=== PATIENT | female | born 1970 | race Caucasian/White ===

== ENCOUNTER 2019-10-25 15:49 | Emergency (ER) | payer OTHER, SELFPAY ==
[2019-10-25 16:08] VITALS: BP 106/65; PULSE 89; RESP 16; TEMP 37.2; O2SAT 98
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
== END 2019-10-25 16:49 | disposition home or self-care (01) ==
PROVIDERS: Emergency Provider Nurse Practitioner
DX: T24.232A Burn of second degree of left lower leg, initial encounter (principal); T31.0 Burns involving less than 10% of body surface; K58.9 Irritable bowel syndrome, unspecified; G62.9 Polyneuropathy, unspecified; F41.9 Anxiety disorder, unspecified; F17.210 Nicotine dependence, cigarettes, uncomplicated; J45.909 Unspecified asthma, uncomplicated; Z85.41 Personal history of malignant neoplasm of cervix uteri; Z85.42 Personal history of malignant neoplasm of other parts of uterus; Z85.44 Personal history of malignant neoplasm of other female genital organs; Z85.01 Personal history of malignant neoplasm of esophagus; X03.0XXA Exposure to flames in controlled fire, not in building or structure, initial encounter
CPT/HCPCS: 99213; G0463

== ENCOUNTER 2019-11-10 17:16 | Emergency (ER) | payer OTHER, SELFPAY ==
[2019-11-10 17:18] VITALS: BP 117/89; PULSE 72; RESP 18; TEMP 36.6; O2SAT 97
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
== END 2019-11-10 17:24 | disposition left against medical advice (07) ==
PROVIDERS: PCP Family Medicine
DX: M79.662 Pain in left lower leg (principal)
CPT/HCPCS: 99199

== ENCOUNTER 2019-12-27 17:24 | Emergency (ER) | payer OTHER, SELFPAY ==
--- NOTE | ~2019-12-27 | XR_ITS ---
XR chest 2V 12/27/2019 18:41 Indication: Shortness of breath. Cough. COPD. Procedure: 2 view chest Comparison: 09/19/2010 Findings: Heart size normal. No focal air space disease, pulmonary edema, pleural effusion or suspect ed pneumothorax. The lungs are hyperinflated which is consistent with, but not diagnostic of chronic obstructive pulmonary disease. Impression: 1: No acute cardiopulmonary disease. Reviewed, dictated and finalized at location A. Impression: 1: No acute cardiopulmonary disease.
[2019-12-27 17:45] VITALS: BP 112/71; PULSE 78; RESP 20; TEMP 36.6; O2SAT 96
--- NOTE | 2019-12-27 18:08 | ECG_ITS ---
Measurements Intervals [place] Rate: 68 P: 62 [place]: 186 QRS: 83 QRSD: 84 T: 61 QT: 389 QTc: 414 Interpretive Statements SINUS RHYTHM NORMAL ECG Electronically Signed On 12-28-2019 7:17:14 CDT by Eb Thomas D.O.
--- NOTE | 2019-12-27 18:31 | ED.CHESTPAIN ---
HPI - Chest Pain General Chief Complaint: Chest Pain Stated Complaint: Shortness of breath Time Seen by Provider: 12/27/19 18:17 Source: patient and RN notes reviewed Mode of arrival: ambulatory Limitations: no limitations History of Present Illness HPI narrative: Patient presents today complaining of 2-day history of productive cough and shortness of breath. States she has a cough and shortness of breath at baseline due to her COPD, but states her shortness of breath is worse than normal. States her cough is not worse than normal. States that yesterday she had some sternal chest pain without radiation. She is currently pain-free. She has been using her albuterol inhaler more frequently than normal. Denies use of any additional medications for current symptoms. Denies fever, nausea or vomiting, upper respiratory symptoms. States she possibly has been exposed to COVID-19 last week. MD complaint: other (Cough, shortness of breath) Related Data Home Medications Medication Instructions Recorded Confirmed acyclovir 400 mg PO DAILY 10/25/19 12/27/19 albuterol sulfate [ProAir HFA] 2 inh INHALATION Q4-6H 10/25/19 12/27/19 buspirone 10 mg DAILY 10/25/19 12/27/19 clonazepam 1 mg TID 10/25/19 12/27/19 dicyclomine 1 mg DAILY 10/25/19 12/27/19 ergocalciferol (vitamin D2) 1 mcg DAILY 10/25/19 12/27/19 fluticasone propionate [24 Hour See Rx Instructions .ROUTE .COMPLEX 10/25/19 12/27/19 Allergy Relief] montelukast 1 mg DAILY 10/25/19 12/27/19 pregabalin [Lyrica] 100 mg DAILY 10/25/19 12/27/19 umeclidinium [Incruse Ellipta] INHALATION 10/25/19 omeprazole 20 mg DAILY 12/27/19 12/27/19 pregabalin [Lyrica] 150 mg PO HS 12/27/19 12/27/19 Allergies Allergy/AdvReac Type Severity Reaction Status Date / Time ketorolac [From Toradol] Allergy Unknown Verified 12/27/19 18:08 levetiracetam [From Keppra] Allergy Unknown Verified 12/27/19 18:08 Penicillins Allergy Unknown Verified 12/27/19 18:08 tramadol Allergy Unknown Verified 12/27/19 18:08 cephalexin [From Keflex] AdvReac Unknown Verified 12/27/19 18:08 CEPHALEXIN MONOHYDRATE Allergy Mild Unknown Uncoded 12/27/19 18:08 Review of Systems Review of Systems: Narrative: CONSTITUTIONAL: Denies body aches, fever, chills, or sweats. EYES: Denies visual changes, redness, or discharge. ENT: Denies rhinorrhea, congestion, sore throat, or otalgia. CARDIOVASCULAR: Denies chest pain, palpitations, or edema. RESPIRATORY:+ Cough, shortness of breath GASTROINTESTINAL: Denies abdominal pain, nausea, vomiting, or diarrhea. GENITOURINARY: Denies dysuria or hematuria. SKIN: Denies rash, itching, or wounds. MUSCULOSKELETAL: Denies back pain, joint pain, or myalgia. NEUROLOGIC: Denies headache, numbness, tingling, or weakness. PSYCH: Denies depression or anxiety. [facility] Past Medical History Medical History (Updated 12/27/19 @ 18:53 by Vijaya Dudley, [facility], ) COPD (chronic obstructive pulmonary disease) Family History Family History (Updated 10/25/19 @ 16:33 by Codi House CNP) Other Depression Diabetes mellitus Heart disease Hypertension Personality disorder Social History Social History (Updated 10/25/19 @ 16:34 by Codi House CNP) Smoking packs per day: 0.5 Smoking cigarettes per day: 10.0 Smoking status: Current every day smoker Alcohol intake: current Gender identity (if verbalized by the patient): Female Comments At time of signature, I have reviewed and agree with nursing past medical, surgical, social and family history unless otherwise noted. Please see nursing chart for further information. There is no relevant family history pertinent to the presenting complaint Exam Narrative: Exam Narrative: GENERAL: Chronically ill-appearing, well-nourished, and in no acute distress. Strong odor of smoke. HEAD: Normocephalic, atraumatic. EYES: EOMI. No redness or drainage. Conjunctivae normal. ENT: Mucous membranes pink and moist. Nares clear. No rhin
== END 2019-12-27 19:13 | disposition home or self-care (01) ==
PROVIDERS: Emergency Provider Nurse Practitioner; PCP Family Medicine
DX: J44.1 Chronic obstructive pulmonary disease with (acute) exacerbation (principal); Z20.828 Contact with and (suspected) exposure to other viral communicable diseases; F17.210 Nicotine dependence, cigarettes, uncomplicated; F41.9 Anxiety disorder, unspecified; F32.9 Major depressive disorder, single episode, unspecified; G62.9 Polyneuropathy, unspecified; Z85.01 Personal history of malignant neoplasm of esophagus; Z85.43 Personal history of malignant neoplasm of ovary; Z85.41 Personal history of malignant neoplasm of cervix uteri; Z85.44 Personal history of malignant neoplasm of other female genital organs
CPT/HCPCS: 71046; 93005; 99213; G0463

== ENCOUNTER 2020-10-19 21:06 | Emergency (ER) | payer MEDICARE, MEDICAID, SELFPAY ==
--- NOTE | ~2020-10-19 | XR_ITS ---
XR chest 2V DATE: 10/19/2020 21:36 INDICATION: Shortness of breath. History of COPD, bronchitis. Smoker. TECHNIQUE: AP and lateral views COMPARISON: 12/27/2019 PA and lateral chest FINDINGS: Normal heart size. No hilar or mediastinal enlargement. Mild bilateral hyperinflation. No pulmonary infiltrate or consolidation, pleural effusion or pulmonar y vascular congestion or pneumothorax. Included skeletal structures are unremarkable. IMPRESSION: Mild bilateral hyperinflation; no active cardiac pulmonary disease Reviewed, dictated and finalized at location A.
[2020-10-19 21:15] VITALS: BP 125/79; PULSE 113; RESP 24; TEMP 36.7; O2SAT 86
--- NOTE | 2020-10-19 21:15 | ECG_ITS ---
Measurements Intervals [place] Rate: 101 P: 74 MN: 166 QRS: 91 QRSD: 86 T: 66 QT: 345 QTc: 448 Interpretive Statements SINUS TACHYCARDIA POSSIBLE LEFT ATRIAL ENLARGEMENT RIGHT AXIS DEVIATION BASELINE ARTIFACT- I, II, III, AVR, AVL, AVF, V1-V6 BORDERLINE ECG Electronically Signed On 10-20-2020 6:55:37 CDT by Eb Thomas D.O.
[2020-10-19 21:34] LABS: Basophils Absolute Auto 0.1 K/mm3 (0.0-0.1); Basophils Percent Auto 0.7 % (0.2-1.2); Eosinophils Absolute Auto 0.4 K/mm3 (0-0.3); Eosinophils Percent Auto 3.2 % (0-4.4); Hematocrit 43.7 % (37.0-47.0); Hemoglobin 14.1 g/dL (12.0-15.0); Immature Granulocyte Absolute 0.07 K/mm3 (0.00-0.031); Immature Granulocyte Percent A 0.6 % (0-0.5); Lymphocytes Absolute Auto 4.44 K/mm3 (0.9-3.2); Mean Corpuscular HGB Conc 32.3 g/dl (32-36); Mean Corpuscular Hemoglobin 29.5 pg (26-34); Mean Corpuscular Volume 91.4 fl (80-100); Mean Platelet Volume 9.7 fl (7.4-10.4); Monocytes Absolute Auto 1.2 K/mm3 (0.1-0.6); Monocytes Percent Auto 9.9 % (2.6-8.5); Neutrophils Absolute Auto 6.1 K/mm3 (1.3-6.7); Neutrophils Percent Auto 49.6 % (45.5-73.1); Platelet Count Result 308 k/mm3 (150-375); Red Blood Count 4.78 M/mm3 (4.2-5.4); Red Cell Distribution Width 15.4 % (11.5-14.5); White Blood Count 12.4 K/mm3 (4.5-10.0)
[2020-10-19 21:41] LABS: Anion Gap 7 mmol/L (8-16); Blood Urea Nitrogen 12 mg/dL (7-17); Calcium 8.7 mg/dL (8.4-10.2); Carbon Dioxide 29 mmol/L (22-30); Chloride 105 mmol/L (98-107); Estimated CRCL calculation 59 ml/min; Estimated Glomerular Filt Rate > 60; Glucose 113 mg/dL (65-105); Potassium 4.1 mmol/L (3.4-5.0); Sodium 141 mmol/L (137-145)
[2020-10-19] MEDS: IPRATROPIUM BR 0.02% INH SOLN 0.5 MG/2.5 ML VIAL INHALATION (21:55)
[2020-10-19] MEDS: ALBUTEROL SULFATE NEB 2.5 MG/0.5 ML INH 5 MG INHALATION (21:56)
[2020-10-19 22:02] VITALS: PULSE 91; RESP 23
[2020-10-19 22:07] LABS: Alveolar/Arterial O2 Gradient 63.3 mmHg; Base Excess ABG 1.4 mEq/l (+/-2.0); Device NASAL CANNULA; Fractional Inspired Oxygen 28 %; HCO3 ABG 27.9 mEq/l (22.0-26.0); Modified Allen's Test Pass; Oxygen Content ABG 18.2 %vol (16.0-22.0); Oxygen Saturation ABG 94.6 % (95.0-100.0); Oxyhemoglobin 87.2 % THb (90.0-100.0); PCO2 ABG 50.9 mmHg (35.0-45.0); PO2 ABG 76.3 mmHg (80.0-100.0); PO2 FiO2 Ratio Arterial Blood 2.73 %; Site Drawn LEFT RADIAL; Total Hemoglobin 14.8 g/dL (12.0-18.0); pH ABG 7.356 (7.350-7.450)
[2020-10-19 22:11] VITALS: PULSE 82; RESP 18
--- NOTE | 2020-10-19 23:00 | PC.NURSE ---
Pt ambulates without oxygen. Pulse ox lowest was 89%.Pt reports feeling fine . No CP or increased SOB. Pt talkative.
[2020-10-19] MEDS: methylPREDNISolone SOD SUCC 125 MG VIAL IV PUSH (23:02)
--- NOTE | 2020-10-19 23:15 | ED.GENADULT ---
HPI - General Adult General Chief complaint: Shortness of Breath/Dyspnea Stated complaint: copd,asthma,emph-cant breathe Time Seen by Provider: 10/19/20 21:31 History of Present Illness HPI narrative: Patient 50-year-old female presents the emergency department with chief complaint of shortness of breath. The patient has history of COPD reports that she has really bad pulmonary function test and is followed by pulmonology at [facility]. Patient states she does not like the same he is hospital so she came over here and states that today she has been more short of breath and has had a little bit of a cough. Related Data Home Medications Medication Instructions Recorded Confirmed acyclovir 400 mg PO DAILY 10/25/19 12/27/19 albuterol sulfate [ProAir HFA] 2 inh INHALATION Q4-6H 10/25/19 12/27/19 buspirone 10 mg DAILY 10/25/19 12/27/19 clonazepam 1 mg TID 10/25/19 12/27/19 dicyclomine 1 mg DAILY 10/25/19 12/27/19 ergocalciferol (vitamin D2) 1 mcg WEEKLY 10/25/19 12/27/19 fluticasone propionate [24 Hour See Rx Instructions .ROUTE .COMPLEX 10/25/19 12/27/19 Allergy Relief] montelukast 1 mg DAILY 10/25/19 12/27/19 pregabalin [Lyrica] 150 mg BID 10/25/19 12/27/19 umeclidinium [Incruse Ellipta] 2 inh INHALATION Q12-24H 10/25/19 12/27/19 omeprazole 20 mg DAILY 12/27/19 12/27/19 Aspir-81 81 mg PO DAILY 10/19/20 bupivacaine (PF) mg 3XW 10/19/20 cyclobenzaprine mg 10/19/20 heparin (porcine) SUBCUT 3XW 10/19/20 Allergies Allergy/AdvReac Type Severity Reaction Status Date / Time ketorolac [From Toradol] Allergy Unknown Verified 12/27/19 18:08 levetiracetam [From Keppra] Allergy Unknown Verified 12/27/19 18:08 Penicillins Allergy Unknown Verified 12/27/19 18:08 tramadol Allergy Unknown Verified 12/27/19 18:08 cephalexin [From Keflex] AdvReac Unknown Verified 12/27/19 18:08 CEPHALEXIN MONOHYDRATE Allergy Mild Unknown Uncoded 12/27/19 18:08 Review of Systems Review of Systems: Narrative: A 10 system review of systems was completed on the patient and is negative except for what is stated in the HPI. Nursing and ancillary documentation was reviewed. [facility] Past Medical History Medical History COPD (chronic obstructive pulmonary disease) Family History Family History Other Depression Diabetes mellitus Heart disease Hypertension Personality disorder Social History Social History Smoking packs per day: 0.5 Smoking cigarettes per day: 10.0 Smoking status: Current every day smoker Alcohol intake: current Gender identity (if verbalized by the patient): Female Sexual Orientation (if Verbalized by the Patient): Straight or Heterosexual Exam Narrative: Exam Narrative: GENERAL: Well-appearing, well-nourished, and in no acute distress. HEAD: Normocephalic, atraumatic. EYES: PERRLA and EOMI. ENT: Nares clear, no rhinorrhea or epistaxis. Mucous membranes moist. NECK: Supple. CHEST: Clear to auscultation. No respiratory distress. HEART: Regular rate and rhythm. No murmur heard. Normal peripheral pulses. ABDOMEN: Soft, nontender, nondistended, normal active bowel sounds. EXTREMITIES: Normal range of motion. No edema. SKIN: Warm, dry, no rash. NEURO: No focal deficits. Alert and oriented x3. PSYCH: Normal mood and affect. Course Course Emergency Course: Patient is feeling much better after receiving IV steroids chest x-ray shows no evidence of pneumonia. Given these findings the patient was ambulated and is feeling much better with ambulation had no significant shortness of breath her saturation would fluctuate between 91 and 89%. Vital Signs Vital signs: Vital Signs Temperature 36.7 C 10/19/20 21:15 Pulse Rate 113 H 10/19/20 21:15 Respiratory Rate 24 H 10/19/20 21:15 Blood Pressure 125/79 10/19/20 21:15
[2020-10-19 23:30] VITALS: BP 131/72; PULSE 81; RESP 20; O2SAT 94
== END 2020-10-19 23:30 | disposition home or self-care (01) ==
PROVIDERS: Emergency Medicine; Emergency Provider Emergency Medicine; PCP Family Medicine
DX: J44.1 Chronic obstructive pulmonary disease with (acute) exacerbation (principal); F17.210 Nicotine dependence, cigarettes, uncomplicated
CPT/HCPCS: 36415; 36600; 71046; 80048; 82805; 85025; 93005; 94640; 96374; 99284; J2930

== ENCOUNTER 2021-05-08 11:27 | Outpatient (CLI) | payer OTHER, SELFPAY ==
--- NOTE | ~2021-05-08 | MMUS_ITS ---
EXAMINATION: MM diagnostic otis BI w da, US breast RT limited HISTORY: Subareolar right breast pain and lump, nipple discharge TECHNIQUE: Additional 3-D tomosynthesis images of the breasts were performed and synthetic 2-D images were generated. CAD analysis was submitted and interpreted. High resolution limited right breast ult rasound was performed. COMPARISON: 02/13/2016 BREAST PARENCHYMAL COMPOSITION: There are scattered areas of fibroglandular density. FINDINGS: MAMMOGRAPHIC FINDINGS: There is no evidence of suspicious mass, calcification, or architectural distortion in either breast to suggest malignancy. There has been no suspicious interval change. There is subtle focal asymmetry in the subareolar aspect of the right breast compared to the left. ULTRASOUND: There appears to be a small subareolar fluid collection measuring up to 2.1 x 0.5 cm accounting for t he mammographic finding in question. IMPRESSION: 1. Small subareolar fluid collection, possible small abscess, likely accounting for the patient's cli nical symptoms. 2. Follow-up targeted ultrasound in four weeks after appropriate therapy is recommended. If persisten t, drainage/biopsy should be considered. BI-RADS category 4, suspicious findings. Reviewed, dictated and finalized at location A. EL ASSEMBLER IMPRESSION: 1. Small subareolar fluid collection, possible small abscess, likely accounting for the patient's clinical symptoms. 2. Follow-up targeted ultrasound in four weeks after appropriate therapy is rec ommended. If persistent, drainage/biopsy should be considered. BI-RADS category 4, suspicious findings.
== END 2021-05-08 11:28 | disposition home or self-care (01) ==
PROVIDERS: PCP Family Medicine; Visit Provider Physician Assistant
DX: N64.4 Mastodynia (principal); R92.8 Other abnormal and inconclusive findings on diagnostic imaging of breast
CPT/HCPCS: 76642; 77062; 77066; G0279

== ENCOUNTER 2021-05-18 19:46 | Emergency (ER) | payer OTHER, SELFPAY ==
--- NOTE | ~2021-05-18 | CT_ITS ---
EXAMINATION: CTA chest PE protocol DATE: 05/18/2021 23:18 INDICATION: Hemoptysis TECHNIQUE: Computed tomography angiography (CTA) of the chest was performed with 100 mL Omnipaque-350 intravenous contrast timed to evaluate the pulmonary arteries. Coronal maximum intensity projection 3D-reconstructions were created by the technologist. The dose-length product (DLP) was 268.79 mGy-cm. Automated exposure control and iterative reconstruction technique were employed. COMPARISON: None. FINDINGS: The pulmonary arteries are well-opacified. No pulmonary embolism is identified. There is mo derate emphysema. There is mild central bronchial wall thickening of the lower lobes as well as mild bilateral hilar lymphadenopathy. The heart size is normal. There is no pleural effusion or pneumothor ax. There is mild thoracic spondylosis. IMPRESSION: 1. No pulmonary embolus identified. 2. Mild central bronchial wall thickening of the lower lobes, likely infectious/inflammatory and mild bilateral hilar lymphadenopathy, likely reactive. 3. Moderate emphysema. Reviewed, dictated and finalized at location F. E PROCESSING ENGINEER IMPRESSION: 1. No pulmonary embolus identified. 2. Mild central bronchial wall thickening of the lower lobes, likely infectious /inflammatory and mild bilateral hilar lymphadenopathy, likely reactive. 3. Moderate emphysema.
[2021-05-18 19:53] VITALS: BP 124/78; PULSE 88; RESP 18; TEMP 36.2; O2SAT 95
--- NOTE | 2021-05-18 21:43 | ED.GENADULT ---
HPI - General Adult General Chief complaint: Unspecified Stated complaint: spitting up blood Time Seen by Provider: 05/18/21 21:19 Source: patient and RN notes reviewed Limitations: no limitations History of Present Illness HPI narrative: 50-year-old female presents to the emergency department for evaluation of hemoptysis. Patient states that she has been spitting up clots over the last 2 days. Patient states she has had bronchitis for approximately the last month. Patient was treated for the bronchitis a few weeks ago but states that her symptoms have persisted. Patient does have a history of COPD and emphysema. Patient also has history of frequent bronchitis. Patient is a smoker. Related Data Home Medications Medication Instructions Recorded Confirmed acyclovir 400 mg PO DAILY 10/25/19 12/27/19 albuterol sulfate [ProAir HFA] 2 inh INHALATION Q4-6H 10/25/19 12/27/19 buspirone 10 mg DAILY 10/25/19 12/27/19 clonazepam 1 mg TID 10/25/19 12/27/19 dicyclomine 1 mg DAILY 10/25/19 12/27/19 ergocalciferol (vitamin D2) 1 mcg WEEKLY 10/25/19 12/27/19 fluticasone propionate [24 Hour See Rx Instructions .ROUTE .COMPLEX 10/25/19 12/27/19 Allergy Relief] montelukast 1 mg DAILY 10/25/19 12/27/19 pregabalin [Lyrica] 150 mg BID 10/25/19 12/27/19 umeclidinium [Incruse Ellipta] 2 inh INHALATION Q12-24H 10/25/19 12/27/19 omeprazole 20 mg DAILY 12/27/19 12/27/19 Aspir-81 81 mg PO DAILY 10/19/20 bupivacaine (PF) mg 3XW 10/19/20 cyclobenzaprine mg 10/19/20 heparin (porcine) SUBCUT 3XW 10/19/20 Allergies Allergy/AdvReac Type Severity Reaction Status Date / Time ketorolac [From Toradol] Allergy Unknown Verified 05/18/21 20:02 levetiracetam [From Keppra] Allergy Unknown Verified 05/18/21 20:02 Penicillins Allergy Unknown Verified 05/18/21 20:02 tramadol Allergy Unknown Verified 05/18/21 20:02 cephalexin [From Keflex] AdvReac Unknown Verified 05/18/21 20:02 CEPHALEXIN MONOHYDRATE Allergy Mild Unknown Uncoded 12/27/19 18:08 Review of Systems Review of Systems: CONSTITUTIONAL: Denies fever, chills, or sweats. EYES: Denies visual changes, redness, or discharge. ENT: Denies rhinorrhea, congestion, sore throat, or otalgia. CARDIOVASCULAR: Denies chest pain, palpitations, or edema. RESPIRATORY: Does report cough and intermittent hemoptysis GASTROINTESTINAL: Denies abdominal pain, nausea, vomiting, or diarrhea. GENITOURINARY: Denies dysuria or hematuria. SKIN: Denies rash or itching. MUSCULOSKELETAL: Denies back pain, joint pain, or myalgia. NEUROLOGIC: Denies headache, numbness, or weakness. [facility] Past Medical History Medical History COPD (chronic obstructive pulmonary disease) Family History Family History Other Depression Diabetes mellitus Heart disease Hypertension Personality disorder Social History Social History Smoking packs per day: 0.5 Smoking cigarettes per day: 10.0 Smoking status: Current every day smoker Alcohol intake: current Gender identity (if verbalized by the patient): Female Sexual Orientation (if Verbalized by the Patient): Straight or Heterosexual Exam Narrative: APPEARANCE: Well appearing, no pain, no distress, well-nourished. HEAD: normocephalic, atraumatic. EYES: PERRLA/EOMI, conjunctivae clear. NOSE: Normal no drainage THROAT: Pharynx clear, no exudate. NECK: Supple. No adenopathy, no masses. RESPIRATORY: Airway patent, respirations nonlabored. Clear to auscultation bilaterally, no rales, rhonchi, wheezing. CARDIOVASCULAR: Regular rate and rhythm without murmurs rubs or gallops. ABDOMINAL: Soft, nontender, nondistended, normal bowel sounds MUSCULOSKELETAL: Moves all extremities. Strength/ROM intact, No edema, No calf tenderness. NEURO: Alert. Cranial nerves II through XII intact. SKIN: Warm, dry. Nor
[2021-05-18 22:45] LABS: Basophils Absolute Auto 0.1 K/mm3 (0.0-0.1); Basophils Percent Auto 0.6 % (0.2-1.2); Eosinophils Absolute Auto 0.1 K/mm3 (0-0.3); Eosinophils Percent Auto 1.3 % (0-4.4); Hematocrit 51.9 % (37.0-47.0); Hemoglobin 16.7 g/dL (12.0-15.0); Immature Granulocyte Absolute 0.02 K/mm3 (0.00-0.031); Immature Granulocyte Percent A 0.2 % (0-0.5); Lymphocytes Absolute Auto 3.78 K/mm3 (0.9-3.2); Lymphocytes Percent Auto 36.8 % (18.3-44.2); Mean Corpuscular HGB Conc 32.2 g/dl (32-36); Mean Corpuscular Hemoglobin 29.5 pg (26-34); Mean Corpuscular Volume 91.7 fl (80-100); Monocytes Absolute Auto 1.2 K/mm3 (0.1-0.6); Monocytes Percent Auto 11.9 % (2.6-8.5); Neutrophils Absolute Auto 5.1 K/mm3 (1.3-6.7); Neutrophils Percent Auto 49.2 % (45.5-73.1); Platelet Count Result 277 k/mm3 (150-375); Red Blood Count 5.66 M/mm3 (4.2-5.4); Red Cell Distribution Width 15.7 % (11.5-14.5); White Blood Count 10.3 K/mm3 (4.5-10.0)
[2021-05-18 22:50] LABS: Add Urine Microscopic? NO; Appearance Urine Clear (Clear); Bilirubin Urine Negative (Negative); Blood Urine Negative (Negative); Color Urine Yellow (Yellow); Glucose Urine UA Negative (Negative); Ketones Urine Negative (Negative); Leukocyte Esterase Ur Negative LEU/UL (Negative); Nitrate Urine Negative (Negative); Protein Urine Negative (Negative); Specific Grav Ur 1.027 (1.001-1.035); Urobilinogen Urine Negative mg/dL (<2.0)
[2021-05-18 22:57] LABS: Alanine Aminotransferase 20 U/L (4-35); Albumin Level 4.5 g/dL (3.5-5.1); Alkaline Phosphatase 97 U/L (38-126); Anion Gap 5 mmol/L (8-16); Aspartate Amino Transferase 28 U/L (14-36); Bilirubin,Total 0.2 mg/dL (0.2-1.3); Blood Urea Nitrogen 14 mg/dL (7-17); Calcium 8.8 mg/dL (8.4-10.2); Carbon Dioxide 34 mmol/L (22-30); Chloride 97 mmol/L (98-107); Estimated CRCL calculation 65 ml/min; Estimated Glomerular Filt Rate > 60; Glucose 98 mg/dL (65-110); Potassium 3.6 mmol/L (3.4-5.0); Sodium 136 mmol/L (137-145)
[2021-05-19] MEDS: predniSONE 20 MG TABLET 40 MG PO (00:57)
[2021-05-19] MEDS: AZITHROMYCIN 250 MG TABLET 500 MG PO (00:57)
[2021-05-19 18:18] LABS: SARS-CoV-2 RNA PCR Negative
== END 2021-05-19 01:10 | disposition home or self-care (01) ==
PROVIDERS: Emergency Provider Emergency Medicine; PCP Family Medicine
DX: R04.2 Hemoptysis (principal); Z20.822 Contact with and (suspected) exposure to COVID-19; J43.9 Emphysema, unspecified; F17.210 Nicotine dependence, cigarettes, uncomplicated
CPT/HCPCS: 36415; 71275; 80053; 81003; 81025; 85025; 99284; A9270; C9803; J7512; Q9967; U0003; U0005

== ENCOUNTER 2021-06-04 15:40 | Emergency (ER) | payer OTHER, SELFPAY ==
--- NOTE | ~2021-06-04 | XR_ITS ---
EXAMINATION: XR ribs LT 2V w CXR 2V INDICATION: Left lower rib pain after fall TECHNIQUE: PA and lateral views of the chest and 3 views of the left ribs were obtained. COMPARISON: 10/19/2020 FINDINGS: The lungs are free acute opacities. There is no pleural effusion or pneumothorax. The cardi omediastinal silhouette is normal. There is mild irregularity at the anterolateral aspects of the lef t seventh and eighth ribs. IMPRESSION: 1. Possible nondisplaced fractures of the anterolateral left seventh and eighth ribs. 2. No acute cardiopulmonary abnormality. Reviewed, dictated and finalized at location B. 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
[2021-06-04 15:52] VITALS: BP 104/73; PULSE 85; RESP 18; TEMP 36.6; O2SAT 93
[2021-06-04 15:53] VITALS: BP 104/73; PULSE 85; RESP 18; TEMP 36.6; O2SAT 93
--- NOTE | 2021-06-04 16:01 | ED.GENADULT ---
HPI - General Adult General Chief complaint: Unspecified Stated complaint: Rib Pain Time Seen by Provider: 06/04/21 16:07 Source: patient and RN notes reviewed Mode of arrival: ambulatory Limitations: no limitations History of Present Illness HPI narrative: 30-year-old female presents to the [facility] with complaints of left rib pain after tried picking her up with seizure. Pain with deep breathing. Has a history of dislocated ribs. Denies chest pain, abdominal pain. Has a history of seizures Related Data Home Medications Medication Instructions Recorded Confirmed acyclovir 400 mg PO DAILY 10/25/19 06/04/21 buspirone 10 mg DAILY 10/25/19 06/04/21 clonazepam 1 mg TID 10/25/19 06/04/21 dicyclomine 1 mg DAILY 10/25/19 06/04/21 ergocalciferol (vitamin D2) 1 mcg WEEKLY 10/25/19 06/04/21 fluticasone propionate [24 Hour See Rx Instructions .ROUTE .COMPLEX 10/25/19 06/04/21 Allergy Relief] montelukast 1 mg DAILY 10/25/19 06/04/21 pregabalin [Lyrica] 150 mg BID 10/25/19 06/04/21 umeclidinium [Incruse Ellipta] 2 inh INHALATION Q12-24H 10/25/19 06/04/21 omeprazole 20 mg DAILY 12/27/19 06/04/21 Aspir-81 81 mg PO DAILY 10/19/20 06/04/21 Allergies Allergy/AdvReac Type Severity Reaction Status Date / Time ketorolac [From Toradol] Allergy Unknown Verified 06/04/21 15:49 levetiracetam [From Keppra] Allergy Unknown Verified 06/04/21 15:49 Penicillins Allergy Unknown Verified 06/04/21 15:49 tramadol Allergy Unknown Verified 06/04/21 15:49 cephalexin [From Keflex] AdvReac Unknown Verified 06/04/21 15:49 CEPHALEXIN MONOHYDRATE Allergy Mild Unknown Uncoded 06/04/21 15:49 Review of Systems Review of Systems: All systems reviewed & are unremarkable except as noted in HPI and below Constitutional: Constitutional: Reports no additional constitutional complaints, Denies chills and Denies fever(s) Eyes: Eyes: Reports no additional eye complaints ENT: Reports system reviewed and no additional complaints, except as documented Cardiovascular: Cardiovascular: Reports no additional cardiovascular complaints and Denies chest pain Respiratory: Respiratory: Reports no additional respiratory complaints, Denies chest congestion, Denies cough, Denies dyspnea and Denies wheezing Gastrointestinal: Gastrointestinal: Reports no additional gastrointestinal complaints, Denies abdominal pain, Denies nausea and Denies vomiting Musculoskeletal: Musculoskeletal: Reports as per HPI Comments: Left lateral rib pain Integumentary/Breasts: Skin/Breast: Reports system reviewed and no additional complaints, except as docu Neurologic: Reports system reviewed and no additional complaints, except as documented Psychiatric: Psychiatric: Reports no additional psychiatric complaints Allergic/Immunologic: Allergic/Immunologic: Reports no additional allergic/immunologic complaints PMFSH Past Medical History Medical History (Updated 06/05/21 @ 18:49 by Gini Ding) COPD (chronic obstructive pulmonary disease) Depression Neuropathy PTSD (post-traumatic stress disorder) Seizures Family History Family History Other Depression Diabetes mellitus Heart disease Hypertension Personality disorder Social History Social History Smoking packs per day: 0.5 Smoking cigarettes per day: 10.0 Smoking status: Current every day smoker Alcohol intake: current Gender identity (if verbalized by the patient): Female Sexual Orientation (if Verbalized by the Patient): Straight or Heterosexual Comments At the time of my signature, I reviewed and agree with the nursing past medical, surgical, social, and family history. There is no relevant family history pertinent to the patient complaint. Exam Const: General: healthy appearing, no acute distress and alert Nutritional Appearance: well nourished Orientation/consciousness: patient oriented x3 Limitatio
== END 2021-06-04 17:20 | disposition home or self-care (01) ==
PROVIDERS: Emergency Provider Nurse Practitioner; PCP Family Medicine
DX: S22.32XA Fracture of one rib, left side, initial encounter for closed fracture (principal); X58.XXXA Exposure to other specified factors, initial encounter; J44.9 Chronic obstructive pulmonary disease, unspecified; G40.909 Epilepsy, unspecified, not intractable, without status epilepticus; F32.9 Major depressive disorder, single episode, unspecified; G62.9 Polyneuropathy, unspecified; F17.210 Nicotine dependence, cigarettes, uncomplicated
CPT/HCPCS: 71046; 71100; 99213; G0463

== ENCOUNTER 2021-07-04 16:17 | Emergency (ER) | payer OTHER, SELFPAY ==
[2021-07-04 16:28] VITALS: BP 109/73; PULSE 71; RESP 16; TEMP 36.2; O2SAT 100
--- NOTE | 2021-07-04 16:33 | ED.GIBLEED ---
HPI - GI Bleed General Chief complaint: GI Bleed Stated complaint: blood in stool Time Seen by Provider: 07/04/21 16:34 Source: patient Mode of arrival: ambulatory Limitations: no limitations History of Present Illness HPI Narrative: Naa Mims is a 50-year-old female with a PMH of HSV, anxiety, GERD, chronic pain, COPD, Covid pneumonia, who was just released 3 days ago from [facility] facility and is on heparin for anticoagulation. She comes to [facility] with pictures of large blood clot that she passed rectally twice today. Plan will be referred to acute care facility Related Data Home Medications Medication Instructions Recorded Confirmed acyclovir 400 mg PO DAILY 10/25/19 07/04/21 buspirone 10 mg DAILY 10/25/19 07/04/21 clonazepam 1 mg TID 10/25/19 07/04/21 dicyclomine 1 mg DAILY 10/25/19 07/04/21 ergocalciferol (vitamin D2) 1 mcg WEEKLY 10/25/19 07/04/21 fluticasone propionate [24 Hour See Rx Instructions .ROUTE .COMPLEX 10/25/19 07/04/21 Allergy Relief] montelukast 1 mg DAILY 10/25/19 07/04/21 pregabalin [Lyrica] 150 mg BID 10/25/19 07/04/21 umeclidinium [Incruse Ellipta] 2 inh INHALATION Q12-24H 10/25/19 07/04/21 omeprazole 20 mg DAILY 12/27/19 07/04/21 Aspir-81 81 mg PO DAILY 10/19/20 07/04/21 Allergies Allergy/AdvReac Type Severity Reaction Status Date / Time ketorolac [From Toradol] Allergy Unknown Verified 07/04/21 16:21 levetiracetam [From Keppra] Allergy Unknown Verified 07/04/21 16:21 Penicillins Allergy Unknown Verified 07/04/21 16:21 tramadol Allergy Unknown Verified 07/04/21 16:21 cephalexin [From Keflex] AdvReac Unknown Verified 07/04/21 16:21 CEPHALEXIN MONOHYDRATE Allergy Mild Unknown Uncoded 07/04/21 16:21 Review of Systems Review of Systems: CONSTITUTIONAL: Denies fever, chills, sweats. EYES: Denies visual changes, redness, discharge. ENT: Denies rhinorrhea, congestion, sore throat, otalgia. CARDIOVASCULAR: Denies chest pain, palpitations, edema. RESPIRATORY: Denies dyspnea, wheezing, cough GASTROINTESTINAL: Denies abdominal pain, nausea, vomiting, diarrhea. Possible GI bleed GENITOURINARY: Denies dysuria, hematuria, abnormal discharge SKIN: Denies rash or itching. NEUROLOGIC: Denies numbness, or focal weakness. PSYCHIATRIC: Denies anxiety or depression. [facility] Past Medical History Medical History COPD (chronic obstructive pulmonary disease) Depression Neuropathy Pneumonia due to COVID-19 virus PTSD (post-traumatic stress disorder) Seizures Family History Family History Other Depression Diabetes mellitus Heart disease Hypertension Personality disorder Social History Social History Smoking packs per day: 0.5 Smoking cigarettes per day: 10.0 Smoking status: Current every day smoker Alcohol intake: current Gender identity (if verbalized by the patient): Female Sexual Orientation (if Verbalized by the Patient): Straight or Heterosexual Comments At time of signature, I agree with nursing past medical, surgical, social and family history. There is no relevant family history pertinent to the presenting complaint. Exam Narrative: GENERAL: This is a well-nourished, well-developed patient, in mild distress. HEAD: normocephalic, atraumatic. EYES: Sclera clear/white. Vision is grossly intact. EARS: External ears normal, on. Hearing grossly intact. NOSE: External nose normal without nasal discharge, nares without redness, no rhinorrhea. Nasal cannula in place, 3 L O2 THROAT: Mucous membranes moist, NECK: Neck supple, non-tender CARDIOVASCULAR: Regular rate and rhythm without murmurs, gallops, or rubs. RESPIRATORY: Clear to auscultation. Breath sounds equal bilaterally. No wheezes, rales, or rhonchi. GASTROINTESTINAL: Abdomen soft, abdominal pain on left side SKIN: warm, intact with no suspicious
== END 2021-07-04 16:50 | disposition short-term general hospital (02) ==
PROVIDERS: Emergency Provider Nurse Practitioner
DX: K62.5 Hemorrhage of anus and rectum (principal); F17.210 Nicotine dependence, cigarettes, uncomplicated; J44.9 Chronic obstructive pulmonary disease, unspecified; F32.A Depression, unspecified; G62.9 Polyneuropathy, unspecified; F41.9 Anxiety disorder, unspecified; Z86.16 Personal history of COVID-19; Z79.01 Long term (current) use of anticoagulants
CPT/HCPCS: 99211; 99212; G0463

== ENCOUNTER 2021-07-04 17:18 | Emergency (ER) | payer OTHER, SELFPAY ==
--- NOTE | ~2021-07-04 | CT_ITS ---
EXAMINATION: CT abdomen pelvis w con DATE: 07/04/2021 18:27 INDICATION: Heterogeneously TECHNIQUE: Computed tomography (CT) of the abdomen and pelvis was performed with 100 cc Omnipaque 350 intravenous contrast. The dose-length product was 416.94 mGy-cm. Automated exposure control and iter ative reconstruction technique were employed. COMPARISON: None. FINDINGS: Lung bases are unremarkable. Heart size normal. No significant pleural or pericardial effus ion. No significant vascular abnormality. No lymphadenopathy. The liver, spleen, pancreas, adrenal glands and kidneys are unremarkable. No free air or free fluid. Bladder is unremarkable. No abnormal pelvic masses or fluid collections. IMPRESSION: 1. No acute abdominal abnormality. Reviewed, dictated and finalized at location A. 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
[2021-07-04 17:22] VITALS: BP 114/82; PULSE 78; RESP 18; TEMP 37.2; O2SAT 99
--- NOTE | 2021-07-04 17:36 | ED.GIBLEED ---
HPI - GI Bleed General Chief complaint: GI Bleed Stated complaint: RECTAL BLEEDING Time Seen by Provider: 07/04/21 17:28 History of Present Illness HPI Narrative: 50-year-old female presents to the emergency room with acute onset of left lower quadrant pain accompanied with a rectal bleed. Patient states that she was recently hospitalized for Covid pneumonia, was given daily heparin shots. Also reports no bowel movement in the 5 days of her hospitalization. Patient states that she has been straining since hospital discharge. Reports having 2 small, strained, hard bowel movements since hospitalization. Notes one of the bowel movements had bright red blood on the stool, in the toilet water, and on the toilet paper. Related Data Home Medications Medication Instructions Recorded Confirmed acyclovir 400 mg PO DAILY 10/25/19 07/04/21 buspirone 10 mg DAILY 10/25/19 07/04/21 clonazepam 1 mg TID 10/25/19 07/04/21 dicyclomine 1 mg DAILY 10/25/19 07/04/21 ergocalciferol (vitamin D2) 1 mcg WEEKLY 10/25/19 07/04/21 fluticasone propionate [24 Hour See Rx Instructions .ROUTE .COMPLEX 10/25/19 07/04/21 Allergy Relief] montelukast 1 mg DAILY 10/25/19 07/04/21 pregabalin [Lyrica] 150 mg BID 10/25/19 07/04/21 umeclidinium [Incruse Ellipta] 2 inh INHALATION Q12-24H 10/25/19 07/04/21 omeprazole 20 mg DAILY 12/27/19 07/04/21 Aspir-81 81 mg PO DAILY 10/19/20 07/04/21 Allergies Allergy/AdvReac Type Severity Reaction Status Date / Time cephalexin [From Keflex] Allergy Unknown Verified 07/04/21 17:38 ketorolac [From Toradol] Allergy Unknown Verified 07/04/21 16:21 levetiracetam [From Keppra] Allergy Unknown Verified 07/04/21 16:21 Penicillins Allergy Unknown Verified 07/04/21 16:21 tramadol Allergy Unknown Verified 07/04/21 16:21 Review of Systems Review of Systems: CONSTITUTIONAL: Denies fever, chills, or sweats. EYES: Denies visual changes, redness, or discharge. ENT: Denies rhinorrhea, congestion, sore throat, or otalgia. CARDIOVASCULAR: Denies chest pain, palpitations, or edema. RESPIRATORY: Reports dyspnea. GASTROINTESTINAL: Reports abdominal pain, and constipation. Denies nausea, vomiting, or diarrhea. GENITOURINARY: Denies dysuria or hematuria. SKIN: Denies rash or itching. MUSCULOSKELETAL: Denies back pain, joint pain, or myalgia. NEUROLOGIC: Denies headache, numbness, dizziness, or weakness. PSYCHIATRIC: Denies anxiety or depression. [facility] Past Medical History Medical History COPD (chronic obstructive pulmonary disease) Depression Neuropathy Pneumonia due to COVID-19 virus PTSD (post-traumatic stress disorder) Seizures Family History Family History Other Depression Diabetes mellitus Heart disease Hypertension Personality disorder Social History Social History Smoking packs per day: 0.5 Smoking cigarettes per day: 10.0 Smoking status: Current every day smoker Alcohol intake: current Gender identity (if verbalized by the patient): Female Sexual Orientation (if Verbalized by the Patient): Straight or Heterosexual Exam Narrative: GENERAL: Well-appearing, well-nourished, and in no acute distress. HEAD: Normocephalic, atraumatic. EYES: PERRLA and EOMI. ENT: Nares clear, no rhinorrhea or epistaxis. Mucous membranes moist. NECK: Supple. No adenopathy or masses. No carotid bruits or JVD CHEST: Clear to auscultation. No respiratory distress. No wheezes rales or rhonchi. Nasal cannula 2 L HEART: Regular rate and rhythm. No murmur heard. Normal peripheral pulses. ABDOMEN: Soft, left lower quadrant tenderness, nondistended, hypoactive active bowel sounds. External hemorrhoids EXTREMITIES: Normal range of motion. No edema. SKIN: Warm, dry, no rash. NEURO: No focal deficits. Alert and oriented x3. PSYCH: Normal mood and affect. [place]ours
[2021-07-04 17:49] VITALS: BP 106/83; PULSE 67; RESP 18; O2SAT 100
[2021-07-04 17:57] LABS: Basophils Percent Auto 0.3 % (0.2-1.2); Eosinophils Percent Auto 0.1 % (0-4.4); Hematocrit 38.2 % (37.0-47.0); Hemoglobin 12.6 g/dL (12.0-15.0); Immature Granulocyte Absolute 0.29 K/mm3 (0.00-0.031); Immature Granulocyte Percent A 2.3 % (0-0.5); Lymphocytes Absolute Auto 2.27 K/mm3 (0.9-3.2); Mean Corpuscular Hemoglobin 29.9 pg (26-34); Mean Corpuscular Volume 90.5 fl (80-100); Monocytes Absolute Auto 0.4 K/mm3 (0.1-0.6); Monocytes Percent Auto 3.5 % (2.6-8.5); Neutrophils Absolute Auto 9.6 K/mm3 (1.3-6.7); Neutrophils Percent Auto 75.8 % (45.5-73.1); Platelet Count Result 335 k/mm3 (150-375); Red Blood Count 4.22 M/mm3 (4.2-5.4); Red Cell Distribution Width 17.2 % (11.5-14.5); White Blood Count 12.6 K/mm3 (4.5-10.0)
[2021-07-04] MEDS: SODIUM CHLORIDE 0.9% IV 500 ML IV CONT (17:58)
[2021-07-04 18:08] LABS: Partial Thromboplastin Time 24.5 SECONDS (22.3-36.8); Prothrombin Time 12.4 Seconds (11.1-14.7)
[2021-07-04 18:10] LABS: Alanine Aminotransferase 43 U/L (4-35); Albumin Level 3.7 g/dL (3.5-5.1); Alkaline Phosphatase 53 U/L (38-126); Anion Gap 4 mmol/L (8-16); Aspartate Amino Transferase 40 U/L (14-36); Bilirubin,Total 0.4 mg/dL (0.2-1.3); Blood Urea Nitrogen 14 mg/dL (7-17); Calcium 8.1 mg/dL (8.4-10.2); Carbon Dioxide 27 mmol/L (22-30); Chloride 103 mmol/L (98-107); Estimated CRCL calculation 83 ml/min; Estimated Glomerular Filt Rate > 60; Glucose 139 mg/dL (65-110); Potassium 4.6 mmol/L (3.4-5.0); Sodium 134 mmol/L (137-145)
[2021-07-04 18:43] VITALS: BP 112/74; PULSE 68; RESP 18; O2SAT 100
--- NOTE | 2021-07-04 18:43 | PC.NURSE ---
assisted provider with rectal exam.
[2021-07-04 18:47] VITALS: BP 102/78; PULSE 78; RESP 18; O2SAT 98
== END 2021-07-04 18:59 | disposition home or self-care (01) ==
PROVIDERS: Emergency Provider Nurse Practitioner Family; PCP Family Medicine
DX: K64.9 Unspecified hemorrhoids (principal); K59.00 Constipation, unspecified; J44.9 Chronic obstructive pulmonary disease, unspecified; G62.9 Polyneuropathy, unspecified; F32.A Depression, unspecified; F43.10 Post-traumatic stress disorder, unspecified; Z86.16 Personal history of COVID-19; Z87.01 Personal history of pneumonia (recurrent); F17.210 Nicotine dependence, cigarettes, uncomplicated
CPT/HCPCS: 36415; 74177; 80053; 85025; 85610; 85730; 96360; 99284; J7030; J7040; Q9967

== ENCOUNTER 2021-08-08 21:50 | Emergency (ER) | payer OTHER, SELFPAY ==
--- NOTE | ~2021-08-08 | XR_ITS ---
EXAMINATION: XR hip RT 2V w AP pelvis DATE: 08/09/2021 01:34 INDICATION: Fall. TECHNIQUE: An anteroposterior view of the pelvis and 2 views of right hip were obtained. COMPARISON: None. FINDINGS: Bone alignment is normal. No fracture. The hip joint spaces are normal. There is contrast i n the bladder. IMPRESSION: 1. No fracture. Reviewed, dictated and finalized at location A. IMPRESSION: 1. No fracture.
--- NOTE | ~2021-08-08 | CT_ITS ---
EXAMINATION: CTA chest PE abdomen pel, CT lumbar spine wo con DATE: 08/09/2021 01:16 INDICATION: Chest pain. Low back pain post fall. TECHNIQUE: 1. Computed tomography (CT) lumbar spine was performed without intravenous contrast. Sagittal and cor onal reconstructions were performed. Automated exposure control and iterative reconstruction techniqu e were employed. The dose-length product was 894.81 mGy-cm. 2. Computed tomography (CT) pulmonary angiogram of the chest was performed with 100 mL Omnipaque-350 intravenous contrast. Additional 3D reconstructions utilizing coronal maximum intensity projection (M IP) were performed. CT of the abdomen and pelvis was performed with intravenous contrast utilizing th e same contrast bolus following a short delay. The dose-length product was 978.72 mGy-cm. COMPARISON: CT abdomen and pelvis dated 07/04/[address] chest dated 05/18/2021 FINDINGS: Chest: Excellent contrast opacification of the pulmonary arteries. There is mild streak artifact from dense contrast in the superior vena cava and right atrium. No significant motion artifact yielding diagnost ic quality study which demonstrates no pulmonary embolism. Mild emphysema. No pneumonia, pulmonary ed porsche, pleural effusion or pneumothorax. Heart size is normal. No pericardial effusion. Thoracic aorta is normal in caliber with no dissection. No pathologically enlarged thoracic lymphadenopathy. Chronic appearing T9 superior endplate compression fracture with 20% central vertebral body height loss. Abdomen/pelvis: Liver, gallbladder, spleen, pancreas, bilateral adrenal glands and kidneys are normal. Bowels are nor mal with no obstruction. Bladder is normal. The uterus is not identified and has likely been surgical ly resected. No free intraperitoneal gas or fluid. No pathologically enlarged abdominal or pelvic lym phadenopathy. A few small dense sclerotic bone islands in the pelvis. Lumbar spine: 2 mm retrolisthesis L5 on S1. Chronic appearing mild superior endplate compression fracture at L5 wit h left central vertebral body height loss to 20%. Minimal likely physiologic anterior wedging at T11 and T12. Remaining lumbar vertebral body heights are normal. No acute fracture. Mild disc height loss a small amount of vacuum phenomena at L5-S1. There are disc bulges at L1-L2 through L3-L4 as well as at L5-S1 resulting in mild central canal stenosis at each of these levels. Disc bulge and likely sup erimposed disc extrusion at L4-L5 with disc material extending a few millimeter caudal to the level o f the superior endplate of L4 which results in mild to moderate central canal stenosis at this level. Multilevel mild bilateral lumbar facet osteoarthritis. There is mild neural foraminal stenosis bilat erally at L2-L3 and L3-L4, mild to moderate neural foraminal stenosis bilaterally at L4-L5 and modera te bilateral neural foraminal stenosis at L5-S1. IMPRESSION: 1. No pulmonary embolism or other acute cardiopulmonary disease. 2. No acute intra-abdominal/pelvic process. 3. Chronic appearing mild compression fractures at T9 and and L5 and mild lumbar spondylosis. No acut e osseous abnormality. 4. Mild emphysema. Reviewed, dictated and finalized at location B. IMPRESSION: 1. No pulmonary embolism or other acute cardiopulmonary disease. 2. No acute intra-abdominal/pelvic process. 3. Chronic appearing mild compression fractures at T9 and and L5 and mild lumba r spondylosis. No acute osseous abnormality. 4. Mild emphysema.
--- NOTE | ~2021-08-08 | CT_ITS ---
EXAMINATION: CT brain wo con DATE: 08/09/2021 01:15 INDICATION: Seizure. Fall. TECHNIQUE: Computed tomography (CT) of the head was performed without intravenous contrast. The mA wa s adjusted according to patient size. Iterative reconstruction technique was employed. The dose-lengt h product was 605.33 mGy-cm. COMPARISON: Head CT 01/18/2011 FINDINGS: There is no intracranial hemorrhage, acute infarction, or abnormal intracranial mass lesion . The ventricles are normal in size. There are bilateral optic nerve drusen. There is mild mucosal th ickening in the paranasal sinuses. There is a small right mastoid effusion. IMPRESSION: 1. Normal brain. Reviewed, dictated and finalized at location A. IMPRESSION: 1. Normal brain.
--- NOTE | ~2021-08-08 | XR_ITS ---
EXAMINATION: XR chest 2V Exam Date/Time: 08/08/2021 22:37 CDT CLINICAL HISTORY: chest pain Comparison: 06/04/2021 RESULT: Lines, tubes, and devices: None. Lungs and pleura: Clear. Cardiomediastinal silhouette: Stable cardiomediastinal silhouette. Other: No acute osseous or upper abdominal finding. IMPRESSION: No acute cardiopulmonary process. Reviewed, dictated and finalized at location K.
[2021-08-08 21:52] VITALS: PULSE 99; RESP 20; TEMP 36.2; O2SAT 100
--- NOTE | 2021-08-08 22:06 | ECG_ITS ---
Measurements Intervals [place] Rate: 83 P: 60 HI: 158 QRS: 75 QRSD: 79 T: 0 QT: 370 QTc: 436 Interpretive Statements SINUS RHYTHM NONSPECIFIC T-WAVE ABNORMALITY COMPARED TO ECG 10/19/2020 21:21:59 THE PATIENT IS NO LONGER TACHYCARDIC Electronically Signed On 08-09-2021 18:49:47 CDT by Nubia Dobbs M.D.
--- NOTE | 2021-08-08 22:14 | PC.NURSE ---
Upon assessment pt. reports she is having chest pain as well. pt. reports cp new onset. cp has been going on for approx. 4 hours. pt. pain able to be reproduced. pt. reports also having a sz 08/07/21 states she believes she hit her head. pt. reports hx. of sz.
[2021-08-08 22:16] VITALS: BP 114/91; PULSE 97; RESP 14; O2SAT 99
--- NOTE | 2021-08-08 22:31 | ED.GENADULT ---
HPI - General Adult General Chief complaint: Back Pain/Injury Stated complaint: lower back pain radiating down legs Time Seen by Provider: 08/08/21 22:06 Source: patient, RN notes reviewed and old records reviewed Mode of arrival: ambulatory Limitations: no limitations History of Present Illness HPI narrative: This is a 51 year old female smoker with history of COPD, chronic oxygen dependence s/p COVID pneumonia who presents for evaluation of chest pain and lower back pain. Patient states she has been lifting a 40 pound dog, and she has been having bilateral back pain for 3 days. Her pain is worse bending, movement and breathing. She also states her pain radiates to her buttock. She took ibuprofen for her pain without relief. She denies nausea, vomiting or fever. She also complains of left sternal chest pain. This pain has been present for 4 hours. This pain is worse with breathing. She has a dry cough. She was diagnosed with COVID pneumonia 2 months ago, and she has been on 4 L NC since her hospitalization. Related Data Home Medications Medication Instructions Recorded Confirmed acyclovir 400 mg PO DAILY 10/25/19 07/04/21 buspirone 10 mg DAILY 10/25/19 07/04/21 clonazepam 1 mg TID 10/25/19 07/04/21 dicyclomine 1 mg DAILY 10/25/19 07/04/21 ergocalciferol (vitamin D2) 1 mcg WEEKLY 10/25/19 07/04/21 fluticasone propionate [24 Hour See Rx Instructions .ROUTE .COMPLEX 10/25/19 07/04/21 Allergy Relief] montelukast 1 mg DAILY 10/25/19 07/04/21 pregabalin [Lyrica] 150 mg BID 10/25/19 07/04/21 umeclidinium [Incruse Ellipta] 2 inh INHALATION Q12-24H 10/25/19 07/04/21 omeprazole 20 mg DAILY 12/27/19 07/04/21 Aspir-81 81 mg PO DAILY 10/19/20 07/04/21 Allergies Allergy/AdvReac Type Severity Reaction Status Date / Time cephalexin [From Keflex] Allergy Unknown Verified 08/08/21 22:04 ketorolac [From Toradol] Allergy Unknown Verified 08/08/21 22:04 levetiracetam [From Keppra] Allergy Unknown Verified 08/08/21 22:04 Penicillins Allergy Unknown Verified 08/08/21 22:04 tramadol Allergy Unknown Verified 08/08/21 22:04 Review of Systems Review of Systems: All systems reviewed & are unremarkable except as noted in HPI and below Constitutional: Constitutional: Denies chills and Denies fever(s) Cardiovascular: Cardiovascular: Reports chest pain and Denies radiating jaw, neck or arm pain Respiratory: Respiratory: Reports cough, Reports dyspnea and Reports wheezing Gastrointestinal: Gastrointestinal: Denies abdominal pain, Denies diarrhea, Denies nausea and Denies vomiting Musculoskeletal: Musculoskeletal: Reports back pain Neurologic: Reports numbness (peripheral neuropathy) Psychiatric: Psychiatric: Reports anxiety [facility] Past Medical History Medical History (Updated 08/09/21 @ 02:35 by Ashwini Stewart MD) COPD (chronic obstructive pulmonary disease) Depression Neuropathy Pneumonia due to COVID-19 virus PTSD (post-traumatic stress disorder) Seizures Surgical History Surgical History (Updated 08/09/21 @ 02:18 by Ashwini Stewart MD) History of hysterectomy Family History Family History Other Depression Diabetes mellitus Heart disease Hypertension Personality disorder Social History Social History Smoking packs per day: 0.5 Smoking cigarettes per day: 10.0 Smoking status: Current every day smoker Alcohol intake: current Gender identity (if verbalized by the patient): Female Sexual Orientation (if Verbalized by the Patient): Straight or Heterosexual Exam Const: General: no acute distress and alert Nutritional Appearance: obese Orientation/consciousness: patient oriented x3 Eyes: EOM: EOMs intact bilaterally Chest: Chest palpation & inspection: normal inspection of the chest Resp: Effort & Inspection: normal respiratory effort Auscultation: wheezes expirato
[2021-08-08 22:41] LABS: Basophils Absolute Auto 0.1 K/mm3 (0.0-0.1); Basophils Percent Auto 0.7 % (0.2-1.2); Eosinophils Absolute Auto 0.1 K/mm3 (0-0.3); Hematocrit 45.6 % (37.0-47.0); Hemoglobin 14.5 g/dL (12.0-15.0); Immature Granulocyte Absolute 0.05 K/mm3 (0.00-0.031); Immature Granulocyte Percent A 0.4 % (0-0.5); Lymphocytes Absolute Auto 4.79 K/mm3 (0.9-3.2); Mean Corpuscular HGB Conc 31.8 g/dl (32-36); Mean Corpuscular Hemoglobin 30.2 pg (26-34); Mean Platelet Volume 9.7 fl (7.4-10.4); Monocytes Absolute Auto 1.3 K/mm3 (0.1-0.6); Neutrophils Absolute Auto 6.3 K/mm3 (1.3-6.7); Neutrophils Percent Auto 49.9 % (45.5-73.1); Platelet Count Result 308 k/mm3 (150-375); Red Cell Distribution Width 17.4 % (11.5-14.5); White Blood Count 12.6 K/mm3 (4.5-10.0)
[2021-08-08 22:50] LABS: Prothrombin Time 12.5 Seconds (11.1-14.7)
[2021-08-08 22:51] LABS: Partial Thromboplastin Time 34.6 SECONDS (22.3-36.8)
[2021-08-08 22:58] LABS: Alanine Aminotransferase 16 U/L (4-35); Albumin Level 4.2 g/dL (3.5-5.1); Alkaline Phosphatase 80 U/L (38-126); Anion Gap 3 mmol/L (8-16); Aspartate Amino Transferase 34 U/L (14-36); Bilirubin,Total 0.4 mg/dL (0.2-1.3); Blood Urea Nitrogen 11 mg/dL (7-17); Calcium 8.4 mg/dL (8.4-10.2); Carbon Dioxide 33 mmol/L (22-30); Chloride 102 mmol/L (98-107); Estimated Glomerular Filt Rate > 60; Glucose 96 mg/dL (65-110); Lipase 68 U/L (23-300); Potassium 4.1 mmol/L (3.4-5.0); Sodium 138 mmol/L (137-145)
[2021-08-08 23:06] LABS: Troponin I < 0.012 ng/mL (0.000-0.034)
[2021-08-08] MEDS: ALBUTEROL SULFATE NEB 2.5 MG/0.5 ML INH 5 MG INHALATION (23:08)
[2021-08-08] MEDS: IPRATROPIUM BR 0.02% INH SOLN 0.5 MG/2.5 ML VIAL INHALATION (23:08)
[2021-08-08 23:09] VITALS: PULSE 79; RESP 18
[2021-08-08 23:16] LABS: Alveolar/Arterial O2 Gradient 68.6 mmHg; Base Excess ABG 3.4 mEq/l (+/-2.0); Carboxyhemoglobin 7.7 % THb (0-2.0); Fractional Inspired Oxygen 36 %; HCO3 ABG 30.3 mEq/l (22.0-26.0); Oxygen Content ABG 18.8 %vol (16.0-22.0); Oxygen Saturation ABG 98.3 % (95.0-100.0); Oxyhemoglobin 90.2 % THb (90.0-100.0); PCO2 ABG 55.4 mmHg (35.0-45.0); PO2 ABG 123.8 mmHg (80.0-100.0); PO2 FiO2 Ratio Arterial Blood 3.44 %; Reduced Hemoglobin 2.1 %THb (0-5.0); Total Hemoglobin 14.7 g/dL (12.0-18.0); pH ABG 7.356 (7.350-7.450)
[2021-08-08] MEDS: HYDROmorphone HCL INJ (*CRX) 1 MG/ML SYR 0.5 MG IV PUSH (23:17)
[2021-08-08] MEDS: ONDANSETRON INJ 4 MG/2 ML VIAL IV PUSH (23:17)
[2021-08-08 23:18] LABS: Device NASAL CANNULA; Modified Allen's Test Pass; Site Drawn RIGHT BRACHIAL
[2021-08-08 23:20] VITALS: BP 113/80; PULSE 83; RESP 16; O2SAT 100
[2021-08-08] MEDS: LORazepam INJ (*CRX) 2 MG/ML VIAL (23:34)
--- NOTE | 2021-08-08 23:42 | PC.NURSE ---
2310 pt. taken to bathroom to provide UA. manufacturing quality technician next to door waiting for pt. 2314 manufacturing quality technician called out for RN. 2316 pt found on floor having a tonic clonic sz. ERP in attendance 2329 VORB 2mg Ativan given IVP. 2331 pt. sz. subsided pt, able to communicate name. 2334. pt. alert and orientedx4 at this time.
[2021-08-09] VITALS: BP 120/74; PULSE 90; RESP 14; O2SAT 97
[2021-08-09 00:19] LABS: Add Urine Microscopic? NO; Appearance Urine Clear (Clear); Bilirubin Urine Negative (Negative); Blood Urine Negative (Negative); Color Urine Yellow (Yellow); Glucose Urine UA Negative (Negative); Ketones Urine Negative (Negative); Leukocyte Esterase Ur Negative LEU/UL (Negative); Nitrate Urine Negative (Negative); Protein Urine Negative (Negative); Specific Grav Ur 1.016 (1.001-1.035); Urobilinogen Urine Negative mg/dL (<2.0)
[2021-08-09] MEDS: predniSONE 20 MG TABLET 60 MG PO (00:29)
[2021-08-09 01:10] VITALS: BP 119/84; PULSE 74; RESP 19; O2SAT 96
[2021-08-09 01:51] LABS: Troponin I < 0.012 ng/mL (0.000-0.034)
[2021-08-09 02:00] VITALS: BP 111/63; PULSE 74; RESP 17; O2SAT 99
== END 2021-08-09 02:05 | disposition home or self-care (01) ==
PROVIDERS: Emergency Provider General Practice; PCP Family Medicine
DX: M48.54XA Collapsed vertebra, not elsewhere classified, thoracic region, initial encounter for fracture (principal); J44.1 Chronic obstructive pulmonary disease with (acute) exacerbation; G40.909 Epilepsy, unspecified, not intractable, without status epilepticus; Z86.16 Personal history of COVID-19
CPT/HCPCS: 36415; 36600; 70450; 71046; 71275; 72131; 73502; 74177; 80053; 81003; 82375; 82805; 83050; 83690; 84484; 85025; 85610; 85730; 93005; 94640; 96374; 96375; 99284; J1170; J2060; J2405; J7512; Q9967

== ENCOUNTER 2021-09-25 13:29 | Outpatient (CLI) | payer OTHER, SELFPAY ==
--- NOTE | ~2021-09-25 | US_ITS ---
US breast RT limited DATE: 09/25/2021 14:29 INDICATION: Follow-up of small subareolar fluid collection of 05/08/2021 TECHNIQUE: Real-time imaging targeted to subareolar area right breast COMPARISON: 05/08/2021 Limited right breast ultrasound FINDINGS: There is no residual subareolar fluid collection or mass or other significant abnormality. IMPRESSION: BI-RADS Category 1: Negative; Limited ultrasound examination of subareolar area revealing resolution of prior subareolar fluid collection Reviewed, dictated and finalized at Location A. Reviewed, dictated and finalized at location A. IMPRESSION: BI-RADS Category 1: Negative; Limited ultrasound examination of sub areolar area revealing resolution of prior subareolar fluid collection
== END 2021-09-25 13:30 | disposition home or self-care (01) ==
PROVIDERS: PCP Family Medicine; Visit Provider Physician Assistant
DX: N64.4 Mastodynia (principal)
CPT/HCPCS: 76642

== ENCOUNTER 2021-11-07 20:41 | Emergency (ER) | payer OTHER, SELFPAY ==
[2021-11-07] VITALS (13 sets, daily range): BP systolic 97–117; BP diastolic 66–84; PULSE 67–120; RESP 13–21; TEMP 36.3; O2SAT 92–100
--- NOTE | ~2021-11-07 | CT_ITS ---
EXAMINATION: CT chest abdomen pelvis w con DATE: 11/07/2021 21:52 INDICATION: Left rib upper back and abdominal pain. TECHNIQUE: Computed tomography (CT) of the chest, abdomen, and pelvis was performed with 100 mL Omnip aque-300 intravenous contrast. Automated exposure control and iterative reconstruction technique were employed. The dose-length product was 668.27 mGy-cm. COMPARISON: 08/09/2021. FINDINGS: CHEST: No thoracic aortic injury. No mediastinal hematoma. No pericardial effusion. No acute lung injury. No pleural effusion or pneumothorax. ABDOMEN/PELVIS: No solid organ injury. No evidence of bowel or mesenteric injury. No free fluid or free air. No retroperitoneal hematoma. Pelvic contents are atraumatic. MUSCULOSKELETAL (excluding spine): No acute fracture. THORACIC SPINE: Superior endplate deformity with moderate height loss, increased since the prior at T9. Mild superior endplate deformity new since the prior at T7. No severe central canal or neural foraminal narrowing. LUMBAR SPINE: No fracture or traumatic malalignment of the lumbar spine. No severe central canal or neural foramina l narrowing. IMPRESSION: Presumed acute mild and moderate vertebral body compression fractures at T7 and T9 respectively, both new or worsened since the prior study. No other acute traumatic finding in the chest, abdomen, or pe lvis. Reviewed, dictated and finalized at location K. IMPRESSION: Presumed acute mild and moderate vertebral body compression fractures at T7 and T9 respectively, both new or worsened since the prior study. No other acute tr aumatic finding in the chest, abdomen, or pelvis.
--- NOTE | 2021-11-07 21:00 | ED.GENADULT ---
HPI - General Adult General Chief complaint: Seizure Stated complaint: Rib and back pain Time Seen by Provider: 11/07/21 20:53 Source: RN notes reviewed History of Present Illness HPI narrative: Patient presents to emergency department from home for back and rib pain. Patient states that just prior to arrival she was bending over to crop picker a trash can when she felt a sudden pop in her back and had upper back as well as left-sided rib pain. Patient states she has a history of having a fracture in her upper back as well as in her left ribs previously and this fell like it worsened the pain. She denies falling to the ground she denies any direct trauma or injury. Patient presented to the emergency department and while in the waiting room had a possible seizure. The patient states she has a history of having 2-3 seizures a week to be on how bad her pain is and she is on Lyrica and Klonopin for her seizures she states she sees several neurologist in [place] for her seizure disorder. Per staff in the waiting room the patient had been kinking her head to the right shaking her arms and grinding her teeth. Patient is able to speak to me at this time no postictal status no loss of bowel or bladder. Patient is stating that she is having some left lower quadrant abdominal pain at this time as well Related Data Home Medications Medication Instructions Recorded Confirmed acyclovir 400 mg tablet 400 mg PO DAILY 10/25/19 07/04/21 buspirone 10 mg tablet 10 mg DAILY 10/25/19 07/04/21 clonazepam 1 mg tablet 1 mg TID 10/25/19 07/04/21 dicyclomine 20 mg tablet 1 mg DAILY 10/25/19 07/04/21 ergocalciferol (vitamin D2) 1,250 1 mcg WEEKLY 10/25/19 07/04/21 mcg (50,000 unit) capsule fluticasone propionate 50 See Rx Instructions .Route .COMPLEX 10/25/19 07/04/21 mcg/actuation nasal spray,suspension (24 Hour Allergy Relief) montelukast 10 mg tablet 1 mg DAILY 10/25/19 07/04/21 pregabalin 50 mg capsule (Lyrica) 150 mg BID 10/25/19 07/04/21 umeclidinium 62.5 mcg/actuation 2 inh inhalation Q12-24H 10/25/19 07/04/21 blister powder for inhalation (Incruse Ellipta) omeprazole 20 mg capsule,delayed 20 mg DAILY 12/27/19 07/04/21 release Aspir-81 81 mg PO DAILY 10/19/20 07/04/21 Allergies Allergy/AdvReac Type Severity Reaction Status Date / Time cephalexin [From Keflex] Allergy Unknown Verified 08/08/21 22:04 ketorolac [From Toradol] Allergy Unknown Verified 08/08/21 22:04 levetiracetam [From Keppra] Allergy Unknown Verified 08/08/21 22:04 Penicillins Allergy Unknown Verified 08/08/21 22:04 tramadol Allergy Unknown Verified 08/08/21 22:04 Review of Systems Review of Systems: Gen.: Denies fevers or chills Eyes: Denies eye pain or visual change ENT: Denies congestion Respiratory: Denies shortness of breath or cough CV: Denies chest pain or palpitations GI: Reports lower abdominal pain denies nausea vomiting or diarrhea denies bladder incontinence Musculoskeletal: See HPI Neuro: Denies numbness, tingling, weakness or focal weakness Skin: Denies rash Except as documented, all other systems reviewed and negative PMFSH Past Medical History Medical History COPD (chronic obstructive pulmonary disease) Depression Neuropathy Pneumonia due to COVID-19 virus PTSD (post-traumatic stress disorder) Seizures Surgical History Surgical History (Updated 08/09/21 @ 02:18 by Ashwini Stewart MD) History of hysterectomy Family History Family History Other Depression Diabetes mellitus Heart disease Hypertension Personality disorder Social History Social History Smoking packs per day: 0.5 Smoking cigarettes per day: 10.0 Smoking status: Current every day smoker Alcohol intake: current Gender identity (if verbalized by the patient): Female Sexual Or
[2021-11-07] MEDS: MORPHINE SULFATE (*CRX) 4 MG/ML INJ IV PUSH (21:08)
--- NOTE | 2021-11-07 21:10 | ECG_ITS ---
Measurements Intervals [place] Rate: 92 P: 68 MO: 168 QRS: 83 QRSD: 78 T: 64 QT: 354 QTc: 440 Interpretive Statements SINUS RHYTHM NORMAL ECG Electronically Signed On 11-08-2021 6:59:38 CDT by Eb Thomas D.O.
[2021-11-07 21:26] LABS: Basophils Absolute Auto 0.1 K/mm3 (0.0-0.1); Basophils Percent Auto 0.8 % (0.2-1.2); Eosinophils Absolute Auto 0.3 K/mm3 (0-0.3); Eosinophils Percent Auto 2.4 % (0-4.4); Hematocrit 44.7 % (37.0-47.0); Immature Granulocyte Absolute 0.03 K/mm3 (0.00-0.031); Immature Granulocyte Percent A 0.3 % (0-0.5); Lymphocytes Absolute Auto 4.83 K/mm3 (0.9-3.2); Lymphocytes Percent Auto 46.9 % (18.3-44.2); Mean Corpuscular HGB Conc 31.3 g/dl (32-36); Mean Corpuscular Volume 92.5 fl (80-100); Mean Platelet Volume 9.9 fl (7.4-10.4); Monocytes Percent Auto 9.3 % (2.6-8.5); Neutrophils Absolute Auto 4.1 K/mm3 (1.3-6.7); Neutrophils Percent Auto 40.3 % (45.5-73.1); Platelet Count Result 313 k/mm3 (150-375); Red Blood Count 4.83 M/mm3 (4.2-5.4); Red Cell Distribution Width 15.6 % (11.5-14.5); White Blood Count 10.3 K/mm3 (4.5-10.0)
[2021-11-07 21:35] LABS: Alanine Aminotransferase 17 U/L (6-35); Alkaline Phosphatase 87 U/L (38-126); Anion Gap 5 mmol/L (8-16); Aspartate Amino Transferase 22 U/L (14-36); Bilirubin,Total < 0.1 mg/dL (0.2-1.3); Blood Urea Nitrogen 10 mg/dL (7-17); Calcium 8.5 mg/dL (8.4-10.2); Carbon Dioxide 27 mmol/L (22-30); Chloride 108 mmol/L (98-107); Estimated CRCL calculation 63 ml/min; Estimated Glomerular Filt Rate > 60; Glucose 116 mg/dL (65-110); Potassium 4.1 mmol/L (3.4-5.0); Sodium 140 mmol/L (137-145)
[2021-11-07 23:15] LABS: Appearance Urine Clear (Clear); Bilirubin Urine Negative (Negative); Blood Urine Negative (Negative); Color Urine Yellow (Yellow); Glucose Urine UA Negative (Negative); Ketones Urine Negative (Negative); Leukocyte Esterase Ur Negative LEU/UL (Negative); Nitrate Urine Negative (Negative); Protein Urine Negative (Negative); Specific Grav Ur <= 1.005 (1.001-1.035); Urobilinogen Urine 0.2 mg/dL (<2.0)
[2021-11-07 23:19] LABS: Bacteria Urine Trace /hpf; Mucus Urine Rare /lpf; RBC Urine 0-2 /hpf (0-2); Squamous Epithelial Cell Urine Rare /hpf (Few); WBC Urine 0-3 /hpf
[2021-11-07 23:21] LABS: Add Urine Microscopic? NO
[2021-11-07] MEDS: HYDROcodone/acetaminophen (*CRX) 5-325 MG TABLET 1 TAB PO (23:54)
[2021-11-08 00:14] VITALS: BP 110/79; PULSE 80; RESP 18; O2SAT 97
== END 2021-11-08 00:25 | disposition home or self-care (01) ==
PROVIDERS: Emergency Provider Emergency Medicine; PCP Family Medicine
DX: S22.069A Unspecified fracture of T7-T8 vertebra, initial encounter for closed fracture (principal); S22.079A Unspecified fracture of T9-T10 vertebra, initial encounter for closed fracture; J44.9 Chronic obstructive pulmonary disease, unspecified; F32.9 Major depressive disorder, single episode, unspecified; G40.909 Epilepsy, unspecified, not intractable, without status epilepticus; Z86.16 Personal history of COVID-19; X50.0XXA Overexertion from strenuous movement or load, initial encounter
CPT/HCPCS: 36415; 71260; 74177; 80053; 81003; 85025; 93005; 96374; 99284; A9270; J2270; Q9967

== ENCOUNTER 2022-01-03 17:26 | Emergency (ER) | payer MEDICARE, MEDICAID, SELFPAY ==
[2022-01-03] VITALS (9 sets, daily range): BP systolic 103–121; BP diastolic 70–72; PULSE 85–98; RESP 13–20; TEMP 36.6; O2SAT 88–94
--- NOTE | ~2022-01-03 | CT_ITS ---
EXAMINATION: CTA chest PE protocol DATE: 01/03/2022 19:26 INDICATION: Shortness of breath. Hemoptysis. TECHNIQUE: Computed tomography (CT) pulmonary angiogram of the chest was performed with 100 mL Omnipa que-350 intravenous contrast. Additional 3D reconstructions utilizing coronal maximum intensity proje ction (MIP) were performed. Automated exposure control and iterative reconstruction technique were em ployed. The dose-length product was 230.52 mGy-cm. COMPARISON: None/10/24 FINDINGS: Excellent contrast opacification of the pulmonary arteries. There is mild streak artifact from dense contrast in the superior vena cava and right atrium. Mild scattered respiratory motion artifact which mildly decreases sensitivity in some of the smaller subsegmental pulmonary arteries. No pulmonary em bolism. Mild to moderate emphysema. 6 x 3 mm nodule in the anterior segment of the left upper lobe po tentially mucus within a bronchus. Mild peripheral linear opacities in the dependent aspect of the bi lateral lower lobes which could represent mild pulmonary edema and/or atelectasis. No pleural effusio n or pneumothorax. Heart size is normal. No pericardial effusion. Thoracic aorta is normal in caliber with no dissection. Unchanged mild bilateral hilar lymphadenopathy which is likely reactive. No path ologically enlarged mediastinal lymphadenopathy. 1.1 cm enhancing lesion in the right hepatic lobe. V isualized upper abdomen is otherwise unremarkable. Chronic T7 and T9 compression fractures with sligh t progression of vertebral body height loss and new linear sclerosis extending across the T7 vertebra l body. IMPRESSION: 1. No pulmonary embolism. 2. Mild to moderate emphysema with mild pulmonary edema and/or atelectasis in the dependent bilateral lower lobes. 3. Likely reactive mild bilateral hilar lymphadenopathy. 4. Chronic T7 and T9 compression fractures with mild progression of T7 compression fracture since jennifer dy dated 11/07/2021 5. Indeterminate 1.1 cm enhancing lesion in the right hepatic lobe. Consider follow-up pre and multip hase postcontrast MRI for further evaluation. 6. 6 x 3 mm left upper lobe nodule. Consider optional 12 month follow-up low-dose noncontrast chest C T. Reviewed, dictated and finalized at location A. IMPRESSION: 1. No pulmonary embolism. 2. Mild to moderate emphysema with mild pulmonary edema and/or atelectasis in t he dependent bilateral lower lobes. 3. Likely reactive mild bilateral hilar lymphadenopathy. 4. Chronic T7 and T9 compression fractures with mild progression of T7 compress ion fracture since study dated 11/07/2021 5. Indeterminate 1.1 cm enhancing lesion in the right hepatic lobe. Consider fo llow-up pre and multiphase postcontrast MRI for further evaluation. 6. 6 x 3 mm left upper lobe nodule. Consider optional 12 month follow-up low-do se noncontrast chest CT.
--- NOTE | ~2022-01-03 | XR_ITS ---
XR chest 2V DATE: 01/03/2022 18:24 INDICATION: Shortness of breath. History of COPD. TECHNIQUE: AP and lateral views COMPARISON: 11/07/2021 CT chest examination 08/08/2021 2 view chest FINDINGS: Normal heart size. No pulmonary infiltrate or consolidation, pleural effusion or pulmonary vascular congestion or pneumothorax is evident. There is mild to moderate loss of height and anterior wedging of T7 and T9 vertebral bodies, also pre sent on 11/07/2021 CT examination. IMPRESSION: No active cardiopulmonary disease T7 and T9 compression fractures again noted Reviewed, dictated and finalized at location B.
--- NOTE | 2022-01-03 17:41 | ECG_ITS ---
Measurements Intervals [place] Rate: 92 P: 52 TN: 156 QRS: 81 QRSD: 76 T: 40 QT: 356 QTc: 442 Interpretive Statements SINUS RHYTHM DELAYED PRECORDIAL R/S TRANSITION BASELINE WANDER- V3 BORDERLINE ECG COMPARED TO ECG 11/07/2021 21:01:09 NO SIGNIFICANT CHANGES Electronically Signed On 01-04-2022 10:07:33 CDT by Eb Thomas D.O.
[2022-01-03 18:00] LABS: Basophils Absolute Auto 0.1 K/mm3 (0.0-0.1); Basophils Percent Auto 0.7 % (0.2-1.2); Eosinophils Absolute Auto 0.2 K/mm3 (0-0.3); Eosinophils Percent Auto 1.7 % (0-4.4); Hematocrit 45.5 % (37.0-47.0); Hemoglobin 14.5 g/dL (12.0-15.0); Immature Granulocyte Absolute 0.03 K/mm3 (0.00-0.031); Immature Granulocyte Percent A 0.3 % (0-0.5); Lymphocytes Absolute Auto 3.26 K/mm3 (0.9-3.2); Lymphocytes Percent Auto 35.5 % (18.3-44.2); Mean Corpuscular HGB Conc 31.9 g/dl (32-36); Mean Corpuscular Hemoglobin 28.8 pg (26-34); Mean Corpuscular Volume 90.5 fl (80-100); Mean Platelet Volume 9.6 fl (7.4-10.4); Monocytes Absolute Auto 1.3 K/mm3 (0.1-0.6); Monocytes Percent Auto 14.6 % (2.6-8.5); Neutrophils Absolute Auto 4.3 K/mm3 (1.3-6.7); Neutrophils Percent Auto 47.2 % (45.5-73.1); Platelet Count Result 252 k/mm3 (150-375); Red Blood Count 5.03 M/mm3 (4.2-5.4); Red Cell Distribution Width 17.2 % (11.5-14.5); White Blood Count 9.2 K/mm3 (4.5-10.0)
--- NOTE | 2022-01-03 18:04 | ED.SOB ---
HPI - SOB/Dyspnea General Chief Complaint: Shortness of Breath/Dyspnea <Ana Rosa Lee PA-C - Last Filed: 01/03/22 21:01> Stated Complaint: SOB <JUSTO Joshi Last Filed: 01/03/22 21:01> Time Seen by Provider: 01/03/22 17:48 <JUSTO Joshi Last Filed: 01/03/22 21:01> Source: patient <JUSTO Joshi Last Filed: 01/03/22 21:01> Mode of arrival: ambulatory <JUSTO Joshi Last Filed: 01/03/22 21:01> Limitations: no limitations <JUSTO Joshi Last Filed: 01/03/22 21:01> History of Present Illness HPI Narrative: This is a 51 year old female that presents to the ER for worsening shortness of breath over the last couple of days. Associated with hemoptysis and fever. Reports her father recently tested positive for COVID. Does report she took a home COVID test which was negative. Reports lower extremity edema. Patient is chronically on 2 to 4 L via nasal cannula since she had COVID-pneumonia in June of this year. Denies chest pain. <JUSTO Joshi Last Filed: 01/03/22 21:01> Related Data Home Medications: Home Medications Medication Instructions Recorded Confirmed acyclovir 400 mg tablet 400 mg PO DAILY 10/25/19 07/04/21 buspirone 10 mg tablet 10 mg DAILY 10/25/19 07/04/21 clonazepam 1 mg tablet 1 mg TID 10/25/19 07/04/21 dicyclomine 20 mg tablet 1 mg DAILY 10/25/19 07/04/21 ergocalciferol (vitamin D2) 1,250 1 mcg WEEKLY 10/25/19 07/04/21 mcg (50,000 unit) capsule fluticasone propionate 50 See Rx Instructions .Route .COMPLEX 10/25/19 07/04/21 mcg/actuation nasal spray,suspension (24 Hour Allergy Relief) montelukast 10 mg tablet 1 mg DAILY 10/25/19 07/04/21 pregabalin 50 mg capsule (Lyrica) 150 mg BID 10/25/19 07/04/21 umeclidinium 62.5 mcg/actuation 2 inh inhalation Q12-24H 10/25/19 07/04/21 blister powder for inhalation (Incruse Ellipta) omeprazole 20 mg capsule,delayed 20 mg DAILY 12/27/19 07/04/21 release Aspir-81 81 mg PO DAILY 10/19/20 07/04/21 <Ana Rosa Lee PA-C - Last Filed: 01/03/22 21:01> Allergies/Adverse Reactions: Allergies Allergy/AdvReac Type Severity Reaction Status Date / Time cephalexin [From Keflex] Allergy Unknown Verified 01/03/22 17:45 ketorolac [From Toradol] Allergy Unknown Verified 01/03/22 17:45 levetiracetam [From Keppra] Allergy Unknown Verified 01/03/22 17:45 Penicillins Allergy Unknown Verified 01/03/22 17:45 tramadol Allergy Unknown Verified 01/03/22 17:45 <Ana Rosa Lee PA-C - Last Filed: 01/03/22 21:01> Review of Systems Review of Systems: CONSTITUTIONAL: Reports fever CARDIOVASCULAR: Reports edema. Denies chest pain RESPIRATORY: Reports cough and dyspnea. <Ana Rosa Lee PA-C - Last Filed: 01/03/22 21:01> All systems reviewed & are unremarkable except as noted in HPI and below <Ana Rosa Lee PA-C - Last Filed: 01/03/22 21:01> [facility] Past Medical History Medical History: Medical History COPD (chronic obstructive pulmonary disease) Depression Neuropathy Pneumonia due to COVID-19 virus PTSD (post-traumatic stress disorder) Seizures <JUSTO Joshi Last Filed: 01/03/22 21:01> Surgical History Surgical History: Surgical History (Updated 08/09/21 @ 02:18 by Ashwini Stewart MD) History of hysterectomy <JUSTO Joshi Last Filed: 01/03/22 21:01> Family History Family History: Family History Other Depression Diabetes mellitus Heart disease Hypertension Personality disorder <Ana Rosa Lee PA-C - Last Filed: 01/03/22 21:01> Social History Social History: Social History (Updated 01/03/22 @ 18:06 by Ana Rosa Lee PA-C) Smoking packs per day: 0.5 Smoking cigarettes per day: 10.0 Smoking status: Current every day smoker Alcohol intake: current Substance us
[2022-01-03 18:18] LABS: Alanine Aminotransferase 17 U/L (6-35); Albumin Level 3.8 g/dL (3.5-5.1); Alkaline Phosphatase 80 U/L (38-126); Anion Gap 8 mmol/L (8-16); Aspartate Amino Transferase 26 U/L (14-36); Bilirubin,Total 0.3 mg/dL (0.2-1.3); Blood Urea Nitrogen 8 mg/dL (7-17); Calcium 8.5 mg/dL (8.4-10.2); Carbon Dioxide 31 mmol/L (22-30); Chloride 99 mmol/L (98-107); Estimated CRCL calculation 84 ml/min; Estimated Glomerular Filt Rate > 60; Glucose 127 mg/dL (65-110); Sodium 138 mmol/L (137-145)
[2022-01-03] MEDS: methylPREDNISolone SOD SUCC 125 MG VIAL IV PUSH (18:36)
[2022-01-03 18:50] LABS: Alveolar/Arterial O2 Gradient 68.6 mmHg; Base Excess ABG 4.1 mEq/l (+/-2.0); Carboxyhemoglobin 8.1 % THb (0-2.0); Fractional Inspired Oxygen 28 %; HCO3 ABG 30.5 mEq/l (22.0-26.0); Methemoglobin ABG 0.1 %THb (0-1.5); Oxygen Content ABG 18.3 %vol (16.0-22.0); Oxygen Saturation ABG 93.2 % (95.0-100.0); PCO2 ABG 52.8 mmHg (35.0-45.0); PO2 ABG 68.7 mmHg (80.0-100.0); PO2 FiO2 Ratio Arterial Blood 2.45 %; Reduced Hemoglobin 5.7 %THb (0-5.0); Total Hemoglobin 15.1 g/dL (12.0-18.0)
[2022-01-03 18:52] LABS: Influenza A QL RT-PCR Negative (Negative); Influenza B QL RT-PCR Negative (Negative); SARS-CoV-2 RNA PCR Negative
[2022-01-03 18:52] LABS: Device NASAL CANNULA; Modified Allen's Test Pass; Oxyhemoglobin 86.1 % THb (90.0-100.0); Site Drawn LEFT RADIAL
[2022-01-03] MEDS: ALBUTEROL SULFATE NEB 2.5 MG/3 ML INH 5 MG INHALATION ×2 (18:56→20:41)
[2022-01-03] MEDS: IPRATROPIUM BR 0.02% INH SOLN 0.5 MG/2.5 ML VIAL INHALATION ×2 (18:56→20:41)
[2022-01-03 20:38] LABS: INR 1.1; Prothrombin Time 13.4 Seconds (11.1-14.7)
[2022-01-03 20:39] LABS: Partial Thromboplastin Time 34.5 SECONDS (22.3-36.8)
[2022-01-03 20:45] LABS: NT Pro B Type Natriuretic Pept 352 pg/mL (5-100)
== END 2022-01-03 21:18 | disposition home or self-care (01) ==
PROVIDERS: Emergency Medicine; Physician Assistant; Emergency Provider Emergency Medicine; PCP Physician Assistant
DX: J20.9 Acute bronchitis, unspecified (principal); J44.0 Chronic obstructive pulmonary disease with (acute) lower respiratory infection; R91.1 Solitary pulmonary nodule; K76.9 Liver disease, unspecified; Z20.822 Contact with and (suspected) exposure to COVID-19; J44.9 Chronic obstructive pulmonary disease, unspecified; G62.9 Polyneuropathy, unspecified; F32.A Depression, unspecified; F43.10 Post-traumatic stress disorder, unspecified; Z86.16 Personal history of COVID-19; Z87.01 Personal history of pneumonia (recurrent); Z99.81 Dependence on supplemental oxygen; Z90.710 Acquired absence of both cervix and uterus; Z79.82 Long term (current) use of aspirin; F17.210 Nicotine dependence, cigarettes, uncomplicated; R94.31 Abnormal electrocardiogram [ECG] [EKG]
CPT/HCPCS: 36415; 36600; 71046; 71275; 80053; 82375; 82805; 83050; 83880; 85025; 85610; 85730; 87502; 93005; 94640; 96374; 99285; C9803; J2930; Q9967; U0003; U0005

== ENCOUNTER 2022-01-11 13:56 | Emergency (ER) | payer MEDICARE, MEDICAID, SELFPAY ==
[2022-01-11] VITALS (9 sets, daily range): BP systolic 104–107; BP diastolic 77–79; PULSE 100–114; RESP 13–28; TEMP 36.9; O2SAT 91–98
--- NOTE | ~2022-01-11 | XR_ITS ---
EXAMINATION: XR chest 1V portable INDICATION: COPD and shortness of breath TECHNIQUE: Portable AP chest at 1539 hours COMPARISON: 01/03/2022 FINDINGS: The lungs are free of acute opacities. No pleural effusion or pneumothorax. The cardiomedia stinal silhouette is normal. Lucencies in the upper lung zones are consistent with emphysema. IMPRESSION: 1. No acute cardiopulmonary abnormality. Reviewed, dictated and finalized at location B.
--- NOTE | 2022-01-11 14:09 | ECG_ITS ---
Measurements Intervals [place] Rate: 103 P: 66 MO: 149 QRS: 91 QRSD: 77 T: 49 QT: 331 QTc: 433 Interpretive Statements SINUS TACHYCARDIA POSSIBLE LEFT ATRIAL ENLARGEMENT RIGHT AXIS DEVIATION MINIMAL Q WAVES- INFERIOR LEADS BORDERLINE ECG COMPARED TO ECG 01/03/2022 17:53:36 SINUS TACHYCARDIA NOW PRESENT Electronically Signed On 01-11-2022 15:07:57 CDT by Eb Thomas D.O.
[2022-01-11 14:51] LABS: Basophils Absolute Auto 0.1 K/mm3 (0.0-0.1); Basophils Percent Auto 0.8 % (0.2-1.2); Eosinophils Absolute Auto 0.1 K/mm3 (0-0.3); Eosinophils Percent Auto 1.2 % (0-4.4); Hematocrit 52.3 % (37.0-47.0); Hemoglobin 16.5 g/dL (12.0-15.0); Immature Granulocyte Absolute 0.04 K/mm3 (0.00-0.031); Immature Granulocyte Percent A 0.4 % (0-0.5); Lymphocytes Absolute Auto 4.55 K/mm3 (0.9-3.2); Lymphocytes Percent Auto 46.1 % (18.3-44.2); Mean Corpuscular HGB Conc 31.5 g/dl (32-36); Mean Corpuscular Hemoglobin 28.4 pg (26-34); Mean Platelet Volume 9.9 fl (7.4-10.4); Monocytes Absolute Auto 1.2 K/mm3 (0.1-0.6); Monocytes Percent Auto 11.9 % (2.6-8.5); Neutrophils Absolute Auto 3.9 K/mm3 (1.3-6.7); Neutrophils Percent Auto 39.6 % (45.5-73.1); Platelet Count Result 265 k/mm3 (150-375); Red Blood Count 5.81 M/mm3 (4.2-5.4); Red Cell Distribution Width 17.6 % (11.5-14.5); White Blood Count 9.9 K/mm3 (4.5-10.0)
[2022-01-11 15:01] LABS: Alanine Aminotransferase 18 U/L (6-35); Albumin Level 4.3 g/dL (3.5-5.1); Alkaline Phosphatase 86 U/L (38-126); Anion Gap 12 mmol/L (8-16); Aspartate Amino Transferase 22 U/L (14-36); Bilirubin,Total 0.5 mg/dL (0.2-1.3); Blood Urea Nitrogen 10 mg/dL (7-17); Calcium 8.5 mg/dL (8.4-10.2); Carbon Dioxide 29 mmol/L (22-30); Chloride 96 mmol/L (98-107); Estimated CRCL calculation 74 ml/min; Estimated Glomerular Filt Rate > 60; Glucose 162 mg/dL (65-110); Potassium 4.1 mmol/L (3.4-5.0); Sodium 137 mmol/L (137-145)
[2022-01-11] MEDS: IPRATROPIUM BR 0.02% INH SOLN 0.5 MG/2.5 ML VIAL INHALATION (15:21)
[2022-01-11] MEDS: ALBUTEROL SULFATE NEB 2.5 MG/3 ML INH 5 MG INHALATION ×3 (15:21→15:22)
--- NOTE | 2022-01-11 15:26 | ED.SOB ---
HPI - SOB/Dyspnea General Chief Complaint: Shortness of Breath/Dyspnea Stated Complaint: SOB Time Seen by Provider: 01/11/22 14:53 History of Present Illness HPI Narrative: 51-year-old female history of COPD and oxygen dependent presents emergency room with increased shortness of breath and wheezing. Patient states that she was evaluated last week for similar symptoms and was diagnosed with bronchitis. Patient notes that her O2 level dropped when she removed her oxygen. Patient has not been using her rescue inhaler and does not have access to a nebulizer machine. Denies fevers Related Data Home Medications Medication Instructions Recorded Confirmed acyclovir 400 mg tablet 400 mg PO DAILY 10/25/19 07/04/21 buspirone 10 mg tablet 10 mg DAILY 10/25/19 07/04/21 clonazepam 1 mg tablet 1 mg TID 10/25/19 07/04/21 dicyclomine 20 mg tablet 1 mg DAILY 10/25/19 07/04/21 ergocalciferol (vitamin D2) 1,250 1 mcg WEEKLY 10/25/19 07/04/21 mcg (50,000 unit) capsule fluticasone propionate 50 See Rx Instructions .Route .COMPLEX 10/25/19 07/04/21 mcg/actuation nasal spray,suspension (24 Hour Allergy Relief) montelukast 10 mg tablet 1 mg DAILY 10/25/19 07/04/21 pregabalin 50 mg capsule (Lyrica) 150 mg BID 10/25/19 07/04/21 umeclidinium 62.5 mcg/actuation 2 inh inhalation Q12-24H 10/25/19 07/04/21 blister powder for inhalation (Incruse Ellipta) omeprazole 20 mg capsule,delayed 20 mg DAILY 12/27/19 07/04/21 release Aspir-81 81 mg PO DAILY 10/19/20 07/04/21 Allergies Allergy/AdvReac Type Severity Reaction Status Date / Time cephalexin [From Keflex] Allergy Unknown Verified 01/03/22 17:45 ketorolac [From Toradol] Allergy Unknown Verified 01/03/22 17:45 levetiracetam [From Keppra] Allergy Unknown Verified 01/03/22 17:45 Penicillins Allergy Unknown Verified 01/03/22 17:45 tramadol Allergy Unknown Verified 01/03/22 17:45 Review of Systems Review of Systems: CONSTITUTIONAL: Denies fever, chills, or sweats. EYES: Denies visual changes, redness, or discharge. ENT: Denies rhinorrhea, congestion, sore throat, or otalgia. CARDIOVASCULAR: Denies chest pain, palpitations, or edema. RESPIRATORY: Reports cough or dyspnea. GASTROINTESTINAL: Denies abdominal pain, nausea, vomiting, or diarrhea. GENITOURINARY: Denies dysuria or hematuria. SKIN: Denies rash or itching. MUSCULOSKELETAL: Denies back pain, joint pain, or myalgia. NEUROLOGIC: Denies headache, numbness, dizziness, or weakness. PSYCHIATRIC: Denies anxiety or depression. [facility] Past Medical History Medical History COPD (chronic obstructive pulmonary disease) Depression Neuropathy Pneumonia due to COVID-19 virus PTSD (post-traumatic stress disorder) Seizures Surgical History Surgical History History of hysterectomy Family History Family History Other Depression Diabetes mellitus Heart disease Hypertension Personality disorder Social History Social History Smoking packs per day: 0.5 Smoking cigarettes per day: 10.0 Smoking status: Current every day smoker Alcohol intake: current Substance use: current Substance use type: marijuana Gender identity (if verbalized by the patient): Female Sexual Orientation (if Verbalized by the Patient): Straight or Heterosexual Exam Narrative: GENERAL: Well-appearing, well-nourished, no physical limitations, and in no acute distress. HEAD: Normocephalic, atraumatic. EYES: Conjunctivae normal, PERRLA and EOMI. NECK: Supple. No meningeal signs. No adenopathy or masses. No carotid bruits or JVD CHEST: Expiratory wheezing and rhonchi bilaterally HEART: Regular rate and rhythm. No murmur heard. Normal peripheral pulses. EXTREMITIES: Normal range of motion. No edema. No clubbing or cyanos
[2022-01-11 15:27] LABS: SARS-CoV-2 RNA PCR Negative
[2022-01-11] MEDS: methylPREDNISolone SOD SUCC 125 MG VIAL IV PUSH (15:29)
[2022-01-11 16:09] LABS: NT Pro B Type Natriuretic Pept 51 pg/mL (5-100)
== END 2022-01-11 17:06 | disposition home or self-care (01) ==
PROVIDERS: Emergency Medicine; Emergency Provider Nurse Practitioner Family; PCP Physician Assistant
DX: J44.1 Chronic obstructive pulmonary disease with (acute) exacerbation (principal); Z20.822 Contact with and (suspected) exposure to COVID-19; G62.9 Polyneuropathy, unspecified; F32.A Depression, unspecified; F43.10 Post-traumatic stress disorder, unspecified; Z87.01 Personal history of pneumonia (recurrent); Z90.710 Acquired absence of both cervix and uterus; F17.210 Nicotine dependence, cigarettes, uncomplicated; Z99.81 Dependence on supplemental oxygen
CPT/HCPCS: 36415; 71045; 80053; 83880; 85025; 93005; 94640; 96374; 99284; C9803; J2930; U0003; U0005

== ENCOUNTER 2022-02-13 09:07 | Emergency (ER) | payer MEDICARE, MEDICAID, SELFPAY ==
--- NOTE | ~2022-02-13 | XR_ITS ---
EXAMINATION: XR chest 2V DATE: 02/13/2022 10:19 INDICATION: Chest pain with deep inspiration. TECHNIQUE: Frontal and lateral views of the chest were obtained. COMPARISON: Chest single view 01/11/2022, chest CT 01/03/2022 FINDINGS: There are lucencies in the lungs, consistent with emphysema. No pneumonia, pleural effusion , or pneumothorax. The heart size is normal. Again seen are 2 chronic compression fractures in thorac ic spine. IMPRESSION: 1. Emphysema. Reviewed, dictated and finalized at location A. IMPRESSION: 1. Emphysema.
--- NOTE | ~2022-02-13 | XR_ITS ---
EXAMINATION: XR thoracic spine 3V DATE: 02/13/2022 10:27 INDICATION: Mid back pain TECHNIQUE: AP, lateral and lateral swimmer's views of the thoracic spine were obtained. COMPARISON: CT, 01/03/2022 FINDINGS: There are stable, chronic compression fractures of T7 and T9. No new fracture is identified . Vertebral body alignment is maintained. There is mild loss of intervertebral disc space height at a few levels in the thoracic spine. IMPRESSION: 1. Mild thoracic spondylosis. 2. Chronic compression fractures of T7 and T9 without significant change. Reviewed, dictated and finalized at location A.
[2022-02-13 09:09] VITALS: BP 106/73; PULSE 106; RESP 24; TEMP 36.5; O2SAT 87
--- NOTE | 2022-02-13 09:22 | ECG_ITS ---
Measurements Intervals [place] Rate: 98 P: 69 [place]: 164 QRS: 88 QRSD: 82 T: 42 QT: 364 QTc: 465 Interpretive Statements SINUS RHYTHM NONSPECIFIC T-WAVE ABNORMALITY COMPARED TO ECG 01/11/2022 14:18:18 SINUS RHYTHM NOW PRESENT Electronically Signed On 02-13-2022 15:22:03 CDT by Ashley Hodgson M.D.
[2022-02-13 09:30] VITALS: BP 107/69; PULSE 101; RESP 24; O2SAT 100; O2SAT 97
--- NOTE | 2022-02-13 09:36 | ED.BACK ---
HPI - Back Pain/Injury General Chief Complaint: Back Pain/Injury Stated Complaint: back injury - I think i broke my back again Time Seen by Provider: 02/13/22 09:13 Source: patient Mode of arrival: ambulatory Limitations: no limitations History of Present Illness HPI Narrative: Patient presents complains of chronic back pain with acute exacerbation after sneezing and coughing. States has had previous thoracic compression fractures from sneezing episode in the past. Also reports pain with deep inspiration to mid back. Denies shortness of breath or difficulty breathing at this time. Patient states that she routinely takes hydrocodone but took the last pill yesterday. Related Data Home Medications Medication Instructions Recorded Confirmed acyclovir 400 mg tablet 400 mg PO DAILY 10/25/19 01/18/22 buspirone 10 mg tablet 10 mg DAILY 10/25/19 01/18/22 clonazepam 1 mg tablet 1 mg TID 10/25/19 01/18/22 dicyclomine 20 mg tablet 1 mg DAILY 10/25/19 01/18/22 ergocalciferol (vitamin D2) 1,250 1 mcg WEEKLY 10/25/19 01/18/22 mcg (50,000 unit) capsule fluticasone propionate 50 See Rx Instructions .Route .COMPLEX 10/25/19 01/18/22 mcg/actuation nasal spray,suspension (24 Hour Allergy Relief) montelukast 10 mg tablet 1 mg DAILY 10/25/19 01/18/22 pregabalin 50 mg capsule (Lyrica) 150 mg BID 10/25/19 01/18/22 umeclidinium 62.5 mcg/actuation 2 inh inhalation Q12-24H 10/25/19 01/18/22 blister powder for inhalation (Incruse Ellipta) omeprazole 20 mg capsule,delayed 20 mg DAILY 12/27/19 01/18/22 release Aspir-81 81 mg PO DAILY 10/19/20 01/18/22 Allergies Allergy/AdvReac Type Severity Reaction Status Date / Time cephalexin [From Keflex] Allergy Unknown Verified 02/13/22 09:17 ketorolac [From Toradol] Allergy Unknown Verified 02/13/22 09:17 levetiracetam [From Keppra] Allergy Unknown Verified 02/13/22 09:17 Penicillins Allergy Unknown Verified 02/13/22 09:17 tramadol Allergy Unknown Verified 02/13/22 09:17 Review of Systems Review of Systems: Mid back pain Pain with deep inspiration to mid back All systems reviewed & are unremarkable except as noted in HPI and below PMFSH Past Medical History Medical History COPD (chronic obstructive pulmonary disease) Depression Neuropathy Pneumonia due to COVID-19 virus PTSD (post-traumatic stress disorder) Seizures Surgical History Surgical History History of hysterectomy Family History Family History Other Depression Diabetes mellitus Heart disease Hypertension Personality disorder Social History Social History Smoking packs per day: 0.5 Smoking cigarettes per day: 10.0 Smoking status: Current every day smoker Alcohol intake: current Substance use: current Substance use type: marijuana Gender identity (if verbalized by the patient): Female Sexual Orientation (if Verbalized by the Patient): Straight or Heterosexual Exam Const: General: alert and awake Eyes: General: appearance normal, both eyes and all related structures Neck: Neck: normal visual inspection and full ROM Resp: Effort & Inspection: normal respiratory effort and able to speak in complete sentences Auscultation: rhonchi, wheezes (States chronic for her) and diminished lung sounds Cardio: Rate: regular rate Rhythm: regular rhythm Heart sounds: S1 normal heart sound present and S2 normal heart sound present GI: Inspection: normal to inspection Back/Spine/Pelvis: Thoracic/Lumbar Spine: thoracic spinal tenderness (Mid T-SP) Skin: General skin exam: normal color Neuro: General: patient oriented x3 Cranial nerves: Yes CN's II-XII intact bilaterally and Yes Equal, round and reactive pupils present Extrem: General: normal to inspection and full ROM
[2022-02-13] MEDS: HYDROcodone/acetaminophen (*CRX) 10-325 MG TABLET 1 TAB PO (09:45)
--- NOTE | 2022-02-13 10:33 | PC.NURSE ---
Returned from xray. States I had a seizure in xray the pain was so bad . Pt A&O x4. Follows commands.
[2022-02-13 10:35] VITALS: BP 99/76; PULSE 83; RESP 24; O2SAT 99
[2022-02-13 11:17] VITALS: BP 107/63; PULSE 92; RESP 20; O2SAT 99
== END 2022-02-13 11:18 | disposition home or self-care (01) ==
PROVIDERS: Emergency Provider Nurse Practitioner; PCP Physician Assistant
DX: M54.6 Pain in thoracic spine (principal); G89.29 Other chronic pain; J43.9 Emphysema, unspecified; G62.9 Polyneuropathy, unspecified; F32.A Depression, unspecified; F43.10 Post-traumatic stress disorder, unspecified; Z86.16 Personal history of COVID-19; Z87.01 Personal history of pneumonia (recurrent); Z90.710 Acquired absence of both cervix and uterus; F17.210 Nicotine dependence, cigarettes, uncomplicated; Z79.82 Long term (current) use of aspirin; M47.814 Spondylosis without myelopathy or radiculopathy, thoracic region; R94.31 Abnormal electrocardiogram [ECG] [EKG]; M48.54XA Collapsed vertebra, not elsewhere classified, thoracic region, initial encounter for fracture
CPT/HCPCS: 71046; 72072; 93005; 99284; A9270

== ENCOUNTER 2022-02-21 17:19 | Emergency (ER) | payer MEDICARE, MEDICAID, SELFPAY ==
[2022-02-21] VITALS (14 sets, daily range): BP systolic 103–119; BP diastolic 72–91; PULSE 78–103; RESP 14–24; TEMP 36.6–37; O2SAT 87–100
--- NOTE | ~2022-02-21 | XR_ITS ---
EXAMINATION: XR chest 1V portable DATE: 02/21/2022 18:10 INDICATION: Shortness of breath. TECHNIQUE: A single frontal view of the chest was obtained. COMPARISON: Chest 2 views 02/13/2022, chest CT 01/03/2022 FINDINGS: There are lucencies and chronic interstitial opacities in the lungs, consistent with emphys porsche. No pleural effusion or pneumothorax. The heart size is normal. IMPRESSION: 1. Emphysema. Reviewed, dictated and finalized at location A. IMPRESSION: 1. Emphysema.
--- NOTE | 2022-02-21 17:22 | ECG_ITS ---
Measurements Intervals [place] Rate: 94 P: 68 [place]: 169 QRS: 85 QRSD: 81 T: 50 QT: 367 QTc: 460 Interpretive Statements SINUS RHYTHM WITH OCCASIONAL ECTOPIC PREMATURE COMPLEXES POSSIBLE LEFT ATRIAL ENLARGEMENT [-0.1mV P WAVE IN V1/V2] COMPARED TO ECG 02/13/2022 09:20:25 NO SIGNIFICANT CHANGES Electronically Signed On 02-22-2022 13:54:04 CDT by Marvin Recinos M.D.
--- NOTE | 2022-02-21 17:31 | ED.SOB ---
HPI - SOB/Dyspnea General Chief Complaint: Shortness of Breath/Dyspnea Stated Complaint: low o2 sob Time Seen by Provider: 02/21/22 17:29 History of Present Illness HPI Narrative: Patient is a 51-year-old female with history of COPD that presents ER with shortness of breath. She had reported to her family member that her oxygen saturations have been in the 80s throughout the evening. Patient wears oxygen intermittently is currently wearing 2 L. After being triaged patient had a pseudoseizure and was taken back to her room. No recent reports of fevers or chills or new cough. Patient does have wheezing on exam. Related Data Home Medications Medication Instructions Recorded Confirmed acyclovir 400 mg tablet 400 mg PO DAILY 10/25/19 01/18/22 buspirone 10 mg tablet 10 mg DAILY 10/25/19 01/18/22 clonazepam 1 mg tablet 1 mg TID 10/25/19 01/18/22 dicyclomine 20 mg tablet 1 mg DAILY 10/25/19 01/18/22 ergocalciferol (vitamin D2) 1,250 1 mcg WEEKLY 10/25/19 01/18/22 mcg (50,000 unit) capsule fluticasone propionate 50 See Rx Instructions .Route .COMPLEX 10/25/19 01/18/22 mcg/actuation nasal spray,suspension (24 Hour Allergy Relief) montelukast 10 mg tablet 1 mg DAILY 10/25/19 01/18/22 pregabalin 50 mg capsule (Lyrica) 150 mg BID 10/25/19 01/18/22 umeclidinium 62.5 mcg/actuation 2 inh inhalation Q12-24H 10/25/19 01/18/22 blister powder for inhalation (Incruse Ellipta) omeprazole 20 mg capsule,delayed 20 mg DAILY 12/27/19 01/18/22 release Aspir-81 81 mg PO DAILY 10/19/20 01/18/22 Allergies Allergy/AdvReac Type Severity Reaction Status Date / Time cephalexin [From Keflex] Allergy Unknown Verified 02/13/22 09:17 ketorolac [From Toradol] Allergy Unknown Verified 02/13/22 09:17 levetiracetam [From Keppra] Allergy Unknown Verified 02/13/22 09:17 Penicillins Allergy Unknown Verified 02/13/22 09:17 tramadol Allergy Unknown Verified 02/13/22 09:17 Review of Systems Review of Systems: All systems reviewed & are unremarkable except as noted in HPI and below Constitutional: Constitutional: Denies chills, Reports fatigue and Denies fever(s) ENT: Denies nasal congestion and Denies sore throat Cardiovascular: Cardiovascular: Denies chest pain, Denies rapid heart rate and Denies radiating jaw, neck or arm pain Respiratory: Respiratory: Denies chest congestion, Denies cough, Reports dyspnea and Reports wheezing Genitourinary: Genitourinary: Denies nocturia and Denies dysuria PMFSH Past Medical History Medical History COPD (chronic obstructive pulmonary disease) Depression Neuropathy Pneumonia due to COVID-19 virus PTSD (post-traumatic stress disorder) Seizures Surgical History Surgical History History of hysterectomy Family History Family History Other Depression Diabetes mellitus Heart disease Hypertension Personality disorder Social History Social History Smoking packs per day: 0.5 Smoking cigarettes per day: 10.0 Smoking status: Current every day smoker Alcohol intake: current Substance use: current Substance use type: marijuana Gender identity (if verbalized by the patient): Female Sexual Orientation (if Verbalized by the Patient): Straight or Heterosexual Exam Narrative: GENERAL: Unwell-appearing, well-nourished, and in mild distress. HEAD: Normocephalic, atraumatic. EYES: PERRLA and EOMI. ENT: Mucous membranes moist. CHEST: Diffuse instrument expiratory wheezing. Mild respiratory distress. HEART: Regular rate and rhythm. Normal peripheral pulses. ABDOMEN: Soft, nontender, nondistended. EXTREMITIES: Normal range of motion. No edema. SKIN: Warm, dry, no rash. NEURO: Alert and oriented x3. PSYCH: Normal mood and affect. Course Course Emergency C
[2022-02-21 17:44] LABS: Basophils Absolute Auto 0.1 K/mm3 (0.0-0.1); Basophils Percent Auto 0.9 % (0.2-1.2); Eosinophils Absolute Auto 0.4 K/mm3 (0-0.3); Eosinophils Percent Auto 3.5 % (0-4.4); Hemoglobin 15.3 g/dL (12.0-15.0); Immature Granulocyte Absolute 0.03 K/mm3 (0.00-0.031); Immature Granulocyte Percent A 0.3 % (0-0.5); Lymphocytes Absolute Auto 5.38 K/mm3 (0.9-3.2); Lymphocytes Percent Auto 46.6 % (18.3-44.2); Mean Corpuscular HGB Conc 31.2 g/dl (32-36); Mean Corpuscular Hemoglobin 28.5 pg (26-34); Mean Corpuscular Volume 91.2 fl (80-100); Mean Platelet Volume 9.9 fl (7.4-10.4); Monocytes Absolute Auto 0.9 K/mm3 (0.1-0.6); Monocytes Percent Auto 7.5 % (2.6-8.5); Neutrophils Absolute Auto 4.8 K/mm3 (1.3-6.7); Neutrophils Percent Auto 41.2 % (45.5-73.1); Platelet Count Result 261 k/mm3 (150-375); Red Blood Count 5.37 M/mm3 (4.2-5.4); Red Cell Distribution Width 16.5 % (11.5-14.5); White Blood Count 11.6 K/mm3 (4.5-10.0)
[2022-02-21 17:52] LABS: Alanine Aminotransferase 18 U/L (6-35); Albumin Level 4.1 g/dL (3.5-5.1); Alkaline Phosphatase 86 U/L (38-126); Anion Gap 8 mmol/L (8-16); Aspartate Amino Transferase 22 U/L (14-36); Bilirubin,Total 0.3 mg/dL (0.2-1.3); Blood Urea Nitrogen 8 mg/dL (7-17); Calcium 8.5 mg/dL (8.4-10.2); Carbon Dioxide 34 mmol/L (22-30); Chloride 97 mmol/L (98-107); Estimated Glomerular Filt Rate > 60; Glucose 127 mg/dL (65-110); Potassium 4.1 mmol/L (3.4-5.0); Sodium 139 mmol/L (137-145)
[2022-02-21 17:55] LABS: Alveolar/Arterial O2 Gradient 53.2 mmHg; Base Excess ABG 5.2 mEq/l (+/-2.0); Carboxyhemoglobin 6.1 % THb (0-2.0); Fractional Inspired Oxygen 28 %; HCO3 ABG 33.2 mEq/l (22.0-26.0); Methemoglobin ABG 0.1 %THb (0-1.5); Oxygen Content ABG 19.6 %vol (16.0-22.0); Oxygen Saturation ABG 93.3 % (95.0-100.0); Oxyhemoglobin 88.6 % THb (90.0-100.0); PO2 ABG 72.5 mmHg (80.0-100.0); PO2 FiO2 Ratio Arterial Blood 2.59 %; Reduced Hemoglobin 5.2 %THb (0-5.0); Total Hemoglobin 15.7 g/dL (12.0-18.0); pH ABG 7.342 (7.350-7.450)
[2022-02-21 17:58] LABS: PCO2 ABG 62.7 mmHg (35.0-45.0)
[2022-02-21 17:59] LABS: Device NASAL CANNULA; Modified Allen's Test Pass; Site Drawn LEFT RADIAL
[2022-02-21 18:06] LABS: Atypical Lymphocytes Present; Platelet Estimate Adequate (Adequate); Schistocytes None Seen (NORMAL); Stomatocytes 1+ (NORMAL)
[2022-02-21 19:08] LABS: Influenza A QL RT-PCR Negative (Negative); Influenza B QL RT-PCR Negative (Negative); SARS-CoV-2 RNA PCR Negative
[2022-02-21] MEDS: ALBUTEROL SULFATE NEB 2.5 MG/3 ML INH 15 MG INHALATION (20:00)
[2022-02-21] MEDS: IPRATROPIUM BR 0.02% INH SOLN 0.5 MG/2.5 ML VIAL 1.5 MG INHALATION (20:01)
[2022-02-21] MEDS: methylPREDNISolone SOD SUCC 125 MG VIAL IV PUSH (20:10)
--- NOTE | 2022-02-21 20:13 | PM.IMHP ---
H&P: HPI History of Present Illness Date/Time: 02/21/22 20:13 [facility] Past Medical History Medical History COPD (chronic obstructive pulmonary disease) Depression Neuropathy Pneumonia due to COVID-19 virus PTSD (post-traumatic stress disorder) Seizures Surgical History Surgical History History of hysterectomy Family History Family History Other Depression Diabetes mellitus Heart disease Hypertension Personality disorder Social History Social History Smoking packs per day: 0.5 Smoking cigarettes per day: 10.0 Smoking status: Current every day smoker Alcohol intake: current Substance use: current Substance use type: marijuana Gender identity (if verbalized by the patient): Female Sexual Orientation (if Verbalized by the Patient): Straight or Heterosexual Meds Home Medications and Allergies Home Medications Medication Instructions Recorded Confirmed Type acyclovir 400 mg tablet 400 mg PO DAILY 10/25/19 01/18/22 History buspirone 10 mg tablet 10 mg DAILY 10/25/19 01/18/22 History clonazepam 1 mg tablet 1 mg TID 10/25/19 01/18/22 History dicyclomine 20 mg tablet 1 mg DAILY 10/25/19 01/18/22 History ergocalciferol (vitamin D2) 1,250 1 mcg WEEKLY 10/25/19 01/18/22 History mcg (50,000 unit) capsule fluticasone propionate 50 See Rx Instructions .Route .COMPLEX 10/25/19 01/18/22 History mcg/actuation nasal spray,suspension (24 Hour Allergy Relief) montelukast 10 mg tablet 1 mg DAILY 10/25/19 01/18/22 History pregabalin 50 mg capsule (Lyrica) 150 mg BID 10/25/19 01/18/22 History umeclidinium 62.5 mcg/actuation 2 inh inhalation Q12-24H 10/25/19 01/18/22 History blister powder for inhalation (Incruse Ellipta) albuterol sulfate 90 mcg/actuation 2 puff inhalation Q4-6H PRN 12/27/19 01/18/22 Rx aerosol inhaler (ProAir HFA) shortness of breath or wheezing #18 grams omeprazole 20 mg capsule,delayed 20 mg DAILY 12/27/19 01/18/22 History release Aspir-81 81 mg PO DAILY 10/19/20 01/18/22 History hydrocodone 5 mg-acetaminophen 325 1 tablet PO Q6H PRN pain #12 tabs 06/04/21 01/18/22 Rx mg tablet witch whitney 50 % topical pads 1 pad topical BID #40 ea 07/04/21 01/18/22 Rx (Tucks (witch whitney)) albuterol sulfate 90 mcg/actuation 2 puff inhalation QID PRN 08/09/21 01/18/22 Rx aerosol inhaler shortness of breath or wheezing #6.7 grams doxycycline monohydrate 100 mg 100 mg PO BID #14 caps 08/09/21 01/18/22 Rx capsule hydrocodone 5 mg-acetaminophen 325 1 tablet PO Q6H PRN pain #14 tabs 08/09/21 01/18/22 Rx mg tablet prednisone 50 mg tablet 50 mg PO DAILY #6 tabs 08/09/21 01/18/22 Rx hydrocodone 5 mg-acetaminophen 325 1 tablet PO Q4H PRN pain #10 tabs 11/08/21 01/18/22 Rx mg tablet azithromycin 250 mg tablet See Rx Instructions PO .COMPLEX #6 01/03/22 01/18/22 Rx tabs prednisone 20 mg tablet 40 mg PO DAILY 4 days #8 tabs 01/03/22 01/18/22 Rx prednisone 20 mg tablet 60 mg PO DAILY 5 days #15 tabs 01/11/22 01/18/22 Rx Allergies Allergy/AdvReac Type Severity Reaction Status Date / Time cephalexin [From Keflex] Allergy Unknown Verified 02/13/22 09:17 ketorolac [From Toradol] Allergy Unknown Verified 02/13/22 09:17 levetiracetam [From Keppra] Allergy Unknown Verified 02/13/22 09:17 Penicillins Allergy Unknown Verified 02/13/22 09:17 tramadol Allergy Unknown Verified 02/13/22 09:17 Vital Signs Vital Signs - 24 hr 02/21/22 17:22 02/21/22 18:10 02/21/22 17:30 Temperature 98 F Pulse Rate 103 H 89 Respiratory Rate 14 24 H Blood Pressure 114/72 Pulse Oximetry 90 96 Oxygen Delivery Nasal Cannula BiPAP Room Air Oxygen Flow Rate 4.0 02/21/22 17:30 02/21/22 18:35 02/21/22 19:16 Temperature 98.3 F 98.3 F 98.3 F Pulse R
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
--- NOTE | 2022-02-22 00:14 | PC.NURSE ---
Pt left AMA. Pt reports since her daughter can't stay with her then that will cause her to have pseudoseizures during her hospitalization. Pt advised of all the risks of not being monitored and pt reports she can can go home and do her own nebs and steroids. Pt is A/O x 4, signed AMA paperwork and transported out of the ED in a wc with daughter
== END 2022-02-22 00:43 | disposition left against medical advice (07) ==
PROVIDERS: Emergency Medicine; Emergency Provider Emergency Medicine; PCP Physician Assistant
DX: J96.92 Respiratory failure, unspecified with hypercapnia (principal); J44.9 Chronic obstructive pulmonary disease, unspecified; R56.9 Unspecified convulsions; Z20.822 Contact with and (suspected) exposure to COVID-19; Z87.01 Personal history of pneumonia (recurrent); Z86.16 Personal history of COVID-19; G62.9 Polyneuropathy, unspecified; Z90.710 Acquired absence of both cervix and uterus; F17.210 Nicotine dependence, cigarettes, uncomplicated; Z79.82 Long term (current) use of aspirin
CPT/HCPCS: 36415; 36600; 51701; 71045; 80053; 82375; 82805; 83050; 85025; 87502; 93005; 94002; 94640; 96374; 99284; C9803; J2930; U0003; U0005

== ENCOUNTER 2022-03-13 16:07 | Outpatient (CLI) | payer MEDICARE, MEDICAID, SELFPAY ==
--- NOTE | ~2022-03-13 | MR_ITS ---
EXAMINATION: MR thoracic spine wo con DATE: 03/13/2022 17:01 INDICATION: Back pain. TECHNIQUE: Magnetic resonance imaging (MRI) of the thoracic spine was performed without intravenous c ontrast. COMPARISON: Thoracic spine radiographs 03/13/2022, chest CT 01/03/22 FINDINGS: There is 3 degrees dextrocurvature of mid thoracic spine. There is a compression fracture o f T7 with 2/5 loss of height and edema-like signal intensity. There is a compression fracture of T9 w ith 1/5 loss of height and edema-like marrow signal intensity. There is mildly decreased disc height at T11-T12. There are central protrusions from T6-T7 through T8-T9 with mild central canal stenosis. At T10-T11, disc is bulging with mild central canal stenosis and mild right and mild right neural for aminal stenosis. At T11-T12, the disc is bulging with mild central canal stenosis and mild bilateral neural foraminal stenosis. There is multilevel mild facet joint osteoarthritis. The spinal cord signa l intensity is normal. IMPRESSION: 1. Subacute compression fractures of T7 and T9, stable from 01/03/2022. 2. Mild thoracic spondylosis. Reviewed, dictated and finalized at location A. DESIGNER
--- NOTE | ~2022-03-13 | XR_ITS ---
EXAMINATION: XR thoracic spine 2V DATE: 03/13/2022 16:47 INDICATION: Back pain TECHNIQUE: AP, lateral and lateral swimmer's views of the thoracic spine were obtained. COMPARISON: 02/13/2022 FINDINGS: Bone alignment is normal. Again noted are stable, chronic compression fractures of T7 and T 9. No new fracture is identified. There is mild loss of intervertebral disc space height throughout t he thoracic spine. Small degenerative osteophytes project from the anterior endplates of multiple turner tebral bodies. IMPRESSION: 1. Chronic compression fractures of T7 and T9 without significant change. 2. Mild thoracic spondylosis. Reviewed, dictated and finalized at location B. MANAGEMENT SUPERVISOR
== END 2022-03-13 16:08 | disposition home or self-care (01) ==
PROVIDERS: PCP Physician Assistant; Visit Provider Neurological Surgery
DX: M47.894 Other spondylosis, thoracic region (principal); S22.060A Wedge compression fracture of T7-T8 vertebra, initial encounter for closed fracture; S22.070A Wedge compression fracture of T9-T10 vertebra, initial encounter for closed fracture; X58.XXXA Exposure to other specified factors, initial encounter
CPT/HCPCS: 72070; 72146

== ENCOUNTER 2022-03-27 12:13 | Outpatient (CLI) | payer MEDICARE, MEDICAID, SELFPAY ==
--- NOTE | ~2022-03-27 | DEXA_ITS ---
Bone Density Report Name: WILMAR MINOR Age: 51 Sex: Female Ethnicity: White Date of : 1970 Indication: postmenopausal; screening for osteoporosis; prior fracture; seizure disorder; asthma or emphysema; hysterectomy; Referring Provider: BONNIE OTERO Study: Bone densitometry was performed. Exam Date: March 27, 2022 Accession number: [id number] Bone Density: Region BMD T-score Z-score Classification AP Spine(L1-L4) 0.743 -2.8 -2.0 Osteoporosis Femoral Neck (Left) 0.645 -1.8 -1.1 Osteopenia Total Hip (Left) 0.823 -1.0 -0.5 Normal Femoral Neck (Right) 0.657 -1.7 -1.0 Osteopenia Total Hip (Right) 0.818 -1.0 -0.5 Normal Total Hip Mean 0.820 -1.0 -0.5 Normal World Health Organization criteria for BMD impression classify patients as: Normal (T-score at or above -1.0), Osteopenia (T-score between -1.0 and -2.5), or Osteoporosis (T-score at or below -2.5). 10-year Fracture Risk: FRAX not reported because: Some T-score for Spine Total or Hip Total or Femoral Neck at or below -2.5 Prior hip or vertebral fracture Clinical Information Provided by Patient: Have had a previous hip or vertebral fracture Has had a low trauma fracture Smokes Has used the following medications: Vitamin D, Calcium Has the following medical conditions: Any Seizure Disorders, Asthma or Emphysema, Hysterectomy Patient maximum height was 60 Menopause Age: 35 Onset of menses at age 10 Number of children 4 Impression: The patient has established osteoporosis, based on the Total Spine T-score and the existence of a prior fracture. The patient has risk factors, including: smoking, previous fracture. Discussion: HIGH RISK OF FRACTURE. BONE DENSITY IS UNDESIRABLY LOW AT ONE OR MORE SKELETAL SITES, CONSISTENT WITH POSTMENOPAUSAL OSTEOPOROSIS. This patient's lowest T-score, in a patient who has previously fractured, meets the World Health Organization's (WHO) criteria for severe osteoporosis. In untreated patients, the risk of osteoporotic fracture increases approximately two-fold for each 1.0 SD decrease in T-score. Low bone density is not the only risk factor for fracture; also consider factors such as patient's age, frailty or poor health, risk of falling, risk of injury, previous osteoporotic fracture, family history of osteoporosis, cigarette smoking, low body weight, etc. Not everyone with low bone mineral density has osteoporosis; osteomalacia and other metabolic bone disorders should also be considered. Patients who have osteoporosis should be evaluated for specific diseases and conditions (secondary causes) that may cause or contribute to bone loss. The [place] [employer]ocrinologists (AACE) and National Osteoporosis Foundation (NOF) recommend pharmacologic intervention for all postmenopausal women with
== END 2022-03-27 12:14 | disposition home or self-care (01) ==
PROVIDERS: PCP Physician Assistant; Visit Provider Neurological Surgery
DX: Z78.0 Asymptomatic menopausal state (principal); M81.0 Age-related osteoporosis without current pathological fracture; M85.852 Other specified disorders of bone density and structure, left thigh; M85.851 Other specified disorders of bone density and structure, right thigh
CPT/HCPCS: 77080

== ENCOUNTER 2022-04-05 04:33 | Inpatient (IN) | payer MEDICARE, MEDICAID, SELFPAY ==
[2022-04-05] VITALS (29 sets, daily range): BP systolic 106–144; BP diastolic 67–91; PULSE 89–131; RESP 16–30; TEMP 35.6–37.2; O2SAT 90–98; BMI 29.4
--- NOTE | ~2022-04-05 | XR_ITS ---
EXAMINATION: XR chest 1V portable DATE: 04/05/2022 05:02 INDICATION: Dyspnea. TECHNIQUE: A single frontal view of the chest was obtained. COMPARISON: Chest single view 02/21/2022 FINDINGS: There are lucencies and a chronic interstitial pattern in the lungs, consistent with emphys porsche. No pleural effusion or pneumothorax. The heart size is normal. IMPRESSION: 1. Emphysema. Reviewed, dictated and finalized at location A. 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 Emphysema.
--- NOTE | ~2022-04-05 | CT_ITS ---
EXAMINATION: CTA chest PE protocol DATE: 04/05/2022 06:51 INDICATION: Shortness of breath. TECHNIQUE: Computed tomography angiography (CTA) of the chest was performed with 100 mL Omnipaque-350 intravenous contrast timed to evaluate the pulmonary arteries. Coronal maximum intensity projection 3D-reconstructions were created by the technologist. Automated exposure control and iterative reconst ruction technique were employed. The dose-length product was 259.13 mGy-cm. COMPARISON: Chest CT 01/03/2022, 05/18/21, CT abdomen and pelvis 07/04/21 FINDINGS: There is moderate emphysema. There is mucous plugging in right lower lobe. There are mild p eripheral airspace opacities in right lower lobe. There are patchy airspace opacities in left upper l obe. There are tree-in-bud opacities in left lower lobe. No pleural effusion. The heart size is jovany l. No pericardial effusion. There is mild mediastinal and bilateral hilar lymphadenopathy. There is n o pulmonary embolus. Again seen is an 11 mm hyperenhancing mass in the liver, likely a benign mass mcgovern ch as hemangioma or focal nodular hyperplasia. There are chronic burst fractures of T7 and T9. IMPRESSION: 1. No pulmonary embolus. Sensitivity is mildly decreased by motion artifact. 2. Mild multifocal pneumonia. 3. Moderate emphysema. 4. Mild mediastinal and bilateral hilar lymphadenopathy, likely reactive. Reviewed, dictated and finalized at location A. USAGE METER CLERK
--- NOTE | 2022-04-05 04:38 | ECG_ITS ---
Measurements Intervals [place] Rate: 124 P: 65 MS: 163 QRS: 92 QRSD: 80 T: 59 QT: 399 QTc: 574 Interpretive Statements SINUS TACHYCARDIA BORDERLINE RIGHT AXIS DEVIATION [QRS AXIS > 90] ABNORMAL RHYTHM ECG COMPARED TO ECG 02/21/2022 17:37:04 SINUS TACHYCARDIA NOW PRESENT Electronically Signed On 04-05-2022 10:23:03 MASTER YACHT by Ashley Hodgson M.D.
--- NOTE | 2022-04-05 04:42 | ED.SOB ---
HPI - SOB/Dyspnea General Chief Complaint: Shortness of Breath/Dyspnea Stated Complaint: CP, SOB Time Seen by Provider: 04/05/22 04:35 History of Present Illness HPI Narrative: This is a 51-year-old female with past medical history of COPD, who presents to the emergency department complaining of shortness of breath and diffuse myalgias. The patient states this has been going on for several days, but she woke up this morning and noted shortness of breath and found herself to be hypoxic to the mid 60s on room air. She states she uses up to 3 L of oxygen as needed. She placed her self on oxygen this morning with improvement. She complains of some chest pain related to cough but denies nausea, vomiting or diarrhea. She states her son has had similar symptoms. Related Data Home Medications Medication Instructions Recorded Confirmed acyclovir 400 mg tablet 400 mg PO DAILY 10/25/19 01/18/22 buspirone 10 mg tablet 10 mg DAILY 10/25/19 01/18/22 clonazepam 1 mg tablet 1 mg TID 10/25/19 01/18/22 dicyclomine 20 mg tablet 1 mg DAILY 10/25/19 01/18/22 ergocalciferol (vitamin D2) 1,250 1 mcg WEEKLY 10/25/19 01/18/22 mcg (50,000 unit) capsule fluticasone propionate 50 See Rx Instructions .Route .COMPLEX 10/25/19 01/18/22 mcg/actuation nasal spray,suspension (24 Hour Allergy Relief) montelukast 10 mg tablet 1 mg DAILY 10/25/19 01/18/22 pregabalin 50 mg capsule (Lyrica) 150 mg BID 10/25/19 01/18/22 umeclidinium 62.5 mcg/actuation 2 inh inhalation Q12-24H 10/25/19 01/18/22 blister powder for inhalation (Incruse Ellipta) omeprazole 20 mg capsule,delayed 20 mg DAILY 12/27/19 01/18/22 release Aspir-81 81 mg PO DAILY 10/19/20 01/18/22 Allergies Allergy/AdvReac Type Severity Reaction Status Date / Time cephalexin [From Keflex] Allergy Unknown Verified 02/13/22 09:17 ketorolac [From Toradol] Allergy Unknown Verified 02/13/22 09:17 levetiracetam [From Keppra] Allergy Unknown Verified 02/13/22 09:17 Penicillins Allergy Unknown Verified 02/13/22 09:17 tramadol Allergy Unknown Verified 02/13/22 09:17 Review of Systems Review of Systems: CONSTITUTIONAL: Fevers, chills denies or sweats. EYES: Denies visual changes, redness, or discharge. ENT: Rhinorrhea, congestion denies sore throat, or otalgia. CARDIOVASCULAR: Denies chest pain, palpitations, or edema. RESPIRATORY: Cough, dyspnea GASTROINTESTINAL: Denies abdominal pain, nausea, vomiting, or diarrhea. GENITOURINARY: Denies dysuria or hematuria. SKIN: Denies rash or itching. MUSCULOSKELETAL: Myalgias denies back pain, joint pain NEUROLOGIC: Generalized weakness denies headache, numbness, dizziness PSYCHIATRIC: Denies anxiety or depression. PMFSH Past Medical History Medical History COPD (chronic obstructive pulmonary disease) Depression Neuropathy Pneumonia due to COVID-19 virus PTSD (post-traumatic stress disorder) Seizures Surgical History Surgical History History of hysterectomy Family History Family History Other Depression Diabetes mellitus Heart disease Hypertension Personality disorder Social History Social History Smoking packs per day: 0.5 Smoking cigarettes per day: 10.0 Smoking status: Current every day smoker Alcohol intake: current Substance use: current Substance use type: marijuana Gender identity (if verbalized by the patient): Female Sexual Orientation (if Verbalized by the Patient): Straight or Heterosexual Exam Narrative: GENERAL: Well-developed, well-nourished, in mild distress due to dyspnea HEAD: Normocephalic, atraumatic. EYES: PERRLA and EOMI. ENT: Nares clear, no rhinorrhea or epistaxis. Mucous membranes moist. Oropharynx without tonsillar hypertrophy exudate or other lesions. NECK
[2022-04-05] MEDS: IPRATROPIUM BR 0.02% INH SOLN 0.5 MG/2.5 ML VIAL INHALATION ×2 (05:00→22:35)
[2022-04-05] MEDS: ALBUTEROL SULFATE NEB 2.5 MG/3 ML INH 5 MG INHALATION ×3 (05:00→22:35)
[2022-04-05 05:08] LABS: Hematocrit 43.3 % (37.0-47.0); Hemoglobin 14.6 g/dL (12.0-15.0); Mean Corpuscular HGB Conc 33.7 g/dl (32-36); Mean Corpuscular Hemoglobin 28.7 pg (26-34); Mean Corpuscular Volume 85.2 fl (80-100); Mean Platelet Volume 9.6 fl (7.4-10.4); Platelet Count Result 266 k/mm3 (150-375); Red Blood Count 5.08 M/mm3 (4.2-5.4); Red Cell Distribution Width 17.7 % (11.5-14.5); White Blood Count 21.7 K/mm3 (4.5-10.0)
[2022-04-05 05:17] LABS: Alanine Aminotransferase 16 U/L (6-35); Albumin Level 4.2 g/dL (3.5-5.1); Alkaline Phosphatase 119 U/L (38-126); Anion Gap 8 mmol/L (8-16); Aspartate Amino Transferase 28 U/L (14-36); Bilirubin,Total 0.7 mg/dL (0.2-1.3); Blood Urea Nitrogen 13 mg/dL (7-17); Calcium 8.5 mg/dL (8.4-10.2); Carbon Dioxide 26 mmol/L (22-30); Chloride 97 mmol/L (98-107); Estimated Glomerular Filt Rate > 60; Glucose 193 mg/dL (65-110); Potassium 4.3 mmol/L (3.4-5.0); Sodium 131 mmol/L (137-145)
[2022-04-05 05:25] LABS: Band Neutrophils Percent 1 % (0-6); Lymphocytes Absolute Manual 3.03 K/mm3 (1.1-4.5); Lymphocytes Percent Manual 14 % (18-44); Monocytes Absolute Manual 1.51 K/mm3 (0.1-0.90); Monocytes Percent Manual 7 % (3-9); Neutrophils Absolute Manual 17.14 K/mm3 (1.7-7.2); Neutrophils Percent Manual 78 % (46-73); Total Cells Counted 100
[2022-04-05 05:26] LABS: Atypical Lymphocytes Present; Platelet Estimate Adequate (Adequate); Schistocytes None Seen (NORMAL)
[2022-04-05 05:28] LABS: Stomatocytes 1+ (NORMAL); Troponin I < 0.012 ng/mL (0.000-0.034)
[2022-04-05] MEDS: SODIUM CHLORIDE 0.9% IV 1,000 ML 999 ML IV CONT (05:51)
[2022-04-05] MEDS: MAGNESIUM SULF 2 GM/WATER 50ML 2 GM/50 ML BAG IVPB (05:52)
[2022-04-05] MEDS: methylPREDNISolone SOD SUCC 125 MG VIAL IV PUSH (05:52)
[2022-04-05 06:22] LABS: Influenza A QL RT-PCR Negative (Negative); Influenza B QL RT-PCR Negative (Negative); SARS-CoV-2 RNA PCR Negative
[2022-04-05 06:31] LABS: Appearance Urine Clear (Clear); Bilirubin Urine Negative (Negative); Blood Urine Trace-intact (Negative); Color Urine Yellow (Yellow); Glucose Urine UA Negative (Negative); Ketones Urine Negative (Negative); Leukocyte Esterase Ur Negative LEU/UL (Negative); Nitrate Urine Negative (Negative); Protein Urine 1+ mg/dL (Negative); Urobilinogen Urine 0.2 mg/dL (<2.0); pH Urine 5.5 (5.0-9.0)
[2022-04-05 07:01] LABS: Mucus Urine Rare /lpf; Squamous Epithelial Cell Urine Rare /hpf (Few); WBC Urine 0-3 /hpf
[2022-04-05 07:13] LABS: Add Urine Microscopic? YES
--- NOTE | 2022-04-05 08:11 | PC.NURSE ---
regular standard breakfast tray ordered
--- NOTE | 2022-04-05 08:19 | PC.NURSE ---
Patient on breathing treatment
--- NOTE | 2022-04-05 08:33 | PC.NURSE ---
EDP Gonzalez notified blood cultures have not been ordered prior to starting antibiotics. Cultures ordered at this time.
[2022-04-05 08:57] LABS: Glucose Point of Care 188 mg/dl (65-105)
--- NOTE | 2022-04-05 11:27 | ADMGEN ---
This patient, Naa Mims, was admitted to [facility] Surg Room 317-01. Patient/family oriented to hospital policies and general routines including ID bracelet, bed and alarms, visiting hours, pain management, procedures, bathroom and other care routines, personal items, smoking policy, room service/diet, and visiting hours. Information on how to activate the Rapid Response Team has been discussed. Patient/Family are encouraged to report perceived risks to care and to ask questions if they do not understand what they are told or what they should do. DAUGHTER AT BEDSIDE ANSWERING QUESTIONS, PT IS SLEEPING AT THIS TIME
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
[2022-04-05 18:22] LABS: Glucose Point of Care 204 mg/dl (65-105)
[2022-04-05] MEDS: LORazepam INJ (*CRX) 2 MG/ML VIAL 1 MG IV PUSH (18:25)
--- NOTE | 2022-04-05 18:33 | PC.NURSE ---
Patient called vice president of instruction light and was moaning. Went into patient room and patient was having jerking movements, muscles tense, and teeth clenched. Episode lasting about 1 minute. Chhaya PRESSLEY called orders received for ativan 1mg. After episode patient was alert and oriented and able to answer questions. Patient stated she sometimes has these episodes daily and stated the beeping IV pump triggered it. VS 99% on 3L, 121/82, heart rate 100, respirations 24 and blood sugar 204.
[2022-04-05] MEDS: DOCUSATE SODIUM 100 MG CAPSULE PO (19:01)
[2022-04-05] MEDS: busPIRone HCL 10 MG TABLET BY MOUTH (19:01)
[2022-04-05] MEDS: PREGABALIN (*CRX) 75 MG CAPSULE 150 MG PO (19:02)
[2022-04-05] MEDS: PANTOPRAZOLE 40 MG TABLET BY MOUTH (19:02)
[2022-04-05 20:01] LABS: Glucose Point of Care 181 mg/dl (65-105)
[2022-04-05 20:45] LABS: Hemoglobin A1C 6.6 % (<5.7)
[2022-04-05] MEDS: methylPREDNISolone SOD SUCC 125 MG VIAL 60 MG IV PUSH (21:11)
[2022-04-06] VITALS (12 sets, daily range): BP systolic 98–127; BP diastolic 67–78; PULSE 92–120; RESP 17–20; TEMP 35.9–36.6; O2SAT 92–95
--- NOTE | 2022-04-06 02:24 | PC.NURSE ---
pt inquiring about abg not done, order from 1400 04/05/22, called MD Whatley, stated wait for day shift hospitalist to decide if order still needed. Pt stable on 3l NC 94%.
[2022-04-06] MEDS: IPRATROPIUM BR 0.02% INH SOLN 0.5 MG/2.5 ML VIAL INHALATION ×4 (03:27→19:33)
[2022-04-06] MEDS: ALBUTEROL SULFATE NEB 2.5 MG/3 ML INH 5 MG INHALATION ×4 (03:28→19:34)
--- NOTE | 2022-04-06 04:11 | PC.NURSE ---
sputum sent to lab for analysis.
[2022-04-06] MEDS: methylPREDNISolone SOD SUCC 125 MG VIAL 60 MG IV PUSH ×3 (05:03→20:21)
[2022-04-06 07:36] LABS: Basophils Percent Auto 0.2 % (0.2-1.2); Hematocrit 41.1 % (37.0-47.0); Hemoglobin 13.3 g/dL (12.0-15.0); Immature Granulocyte Absolute 0.11 K/mm3 (0.00-0.031); Immature Granulocyte Percent A 0.6 % (0-0.5); Lymphocytes Absolute Auto 1.55 K/mm3 (0.9-3.2); Lymphocytes Percent Auto 8.9 % (18.3-44.2); Mean Corpuscular HGB Conc 32.4 g/dl (32-36); Mean Corpuscular Hemoglobin 28.4 pg (26-34); Mean Corpuscular Volume 87.6 fl (80-100); Mean Platelet Volume 10.5 fl (7.4-10.4); Monocytes Percent Auto 5.7 % (2.6-8.5); Neutrophils Absolute Auto 14.8 K/mm3 (1.3-6.7); Neutrophils Percent Auto 84.6 % (45.5-73.1); Platelet Count Result 254 k/mm3 (150-375); Red Blood Count 4.69 M/mm3 (4.2-5.4); Red Cell Distribution Width 17.5 % (11.5-14.5); White Blood Count 17.4 K/mm3 (4.5-10.0)
[2022-04-06 07:41] LABS: Anion Gap 3 mmol/L (8-16); Blood Urea Nitrogen 14 mg/dL (7-17); Calcium 8.3 mg/dL (8.4-10.2); Carbon Dioxide 27 mmol/L (22-30); Chloride 99 mmol/L (98-107); Estimated CRCL calculation 82 ml/min; Estimated Glomerular Filt Rate > 60; Glucose 203 mg/dL (65-110); Potassium 4.6 mmol/L (3.4-5.0); Sodium 129 mmol/L (137-145)
[2022-04-06] MEDS: THIAMINE HCL 100 MG TABLET PO (08:27)
[2022-04-06] MEDS: PREGABALIN (*CRX) 75 MG CAPSULE 150 MG PO ×2 (08:28→16:01)
[2022-04-06] MEDS: ASPIRIN 81 MG CHEWABLE TABLET PO (08:28)
[2022-04-06] MEDS: DICYCLOMINE HCL 10 MG CAPSULE 20 MG BY MOUTH (08:28)
[2022-04-06] MEDS: PANTOPRAZOLE 40 MG TABLET BY MOUTH ×2 (08:28→16:02)
[2022-04-06] MEDS: LORATADINE 10 MG TABLET PO (08:28)
[2022-04-06] MEDS: busPIRone HCL 10 MG TABLET BY MOUTH ×3 (08:28→16:02)
[2022-04-06] MEDS: DULoxetine HCL 30 MG CAPSULE.DR PO (08:28)
[2022-04-06] MEDS: MULTIVITAMINS /C LUTEIN (CENTRUM SILVER) TABLET *BKC 1 TAB PO (08:29)
[2022-04-06] MEDS: DOCUSATE SODIUM 100 MG CAPSULE PO ×2 (08:29→16:01)
[2022-04-06] MEDS: TAMSULOSIN HCL 0.4 MG CAPSULE PO (08:29)
[2022-04-06] MEDS: ENOXAPARIN 40 MG/0.4 ML SYRINGE SUB-Q (08:31)
[2022-04-06 08:36] LABS: Glucose Point of Care 181 mg/dl (65-105)
--- NOTE | 2022-04-06 10:55 | PM.IMPN ---
Progress Note: A&P Assessment and Plan (1) Multifocal pneumonia: Code(s): J18.9 - Pneumonia, unspecified organism Status: Acute Assessment and Plan: The patient was placed on vancomycin and Levaquin. -the patient has mild multifocal pneumonia. -patient has a history of hypoxia and wears oxygen p.r.n. at home up to 3 L per nasal cannula. -the patient became hypoxic today -ABGs have been ordered. -tailor antibiotics to blood and sputum cultures -nebulizer treatment (2) Respiratory failure, [id number]: Code(s): J96.20 - Acute and chronic respiratory failure, unspecified whether with hypoxia or hypercapnia Status: Acute Assessment and Plan: -the patient uses oxygen at home p.r.n. and uses up to 3 L per nasal cannula when needed. 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 -continue with oxygen to keep O2 saturations above 92%. -Solu-Medrol -continue with Incruse ellipse Ellipta. She may use her own if it is non formulary otherwise we may substitute with what we have in our formulary. (4) Depression: Code(s): F32.9 - Major depressive disorder, single episode, unspecified Status: Acute Assessment and Plan: -continue with BuSpar -continue with duloxetine (5) Neuropathy: Code(s): G62.9 - Polyneuropathy, unspecified Status: Acute Assessment and Plan: -continue with Lyrica -continue with duloxetine (6) Seizures: Code(s): R56.9 - Unspecified convulsions Status: Acute Assessment and Plan: -continue Lyrica (7) HSV (herpes simplex virus) anogenital infection: Code(s): A60.9 - Anogenital herpesviral infection, unspecified Status: Acute Assessment and Plan: -continue with acyclovir (8) Tobacco dependence: Code(s): F17.200 - Nicotine dependence, unspecified, uncomplicated Status: Acute Assessment and Plan: -the patient declined a nicotine patch at this time. -continue with smoking cessation education Subjective Date/time seen: 04/06/22 10:55 breathing better Exam Const: General: cooperative, healthy appearing, comfortable, no acute distress, well developed, awake (Difficult to arouse), Physically active, ill appearing, lethargic, tired appearing, average body habitus and well nourished Nutritional Appearance: average body habitus and well nourished Orientation/consciousness: oriented to person, oriented to place, oriented to time, patient oriented x3 and lethargic Limitations: no limitations and other limitations (Lethargic) HENMT: Head: normal to inspection, No palpable skull fracture present, normocephalic, atraumatic and abrasion Ears: hearing grossly normal bilaterally, external ears normal and TM's normal bilaterally Face/Nose/Sinus: Normal external nose present, Normal nares present and No nasal polyps present Mouth: Yes Normal oral and palatal mucosa present Throat: posterior oropharynx normal Eyes: General: appearance normal, both eyes and all related structures Alignment and Position: alignment normal Periorbital: periorbital findings normal Eyelids: eyelids normal Conjunctivae: conjunctivae normal Sclera: sclerae normal Cornea: corneas normal Pupils: Equal, round and reactive pupils present and Pupil accommodation reflex normal EOM: EOMs intact bilaterally Neck: Neck: normal visual inspection, full ROM, no lymphadenopathy, trachea midline and supple Thyroid: thyroid normal Carotids: normal carotid upstroke Lymphatic: no lymphadenopathy noted Chest: Chest palpation & inspection: normal inspection of the chest Resp: Effort & Inspection: normal respirato
[2022-04-06 12:04] LABS: Glucose Point of Care 161 mg/dl (65-105)
[2022-04-06] MEDS: LORazepam INJ (*CRX) 2 MG/ML VIAL 1 MG IV PUSH ×2 (12:16→20:35)
[2022-04-06] MEDS: INSULIN ASPART (*BKC) 100 UNITS/ML SUB-Q (16:43)
[2022-04-06 16:59] LABS: Glucose Point of Care 329 mg/dl (65-105)
[2022-04-06 21:16] LABS: Glucose Point of Care 101 mg/dl (65-105)
[2022-04-07] VITALS (10 sets, daily range): BP systolic 104–132; BP diastolic 65–82; PULSE 98–137; RESP 16–20; TEMP 36–36.3; O2SAT 88–98
[2022-04-07 00:53] LABS: Glucose Point of Care 216 mg/dl (65-105)
--- NOTE | 2022-04-07 02:09 | PC.NURSE ---
PT COUGHING AND C/O SHORTNESS OF BREATH, RESP NOTIFIED AND GETTING TX READY
[2022-04-07] MEDS: IPRATROPIUM BR 0.02% INH SOLN 0.5 MG/2.5 ML VIAL INHALATION ×3 (02:12→13:38)
[2022-04-07] MEDS: ALBUTEROL SULFATE NEB 2.5 MG/3 ML INH 5 MG INHALATION ×3 (02:12→13:38)
[2022-04-07] MEDS: ONDANSETRON HCL ODT 4 MG TABLET PO ×2 (02:30→10:07)
[2022-04-07] MEDS: LORazepam INJ (*CRX) 2 MG/ML VIAL 1 MG IV PUSH ×2 (02:35→09:54)
[2022-04-07 03:40] LABS: Estimated CRCL calculation 63 ml/min; Estimated Glomerular Filt Rate > 60
[2022-04-07 04:25] LABS: Vancomycin Trough 8.5 ug/mL (10.0-20.0)
[2022-04-07] MEDS: methylPREDNISolone SOD SUCC 125 MG VIAL 60 MG IV PUSH ×2 (06:00→13:18)
[2022-04-07 08:26] LABS: Glucose Point of Care 193 mg/dl (65-105)
[2022-04-07] MEDS: ASPIRIN 81 MG CHEWABLE TABLET PO (09:35)
[2022-04-07] MEDS: DICYCLOMINE HCL 10 MG CAPSULE 20 MG BY MOUTH (09:36)
[2022-04-07] MEDS: DOCUSATE SODIUM 100 MG CAPSULE PO (09:36)
[2022-04-07] MEDS: busPIRone HCL 10 MG TABLET BY MOUTH ×2 (09:36→13:18)
[2022-04-07] MEDS: LORATADINE 10 MG TABLET PO (09:37)
[2022-04-07] MEDS: ENOXAPARIN 40 MG/0.4 ML SYRINGE SUB-Q (09:37)
[2022-04-07] MEDS: DULoxetine HCL 30 MG CAPSULE.DR PO (09:37)
[2022-04-07] MEDS: ERGOCALCIFEROL 50,000 UNITS CAPSULE 50000 UNITS PO (09:38)
[2022-04-07] MEDS: TAMSULOSIN HCL 0.4 MG CAPSULE PO (09:38)
[2022-04-07] MEDS: polyethylene glycoL 3350 17 GM POWD.PACK PO (09:38)
[2022-04-07] MEDS: PANTOPRAZOLE 40 MG TABLET BY MOUTH (09:38)
[2022-04-07] MEDS: MULTIVITAMINS /C LUTEIN (CENTRUM SILVER) TABLET *BKC 1 TAB PO (09:38)
[2022-04-07] MEDS: THIAMINE HCL 100 MG TABLET PO (09:39)
[2022-04-07] MEDS: PREGABALIN (*CRX) 75 MG CAPSULE 150 MG PO (09:54)
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
[2022-04-07 11:03] LABS: Basophils Absolute Auto 0.1 K/mm3 (0.0-0.1); Basophils Percent Auto 0.3 % (0.2-1.2); Hematocrit 40.9 % (37.0-47.0); Immature Granulocyte Absolute 0.25 K/mm3 (0.00-0.031); Immature Granulocyte Percent A 1.4 % (0-0.5); Lymphocytes Absolute Auto 1.14 K/mm3 (0.9-3.2); Lymphocytes Percent Auto 6.3 % (18.3-44.2); Mean Corpuscular HGB Conc 31.8 g/dl (32-36); Mean Corpuscular Hemoglobin 28.8 pg (26-34); Mean Corpuscular Volume 90.5 fl (80-100); Mean Platelet Volume 9.8 fl (7.4-10.4); Monocytes Absolute Auto 2.1 K/mm3 (0.1-0.6); Monocytes Percent Auto 11.5 % (2.6-8.5); Neutrophils Absolute Auto 14.5 K/mm3 (1.3-6.7); Neutrophils Percent Auto 80.5 % (45.5-73.1); Platelet Count Result 256 k/mm3 (150-375); Red Blood Count 4.52 M/mm3 (4.2-5.4); Red Cell Distribution Width 17.8 % (11.5-14.5); White Blood Count 18.1 K/mm3 (4.5-10.0)
[2022-04-07 11:52] LABS: Glucose Point of Care 205 mg/dl (65-105)
--- NOTE | 2022-04-07 11:57 | PM.DS ---
DS: Admitting Diagnosis Discharge Date April 07, 2022 Admitting Diagnosis pneumonia DS: Discharge Diagnosis Discharge Diagnosis (1) Multifocal pneumonia: Code(s): J18.9 - Pneumonia, unspecified organism Status: Acute Assessment and Plan: The patient was placed on vancomycin and Levaquin. -the patient has mild multifocal pneumonia. -patient has a history of hypoxia and wears oxygen p.r.n. at home up to 3 L per nasal cannula. -the patient became hypoxic today -ABGs have been ordered. -tailor antibiotics to blood and sputum cultures -nebulizer treatment (2) Respiratory failure, [id number]-[id number]: Code(s): J96.20 - Acute and chronic respiratory failure, unspecified whether with hypoxia or hypercapnia Status: Acute Assessment and Plan: -the patient uses oxygen at home p.r.n. and uses up to 3 L per nasal cannula when needed. 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 -continue with oxygen to keep O2 saturations above 92%. -Solu-Medrol -continue with Incruse ellipse Ellipta. She may use her own if it is non formulary otherwise we may substitute with what we have in our formulary. (4) Depression: Code(s): F32.9 - Major depressive disorder, single episode, unspecified Status: Acute Assessment and Plan: -continue with BuSpar -continue with duloxetine (5) Neuropathy: Code(s): G62.9 - Polyneuropathy, unspecified Status: Acute Assessment and Plan: -continue with Lyrica -continue with duloxetine (6) Seizures: Code(s): R56.9 - Unspecified convulsions Status: Acute Assessment and Plan: -continue Lyrica (7) HSV (herpes simplex virus) anogenital infection: Code(s): A60.9 - Anogenital herpesviral infection, unspecified Status: Acute Assessment and Plan: -continue with acyclovir (8) Tobacco dependence: Code(s): F17.200 - Nicotine dependence, unspecified, uncomplicated Status: Acute Assessment and Plan: -the patient declined a nicotine patch at this time. -continue with smoking cessation education DS: Summary Hospital Course Hospital Course: patient was admitted for hypoxic respiratory failure. She has a history of COVID which requires chronic oxygen therapy at home. She wears imaging were between 2-4 L off oxygen at home. She came with pneumonia was treated vanc and Levaquin did exceptionally well. She is feeling normal affect her baseline. She is able to walk around the rooms on 3L of oxygen. She can be discharged home to continue oxygen follow up primary care physician. She will be sent home on Levaquin as some prednisone for some bronchitis as well. Time Spent with Patient Time attestation: Total time spent providing and/or coordinating discharge services: Exam Const: General: cooperative, healthy appearing, comfortable, no acute distress, well developed, awake (Difficult to arouse), Physically active, ill appearing, lethargic, tired appearing, average body habitus and well nourished Nutritional Appearance: average body habitus and well nourished Orientation/consciousness: oriented to person, oriented to place, oriented to time, patient oriented x3 and lethargic Limitations: no limitations and other limitations (Lethargic) HENMT: Head: normal to inspection, No palpable skull fracture present, normocephalic, atraumatic and abrasion Ears: hearing grossly normal bilaterally, external ears normal and TM's normal bilaterally Face/Nose/Sinus: Normal external nose present, Normal nares present and No nasal polyps present Mouth: Yes Normal oral and palatal mucosa present
[2022-04-07] MEDS: INSULIN ASPART (*BKC) 100 UNITS/ML SUB-Q (13:14)
== END 2022-04-07 14:32 | disposition home or self-care (01) | DRG 193 ==
LOC: ANHED 07:37 → ANH3MEDSUR 09:59
PROVIDERS: Nurse Practitioner; Admitting Provider Chiropractor; Emergency Provider Preventive Medicine Aerospace Medicine; PCP Physician Assistant; Visit Provider Chiropractor
DX: J18.9 Pneumonia, unspecified organism (principal); J96.21 Acute and chronic respiratory failure with hypoxia; E87.1 Hypo-osmolality and hyponatremia; Z20.822 Contact with and (suspected) exposure to COVID-19; R73.9 Hyperglycemia, unspecified; G40.909 Epilepsy, unspecified, not intractable, without status epilepticus; J43.9 Emphysema, unspecified; G62.9 Polyneuropathy, unspecified; F32.9 Major depressive disorder, single episode, unspecified; A60.9 Anogenital herpesviral infection, unspecified; F17.210 Nicotine dependence, cigarettes, uncomplicated; F43.10 Post-traumatic stress disorder, unspecified; Z90.710 Acquired absence of both cervix and uterus; Z86.16 Personal history of COVID-19; Z99.81 Dependence on supplemental oxygen; Z90.49 Acquired absence of other specified parts of digestive tract; Z85.89 Personal history of malignant neoplasm of other organs and systems
CPT/HCPCS: 36415; 71045; 71275; 80048; 80053; 80202; 81001; 82565; 82948; 83036; 84484; 85025; 87040; 87070; 87205; 87502; 93005; 94640; 96365; 96366; 96367; 96372; 96375; 99285; A9270; G0378; J0131; J1650; J1815; J1956; J2060; J2930; J3370; J3475; J7030; Q9967; U0003; U0005

== ENCOUNTER 2022-04-16 01:24 | Emergency (ER) | payer MEDICARE, MEDICAID, SELFPAY ==
[2022-04-16] VITALS (14 sets, daily range): BP systolic 151; BP diastolic 91; PULSE 80–105; RESP 12–22; TEMP 36.9; O2SAT 92–100
--- NOTE | ~2022-04-16 | XR_ITS ---
EXAMINATION: XR chest 1V portable DATE: 04/16/2022 02:32 INDICATION: Dyspnea. TECHNIQUE: A single frontal view of the chest was obtained. COMPARISON: Chest single view 04/05/2022, chest CT 04/05/2022 FINDINGS: There are lucencies in the lungs, consistent with emphysema. There are mild airspace opacit ies at the lung bases. No pleural effusion or pneumothorax. The heart size is normal. IMPRESSION: 1. Mild airspace opacities at the lung bases, consistent with atelectasis versus pneumonia. 2. Emphysema. Reviewed, dictated and finalized at location A. H FINISHER IMPRESSION: 1. Mild airspace opacities at the lung bases, consistent with atelectasis versu s pneumonia. 2. Emphysema.
[2022-04-16 01:58] LABS: Alveolar/Arterial O2 Gradient 128.2 mmHg; Base Excess ABG 8.1 mEq/l (+/-2.0); Fractional Inspired Oxygen 40 %; HCO3 ABG 36.9 mEq/l (22.0-26.0); Oxygen Content ABG 19.7 %vol (16.0-22.0); Oxygen Saturation ABG 94.3 % (95.0-100.0); Oxyhemoglobin 88.1 % THb (90.0-100.0); PO2 ABG 77.2 mmHg (80.0-100.0); PO2 FiO2 Ratio Arterial Blood 1.93 %; Total Hemoglobin 15.9 g/dL (12.0-18.0); pH ABG 7.344 (7.350-7.450)
[2022-04-16 02:00] LABS: PCO2 ABG 69.4 mmHg (35.0-45.0)
--- NOTE | 2022-04-16 02:00 | ECG_ITS ---
Measurements Intervals [place] Rate: 76 P: 63 MN: 161 QRS: 82 QRSD: 81 T: 32 QT: 338 QTc: 381 Interpretive Statements SINUS RHYTHM COMPARED TO ECG 04/05/2022 04:53:49 NO SIGNIFICANT CHANGES Electronically Signed On 04-16-2022 16:23:58 RACK WORKER by Ashley Hodgson M.D.
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
[2022-04-16] MEDS: ALBUTEROL SULFATE NEB 2.5 MG/3 ML INH 15 MG INHALATION (02:08)
[2022-04-16] MEDS: IPRATROPIUM BR 0.02% INH SOLN 0.5 MG/2.5 ML VIAL 1.5 MG INHALATION (02:08)
[2022-04-16 02:11] LABS: Basophils Absolute Auto 0.1 K/mm3 (0.0-0.1); Basophils Percent Auto 0.4 % (0.2-1.2); Eosinophils Absolute Auto 0.1 K/mm3 (0-0.3); Eosinophils Percent Auto 0.7 % (0-4.4); Hematocrit 51.3 % (37.0-47.0); Hemoglobin 15.8 g/dL (12.0-15.0); Immature Granulocyte Percent A 2.2 % (0-0.5); Lymphocytes Absolute Auto 7.59 K/mm3 (0.9-3.2); Lymphocytes Percent Auto 41.5 % (18.3-44.2); Mean Corpuscular HGB Conc 30.8 g/dl (32-36); Mean Corpuscular Hemoglobin 28.5 pg (26-34); Mean Corpuscular Volume 92.4 fl (80-100); Mean Platelet Volume 9.4 fl (7.4-10.4); Monocytes Absolute Auto 1.1 K/mm3 (0.1-0.6); Monocytes Percent Auto 5.9 % (2.6-8.5); Neutrophils Percent Auto 49.3 % (45.5-73.1); Platelet Count Result 279 k/mm3 (150-375); Red Blood Count 5.55 M/mm3 (4.2-5.4); Red Cell Distribution Width 18.3 % (11.5-14.5); White Blood Count 18.3 K/mm3 (4.5-10.0)
[2022-04-16 02:32] LABS: Blood Urea Nitrogen 13 mg/dL (7-17); Calcium 8.2 mg/dL (8.4-10.2); Carbon Dioxide > 40 mmol/L (22-30); Chloride 95 mmol/L (98-107); Estimated Glomerular Filt Rate > 60; Glucose 164 mg/dL (65-110); Magnesium 1.9 mg/dL (1.6-2.3); Sodium 139 mmol/L (137-145)
[2022-04-16 02:44] LABS: Troponin I < 0.012 ng/mL (0.000-0.034)
[2022-04-16 02:52] LABS: Influenza A QL RT-PCR Positive (Negative); Influenza B QL RT-PCR Negative (Negative); SARS-CoV-2 RNA PCR Negative
[2022-04-16] MEDS: SODIUM CHLORIDE 0.9% IV 1,000 ML 999 ML IV CONT (03:41)
[2022-04-16] MEDS: methylPREDNISolone SOD SUCC 125 MG VIAL IV PUSH (03:42)
[2022-04-16] MEDS: MAGNESIUM SULF 2 GM/WATER 50ML 2 GM/50 ML BAG IVPB (03:42)
[2022-04-16 05:32] LABS: Troponin I < 0.012 ng/mL (0.000-0.034)
[2022-04-17 08:04] LABS: Device NASAL CANNULA
== END 2022-04-16 05:37 | disposition home or self-care (01) ==
PROVIDERS: Emergency Provider Emergency Medicine; PCP Physician Assistant
DX: J44.9 Chronic obstructive pulmonary disease, unspecified (principal); J10.1 Influenza due to other identified influenza virus with other respiratory manifestations; Z20.822 Contact with and (suspected) exposure to COVID-19; F32.9 Major depressive disorder, single episode, unspecified; G40.909 Epilepsy, unspecified, not intractable, without status epilepticus
CPT/HCPCS: 36415; 36600; 71045; 80048; 82805; 83735; 84484; 85025; 87636; 93005; 94640; 96361; 96365; 96375; 99284; J2930; J3475; J7030

== ENCOUNTER 2022-04-30 12:25 | Inpatient (IN) | payer MEDICARE, MEDICAID, SELFPAY ==
[2022-04-30] VITALS (26 sets, daily range): BP systolic 107–132; BP diastolic 74–94; PULSE 102–123; RESP 14–30; TEMP 36.4–36.8; O2SAT 88–100
--- NOTE | ~2022-04-30 | CT_ITS ---
EXAMINATION: CT cervical spine wo con DATE: 05/01/2022 08:36 INDICATION: Neck pain TECHNIQUE: Computed tomography (CT) of the cervical spine was performed without intravenous contrast. The dose-length product (DLP) was 431.50 mGy-cm. Automated exposure control and iterative reconstruc tion technique were employed. COMPARISON: 01/18/2011 FINDINGS: Alignment is normal. There is no fracture. The vertebral body heights are maintained. There is mild loss of intervertebral disc space height at C6-7. The odontoid is intact. The prevertebral s oft tissues are normal. There is multilevel mild facet and uncovertebral joint osteoarthritis. Modera te emphysema is noted in the visualized lung apices. IMPRESSION: 1. Mild cervical spondylosis without acute findings. Reviewed, dictated and finalized at location B. CE RN
--- NOTE | ~2022-04-30 | CT_ITS ---
EXAMINATION: CT thoracic lumbar wo con DATE: 05/01/2022 08:36 INDICATION: Back pain TECHNIQUE: Computed tomography (CT) of the thoracic and lumbar spine was performed without intravenou s contrast. The dose-length product (DLP) was 1781.97 mGy-cm. Iterative reconstruction was used. COMPARISON: 03/13/2022 FINDINGS: Thoracic spine: There are unchanged chronic compression fractures of T7 and T9. No acute fracture is identified. There is mild loss of intervertebral disc space height at several levels in the thoracic spine. The prevertebral soft tissues are normal. Moderate emphysema is noted. Lumbar spine: There is an unchanged chronic compression fracture at L5. No acute fracture is identifi ed. There are 2 mm of stable retrolisthesis of L5 on S1. There is mild loss of intervertebral disc sp ej height at L5-S1. IMPRESSION: 1. Chronic compression fractures of T7, T9, and L5 without acute findings or significant interval ila nge. Reviewed, dictated and finalized at location B. GER CIVIL IMPRESSION: 1. Chronic compression fractures of T7, T9, and L5 without acute findings or si gnificant interval change.
--- NOTE | ~2022-04-30 | CT_ITS ---
EXAMINATION: CTA chest PE protocol DATE: 04/30/2022 20:12 INDICATION: hypoxia, right pleuritic chest pain TECHNIQUE: Computed tomography angiography (CTA) of the chest was performed with 100 mL Omnipaque-350 intravenous contrast timed to evaluate the pulmonary arteries. Coronal maximum intensity projection 3D-reconstructions were created by the technologist. The dose-length product (DLP) was 296.10 mGy-cm. Automated exposure control and iterative reconstruction technique were employed. COMPARISON: 04/05/2022. FINDINGS: Lung parenchyma and airways: Emphysematous change. Diffuse tree-in-bud opacities in the right lung an d overall increased prior exam. Pleura: Unremarkable. Thoracic inlet, axillae and chest wall: Unremarkable. Thoracic aorta: Bovine arch. Mediastinum: Prominent right hilar nodes. Heart and pericardium: Normal. Coronary artery calcifications: Absent. Upper abdomen: Stable hyperenhancing right liver lobe nodule, likely hemangioma or focal nodular hype rplasia. Bones: No acute osseous finding. Stable thoracic compression fractures. Pulmonary arteries: Study quality: Adequate. No pulmonary emboli detected. IMPRESSION: No CT evidence of acute pulmonary embolus. Tree-in-bud opacities as can be seen with atypical infecti on (MAC, TB, fungal), ABPA, airways disease (CF, bronchiectasis), and aspiration. Reviewed, dictated and finalized at location K. NT CUSTOMER MANAGER IMPRESSION: No CT evidence of acute pulmonary embolus. Tree-in-bud opacities as can be seen with atypical infection (MAC, TB, fungal), ABPA, airways disease (CF, bronchie ctasis), and aspiration.
--- NOTE | ~2022-04-30 | XR_ITS ---
Right Knee Technique: AP, lateral, and oblique views were obtained. Clinical History: Pain Findings: No fracture or dislocation is seen. Osseous alignment is anatomic. Joint spaces are preserv ed without degenerative or erosive change. Soft tissues are unremarkable. No joint effusion is seen. Impression: Unremarkable right knee radiographs. Reviewed, dictated and finalized at [facility]. STRY CONSERVATION WORKER Impression: Unremarkable right knee radiographs.
--- NOTE | ~2022-04-30 | CT_ITS ---
EXAMINATION: CT brain wo con INDICATION: Seizure, confusion COMPARISON: 08/09/2021 TECHNIQUE: Standard unenhanced head CT. The dose-length product (DLP) was 681.00 mGy-cm. The mA was a djusted according to patient size. Iterative reconstruction technique was employed. FINDINGS: There is no intracranial hemorrhage, acute infarction, or abnormal mass lesion. The ventric les are normal. There is no abnormal mass effect or midline shift. The brantley-white matter differentiat ion is normal. The basal cisterns are patent. The orbits are normal. There is a small right mastoid e ffusion. There is mild mucosal thickening of the paranasal sinuses. IMPRESSION: 1. No acute intracranial abnormality. Reviewed, dictated and finalized at location B. CTOR DIGITAL COMMUNICATIONS
--- NOTE | ~2022-04-30 | XR_ITS ---
EXAMINATION: XR chest 2V DATE: 04/30/2022 13:08 INDICATION: Chest pain TECHNIQUE: AP and lateral views of the chest are obtained. COMPARISON: 04/16/2022; CT, 04/05/2022 FINDINGS: The lungs are free of acute opacities. There is moderate emphysema. No pleural effusion or pneumothorax. The cardiomediastinal silhouette is normal. There is mild thoracic spondylosis. Chronic burst fractures of T7 and T9 are again noted. IMPRESSION: 1. No acute cardiopulmonary abnormality. Reviewed, dictated and finalized at location L. CONDUCTOR ASSEMBLER
--- NOTE | ~2022-04-30 | MR_ITS ---
MRI of the brain Clinical History: Weakness, seizure Technique: Axial and sagittal T1-weighted images were acquired. These were followed by axial T2-weigh allan, diffusion weighted, gradient, and FLAIR images. Coronal FLAIR and T1-weighted images were also p erformed. Following intravenous administration of 15 cc MultiHance gadolinium, T1-weighted fat-sat im aging was performed in the axial, coronal, and sagittal planes. Findings: No definite acute infarct. No intracranial hemorrhage or mass lesion seen. There are severa l scattered focal white matter lesions in the periventricular white matter on FLAIR imaging. Ventricles and subarachnoid spaces are unremarkable. Orbits are unremarkable. Paranasal sinuses and l eft mastoid air cells are clear. There is mild fluid in right mastoid air cells. Major intracranial f low voids appear intact. Sagittal midline structures are intact. No abnormal postcontrast enhancement seen. IMPRESSION: Probable mild chronic microvascular ischemic changes in the white matter bilaterally, versus possibil ity of demyelinating disease/MS. Correlate clinically. No other significant findings. Reviewed, dictated and finalized at location . RUBBER MOLDER IMPRESSION: Probable mild chronic microvascular ischemic changes in the white matter bilate rally, versus possibility of demyelinating disease/MS. Correlate clinically. No other significant findings.
--- NOTE | 2022-04-30 12:27 | ECG_ITS ---
Measurements Intervals [place] Rate: 119 P: 74 VA: 152 QRS: 86 QRSD: 77 T: 44 QT: 307 QTc: 432 Interpretive Statements SINUS TACHYCARDIA WITH OCCASIONAL SUPRAVENTRICULAR PREMATURE COMPLEXES BASELINE ARTIFACT POSSIBLE LEFT ATRIAL ENLARGEMENT NONSPECIFIC T-WAVE ABNORMALITY BORDERLINE ECG COMPARED TO ECG 04/16/2022 01:38:42 HEART RATE HAS INCREASED Electronically Signed On 04-30-2022 17:59:47 HEAD OF OPERATION AND LOGISTICS by Sheng Gabriel M.D.
[2022-04-30 12:59] LABS: Basophils Absolute Auto 0.1 K/mm3 (0.0-0.1); Basophils Percent Auto 0.5 % (0.2-1.2); Eosinophils Absolute Auto 0.1 K/mm3 (0-0.3); Eosinophils Percent Auto 0.5 % (0-4.4); Hematocrit 47.9 % (37.0-47.0); Immature Granulocyte Absolute 0.12 K/mm3 (0.00-0.031); Immature Granulocyte Percent A 0.6 % (0-0.5); Lymphocytes Absolute Auto 4.44 K/mm3 (0.9-3.2); Lymphocytes Percent Auto 22.5 % (18.3-44.2); Mean Corpuscular HGB Conc 31.3 g/dl (32-36); Mean Corpuscular Hemoglobin 29.1 pg (26-34); Mean Corpuscular Volume 92.8 fl (80-100); Mean Platelet Volume 9.5 fl (7.4-10.4); Monocytes Absolute Auto 2.6 K/mm3 (0.1-0.6); Monocytes Percent Auto 13.1 % (2.6-8.5); Neutrophils Absolute Auto 12.4 K/mm3 (1.3-6.7); Neutrophils Percent Auto 62.8 % (45.5-73.1); Platelet Count Result 348 k/mm3 (150-375); Red Blood Count 5.16 M/mm3 (4.2-5.4); Red Cell Distribution Width 19.8 % (11.5-14.5); White Blood Count 19.7 K/mm3 (4.5-10.0)
[2022-04-30 13:10] LABS: Prothrombin Time 12.6 Seconds (11.1-14.7)
[2022-04-30 13:11] LABS: Partial Thromboplastin Time 28.7 SECONDS (22.3-36.8)
[2022-04-30 13:12] LABS: Alanine Aminotransferase 20 U/L (6-35); Albumin Level 4.4 g/dL (3.5-5.1); Alkaline Phosphatase 90 U/L (38-126); Aspartate Amino Transferase 28 U/L (14-36); Bilirubin,Total 0.8 mg/dL (0.2-1.3); Blood Urea Nitrogen 15 mg/dL (7-17); Calcium 8.7 mg/dL (8.4-10.2); Carbon Dioxide > 40 mmol/L (22-30); Chloride 94 mmol/L (98-107); Estimated CRCL calculation 83 ml/min; Estimated Glomerular Filt Rate > 60; Glucose 149 mg/dL (65-110); Lipase 39 U/L (23-300); Potassium 3.9 mmol/L (3.4-5.0); Sodium 136 mmol/L (137-145)
[2022-04-30 13:20] LABS: Troponin I < 0.012 ng/mL (0.000-0.034)
[2022-04-30] MEDS: methylPREDNISolone SOD SUCC 125 MG VIAL IV PUSH (13:22)
[2022-04-30 13:42] LABS: Influenza A QL RT-PCR Negative (Negative); Influenza B QL RT-PCR Negative (Negative); SARS-CoV-2 RNA PCR Negative
[2022-04-30] MEDS: MORPHINE SULFATE (*CRX) 4 MG/ML INJ IV PUSH (14:48)
[2022-04-30 14:59] LABS: Add Urine Microscopic? NO; Appearance Urine Clear (Clear); Bilirubin Urine Negative (Negative); Blood Urine Negative (Negative); Color Urine Light Yellow (Yellow); Glucose Urine UA Negative (Negative); Ketones Urine Negative (Negative); Leukocyte Esterase Ur Negative LEU/UL (Negative); Nitrate Urine Negative (Negative); Protein Urine Negative (Negative); Urobilinogen Urine 0.2 mg/dL (<2.0)
[2022-04-30 15:05] LABS: RBC Urine 0-2 /hpf (0-2); Squamous Epithelial Cell Urine Occasional /hpf (Few); WBC Urine 0-3 /hpf
--- NOTE | 2022-04-30 15:09 | ED.SOB ---
HPI - SOB/Dyspnea General Chief Complaint: Shortness of Breath/Dyspnea Stated Complaint: chest pain, short of breath Time Seen by Provider: 04/30/22 12:55 Source: patient Mode of arrival: ambulatory Limitations: no limitations History of Present Illness HPI Narrative: 51-year-old with a history of COPD, respiratory failure, anxiety, depression, neuropathy here with complaints of shortness of breath for last few days. She states she has been using her inhalers with minimal relief has occasional cough which is nonproductive. She denies any fever or chills. No history of nausea, vomiting or abdominal pain. MD elicited complaint: shortness of breath and cough Pertinent past history: COPD Timing: constant Severity: moderate Exacerbating factors: exertion Relieving factors: oxygen and bronchodilators Known history of: COPD Associated symptoms: denies other symptoms Related Data Home Medications Medication Instructions Recorded Confirmed buspirone 10 mg tablet 10 mg TID 10/25/19 04/05/22 clonazepam 1 mg tablet 1 mg TID 10/25/19 04/05/22 dicyclomine 20 mg tablet 20 mg DAILY 10/25/19 04/05/22 ergocalciferol (vitamin D2) 1,250 50,000 mcg PO WEEKLY 10/25/19 04/05/22 mcg (50,000 unit) capsule pregabalin 50 mg capsule (Lyrica) 150 mg PO BID 10/25/19 04/05/22 umeclidinium 62.5 mcg/actuation 2 inh inhalation DAILY 10/25/19 04/05/22 blister powder for inhalation (Incruse Ellipta) omeprazole 20 mg capsule,delayed 40 mg BID 12/27/19 04/05/22 release Aspir-81 81 mg PO DAILY 10/19/20 04/05/22 cetirizine 10 mg tablet (All Day 10 mg PO DAILY 04/05/22 04/05/22 Allergy (cetirizine)) cyclobenzaprine 10 mg tablet 10 mg PO BID PRN Muscle Spasm 04/05/22 04/05/22 docusate sodium 100 mg capsule 100 mg PO BID 04/05/22 04/05/22 (Colace) duloxetine 30 mg capsule,delayed 30 mg PO DAILY 04/05/22 04/05/22 release sprinkle multivit with minerals-iron 18 1 tablet PO DAILY 04/05/22 04/05/22 mg-folic ac 400 mcg-vit K 25 mcg tablet (Adults Multivitamin) nicotine 14 mg/24 hr daily 1 patch transdermal DAILY 04/05/22 04/05/22 transdermal patch ondansetron 4 mg disintegrating 4 mg PO Q8H 04/05/22 04/05/22 tablet polyethylene glycol 3350 17 gram 17 g PO DAILY 04/05/22 04/05/22 oral powder packet tamsulosin 0.4 mg capsule 0.4 mg PO DAILY 04/05/22 04/05/22 thiamine HCl (vitamin B1) 100 mg 100 mg PO DAILY 04/05/22 04/05/22 tablet Allergies Allergy/AdvReac Type Severity Reaction Status Date / Time cephalexin [From Keflex] Allergy Unknown Verified 04/30/22 12:34 ketorolac [From Toradol] Allergy Unknown Verified 04/30/22 12:34 levetiracetam [From Keppra] Allergy Unknown Verified 04/30/22 12:34 Penicillins Allergy Unknown Verified 04/30/22 12:34 tramadol Allergy Unknown Verified 04/30/22 12:34 Review of Systems Review of Systems: All systems reviewed & are unremarkable except as noted in HPI and below Constitutional: Constitutional: Reports no additional constitutional complaints Eyes: Eyes: Reports no additional eye complaints ENT: Reports system reviewed and no additional complaints, except as documented Cardiovascular: Cardiovascular: Reports no additional cardiovascular complaints Respiratory: Respiratory: Reports as per HPI and Reports dyspnea Gastrointestinal: Gastrointestinal: Reports no additional gastrointestinal complaints Musculoskeletal: Musculoskeletal: Reports no additional musculoskeletal complaints Neurologic: Reports system reviewed and no additional complaints, except as documented PMFSH Past Medical History Medical History Amputation of right little finger When she was 3 years old her tip of her right little finger was amputated Grimm's esophagus COPD (chronic obstructive pulmonary disease) Depression Endometriosis History of cancer of vulva History of shingles Neuropathy Pneumonia due to COVID-19 virus PTSD (post-traumatic stress disord
[2022-04-30 16:03] LABS: Glucose Point of Care 205 mg/dl (65-105)
[2022-04-30 16:06] LABS: Troponin I < 0.012 ng/mL (0.000-0.034)
[2022-04-30] MEDS: methylPREDNISolone SOD SUCC 125 MG VIAL 60 MG IV PUSH ×2 (18:03→23:14)
[2022-04-30] MEDS: SODIUM CHLORIDE 0.9% IV 1,000 ML 75 ML IV CONT (18:03)
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
[2022-04-30] MEDS: HYDROcodone/acetaminophen (*CRX) 5-325 MG TABLET 1 TAB PO (21:05)
[2022-04-30] MEDS: ALBUTEROL SULFATE NEB 2.5 MG/3 ML INH INHALATION (21:15)
[2022-04-30] MEDS: IPRATROPIUM BR 0.02% INH SOLN 0.5 MG/2.5 ML VIAL INHALATION (21:15)
[2022-04-30] MEDS: PREGABALIN (*CRX) 75 MG CAPSULE 150 MG PO (23:15)
[2022-05-01] VITALS (18 sets, daily range): BP systolic 114–142; BP diastolic 66–110; PULSE 86–113; RESP 14–30; TEMP 35.9–36.9; O2SAT 85–100
[2022-05-01] MEDS: ALBUTEROL SULFATE NEB 2.5 MG/3 ML INH INHALATION ×5 (03:58→21:40)
[2022-05-01] MEDS: IPRATROPIUM BR 0.02% INH SOLN 0.5 MG/2.5 ML VIAL INHALATION ×5 (03:58→21:40)
[2022-05-01] MEDS: HYDROcodone/acetaminophen (*CRX) 5-325 MG TABLET 1 TAB PO (04:35)
[2022-05-01 06:39] LABS: Basophils Percent Auto 0.2 % (0.2-1.2); Hematocrit 43.6 % (37.0-47.0); Hemoglobin 13.5 g/dL (12.0-15.0); Immature Granulocyte Absolute 0.11 K/mm3 (0.00-0.031); Immature Granulocyte Percent A 0.7 % (0-0.5); Lymphocytes Absolute Auto 1.44 K/mm3 (0.9-3.2); Lymphocytes Percent Auto 9.5 % (18.3-44.2); Mean Corpuscular Hemoglobin 28.4 pg (26-34); Mean Corpuscular Volume 91.8 fl (80-100); Monocytes Absolute Auto 0.4 K/mm3 (0.1-0.6); Monocytes Percent Auto 2.6 % (2.6-8.5); Neutrophils Absolute Auto 13.2 K/mm3 (1.3-6.7); Platelet Count Result 320 k/mm3 (150-375); Red Blood Count 4.75 M/mm3 (4.2-5.4); Red Cell Distribution Width 18.6 % (11.5-14.5); White Blood Count 15.2 K/mm3 (4.5-10.0)
[2022-05-01] MEDS: methylPREDNISolone SOD SUCC 125 MG VIAL 60 MG IV PUSH ×3 (06:49→21:26)
[2022-05-01 07:03] LABS: Anion Gap 8 mmol/L (8-16); Blood Urea Nitrogen 12 mg/dL (7-17); Calcium 8.8 mg/dL (8.4-10.2); Carbon Dioxide 33 mmol/L (22-30); Chloride 95 mmol/L (98-107); Estimated CRCL calculation 86 ml/min; Estimated Glomerular Filt Rate > 60; Glucose 374 mg/dL (65-110); Magnesium 2.2 mg/dL (1.6-2.3); Potassium 4.7 mmol/L (3.4-5.0); Sodium 136 mmol/L (137-145)
[2022-05-01 07:31] LABS: Procalcitonin 0.1 ng/mL
[2022-05-01 07:40] LABS: Glucose Point of Care 390 mg/dl (65-105)
--- NOTE | 2022-05-01 07:59 | PM.CCN ---
Critical Care Event Note Summary Code activated: No Narrative: Rapid response called on patient this morning, to which I responded, patient was noted to be awake, tearful and lying on her right side on the ground. Nursing reports the patient was found on the ground prior to rapid response call. Patient reported having a seizure. She reported trying to get up to the bathroom and falling on the ground. She states that she called the nursing staff to report she felt a seizure coming on. She received her lyrica last night at approximately midnight, however she does not believe she received her clonazepam. During this time, the patient was awake and able to report the events leading up to her fall. She denied LOC. She c/o head hurting all over , generalized back pain and left knee pain. She endorses hitting her head multiple times while on the ground. General: VS 97.6F, HR 112, RR 20, BP 142/110, spO2 99% 5L NC Neuro: AOx2-3. Anxious and tearful. CN 2-12 intact. HEENT: Normocephalic. Atraumatic. PERRL. EOM intact. Hearing grossly intact. Mucous membranes moist. Neck: Nontender to palpation. Lungs: LS coarse throughout. Sputum thick yellow. Heart: HR tachy and regular rhythm. ST on telemetry. Skin: warm, dry and normal for ethnicity. No diaphoresis. Extremities: RUE 3/5, LUE 4/5, right hand grasp weaker, BLE 3/5.?Radial and dorsalis pedis pulses +2 bilaterally. A/P: Possible seizure - check ETOH level, toxicology screen, CT head w/o contrast, resume lyrica and clonazepam. PRN ativan IV. Check prolactin level. Check ABG r/o hypoxia. Consult neurology. Seizure precautions. MRI r/o stroke. Neuro checks Q2 hours. Check TSH with reflex. Check lactic acid r/o sepsis. Fall- check cervical, thoracic, lumbar spine. X-ray left knee. Anxiety - Ativan 1 mg IV x1, resume home medications. This case had a high probability of a clinically significant, sudden, or life threatening deterioration of this patient's condition which required my full and direct attention, intervention and personal management. Critical care time: 30 - 74 mins
[2022-05-01] MEDS: LORazepam INJ (*CRX) 2 MG/ML VIAL 1 MG IV PUSH (08:06)
[2022-05-01] MEDS: MORPHINE SULFATE (*CRX) 2 MG/ML INJ IV PUSH ×4 (08:11→22:41)
[2022-05-01 08:18] LABS: Alveolar/Arterial O2 Gradient 71.1 mmHg; Carboxyhemoglobin 1.5 % THb (0-2.0); Fractional Inspired Oxygen 28 %; HCO3 ABG 33.7 mEq/l (22.0-26.0); Methemoglobin ABG 0.2 %THb (0-1.5); Oxygen Content ABG 18.3 %vol (16.0-22.0); Oxygen Saturation ABG 91.4 % (95.0-100.0); Oxyhemoglobin 91.1 % THb (90.0-100.0); PO2 ABG 62.5 mmHg (80.0-100.0); PO2 FiO2 Ratio Arterial Blood 2.23 %; Reduced Hemoglobin 7.2 %THb (0-5.0); Total Hemoglobin 14.3 g/dL (12.0-18.0); pH ABG 7.397 (7.350-7.450)
[2022-05-01 08:20] LABS: Device NASAL CANNULA; Modified Allen's Test Pass; Site Drawn RIGHT RADIAL
[2022-05-01 08:25] LABS: Lactic Acid Reflex 2.6 mmol/L (0.7-2.0)
[2022-05-01 08:26] LABS: Ethanol < 10 mg/dL (<10)
[2022-05-01 09:38] LABS: Thyroid Stimulating Hormone Reflex 0.208 uIU/mL (0.465-4.68)
[2022-05-01 09:53] LABS: Glucose Point of Care 251 mg/dl (65-105)
[2022-05-01] MEDS: guaiFENesin 12 HR 600 MG TABCR PO ×2 (10:00→21:26)
[2022-05-01] MEDS: PREGABALIN (*CRX) 75 MG CAPSULE 150 MG PO ×2 (10:00→21:26)
[2022-05-01] MEDS: LORATADINE 10 MG TABLET PO (10:00)
[2022-05-01] MEDS: clonazePAM (*CRX) 0.5 MG TABLET 1 MG BY MOUTH ×3 (10:01→17:28)
[2022-05-01] MEDS: DOCUSATE SODIUM 100 MG CAPSULE PO ×2 (10:01→17:24)
[2022-05-01] MEDS: ENOXAPARIN 40 MG/0.4 ML SYRINGE SUB-Q (10:01)
[2022-05-01] MEDS: INSULIN ASPART (*BKC) 100 UNITS/ML SUB-Q ×3 (10:02→22:29)
[2022-05-01] MEDS: ACETAMINOPHEN 325 MG TABLET 650 MG PO (10:23)
--- NOTE | 2022-05-01 10:33 | PM.CNPUL ---
Assessment and Plan Assessment and plan (1) Acute exacerbation of chronic obstructive pulmonary disease: Code(s): J44.1 - Chronic obstructive pulmonary disease with (acute) exacerbation Status: Acute Assessment and Plan: 59-year-old female with a history of chronic hypoxemic hypercapnic respiratory failure related to combined asthma COPD with multiple exacerbations and oral steroid bursts over the years, hospitalized approximately 4 weeks ago with influenza and COPD exacerbation, presented again with hypoxemic hypercapnic respiratory failure related to COPD exacerbation. Chest CTs over the last month have shown clearing of previous small infiltrates probably related to influenza A infection and appearance of new tree-in-bud opacities bilaterally. No evidence of consolidations. The patient has had diffuse wheezing on physical exam and has had sputum of dark yellow color. In view of history of advanced COPD, recent hospitalization for influenza, chronic steroid use the patient is at high risk for complicated lung infections related to Pseudomonas or other bacteria. Plan: continue with IV levofloxacin, add vancomycin pending sputum culture and MRSA screening. Have increased IV steroids and also frequency of nebulized short-acting bronchodilator treatments; continue with DVT prophylaxis. Repeat ABGs. (2) Respiratory failure, [id number]: Code(s): J96.20 - Acute and chronic respiratory failure, unspecified whether with hypoxia or hypercapnia Status: Acute (3) Hypercapnia: Code(s): R06.89 - Other abnormalities of breathing Status: Acute (4) Seizure disorder: Code(s): G40.909 - Epilepsy, unspecified, not intractable, without status epilepticus Status: Acute (5) Tobacco use: Code(s): Z72.0 - Tobacco use Status: Acute (6) Obstructive sleep apnea: Code(s): G47.33 - Obstructive sleep apnea (adult) (pediatric) Status: Acute History of Present Illness History of Present Illness Consult date: 05/01/22 Chief complaint: COPD EXACERBATION Narrative: This 51-year-old female presented with progressively increasing shortness of breath of several days duration. The patient has history of COPD, likely asthma COPD overlap syndrome, chronic hypoxemic respiratory failure on supplemental oxygen, and multiple other comorbidities. Patient was hospitalized approximately 4 weeks ago with shortness of breath. She was diagnosed with COPD exacerbation secondary to influenza A viral infection for which she was treated with nebulized bronchodilators IV steroids and also Tamiflu. The patient was discharged home on a 5 day prednisone regimen of 50 mg daily. Approximately 5 days ago she started to have cough with yellow sputum production and progressively increasing shortness of breath associated with wheezing. She had no fever chills hemoptysis or lower extremity edema. She has undergone workup with a repeat chest CT that showed no pulmonary emboli. In comparison to chest CT done early this month, there thehave been multiple tree-in-bud opacities bilaterally, but no new consolidations or pleural effusions. The small opacities seen during recent influenza A infection have cleared. Currently the patient is on just IV levofloxacin, IV steroids and nebulized short-acting bronchodilators. Currently she is on room air. Continues to have wheezing, cough with dark yellow sputum production. She is also followed by Neurology Services for possible relapse of seizures. Past medical history is significant for asthma since the age of 20. Patient stated that for the last 30 years she has been on bronchodilators, rescue inhalers and oral steroid bursts for recurrent respiratory problems. She has been hospitalized 4 times over the last year and multiple times over the last 2 decades. She is followed by pulmonary services at [facility]. She has been on oral steroids, on and off on m
[2022-05-01 11:14] LABS: Reflex Lactic Acid Yes or No Add Lactic
[2022-05-01 11:30] LABS: Free T4 Free Thyroxine Reflex 0.89 ng/dL (0.78-2.19)
[2022-05-01] MEDS: DICYCLOMINE HCL 10 MG CAPSULE 20 MG BY MOUTH (11:44)
[2022-05-01] MEDS: MULTIVITAMINS /C LUTEIN (CENTRUM SILVER) TABLET *BKC 1 TAB PO (11:44)
[2022-05-01] MEDS: busPIRone HCL 10 MG TABLET BY MOUTH ×2 (11:44→17:24)
[2022-05-01] MEDS: PANTOPRAZOLE 40 MG TABLET PO ×2 (11:44→17:24)
[2022-05-01] MEDS: THIAMINE HCL 100 MG TABLET PO (11:44)
[2022-05-01] MEDS: ASPIRIN 81 MG CHEWABLE TABLET PO (11:44)
[2022-05-01] MEDS: polyethylene glycoL 3350 17 GM POWD.PACK PO (11:45)
[2022-05-01 11:50] LABS: Lactic Acid 3.5 mmol/L (0.7-2.0)
[2022-05-01 12:14] LABS: Total Triiodothyronine (T3) 0.76 NG/ML (0.97-1.69)
--- NOTE | 2022-05-01 12:29 | PM.IMPN ---
Progress Note: A&P Assessment and Plan (1) COPD exacerbation: Code(s): J44.1 - Chronic obstructive pulmonary disease with (acute) exacerbation Status: Acute Assessment and Plan: Acute on chronic exacerbation. Continue systemic steroids and scheduled duonebs. Pulmonology consulted and appreciated recommendations. Continue empiric levaquin IV due to elevated WBC, lactic acid, tachycardia, hypoxia and changes in sputum color/consistency (2) Sepsis: Code(s): A41.9 - Sepsis, unspecified organism Status: Acute Assessment and Plan: HR >90, RR>20, lactic acid 2.6, WBC 15, sputum color changes with respiratory symptoms concerning for pneumonia Gentle IV hydration Trend lactic acid Monitor hemodynamics. Continue antibiotics. (3) Pleuritic chest pain: Code(s): R07.81 - Pleurodynia Status: Acute Assessment and Plan: Likely secondary to to COPD exacerbation and pneumonia Treatment as above. (4) Seizures: Code(s): R56.9 - Unspecified convulsions Status: Acute Assessment and Plan: Patient reports previous seizures with last seizure within 30 days. She states that they are grand mal seizures. Patient awake and able to report events before and after reported seizure She takes lyrica and clonazepam for seizures. Resume medications. CT head negative. MRI brain without acute stroke prolactin pending neuro consulted and appreciate recommendations. PRN ativan IV seizure activity Seizure precautions. (5) Tobacco use: Code(s): Z72.0 - Tobacco use Status: Chronic Assessment and Plan: Nicotine patch while inpatient skilled nursing facility counselor to quit (6) Type 2 diabetes mellitus: Code(s): E11.9 - Type 2 diabetes mellitus without complications Status: Acute Assessment and Plan: Glucose 182 to 309 mg/dL. A1c 7%, was 6.6% earlier this month. Likely steroid induced hyperglycemia. Accu-checks AC/HS with sliding scale insulin with hypoglycemia protocol (7) Fall: Code(s): W19.XXXA - Unspecified fall, initial encounter Status: Acute Assessment and Plan: Patient found on the ground. No LOC. CT head negative. CT cervical, thoracic, lumbar spine negative for fracture or dislocation Fall precautions. Time Spent With Patient Time with patient: 25 - 35 minutes Subjective Date/time seen: 05/01/22 12:29 Patient tearful. She is concerned about having a seizure this morning and falling on the ground. She c/o cough with sputum and shortness of breath. No MEAD, slurred speech or word finding. Left extremity weakness resolving. Review of Systems Review of Systems: All systems reviewed & are unremarkable except as noted in HPI and below Exam Narrative: General: Moderately ill-appearing female. Tearful. HEENT: Normocephalic. PERRL, EOMI. Sclera anicteric. mucous membranes moist. Neck: Supple. No JVD. Respiratory: RR labored. Coarse lung sounds noted at the bases with and expiratory wheezing. Cardiovascular: Tachycardic with normal S1-S2. No murmurs, gallops or rubs. Sinus tachycardia 112 on telemetry. Gastrointestinal: Abdomen is soft, nontender, and nondistended with positive bowel sounds. Skin: Warm and dry. No rash or lesions. Normal color for ethnicity. Extremities: No cyanosis, clubbing, or edema. Radial and pedal pulses intact. Moves all 4 extremities equally. Neurological: Alert and oriented x3. Cranial nerves 2-12 intact. No gross focal deficits Psychiatric: Pleasant and cooperative with normal mood and affect. Objective Data Vital Signs Vital Signs: Vital Signs - 24 hr 04/30/22 12:42 04/30/22 12:41 04/30/22 12:45 Temperature Pulse Rate 121 H 121 H 117 H Respiratory Rate 23 H 19 Blood Pressure 107/75 Pulse Oximetry Oxygen Delivery Oxygen Flow Rate 04/30/22 12:46 04/30/22 13:08 04/30/22 13:10 Temperature Pulse Rate 118 H 118 H 118 H Respiratory Rate
[2022-05-01 12:33] LABS: Glucose Point of Care 272 mg/dl (65-105)
[2022-05-01] MEDS: CYCLOBENZAPRINE HCL 10 MG TABLET PO (15:14)
[2022-05-01] MEDS: SODIUM CHLORIDE 0.9% IV 1,000 ML 100 ML IV CONT ×2 (15:15→22:45)
[2022-05-01 16:36] LABS: Glucose Point of Care 182 mg/dl (65-105)
[2022-05-01 19:57] LABS: Lactic Acid Reflex 2.3 mmol/L (0.7-2.0)
[2022-05-01 22:15] LABS: Glucose Point of Care 299 mg/dl (65-105)
[2022-05-02] VITALS (22 sets, daily range): BP systolic 113–142; BP diastolic 67–95; PULSE 68–131; RESP 14–22; TEMP 36.2–36.5; O2SAT 90–96
[2022-05-02] MEDS: ALBUTEROL SULFATE NEB 2.5 MG/3 ML INH INHALATION ×6 (01:14→21:27)
[2022-05-02] MEDS: IPRATROPIUM BR 0.02% INH SOLN 0.5 MG/2.5 ML VIAL INHALATION ×6 (01:15→21:28)
[2022-05-02] MEDS: methylPREDNISolone SOD SUCC 125 MG VIAL 60 MG IV PUSH ×3 (06:11→21:23)
[2022-05-02 07:00] LABS: Basophils Absolute Auto 0.1 K/mm3 (0.0-0.1); Basophils Percent Auto 0.3 % (0.2-1.2); Hemoglobin 12.4 g/dL (12.0-15.0); Immature Granulocyte Absolute 0.24 K/mm3 (0.00-0.031); Immature Granulocyte Percent A 1.5 % (0-0.5); Lymphocytes Absolute Auto 2.45 K/mm3 (0.9-3.2); Lymphocytes Percent Auto 15.2 % (18.3-44.2); Mean Corpuscular Hemoglobin 29.5 pg (26-34); Mean Platelet Volume 9.8 fl (7.4-10.4); Monocytes Absolute Auto 0.8 K/mm3 (0.1-0.6); Monocytes Percent Auto 5.2 % (2.6-8.5); Neutrophils Absolute Auto 12.6 K/mm3 (1.3-6.7); Neutrophils Percent Auto 77.8 % (45.5-73.1); Nucleated Red Blood Cells Absolute Auto 0.1 K/mm3 (0.0-0.012); Nucleated Red Blood Cells Perc 0.4 % (0.0-0.2); Platelet Count Result 309 k/mm3 (150-375); Red Blood Count 4.21 M/mm3 (4.2-5.4); Red Cell Distribution Width 18.5 % (11.5-14.5); White Blood Count 16.2 K/mm3 (4.5-10.0)
[2022-05-02 07:04] LABS: Alanine Aminotransferase 17 U/L (6-35); Albumin Level 3.4 g/dL (3.5-5.1); Alkaline Phosphatase 74 U/L (38-126); Anion Gap 4 mmol/L (8-16); Aspartate Amino Transferase 15 U/L (14-36); Bilirubin,Total 0.2 mg/dL (0.2-1.3); Blood Urea Nitrogen 16 mg/dL (7-17); Calcium 8.1 mg/dL (8.4-10.2); Carbon Dioxide 33 mmol/L (22-30); Chloride 96 mmol/L (98-107); Estimated CRCL calculation 86 ml/min; Estimated Glomerular Filt Rate > 60; Glucose 228 mg/dL (65-110); Potassium 4.3 mmol/L (3.4-5.0); Sodium 133 mmol/L (137-145)
[2022-05-02] MEDS: MORPHINE SULFATE (*CRX) 2 MG/ML INJ IV PUSH ×2 (07:19→14:09)
[2022-05-02 08:12] LABS: Glucose Point of Care 297 mg/dl (65-105)
[2022-05-02] MEDS: busPIRone HCL 10 MG TABLET BY MOUTH ×3 (09:17→17:35)
[2022-05-02] MEDS: clonazePAM (*CRX) 0.5 MG TABLET 1 MG BY MOUTH ×3 (09:17→17:35)
[2022-05-02] MEDS: MULTIVITAMINS /C LUTEIN (CENTRUM SILVER) TABLET *BKC 1 TAB PO (09:17)
[2022-05-02] MEDS: PREGABALIN (*CRX) 75 MG CAPSULE 150 MG PO ×2 (09:17→20:22)
[2022-05-02] MEDS: THIAMINE HCL 100 MG TABLET PO (09:17)
[2022-05-02] MEDS: guaiFENesin 12 HR 600 MG TABCR PO ×2 (09:18→20:23)
[2022-05-02] MEDS: INSULIN ASPART (*BKC) 100 UNITS/ML SUB-Q ×2 (09:18→17:29)
[2022-05-02] MEDS: ASPIRIN 81 MG CHEWABLE TABLET PO (09:18)
[2022-05-02] MEDS: PANTOPRAZOLE 40 MG TABLET PO ×2 (09:19→17:35)
[2022-05-02] MEDS: DICYCLOMINE HCL 10 MG CAPSULE 20 MG BY MOUTH (09:19)
[2022-05-02] MEDS: DOCUSATE SODIUM 100 MG CAPSULE PO ×2 (09:19→17:35)
[2022-05-02] MEDS: ENOXAPARIN 40 MG/0.4 ML SYRINGE SUB-Q (09:19)
[2022-05-02] MEDS: LORATADINE 10 MG TABLET PO (09:19)
--- NOTE | 2022-05-02 09:26 | PM.IMPN ---
Progress Note: A&P Assessment and Plan (1) COPD exacerbation: Code(s): J44.1 - Chronic obstructive pulmonary disease with (acute) exacerbation Status: Acute Assessment and Plan: Acute on chronic exacerbation. Continue systemic steroids and scheduled duonebs. Pulmonology consulted and appreciated recommendations. Continue empiric levaquin IV and Vancomycin IV due to elevated WBC, lactic acid, tachycardia, hypoxia and changes in sputum color/consistency Improving (2) Sepsis: Qualifiers: Sepsis type: sepsis due to unspecified organism Sepsis acute organ dysfunction status: without acute organ dysfunction Qualified Code(s): A41.9 - Sepsis, unspecified organism Code(s): A41.9 - Sepsis, unspecified organism Status: Acute Assessment and Plan: HR >90, RR>20, lactic acid 2.6, WBC 15, sputum color changes with respiratory symptoms concerning for pneumonia Gentle IV hydration Trend lactic acid - trending down with fluids and antibiotics Monitor hemodynamics. Continue antibiotics. (3) Pleuritic chest pain: Code(s): R07.81 - Pleurodynia Status: Acute Assessment and Plan: Likely secondary to to COPD exacerbation and pneumonia Treatment as above. Improved (4) Seizures: Code(s): R56.9 - Unspecified convulsions Status: Acute Assessment and Plan: Patient reports previous seizures with last seizure within 30 days. She states that they are grand mal seizures. Patient awake and able to report events before and after reported seizure She takes lyrica and clonazepam for seizures. Resume medications. CT head negative. MRI brain without acute stroke prolactin pending neuro consulted and appreciate recommendations. PRN ativan IV seizure activity Seizure precautions. 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 A1c 7%, was 6.6% earlier this month. Likely steroid induced hyperglycemia. Accu-checks AC/HS with sliding scale insulin with hypoglycemia protocol Glucose >200. Add Lantus 0.15 units/kg New diagnosis. (7) Fall: Qualifiers: Encounter type: initial encounter Qualified Code(s): W19.XXXA - Unspecified fall, initial encounter Code(s): W19.XXXA - Unspecified fall, initial encounter Status: Acute Assessment and Plan: Patient found on the ground. No LOC. CT head negative. CT cervical, thoracic, lumbar spine negative for fracture or dislocation right knee imaging negative for fracture or dislocation. C/o left ankle pain, but able to bear weight. No trauma or point tenderness on exam. Fall precautions. Time Spent With Patient Time with patient: 15 - 25 minutes Subjective Date/time seen: 05/02/22 09:26 She thinks her breathing is improving. She is wanting to go home soon. Her right ankle hurts, but she is able to bear weight on it without difficulty. Nursing staff states the patient reports her pain can only be treated with morphine. She was weaned to room air. No chest pain, SOB at rest, palpitations, abd pain, N/V/D or constipation. Review of Systems Review of Systems: All systems reviewed & are unremarkable except as noted in HPI and below Exam Narrative: General: No acute distress. Sitting up in bed. HEENT: Normocephalic. Pupils equal and round. Sclera anicteric. mucous membranes moist. Neck: No JVD. Respiratory: RR unlabored. Lung sounds with end-expiratory wheezing in all sil[place]
[2022-05-02] MEDS: CYCLOBENZAPRINE HCL 10 MG TABLET PO (09:37)
[2022-05-02 10:25] LABS: Glucose Point of Care 346 mg/dl (65-105)
--- NOTE | 2022-05-02 10:59 | PM.PNPUL ---
Progress Note: A&P Assessment and Plan (1) Acute exacerbation of chronic obstructive pulmonary disease: Code(s): J44.1 - Chronic obstructive pulmonary disease with (acute) exacerbation Status: Acute Assessment and Plan: 51-year-old female with a history of asthma COPD overlap syndrome with frequent exacerbations treated with oral steroid burst over the last few years was hospitalized with shortness of breath cough and wheezing. Patient has been treated with nebulized short-acting bronchodilators IV steroids and antibiotics for COPD exacerbations. She seems to be responding to current regimen. She has less shortness of breath and on exam the expiratory wheezing is less than yesterday. Plan: continue with current regimen for now out of bed to chair. Await sputum culture, MRSA screening. (2) Respiratory failure, [id number]: Code(s): J96.20 - Acute and chronic respiratory failure, unspecified whether with hypoxia or hypercapnia Status: Acute (3) Hypercapnia: Code(s): R06.89 - Other abnormalities of breathing Status: Acute (4) Obstructive sleep apnea: Code(s): G47.33 - Obstructive sleep apnea (adult) (pediatric) Status: Acute Subjective Date/time seen: 05/02/22 10:59 patient feeling better. Less coughing less shortness of breath. Has been afebrile. Review of Systems Review of Systems: All systems reviewed & are unremarkable except as noted in HPI and below Exam Narrative: GENERAL APPEARANCE: Well developed, well nourished, alert and cooperative, and appears to be in Moderate respiratory distress while sitting up in bed breathing room air SKIN: Inspection of the skin reveals no rashes, ulcerations or petechiae. HEENT: Sclerae anicteric and conjunctivae pink and moist. Extraocular movements were intact and pupils were equal, round, and reactive to light. The oral mucosa, hard and soft palate, tongue and posterior pharynx were normal. dry mucosa NECK: Supple. There was no thyroid enlargement, and no tenderness, or masses were felt. LUNGS: Auscultation of the lungs showed Less wheezing than yesterday CARDIAC: There was a regular rate and rhythm without any murmurs. ABDOMEN: Soft and nontender with normal bowel sounds. There was no organomegaly. LYMPH NODES: No lymphadenopathy was appreciated in the neck. EXTREMITIES: No cyanosis, clubbing or edema. NEUROLOGIC: Alert and oriented x 3. Normal affect. Objective Data Vital Signs Vital Signs: Vital Signs - 24 hr 05/01/22 12:37 05/01/22 13:00 05/01/22 14:00 Temperature 35.9 C L Pulse Rate 106 H 100 86 Respiratory Rate 20 18 20 Blood Pressure 114/80 Pulse Oximetry 85 L Oxygen Delivery Oxygen Flow Rate 05/01/22 16:00 05/01/22 16:17 05/01/22 12:00 Temperature Pulse Rate 96 101 H 113 H Respiratory Rate 18 18 Blood Pressure Pulse Oximetry Oxygen Delivery Oxygen Flow Rate 05/01/22 16:00 05/01/22 21:35 05/01/22 21:35 Temperature Pulse Rate 113 H 92 92 Respiratory Rate 18 Blood Pressure Pulse Oximetry 95 Oxygen Delivery Nasal Cannula Oxygen Flow Rate 2 05/01/22 21:45 05/01/22 21:42 05/01/22 20:00 Temperature 36.9 C Pulse Rate 89 107 H Respiratory Rate 18 18 Blood Pressure 116/80 Pulse Oximetry 93 93 Oxygen Delivery Nasal Cannula Oxygen Flow Rate 2 05/02/22 01:05 05/02/22 01:15 05/02/22 00:00 Temperature Pulse Rate 91 96 88 Respiratory Rate 18 18 Blood Pressure Pulse Oximetry Oxygen Delivery Oxygen Flow Rate 05/02/22 04:00 05/02/22 05:10 05/02/22 06:00 Temperature Pulse Rate 80 68 Respiratory Rate 18 14 Blood Pressure 113/67 Pulse Oximetry 90 Oxygen Delivery Oxygen Flow Rate 05/02/22 07:55 05/02/22 07:55 05/02/22 08:07 Temperature Pulse Rate 97 103 H Respiratory Rate 18 18 Blood Pressure Pulse Oximetry 92 Oxygen Delivery Nasal Cannula Oxygen Flow Rate 2 Intake/
[2022-05-02 12:02] LABS: Glucose Point of Care 427 mg/dl (65-105)
[2022-05-02] MEDS: INSULIN ASPART (*BKC) 100 UNITS/ML 20 UNITS SUB-Q (12:34)
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
--- NOTE | 2022-05-02 15:19 | PCPTNOTE ---
Attempted PT evaluation, pt refused due to having a 2 hour asthma attack. RN aware. Will Follow.
[2022-05-02 16:45] LABS: Glucose Point of Care 222 mg/dl (65-105)
[2022-05-02] MEDS: INSULIN GLARGINE (*BKC) 100 UNITS/ML 11 UNITS SUB-Q (20:21)
[2022-05-02 21:55] LABS: Glucose Point of Care 341 mg/dl (65-105)
[2022-05-02 23:51] LABS: Vancomycin Trough 9.2 ug/mL (10.0-20.0)
[2022-05-03] VITALS (11 sets, daily range): BP systolic 112; BP diastolic 83; PULSE 80–115; RESP 16–22; TEMP 36.2; O2SAT 91–92
[2022-05-03] MEDS: ALBUTEROL SULFATE NEB 2.5 MG/3 ML INH INHALATION ×3 (01:08→08:39)
[2022-05-03] MEDS: IPRATROPIUM BR 0.02% INH SOLN 0.5 MG/2.5 ML VIAL INHALATION ×3 (01:09→08:39)
[2022-05-03] MEDS: MORPHINE SULFATE (*CRX) 2 MG/ML INJ IV PUSH ×3 (01:17→08:48)
[2022-05-03] MEDS: CYCLOBENZAPRINE HCL 10 MG TABLET PO (02:39)
[2022-05-03] MEDS: methylPREDNISolone SOD SUCC 125 MG VIAL 60 MG IV PUSH (05:10)
[2022-05-03 06:52] LABS: Basophils Absolute Auto 0.1 K/mm3 (0.0-0.1); Basophils Percent Auto 0.5 % (0.2-1.2); Hematocrit 42.3 % (37.0-47.0); Immature Granulocyte Absolute 0.81 K/mm3 (0.00-0.031); Immature Granulocyte Percent A 4.7 % (0-0.5); Lymphocytes Absolute Auto 1.83 K/mm3 (0.9-3.2); Lymphocytes Percent Auto 10.6 % (18.3-44.2); Mean Corpuscular HGB Conc 30.7 g/dl (32-36); Mean Corpuscular Hemoglobin 28.7 pg (26-34); Mean Corpuscular Volume 93.4 fl (80-100); Mean Platelet Volume 9.3 fl (7.4-10.4); Monocytes Absolute Auto 1.3 K/mm3 (0.1-0.6); Monocytes Percent Auto 7.6 % (2.6-8.5); Neutrophils Absolute Auto 13.3 K/mm3 (1.3-6.7); Neutrophils Percent Auto 76.6 % (45.5-73.1); Nucleated Red Blood Cells Perc 0.2 % (0.0-0.2); Platelet Count Result 301 k/mm3 (150-375); Red Blood Count 4.53 M/mm3 (4.2-5.4); Red Cell Distribution Width 18.6 % (11.5-14.5); White Blood Count 17.3 K/mm3 (4.5-10.0)
[2022-05-03 07:02] LABS: Alanine Aminotransferase 20 U/L (6-35); Albumin Level 3.7 g/dL (3.5-5.1); Alkaline Phosphatase 86 U/L (38-126); Anion Gap 4 mmol/L (8-16); Aspartate Amino Transferase 18 U/L (14-36); Bilirubin,Total 0.1 mg/dL (0.2-1.3); Blood Urea Nitrogen 24 mg/dL (7-17); Calcium 8.7 mg/dL (8.4-10.2); Carbon Dioxide 38 mmol/L (22-30); Chloride 96 mmol/L (98-107); Estimated CRCL calculation 82 ml/min; Estimated Glomerular Filt Rate > 60; Glucose 282 mg/dL (65-110); Sodium 138 mmol/L (137-145)
[2022-05-03] MEDS: INSULIN ASPART (*BKC) 100 UNITS/ML SUB-Q (08:38)
[2022-05-03] MEDS: DICYCLOMINE HCL 10 MG CAPSULE 20 MG BY MOUTH (08:39)
[2022-05-03] MEDS: guaiFENesin 12 HR 600 MG TABCR PO (08:40)
[2022-05-03] MEDS: ASPIRIN 81 MG CHEWABLE TABLET PO (08:40)
[2022-05-03] MEDS: busPIRone HCL 10 MG TABLET BY MOUTH (08:40)
[2022-05-03] MEDS: PANTOPRAZOLE 40 MG TABLET PO (08:40)
[2022-05-03] MEDS: DOCUSATE SODIUM 100 MG CAPSULE PO (08:40)
[2022-05-03] MEDS: LORATADINE 10 MG TABLET PO (08:40)
[2022-05-03] MEDS: MULTIVITAMINS /C LUTEIN (CENTRUM SILVER) TABLET *BKC 1 TAB PO (08:40)
[2022-05-03] MEDS: clonazePAM (*CRX) 0.5 MG TABLET 1 MG BY MOUTH (08:41)
[2022-05-03] MEDS: ENOXAPARIN 40 MG/0.4 ML SYRINGE SUB-Q (08:41)
[2022-05-03] MEDS: THIAMINE HCL 100 MG TABLET PO (08:41)
[2022-05-03] MEDS: PREGABALIN (*CRX) 75 MG CAPSULE 150 MG PO (08:41)
[2022-05-03] MEDS: polyethylene glycoL 3350 17 GM POWD.PACK PO (08:42)
[2022-05-03 08:46] LABS: Glucose Point of Care 328 mg/dl (65-105)
--- NOTE | 2022-05-03 10:11 | PCPTNOTE ---
Attempted PT evaluation, pt refused stating I'm going home today. Appliquer Zigzag present, asked pt if she was sure she didn't want to participate in therapy and pt stated she was sure. RN aware.
--- NOTE | 2022-05-03 10:19 | PM.PNPUL ---
Progress Note: A&P Assessment and Plan (1) Acute exacerbation of chronic obstructive pulmonary disease: Code(s): J44.1 - Chronic obstructive pulmonary disease with (acute) exacerbation Status: Acute Assessment and Plan: 51-year-old female with a history of asthma COPD overlap syndrome with frequent exacerbations treated with oral steroid burst over the last few years was hospitalized with shortness of breath cough and wheezing. Patient has been treated with nebulized short-acting bronchodilators IV steroids and antibiotics for COPD exacerbations. She seems to be responding to current regimen. Overall respiratory status has improved. Patient willing to go home. MRSA screen negative. Plan: Have discontinued vancomycin and switched patient to oral steroids. okay to DC home today. The patient will continue with supplemental oxygen at her usual 2 liters/minute, continue with maintenance bronchodilators and also short-acting bronchodilators p.r.n.. The patient will continue with prednisone taper regimen as follows. Prednisone 40 mg for 3 days, then prednisone 30 mg for 3 days, then 25 for 3 days, then 20 for 3 days then 15 mg for 3 days, then 10 mg daily for 5 day, then 5 mg for 5 days then stop. patient told me that she is going to see her senior billing consultant at [facility] within the next couple of weeks. Will sign off please call with any questions. (2) Respiratory failure, [id number]: Code(s): J96.20 - Acute and chronic respiratory failure, unspecified whether with hypoxia or hypercapnia Status: Acute (3) Hypercapnia: Code(s): R06.89 - Other abnormalities of breathing Status: Acute (4) Obstructive sleep apnea: Code(s): G47.33 - Obstructive sleep apnea (adult) (pediatric) Status: Acute Subjective Date/time seen: 05/03/22 10:19 Patient doing better. Less shortness of breath coughing, less wheezing. willing to go home. MRSA screen negative. Review of Systems Review of Systems: All systems reviewed & are unremarkable except as noted in HPI and below Exam Narrative: GENERAL APPEARANCE: Well developed, well nourished, alert and cooperative, and appears to be in Moderate respiratory distress while sitting up in bed breathing room air SKIN: Inspection of the skin reveals no rashes, ulcerations or petechiae. HEENT: Sclerae anicteric and conjunctivae pink and moist. Extraocular movements were intact and pupils were equal, round, and reactive to light. The oral mucosa, hard and soft palate, tongue and posterior pharynx were normal. dry mucosa NECK: Supple. There was no thyroid enlargement, and no tenderness, or masses were felt. LUNGS: Auscultation of the lungs showed Less wheezing than yesterday CARDIAC: There was a regular rate and rhythm without any murmurs. ABDOMEN: Soft and nontender with normal bowel sounds. There was no organomegaly. LYMPH NODES: No lymphadenopathy was appreciated in the neck. EXTREMITIES: No cyanosis, clubbing or edema. NEUROLOGIC: Alert and oriented x 3. Normal affect. Objective Data Vital Signs Vital Signs: Vital Signs - 24 hr 05/02/22 11:14 05/02/22 11:27 05/02/22 15:54 Temperature Pulse Rate 112 H 114 H 113 H Respiratory Rate 18 18 18 Blood Pressure Pulse Oximetry Oxygen Delivery Oxygen Flow Rate 05/02/22 16:12 05/02/22 12:32 05/02/22 16:00 Temperature Pulse Rate 114 H 120 H 112 H Respiratory Rate 18 Blood Pressure Pulse Oximetry Oxygen Delivery Oxygen Flow Rate 05/02/22 14:00 05/02/22 21:30 05/02/22 21:31 Temperature 36.2 C L Pulse Rate 131 H 101 H Respiratory Rate 20 18 Blood Pressure 142/95 H Pulse Oximetry 93 96 Oxygen Delivery Nasal Cannula Oxygen Flow Rate 2 05/02/22 22:00 05/02/22 20:00 05/03/22 01:13 Temperature 36.5 C Pulse Rate 111 H 83 Respiratory Rate 22 H 18 Blood Pressure 116/74 Pulse Oximetry 93 93 Oxygen Delivery Nasal Cannula Oxygen Antonio
--- NOTE | 2022-05-03 11:11 | PM.DS ---
DS: Admitting Diagnosis Discharge Date 05/03/2022 1111 Admitting Diagnosis COPD exacerbation Pleuritic chest pain Leukocytosis Tachycardia Hyperglycemia Seizures Tobacco use DS: Discharge Diagnosis Discharge Diagnosis (1) COPD exacerbation: Code(s): J44.1 - Chronic obstructive pulmonary disease with (acute) exacerbation Status: Acute Assessment and Plan: Acute on chronic exacerbation. Treated with IV systemic steroids and scheduled duonebs Q4 hours. Pulmonology consulted and appreciated recommendations. Treated with empiric levaquin IV and Vancomycin IV due to elevated WBC, lactic acid, tachycardia, hypoxia and changes in sputum color/consistency Improved- weaned to home O2 dose 2L NC. MRSA nasal swab negative and vancomycin was stopped. Discharged on prednisone taper and continued PO Levaquin 750 mg to complete 7 day course. (2) Sepsis: Qualifiers: Sepsis acute organ dysfunction status: without acute organ dysfunction Sepsis type: sepsis due to unspecified organism Qualified Code(s): A41.9 - Sepsis, unspecified organism Code(s): A41.9 - Sepsis, unspecified organism Status: Acute Assessment and Plan: HR >90, RR>20, lactic acid 2.6, WBC 15, sputum color changes with respiratory symptoms concerning for pneumonia Gentle IV hydration given lactic acid elevated. trending down after starting IV fluids and antibiotics Antibiotics as above. (3) Pleuritic chest pain: Code(s): R07.81 - Pleurodynia Status: Resolved Assessment and Plan: Likely secondary to to COPD exacerbation Treatment as above. Resolved. (4) Seizures: Code(s): R56.9 - Unspecified convulsions Status: Chronic Assessment and Plan: Patient reports previous seizures with last seizure within 30 days. She states that they are grand mal seizures, but also she has episodes of staring off and once the seizure last 3 hours. She states she does not have seizures at home due to family and friends being available and keeping [her] mind busy. Patient had rapid response called on 05/01 where she was found on the ground and reported a seizure for 30 minutes. She was awake and able to report events before and after reported seizure She reported taking lyrica and clonazepam for seizures. Resumed medications. CT head negative. MRI brain without acute stroke prolactin drawn and was pending neuro consulted and appreciate recommendations. PRN ativan IV seizure activity Seizure precautions. Follow up with outpatient Neurologist. EEG not completed as the patient reported she had had one recently. 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 A1c 7%, was 6.6% earlier this month. Likely steroid induced hyperglycemia. Accu-checks AC/HS with sliding scale insulin with hypoglycemia protocol Glucose >200. Treated with Lantus 0.15 units/kg inpatient. New diagnosis. discharged on Metformin ER 500 mg daily Repeat A1c in 3 months (7) Fall: Qualifiers: Encounter type: initial encounter Qualified Code(s): W19.XXXA - Unspecified fall, initial encounter Code(s): W19.XXXA - Unspecified fall, initial encounter Status: Acute Assessment and Plan: Patient found on the ground. No LOC. CT head negative. CT cervical, thoracic, lumbar spine negative for fracture or dislocation right knee imaging negative for fracture or dislocation. C/o left ankle pain
[2022-05-03 11:58] LABS: Glucose Point of Care 240 mg/dl (65-105)
[2022-05-04 04:07] LABS: Prolactin 4.4 ng/mL (***)
== END 2022-05-03 12:05 | disposition home or self-care (01) | DRG 871 ==
LOC: ANHED 15:18 → ANH3MEDSUR 16:29
PROVIDERS: Internal Medicine Pulmonary Disease; Physician Assistant; Admitting Provider Chiropractor; Emergency Provider Family Medicine; PCP Physician Assistant; Visit Provider Nurse Practitioner Family
DX: A41.9 Sepsis, unspecified organism (principal); J96.22 Acute and chronic respiratory failure with hypercapnia; J96.21 Acute and chronic respiratory failure with hypoxia; G40.909 Epilepsy, unspecified, not intractable, without status epilepticus; J44.1 Chronic obstructive pulmonary disease with (acute) exacerbation; F17.210 Nicotine dependence, cigarettes, uncomplicated; E11.65 Type 2 diabetes mellitus with hyperglycemia; G47.33 Obstructive sleep apnea (adult) (pediatric); Z20.822 Contact with and (suspected) exposure to COVID-19; Z79.899 Other long term (current) drug therapy; Z88.0 Allergy status to penicillin; Z99.81 Dependence on supplemental oxygen; Z86.16 Personal history of COVID-19; Z86.718 Personal history of other venous thrombosis and embolism; Z83.3 Family history of diabetes mellitus; Z82.49 Family history of ischemic heart disease and other diseases of the circulatory system; Z81.8 Family history of other mental and behavioral disorders; W19.XXXA Unspecified fall, initial encounter
CPT/HCPCS: 36415; 36600; 70450; 70553; 71046; 71275; 72125; 72128; 72131; 73562; 80048; 80053; 80202; 80307; 81003; 82375; 82805; 82948; 83036; 83050; 83605; 83690; 83735; 84145; 84146; 84439; 84443; 84480; 84484; 85025; 85610; 85730; 86140; 87070; 87081; 87205; 87636; 93005; 94640; 94667; 94668; 96365; 96372; 96374; 96375; 96376; 99285; A9270; A9577; G0378; J1650; J1815; J1956; J2060; J2270; J2930; J3370; J7030; Q9967

== ENCOUNTER 2022-12-10 12:48 | Outpatient (CLI) | payer MEDICARE, MEDICAID, SELFPAY ==
--- NOTE | ~2022-12-10 | MR_ITS ---
EXAMINATION: MR lumbar spine wo con DATE: 12/10/2022 14:30 INDICATION: Bilateral lumbar radiculopathy. TECHNIQUE: Magnetic resonance imaging (MRI) of the lumbar spine was performed without intravenous con trast. Sequences included sagittal T2-weighted FSE, sagittal T2-weighted FS FSE, sagittal T1-weighted FSE, and axial T2-weighted FSE. COMPARISON: None FINDINGS: Bone alignment is normal. There is a chronic compression fracture of L5 with 1/5 loss of he ight centrally. There is mildly decreased disc height at L4-L5 and moderately decreased disc at L5-S1 . The distal spinal cord signal intensity is normal. The conus medullaris is at L1. The following dis c levels are specifically discussed: L1-L2: The disc does not extend beyond the endplate margin. There is mild bilateral facet joint osteo arthritis. There is no neural foraminal stenosis. There is no central canal stenosis. L2-L3: The disc is bulging. There is moderate bilateral facet joint osteoarthritis. There is mild roma ateral neural foraminal stenosis. There is mild central canal stenosis. L3-L4: The disc is bulging. There is mild bilateral facet joint osteoarthritis. There is mild bilater al neural foraminal stenosis. There is mild central canal stenosis. L4-L5: The disc is bulging and has an annular fissure. There is mild bilateral facet joint osteoarthr itis. There is mild bilateral neural foraminal stenosis. There is mild central canal stenosis. L5-S1: The disc is bulging and has an annular fissure. There is mild bilateral facet joint osteoarthr itis. There is mild bilateral neural foraminal stenosis. There is mild central canal stenosis. IMPRESSION: 1. Moderate lower lumbar spondylosis. Reviewed, dictated and finalized at location A.
--- NOTE | ~2022-12-10 | MR_ITS ---
MRI of the thoracic spine Clinical History: Radiculopathy Technique: Axial T2-weighted and gradient images, and sagittal T1-weighted, T2-weighted, and STIR ewa ges were acquired. COMPARISON: 03/13/2022 Findings: There is stable, chronic compression fractures of T7 and T9, without marrow edema. No new f racture or subluxation seen. No suspicious bone marrow signal abnormality seen. There are minimal disc bulges at T7-T8 and T8-T9.. No spinal canal stenosis, cord compression, or def inite neural foraminal compromise evident. No abnormal signal seen in the spinal cord itself. Paravertebral soft tissues are unremarkable. Impression: Chronic compression fractures of T7 and T9, unchanged from prior exam. Minimal disc bulges at T7-T8 and T8-T9. Reviewed, dictated and finalized at [facility]. Impression: Chronic compression fractures of T7 and T9, unchanged from prior exam. Minimal disc bulges at T7-T8 and T8-T9.
== END 2022-12-10 12:49 | disposition home or self-care (01) ==
PROVIDERS: PCP Physician Assistant; Visit Provider Pain Medicine Pain Medicine
DX: M80.08XA Age-related osteoporosis with current pathological fracture, vertebra(e), initial encounter for fracture (principal); M47.26 Other spondylosis with radiculopathy, lumbar region
CPT/HCPCS: 72146; 72148

== ENCOUNTER 2023-02-25 14:56 | Outpatient (CLI) | payer MEDICARE, MEDICAID, SELFPAY ==
--- NOTE | ~2023-02-25 | XR_ITS ---
EXAMINATION: XR thoracic spine 2V DATE: 02/25/2023 15:31 INDICATION: Wedge compression fracture. TECHNIQUE: 3 views of thoracic spine were obtained. COMPARISON: Thoracic spine radiographs 03/13/2022, MRI 12/10/2022 FINDINGS: There is 8 degrees dextrocurvature of thoracic spine. There are chronic compression fractur es of T7 and T9. There is mildly decreased disc height at multiple levels in mid and lower thoracic s pine. There are endplate osteophytes at multiple levels. IMPRESSION: 1. Chronic compression fractures of T7 and T9. 2. Mild thoracic spondylosis. Reviewed, dictated and finalized at location E.
== END 2023-02-25 14:57 | disposition home or self-care (01) ==
PROVIDERS: PCP Physician Assistant; Visit Provider Neurological Surgery
DX: M43.04 Spondylolysis, thoracic region (principal); S22.000A Wedge compression fracture of unspecified thoracic vertebra, initial encounter for closed fracture
CPT/HCPCS: 72070

== ENCOUNTER 2023-02-27 13:13 | Outpatient (CLI) | payer MEDICARE, MEDICAID, SELFPAY ==
--- NOTE | ~2023-02-27 | XR_ITS ---
EXAMINATION: [id number] INDICATION: Generalized chest pain, possible right rib fracture TECHNIQUE: A frontal view of the chest and multiple views of the bilateral ribs were obtained on eigh t radiographs. COMPARISON: 04/30/2022 FINDINGS: There are minimal airspace opacities of the left lung base. No pleural effusion or pneumoth orax. The cardiomediastinal silhouette is normal. No displaced rib fracture is identified. IMPRESSION: 1. Minimal left basilar airspace opacity, consistent with atelectasis versus pneumonia. 2. No displaced rib fracture identified. Reviewed, dictated and finalized at location F. IMPRESSION: 1. Minimal left basilar airspace opacity, consistent with atelectasis versus pn eumonia. 2. No displaced rib fracture identified.
== END 2023-02-27 13:14 | disposition home or self-care (01) ==
PROVIDERS: PCP Physician Assistant; Visit Provider Nurse Practitioner Family
DX: R07.89 Other chest pain (principal); R91.8 Other nonspecific abnormal finding of lung field
CPT/HCPCS: 71111

== ENCOUNTER 2023-04-01 13:00 | Outpatient (CLI) | payer MEDICARE, MEDICAID, SELFPAY ==
--- NOTE | ~2023-04-01 | XR_ITS ---
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 RESULT: Lines, tubes, and devices: None. Lungs and pleura: Mild diffuse reticulonodular opacities. Cardiomediastinal silhouette: Stable. Other: No acute osseous or upper abdominal finding. IMPRESSION: Pulmonary opacities may represent mild respiratory bronchiolitis. No acute osseous finding in the rib s. Reviewed, dictated and finalized at location K. ION MECHANIC IMPRESSION: Pulmonary opacities may represent mild respiratory bronchiolitis. No acute osse ous finding in the ribs.
== END 2023-04-01 13:01 | disposition home or self-care (01) ==
PROVIDERS: PCP Physician Assistant; Visit Provider Physician Assistant
DX: S22.31XA Fracture of one rib, right side, initial encounter for closed fracture (principal); X58.XXXA Exposure to other specified factors, initial encounter; R91.8 Other nonspecific abnormal finding of lung field
CPT/HCPCS: 71111

== ENCOUNTER 2023-06-16 16:19 | Outpatient (CLI) | payer MEDICARE, MEDICAID, SELFPAY ==
--- NOTE | ~2023-06-16 | XR_ITS ---
EXAMINATION: XR chest 2V DATE: 06/16/2023 16:40 INDICATION: Chronic cough TECHNIQUE: PA and lateral views of the chest were obtained. COMPARISON: Chest radiograph and CT dated 04/30/2022 and chest and rib radiographs dated 04/01/2023 FINDINGS: Minimal streaky bibasilar atelectasis. No other airspace opacities, pulmonary edema, pleural effusion or pneumothorax. Heart size is normal. The mild thoracic spondylosis with chronic mild anterior wedg ing of a couple lower thoracic vertebral bodies. IMPRESSION: 1. Minimal streaky bibasilar atelectasis. Reviewed, dictated and finalized at location A. PRESIDENT OF PROCUREMENT
== END 2023-06-16 16:20 | disposition home or self-care (01) ==
LOC: ANHIMG 16:21
PROVIDERS: PCP Physician Assistant; Visit Provider Family Medicine
DX: R50.9 Fever, unspecified (principal)
CPT/HCPCS: 71046

== ENCOUNTER 2023-11-05 16:08 | Outpatient (CLI) | payer MEDICARE, MEDICAID, SELFPAY ==
--- NOTE | ~2023-11-05 | XR_ITS ---
3 VIEWS THORACIC SPINE Ordering provider: Elina Pleitez, PA History: . AGE-RELATED OSTEOPOROSIS . Comparison: February 25, 2023 FINDINGS: VERTEBRAL BODIES: compression fractures are seen in the 3 midthoracic vertebrae which is most likely T7, T8 and T9 and which are chronic as they are seen in the previous study. Degenerative changes of t he spine. DISK SPACES: Narrowing of the disc space at multiple levels. SOFT TISSUES: Normal. IMPRESSION: No acute osseous abnormality of the thoracic spine. Multiple chronic compression fractures. Reviewed, dictated and finalized at location A.
== END 2023-11-05 16:09 | disposition home or self-care (01) ==
PROVIDERS: PCP Physician Assistant; Visit Provider Physician Assistant
DX: M48.54XA Collapsed vertebra, not elsewhere classified, thoracic region, initial encounter for fracture (principal)
CPT/HCPCS: 72072

== ENCOUNTER 2023-11-15 09:08 | Outpatient (CLI) | payer MEDICARE, MEDICAID, SELFPAY ==
--- NOTE | ~2023-11-15 | MR_ITS ---
EXAMINATION: MR thoracic spine wo con DATE: 11/15/2023 10:35 INDICATION: Suspicion for thoracic fracture TECHNIQUE: Magnetic resonance imaging (MRI) of the thoracic spine was performed without intravenous c ontrast. Sagittal localizer T1-weighted FSE of the cervicothoracic spine was obtained. Thoracic spine sequences included sagittal T2-weighted FSE, sagittal T1-weighted SE, Sagittal T2-weighted FS FSE, a nd axial T2-weighted FSE. COMPARISON: 12/10/2022 FINDINGS: Alignment is normal.Chronic with compression fractures at T7 with unchanged 30% anterior vertebral shannon dy height loss and at T9 with 20% anterior vertebral body height loss. There is mild increased T2 sig nal underlying a likely acute or subacute compression fracture at T8 also with 30% anterior vertebral body height loss which is new since the prior study. Remaining vertebral body heights are normal wit h otherwise normal marrow signal. There is widening of the T6-T7 through T8-T9 disc spaces resulting from the depression of the adjacent superior endplates. There is mild disc height loss at T11-T12. Th ere are small disc bulges resulting in minimal central canal stenosis at each of these levels. There is normal spinal cord signal. The conus terminates at L1-L2. Multilevel mild to moderate thoracic fac et osteoarthritis. There is mild neural foraminal stenosis on the bilaterally from T8-T9 through T11- T12. Paravertebral soft tissues are unremarkable. IMPRESSION: 1. Mild thoracic spondylosis with unchanged chronic T7 and T9 compression fractures and with acute to subacute T8 compression fracture with one third anterior vertebral body height loss. Reviewed, dictated and finalized at location A. IMPRESSION: 1. Mild thoracic spondylosis with unchanged chronic T7 and T9 compression fract ures and with acute to subacute T8 compression fracture with one third anterior vertebral body height loss.
== END 2023-11-15 09:09 | disposition home or self-care (01) ==
LOC: ANHIMG 09:17
PROVIDERS: Visit Provider Physician Assistant
DX: M80.08XA Age-related osteoporosis with current pathological fracture, vertebra(e), initial encounter for fracture (principal); M47.894 Other spondylosis, thoracic region
CPT/HCPCS: 72146

== ENCOUNTER 2023-11-25 10:42 | Outpatient (CLI) | payer MEDICARE, MEDICAID, SELFPAY ==
--- NOTE | ~2023-11-25 | XR_ITS ---
XR chest 2V 11/25/2023 11:14 Indication: Cough Procedure: 2 view chest Comparison: Comparison to multiple prior studies sequentially, with oldest reviewed study dated 06/2021. Findings: Patchy predominantly bibasilar airspace disease which may reflect edema or pneumonia. No pl eural effusion. The lungs are hyperinflated which is consistent with, but not diagnostic of chronic o bstructive pulmonary disease. There are vertebroplasty changes in the midthoracic spine. Impression: 1: Patchy predominantly bibasilar airspace disease which may reflect edema or pneumonia. Reviewed, dictated and finalized at location B. Impression: 1: Patchy predominantly bibasilar airspace disease which may reflect edema or p neumonia.
--- NOTE | ~2023-11-25 | XR_ITS ---
EXAM: XR thoracic spine 3V DATE: 11/25/2023 11:14 HISTORY: COUGH, UPPER BACK PAIN, NO INJURY . COMPARISON: 11/05/2023; MR T-spine 11/15/2023. FINDINGS: Decreased mineralization. Vertebral body alignment intact. Mild anterior wedge deformity at T7-T9. Vertebroplasty cement at T8. Mild multilevel disc space narrowing and marginal osteophytosis. No traumatic malalignment or fracture. Visualized lung parenchyma is clear. IMPRESSION: Interval vertebroplasty at T8. Stable mild anterior wedge compression fractures at T7-T9. Reviewed, dictated and finalized at location K. IMPRESSION: Interval vertebroplasty at T8. Stable mild anterior wedge compressi on fractures at T7-T9.
[2023-11-25 11:49] LABS: Basophils Absolute Auto 0.1 K/mm3 (0.0-0.1); Basophils Percent Auto 0.3 % (0.2-1.2); Eosinophils Percent Auto 0.1 % (0-4.4); Hematocrit 36.2 % (37.0-47.0); Hemoglobin 11.2 g/dL (12.0-15.0); Immature Granulocyte Percent A 0.6 % (0-0.5); Lymphocytes Absolute Auto 2.06 K/mm3 (0.9-3.2); Mean Corpuscular HGB Conc 30.9 g/dl (32-36); Mean Corpuscular Hemoglobin 30.9 pg (26-34); Mean Corpuscular Volume 99.7 fl (80-100); Mean Platelet Volume 9.8 fl (7.4-10.4); Monocytes Absolute Auto 1.3 K/mm3 (0.1-0.6); Monocytes Percent Auto 8.1 % (2.6-8.5); Neutrophils Absolute Auto 12.3 K/mm3 (1.3-6.7); Neutrophils Percent Auto 77.9 % (45.5-73.1); Platelet Count Result 320 k/mm3 (150-375); Red Blood Count 3.63 M/mm3 (4.2-5.4); Red Cell Distribution Width 14.6 % (11.5-14.5); White Blood Count 15.8 K/mm3 (4.5-10.0)
[2023-11-25 11:59] LABS: Alanine Aminotransferase 12 U/L (6-35); Albumin Level 3.9 g/dL (3.5-5.1); Alkaline Phosphatase 91 U/L (38-126); Anion Gap 7 mmol/L (4-12); Aspartate Amino Transferase 18 U/L (14-36); Bilirubin,Total 0.2 mg/dL (0.2-1.3); Blood Urea Nitrogen 13 mg/dL (7-17); Calcium 8.4 mg/dL (8.4-10.2); Carbon Dioxide 35 mmol/L (22-30); Chloride 92 mmol/L (98-107); Estimated Glomerular Filt Rate > 60; Glucose 164 mg/dL (65-110); Potassium 4.5 mmol/L (3.4-5.0); Sodium 134 mmol/L (137-145)
== END 2023-11-25 10:43 | disposition home or self-care (01) ==
PROVIDERS: Visit Provider Pain Medicine Pain Medicine
DX: R91.8 Other nonspecific abnormal finding of lung field (principal); S22.060A Wedge compression fracture of T7-T8 vertebra, initial encounter for closed fracture; X58.XXXA Exposure to other specified factors, initial encounter
CPT/HCPCS: 36415; 71046; 72072; 80053; 85025

== ENCOUNTER 2023-11-25 18:30 | Emergency (ER) | payer MEDICARE, MEDICAID, SELFPAY ==
[2023-11-25] VITALS (7 sets, daily range): BP systolic 103–115; BP diastolic 68–92; PULSE 96–106; RESP 15–20; TEMP 36.9; O2SAT 84–100
--- NOTE | 2023-11-25 18:45 | ECG_ITS ---
Test Date: 2023-11-25 19:13:59 Measurements Intervals [place] Rate: 100 P: 38 SD: 154 QRS: 74 QRSD: 85 T: 61 QT: 357 QTc: 461 Interpretive Statements SINUS TACHYCARDIA BASELINE ARTIFACT- I, III, AVR, AVL, V1, V4-V5 BORDERLINE ECG No previous ECG available for comparison Electronically Signed On 11-25-2023 19:27:53 CDT by Eb Thomas D.O.
[2023-11-25 18:58] LABS: Basophils Absolute Auto 0.1 K/mm3 (0.0-0.1); Basophils Percent Auto 0.3 % (0.2-1.2); Hematocrit 37.5 % (37.0-47.0); Hemoglobin 12.1 g/dL (12.0-15.0); Immature Granulocyte Absolute 0.15 K/mm3 (0.00-0.031); Immature Granulocyte Percent A 0.9 % (0-0.5); Lymphocytes Absolute Auto 2.66 K/mm3 (0.9-3.2); Lymphocytes Percent Auto 15.5 % (18.3-44.2); Mean Corpuscular HGB Conc 32.3 g/dl (32-36); Mean Corpuscular Hemoglobin 31.6 pg (26-34); Mean Corpuscular Volume 97.9 fl (80-100); Mean Platelet Volume 9.8 fl (7.4-10.4); Monocytes Absolute Auto 1.1 K/mm3 (0.1-0.6); Monocytes Percent Auto 6.6 % (2.6-8.5); Neutrophils Absolute Auto 13.2 K/mm3 (1.3-6.7); Neutrophils Percent Auto 76.7 % (45.5-73.1); Platelet Count Result 376 k/mm3 (150-375); Red Blood Count 3.83 M/mm3 (4.2-5.4); Red Cell Distribution Width 14.6 % (11.5-14.5); White Blood Count 17.2 K/mm3 (4.5-10.0)
[2023-11-25 19:11] LABS: Alanine Aminotransferase 13 U/L (6-35); Albumin Level 4.3 g/dL (3.5-5.1); Alkaline Phosphatase 114 U/L (38-126); Aspartate Amino Transferase 19 U/L (14-36); Bilirubin,Total 0.3 mg/dL (0.2-1.3); Blood Urea Nitrogen 14 mg/dL (7-17); Carbon Dioxide 38 mmol/L (22-30); Estimated CRCL calculation 76 ml/min; Estimated Glomerular Filt Rate > 60; Glucose 135 mg/dL (65-110); Potassium 4.6 mmol/L (3.4-5.0); Sodium 136 mmol/L (137-145)
[2023-11-25 19:15] LABS: Anion Gap 4 mmol/L (4-12); Chloride 94 mmol/L (98-107)
[2023-11-25] MEDS: SODIUM CHLORIDE 0.9% IV 1,000 ML 999 ML IV CONT (19:34)
[2023-11-25] MEDS: dexAMETHasone SOD PHOS INJ 10 MG/ML 1 ML VIAL IV PUSH (19:34)
[2023-11-25] MEDS: IPRATROPIUM 0.5 MG/ALBUTEROL SULFATE 2.5 MG AMPUL.NEB 3 ML 12 ML INHALATION (19:39)
[2023-11-25 20:04] LABS: Influenza A QL RT-PCR Negative (Negative); Influenza B QL RT-PCR Negative (Negative); RSV RNA, RT-PCR Negative (Negative); SARS-CoV-2 RNA PCR Negative (Negative)
[2023-11-25] MEDS: levoFLOXacin 750 MG/D5W 150 ML 750 MG/150 ML BAG 100 MG IVPB (20:15)
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
[2023-11-25 21:34] LABS: Fractional Inspired Oxygen 36 %; HCO3 VBG 32.3 mEq/l (24.0-30.0); PCO2 VBG 56.9 mmHg (42.0-48.0); PO2 VBG 30.9 mmHg (35.0-45.0); pH VBG 7.372 (7.300-7.400)
[2023-11-25 21:35] LABS: Device NASAL CANNULA
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
== END 2023-11-25 23:31 | disposition left against medical advice (07) ==
PROVIDERS: Emergency Medicine; Emergency Provider Emergency Medicine; PCP Nurse Practitioner Family
DX: J18.9 Pneumonia, unspecified organism (principal); J96.20 Acute and chronic respiratory failure, unspecified whether with hypoxia or hypercapnia; G89.29 Other chronic pain; J44.9 Chronic obstructive pulmonary disease, unspecified; F17.210 Nicotine dependence, cigarettes, uncomplicated; Z99.81 Dependence on supplemental oxygen; Z20.822 Contact with and (suspected) exposure to COVID-19
CPT/HCPCS: 36415; 71046; 72072; 80053; 82803; 85025; 87040; 87637; 93005; 94640; 96361; 96365; 96366; 96375; 99284; J1100; J1956; J7030

== ENCOUNTER 2023-12-29 15:52 | Outpatient (CLI) | payer MEDICARE, MEDICAID, SELFPAY ==
--- NOTE | ~2023-12-29 | XR_ITS ---
EXAMINATION: XR thoracic spine 3V DATE: 12/29/2023 16:15 INDICATION: Age-related osteoporosis. TECHNIQUE: 3 views of thoracic spine were obtained. COMPARISON: Thoracic spine radiographs 11/25/23, MRI 11/15/2023 FINDINGS: There are chronic fractures of T7, T8, and T9 vertebral bodies with changes of vertebroplas ty at T8. Thoracic kyphosis is noted. There is 4 degrees dextrocurvature of thoracic spine. There is mildly decreased disc height at multiple levels in mid thoracic spine. IMPRESSION: 1. Chronic fractures of T7, T8, and T9 vertebral bodies with changes of vertebroplasty at T8. 2. Mild thoracic spondylosis. Reviewed, dictated and finalized at location A. IMPRESSION: 1. Chronic fractures of T7, T8, and T9 vertebral bodies with changes of vertebr oplasty at T8. 2. Mild thoracic spondylosis.
== END 2023-12-29 15:53 | disposition home or self-care (01) ==
LOC: ANHIMG 15:59
PROVIDERS: PCP Nurse Practitioner Family; Visit Provider Physician Assistant
DX: M80.08XA Age-related osteoporosis with current pathological fracture, vertebra(e), initial encounter for fracture (principal); M47.894 Other spondylosis, thoracic region; S22.069D Unspecified fracture of T7-T8 vertebra, subsequent encounter for fracture with routine healing; S22.079D Unspecified fracture of T9-T10 vertebra, subsequent encounter for fracture with routine healing; X58.XXXD Exposure to other specified factors, subsequent encounter
CPT/HCPCS: 72072

== ENCOUNTER 2024-01-28 14:34 | Outpatient (CLI) | payer MEDICARE, MEDICAID, SELFPAY ==
--- NOTE | ~2024-01-28 | XR_ITS ---
3 VIEWS THORACIC SPINE Ordering provider: Elina Pleitez, KENYA History: . Thoracic spine pain . Comparison: December 29, 2023 FINDINGS: VERTEBRAL BODIES: Compression fractures seen in the midthoracic area unchanged. Otherwise, Normal hei ght and alignment. No visible fracture or subluxation. Vertebroplasty seen in the midthoracic area. DISK SPACES: Normal. SOFT TISSUES: Normal. IMPRESSION: No acute osseous abnormality of the thoracic spine. Multiple compression fractures in the midthoracic area unchanged from previous examination. Reviewed, dictated and finalized at location A.
== END 2024-01-28 14:35 | disposition home or self-care (01) ==
LOC: MICIMG 14:41
PROVIDERS: PCP Physician Assistant; Visit Provider Physician Assistant
DX: M48.54XA Collapsed vertebra, not elsewhere classified, thoracic region, initial encounter for fracture (principal)
CPT/HCPCS: 72072

== ENCOUNTER 2024-04-09 16:59 | Outpatient (CLI) | payer MEDICARE, MEDICAID, SELFPAY ==
--- NOTE | ~2024-04-09 | XR_ITS ---
XR chest 2V DATE: 04/09/2024 17:20 INDICATION: Cough TECHNIQUE: PA and lateral views COMPARISON: 11/25/2023 PA and lateral chest FINDINGS: Normal heart size. Prominent bilateral hyperinflation with increased retrosternal airspace and flattening of the diaphragm consistent with COPD. Prominent central pulmonary arteries suggesting pulmonary hypertension. No pulmonary infiltrate or consolidation, pleural effusion or pulmonary vascular congestion or pneumo thorax is detected. Stable compression fracture deformities of several lower thoracic vertebral bodies and vertebroplasty of one of these, unchanged since 11/25/2023. Osteopenia. IMPRESSION: COPD and probable pulmonary hypertension No active cardiopulmonary disease Reviewed, dictated and finalized at location A. CAL PLANNER
--- NOTE | ~2024-04-09 | XR_ITS ---
XR hand LT min 3V DATE: 04/09/2024 17:21 INDICATION: Injury, especially of first interphalangeal joint TECHNIQUE: 3 views COMPARISON: None FINDINGS: No fracture, dislocation, periosteal reaction or bone destruction, erosive change or chondr ocalcinosis. IMPRESSION: Negative Reviewed, dictated and finalized at location A. K CONTROL CLERK IMPRESSION: Negative
== END 2024-04-09 17:00 | disposition home or self-care (01) ==
PROVIDERS: PCP Physician Assistant; Visit Provider Nurse Practitioner Family
DX: R05.9 Cough, unspecified (principal); S69.92XA Unspecified injury of left wrist, hand and finger(s), initial encounter; X58.XXXA Exposure to other specified factors, initial encounter; J44.9 Chronic obstructive pulmonary disease, unspecified
CPT/HCPCS: 71046; 73130

== ENCOUNTER 2024-07-01 16:54 | Outpatient (CLI) | payer MEDICARE, MEDICAID, SELFPAY | END 2024-07-01 16:55 | disposition home or self-care (01) | DX: R05.9 Cough, unspecified (principal) | CPT/HCPCS: 71046 ==

== ENCOUNTER 2024-09-02 17:55 | Outpatient (CLI) | payer MEDICARE, MEDICAID, SELFPAY ==
--- NOTE | ~2024-09-02 | XR_ITS ---
Left elbow Technique: AP, oblique, and lateral views were obtained. Clinical History: Pain Findings: No acute fracture or dislocation is seen. Osseous alignment is anatomic. Joint spaces are p reserved. There is no displacement of the fat pads, and soft tissues are unremarkable. Impression: Unremarkable radiographs. Reviewed, dictated and finalized at location . Impression: Unremarkable radiographs.
--- OUTSIDE RECORDS SUMMARY | 2024-09-02 17:58 | XMS_ITS | Encounter Summary ---
Author Organization [facility] Address [address] [place] [address] Care Team Providers Care Field Marketing Coordinator Name Role Phone Zoey Membreno MD Primary Care Provider [phone] Liana Bonilla Primary Care Provider [phone] Encounter Details Date Type Department Care Team (Late st Contact Info) Description 01/17/2023 Telephone [facility] - Centralized Scheduling [address] [place] [address] Nikki Peace MD [address] [place] [address] Social History Tobacco Use Types Packs/Day Years Used Date Smoking Tobacco: Every Day Cigarettes 0.5 41.7 Started: 12/28/1982 Smokeless Tobacco: Never Comments:07/23/22 Lung Cancer Screening Counseling Shared Decision Making Visit Documentation Alcohol Use Standard Drinks/Week Comments No 0 (1 standard drink = 0.6 oz pur e alcohol) AUDIT-C Answer Date Recorded Q1: How often do you have a drink containing alc ohol? Never 06/25/2021 Average Number of Drinks Not on file 022 Q3: How often do you have si x or more drinks on one occasion? Never 06/25/2021 PHQ-2 Answer Date Recorded PHQ2 TOTAL SCORE 3 07/23/2021 Hunger Vital Sign Answer Date Recorded Within the past 12 months, y ou worried that your food would run out before you got the money to buy more. Never true 06/27/19 22 Within the past 12 months, t he food you bought just didn't last and you didn't have money to get more. Never true 06/27/2021 Comments No Sex and Gender Information Value Date Recorded Sex Assigned at Female 08/28/2021 5:51 PM CDT Legal Sex Female 5:33 AM COMPUTERIZED TABLE CUTTER Gender Identity Female 08/28/2021 5:51 PM CDT Sexual Orientation Straight 08/28/2021 5: 51 PM CDT documented as of this encounter Functional Status * Is person deaf or have serious hearing difficulty? Answer Date of Assessment Author No 06/30/2021 1:04 PM Ella Rivera RN * Is person blind or have serious difficulty seeing? Answer Date of Assessment Author No 06/30/2021 1:04 PM Ella Rivera RN * Does person have serious difficulty walking/climbing stairs? Answer Date of Assessment Author Yes 06/30/2021 1:04 PM Ella Rivera RN * Does person have difficulty dressing/bathing? Answer Date of Assessment Author No 06/30/2021 1:04 PM Ella Rivera RN * Does person have difficulty doing errands alone? Answer Date of Assessment Author No 06/30/2021 1:04 PM Ella Rivera RN documented as of this encounter Mental Status * Does person have difficulty concentrating/remembering/making decisions? Answer Entry Date Author No 06/30/2021 1:04 PM Ella Rivera RN documented in this encounter Plan of Treatment Upcoming Encounters Date Type Department Care Team (Late st Contact Info) Description 09/06/2024 9:15 AM CDT Office Visit [facility] - Orthopedics [address] [place] [address], [place] [address] Will Aragon, PIPE CHIPPER-SUPERVISOR HOT DIP TINNING [address] [facility] [address] [place] [address] 09/13/2024 3:15 PM CDT Office Visit [facility] - ENT [address] [place] [address], [place] [phone] Flex Turcios MD [address] [place] [address] [address] [place] [address] 09/28/2024 3:30 PM CDT Office Visit [facility] - Pulmonology [address] [place] [address], [place] [phone] Andrea Maciel MD [address] [place] [address] 09/29/2024 4:00 PM CDT Office Visit [facility] - Neurology [address] [place] [phone] Marylu Forbes PA-C [address] [place] [address] documented as of this encounter Goals Goal Patient Goal Type Associated Problems Recent Progress Patient-Stated? Author Medication Management General On track( 024 10:04 AM CDT) Dottie Molina, BOO Note: Expected end date: ongoing Interventions: Take all medications as prescribed Let your doctor know right away about any changes in your medications Make sure to request a refill of your medication at least one week prior to your last dose documented as of this encounter Visit Diagnoses Not on filedocumented in this encounter Additional Health Concerns Infection Onset Date Last Indicated Resolved Time CDIFF Under Investigation 09/30/2023 09/30/2023 4:33 AM CDT documented as of this encounter Care Teams Field Marketing Coordinator Relationship Specialty Start Date End Date Zoey Membreno MD [address] [facility] [place] [phone] PCP - General 08/20/17 08/19/24 Liana Bonilla APNP-[facility] [address] [place] [address] PCP - General Family Medicine 08/20/24 documented as of this encounter
--- OUTSIDE RECORDS SUMMARY | 2024-09-02 17:58 | XMS_ITS | Encounter Summary ---
Author Organization [facility] Address [address] [facility] [place] [address] Care Team Providers Care Post Doctoral Researcher Name Role Phone Zoey Membreno MD Primary Care Provider [phone] Liana Bonilla Primary Care Provider [phone] Reason for Visit * Reason Onset Date Comments Bladder Problem 02/08/2020 Encounter Details Date Type Department Care Team (Late st Contact Info) Description 02/08/2020 Telephone [facility] [address] [facility] [address] [place] [address] Clara Zambrano MD [address] [facility] [address] [place] [address] Bladder Problem Social History Tobacco Use Types Packs/Day Years Used Date Smoking Tobacco: Every Day Cigarettes 0.5 41.7 Started: 12/28/1982 Smokeless Tobacco: Never Alcohol Use Standard Drinks/Week Comments No 0 (1 standard drink = 0.6 oz pur e alcohol) Comments No Sex and Gender Information Value Date Recorded Sex Assigned at Female 08/28/2021 5:51 PM CDT Legal Sex Female 5:33 AM CONSULTING TECHNICAL DIRECTOR Gender Identity Female 08/28/2021 5:51 PM CDT Sexual Orientation Straight 08/28/2021 5: 51 PM CDT documented as of this encounter Functional Status * Is person deaf or have serious hearing difficulty? Answer Date of Assessment Author Yes 10/14/2018 12:15 PM CDT Ni Arnold ot, RN * Is person blind or have serious difficulty seeing? Answer Date of Assessment Author No 10/14/2018 12:15 PM CDT Ni Arnold ot, RN * Does person have serious difficulty walking/climbing stairs? Answer Date of Assessment Author Yes 10/14/2018 12:15 PM CDT Ni Arnold ot, RN * Does person have difficulty dressing/bathing? Answer Date of Assessment Author No 10/14/2018 12:15 PM CARMENT Ni Arnold ot, RN * Does person have difficulty doing errands alone? Answer Date of Assessment Author No 10/14/2018 12:15 PM CDT Ni Arnold ot, RN documented as of this encounter Mental Status * Does person have difficulty concentrating/remembering/making decisions? Answer Entry Date Author Yes 10/14/2018 12:15 PM CARMENT Ni Arnold ot, RN documented in this encounter Miscellaneous Notes * Telephone Encounter - Kali Perez RN - 02/09/2020 11:39 AM CDT C/o intermittent RLQ pain x 1 month - can feel it gets worse w/ urination. Dtr can see something hanging down in the vagina when assists w/ bladder instillations. Thinks it'smesh. Described pain to her PCP who advised her to call Dr Zambrano. Also, breast mass and blood draining from her nipple. Causing fever and chills. PCP treating w/ Levofloxcin. Denies Frequency ( urinates about 4x/day). Odor, cloudy Some urgency, but this isn't new - much better since surg in May to fix it . Saw Blood in urine last week, but none for about 5-7 days now. NOTE : scheduled for throat surgery tomorrow so can't go to [facility] clinic PLAN - Gave appt on Friday, 02/13, w/ Dr Zambrano. * Telephone Encounter - Logan Miller - 02/08/2020 1:52 PM CDT Pt is having a lot pressure/pain in the vaginal & anal area. Also she feels the mesh. Also her bladder is not emptying properly. documented in this encounter Plan of Treatment Upcoming Encounters Date Type Department Care Team (Late st Contact Info) Description 09/06/2024 9:15 AM CDT [facility] [address] [place] [phone] Will Aragon, TAPE CUTTING MACHINE OPERATOR-CATH LAB MANAGER [address] [address] 09/13/2024 3:15 PM CDT [facility] ENT [address] [place] [phone] Flex Turcios MD [address] [place] [address] 09/28/2024 3:30 PM CDT [facility] - Pulmonology [address] [place] [phone] Andrea Maciel MD [address] [place] [address] 09/29/2024 4:00 PM CDT [facility] - Neurology [address] [place] [phone] Maryul Forbes PA-C [address] [place] [address] documented as of this encounter Goals Goal Patient Goal Type Associated Problems Recent Progress Patient-Stated? Author Medication Management General On track( 024 10:04 AM CDT) Dottie Molina, RN Note: Expected end date: ongoing Interventions: Take [...] documented as of this encounter Care Teams Post Doctoral Researcher Relationship Specialty Start Date End Date Zoey Membreno MD [address] [facility] [phone] PCP - General 08/20/17 08/19/24 Liana Bonilla APNP-CATH LAB MANAGER [address] [place] [address] PCP - General Family Medicine 08/20/24 documented as of this encounter
--- OUTSIDE RECORDS SUMMARY | 2024-09-02 17:58 | XMS_ITS | Clinical Summary ---
Author Organization [facility] Address [address] [facility] [address] [place] [address] Phone Care Team Providers Care Industrial Waste Inspector Name Role Phone Zoey Membreno MD Primary Care Provider + Tex Barboza APRN, OPERATIONS PROGRAM MANAGER Unavailable Allergies Active Allergy Reactions Criticality Noted Date Comments Ciprofloxacin Anaphylaxis 07/02/2016 Cephalexin Unknown 08/10/2018 Levetiracetam Other (see Comments) High 06/19/2018 seizures Penicillins Hives 07/02/2016 Tramadol Vomiting 07/09/2018 Bupropion Hcl Hallucinations High 06/19/2018 seizures Sertraline Hcl Hallucinations High 06/19/2018 Seizures Medications clonazePAM (KLONOPIN) 1 MG Tablet takes 1 mg TID 2 7 Active buPROPion SR (WELLBUTRIN SR) 150 MG TABLET SR 12 HR TK 1 T PO BID 2 7 Active topiramate (TOPAMAX) 100 MG Tablet TK 1 T PO BID 6 7 Active dicyclomine (BENTYL) 20 MG Tablet TK 1 T PO Q 6 H PRF ABDOMINAL PAIN 5 6 Active Mirabegron ER (MYRBETRIQ) 50 MG TABLET SR 24 HR Take by mouth. Activ e Cyanocobalamin (VITAMIN B-12) 2000 MCG Tablet Controlled Release Take by mouth. Activ e HYDROcodone-acet aminophen (NORCO) 5-325 MG Tablet Take 1 Tab by mouth every 4 hours as needed for Pain. Active valACYclovir (VALTREX) 1 GM Tablet Take 1,000 mg by mouth 2 times daily. Active albuterol (PROAIR HFA) 108 (90 Base) MCG/ACT Aerosol Solution take 2-4 Puffs by inhalation every 4 hours as needed for Wheezing. Active budesonide-formo terol fumarate (SYMBICORT) 160-4.5 MCG/ACT Aerosol take 2 Puffs by inhalation 2 times daily. Active FLUTICASONE-SALM ETEROL IN take 2 Puffs by inhalation daily. Active acyclovir (ZOVIRAX) 400 MG Tablet Take 400 mg by mouth every 4 hours (while awake). Active Ascorbic Acid (VITAMIN C PO) Take 1 Tab by mouth daily. Active Cholecalciferol (VITAMIN D PO) Take 50,000 Units by mouth once a week. Active montelukast (SINGULAIR) 10 MG Tablet Take 10 mg by mouth every evening. Active pregabalin (LYRICA) 50 MG Capsule Take 50 mg by mouth 2 times daily. Active Umeclidinium [place] (INCRUSE ELLIPTA IN) take 1 Puff by inhalation daily. Active Vitamin B-1 (THIAMINE) 100 MG Tablet Take 1 Tab by mouth daily. Active aspirin EC 81 MG Tablet Delayed Response Take 81 mg by mouth daily. Active busPIRone (BUSPAR) 10 MG Tablet Take 10 mg by mouth 3 times daily. Active prazosin (MINIPRESS) 2 MG Capsule Take 2 mg by mouth nightly. Active Probiotic Product (PROBIOTIC & ACIDOPHILUS EX ST) CapsuleIndicatio ns:Lymphadenopat hy, cervical 1tab PO midday while on antibiotics and for at least 5 days after completing antibiotic course. 30 Cap 1 9 Active omeprazole (PRILOSEC) 20 MG CAPSULE DELAYED RELEASE Take 1 Cap by mouth every morning (before breakfast). 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 08/20/2018 Laryngopharyngeal reflux 08/20/2018 PNAR (perennial non-allergic rhinitis) 9 Chronic adenoiditis 08/20/2018 Grimm's esophagus 08/10/2018 Lymphadenopathy, cervical 08/10/2018 Family History Medical History Relation Name Comments Diabetes Maternal Aunt Stroke Maternal Grandfather Diabetes Maternal Grandmother Ovarian Cancer Maternal Grandmother cervi umberto cancer Cancer Maternal Uncle lung and neck Bipolar Disorder Mother Congestive Heart Failure Mother Diabetes Mother Heart Surgery Mother High Cholesterol Mother Hypertension Mother Renal Failure Mother Thyroid Disease Mother Relation Name Status Comments Father unknown hx Maternal Aunt Maternal Grandfather Maternal Grandmother Maternal Uncle Mother Alive Social History Tobacco Use Types Packs/Day Years Used Date Smoking Tobacco: Every Day Cigarettes 0.5 30 Smokeless Tobacco: Never Tobacco Cessation:Ready to Q uit: No; Counseling Given: No Alcohol Use Standard Drinks/Week Comments No 0 (1 standard drink = 0.6 oz pur e alcohol) Comments No Sex and Gender Information Value Date Recorded Sex Assigned at Not on file Legal Sex Female 9:11 AM MEMORANDUM STATEMENT CLERK Gender Identity Not on file Sexual Orientation Not on file Occupation Industry Job Start Date Job End Date unemployed Not on file Not on file Not on file Last Filed Vital Signs Vital Sign Reading Time Taken Comments Blood Pressure 99/75 03/04/2019 3:27 PM CDT Pulse 81 03/04/2019 3:27 PM CDT Temperature 36.4 C (97.6 F) 03/04/2019 3:27 PM CDT Respiratory Rate 20 03/04/2019 3:27 PM CDT Oxygen Saturation 96% 03/04/2019 3:27 PM CDT Inhaled Oxygen Concentration - - Weight 54.8 kg (120 lb 12.8 oz) 03/04/2019 3:27 PM CDT Height 152.4 cm (5') 03/04/2019 3:27 PM CDT Body Mass Index 23.59 03/04/2019 3:27 PM CDT Plan of Treatment Health Maintenance Due Date Last Done Comments Hepatitis C Virus (HCV) Screening 1970 TdaP Immunization 1970 Hepatitis B Immunization (1 of 3 - 19+ 3-dose series) 07/24/1990 Colonoscopy 07/24/2016 Colorectal Cancer Screening 07/24/2016 Cologuard 07/24/2021 Immunochemical Fecal Occult Blood 07/24/2021 Pneumococcal Immunization (5 0+ years) (2 of 2 - PCV) 07/24/2021 07/14/2013 Zoster Immunization (1 of 2) 07/24/2021 SARS-COV-2 Immunization (3 - 2023- season) 2024 02/13/2021, 01/23/2021 Influenza Immunization (Seas on Ended) 2025 Respiratory Syncytial Virus (RSV) Immunization (Adult) (1 - 1-dose 75+ series) 07/24/2046 Pneumococcal Immunization Combined Discontinued 07/14/2013 Meningococcal Immunization (ACWY) Aged Out No longer eligible based on patient's age to complete this topic Rotavirus Immunization Aged Out No lo nger eligible based on patient's age to complete this topic Insurance MEDICAID [facility] Care Teams Industrial Waste Inspector Relationship Specialty Start Date End Date Zoey Membreno MD [address] [place] [address] PCP - General Family Medicine 04/22/16 Tex Barboza, CREATIVE LEAD, OPERATIONS PROGRAM MANAGER [address] [place] [address] Certified Nurse Practitioner 07/07/17
--- OUTSIDE RECORDS SUMMARY | 2024-09-02 17:59 | XMS_ITS | Encounter Summary ---
Author Organization [facility] Address [address] [facility] [place] [address] Care Team Providers Care Equity Director Name Role Phone Zoey Membreno MD Primary Care Provider [phone] Liana Bonilla-INSTRUCTOR DRAMATIC ARTS Primary Care Provider [phone] Encounter Details Date Type Department Care Team (Late Contact Info) Description 03/24/2023 Telephone [facility] - [facility] Scheduling [address] [place] [phone] Andrea Maciel MD [address] [place] [address] Social History Tobacco Use Types Packs/Day Years [...] PM CDT Legal Sex Female 5:33 AM INNERSOLE MAKER Gender Identity Female 08/28/2021 5:51 PM CDT [...] Ella Rivera RN documented in this encounter Miscellaneous Notes * Telephone Encounter - Eliazar Galarzaen - 03/24/2023 3:15 PM CST Current Provider name:ULICES Reason for call: Pt was recently d/c from the hospital for reocurring pneumonia. She states that she is in a lot of pain and believes she has a lump on the side of her chest. She would like to speak with someone as soon as possible. Patient Call Back number: [phone] RSOLE MAKER documented in this encounter Plan of Treatment Upcoming Encounters Date Type Department Care Team (Late st Contact Info) Description 09/06/2024 9:15 AM CDT Office Visit [facility] - Orthopedics [address] [place] [phone] Will Aragon, [place] ADMINISTRATIVE LAW JUDGE-INSTRUCTOR DRAMATIC ARTS [address] [address] 09/13/2024 3:15 PM CDT Office Visit [facility] - ENT [address] [place] [phone] Flex Turcios MD [address] [place] [address] [address] [place] [address] 09/28/2024 3:30 PM CDT Office Visit [facility] - Pulmonology [address] [place] [phone] Andrea Maciel MD [address] [place] [address] 09/29/2024 4:00 PM CDT Office Visit [facility] - Neurology [address] [place] [phone] Marylu Forbes PA-C [address] [place] [address] documented as of this encounter Goals Goal [...] documented as of this encounter Care Teams Equity Director Relationship Specialty Start Date End Date Zoey Membreno MD [address] [place] [phone] PCP - General 08/20/17 08/19/24 Liana Bonilla APNP-[facility] [address] [place] [address] PCP - General Family Medicine 08/20/24 documented as of this encounter
--- OUTSIDE RECORDS SUMMARY | 2024-09-02 17:59 | XMS_ITS | Encounter Summary ---
Author Organization [facility] Address [facility] [place] [address] Care Team Providers Care Environmental Health Safety Engineer Name Role Phone Zoey Membreno MD Primary Care Provider [phone] Encounter Details Date Type Department Care Team (Late st Contact Info) Description 01/28/2018 Hosp Visit [facility] Outpatient Therapy [place], [place] [phone] Shannan Betts, PT [place] [phone] Social History Tobacco Use Types Packs/Day Years Used Date Smoking Tobacco: Every Day Cigarettes 0.5 30 Smokeless Tobacco: Never Alcohol Use Standard Drinks/Week Comments No 0 (1 standard drink = 0.6 oz pur e alcohol) Comments No Sex and Gender Information Value Date Recorded Sex Assigned at Not on file Legal Sex Female 6:54 PM CDT Gender Identity Not on file Sexual Orientation Not on file documented as of this encounter Progress Notes * Shannan Betts, PT - 01/28/2018 12:26 PM CDT [place] [place] Pras[facility] [address](R) 1. Gait abnormality ABNORMAL GAIT 2. TIA (transient ischemic attack) TRANSIENT CEREBRAL ISCHEMIA 3. Acute right hemiparesis (HCC) RIGHT HEMIPARESIS 4. Abnormality of gait ABNORMAL GAIT 01/28/18 Patient called and cancelled appointment today due to schedule conflict with her daughter's appointment. SHANNAN BETTS PT documented in this encounter Plan of Treatment Not on file documented as of this encounter Visit Diagnoses Diagnosis Gait abnormality- Primary Abnormality of gait TIA (transient ischemic attack) Unspecified transient cerebral ischemia Acute right hemiparesis (CMS/HCC HHS/HCC) Hemiplegia, unspecified, affecting unspecified side Abnormality of gait documented in this encounter Additional Health Concerns Infection Onset Date Last Indicated Resolved Time COVID-19 Rule Out 03/21/2020 03/21/2020 03/23/2020 10:06 AM ACID PUMP OPERATOR COVID-19 Rule Out 08/08/2020 08/08/2020 08/09/2020 8:41 AM CDT documented as of this encounter Care Teams Environmental Health Safety Engineer Relationship Specialty Start Date End Date Zoey Membreno MD [address] [place] [address] [place] [address] PCP - General 09/16/16 documented as of this encounter
--- OUTSIDE RECORDS SUMMARY | 2024-09-02 17:59 | XMS_ITS | Encounter Summary ---
Author Organization [facility] Address [facility] [place] [address] Care Team Providers Care Attorney Lawyer Name Role Phone Zoey Membreno MD Primary Care Provider [phone] Encounter Details Date Type Department Care Team (Late st Contact Info) Description 10/10/2018 Abstract [facility] CONVERSION [address] [place] [address] , Generic MD Toni Social History Tobacco Use Types Packs/Day Years Used Date Smoking Tobacco: Former Cigarettes 2 35 1 07/01/1982 - 04/30/2018 Smokeless Tobacco: Never Alcohol Use Standard Drinks/Week Comments No 0 (1 standard drink = 0.6 oz pur e alcohol) Comments No Sex and Gender Information Value Date Recorded Sex Assigned at Not on file Legal Sex Female 6:54 PM CDT Gender Identity Not on file Sexual Orientation Not on file documented as of this encounter Plan of Treatment Not on file documented as of this encounter Visit Diagnoses Not on filedocumented in this encounter Additional Health Concerns Infection Onset Date Last Indicated Resolved Time COVID-19 Rule Out 03/21/2020 03/21/2020 03/23/2020 10:06 AM ARTS THERAPIST COVID-19 Rule Out 08/08/2020 08/08/2020 08/09/2020 8:41 AM CDT documented as of this encounter Care Teams Attorney Lawyer Relationship Specialty Start Date End Date Zoey Membreno MD [address] [place] [address] PCP - General 09/16/16 documented as of this encounter
--- OUTSIDE RECORDS SUMMARY | 2024-09-02 17:59 | XMS_ITS | Encounter Summary ---
Author Organization [facility] Address [address] [facility] [place] [address] Care Team Providers Care Director Of Marketing Operations Name Role Phone Zoey Membreno MD Primary Care Provider [phone] Liana Bonilla Primary Care Provider [phone] Encounter Details Date Type Department Care Team (Late st Contact Info) Description 06/18/2018 Telephone [facility] General Internal Medicine [address] [address] Stewart Coleman MD [facility] [place] [phone] Social History Tobacco Use Types Packs/Day Years Used Date Smoking Tobacco: Every Day Cigarettes Smokeless Tobacco: Never Alcohol Use Standard Drinks/Week Comments No 0 (1 standard drink = 0.6 oz pur e alcohol) Comments No Sex and Gender Information Value Date Recorded Sex Assigned at Female 08/28/2021 5:51 PM CDT Legal Sex Female 5:33 AM CUSTODIAN BLOOD BANK Gender Identity Female 08/28/2021 5:51 PM CDT Sexual Orientation Straight 08/28/2021 5: 51 PM CDT documented as of this encounter Plan of Treatment Upcoming Encounters Date Type Department Care Team (Late st Contact Info) Description 09/06/2024 9:15 AM CDT Office Visit [facility] - Orthopedics [address] [place] [phone] Will Aragon, INTERNATIONAL GUEST COORDINATOR-PRINCIPAL TECHNICAL ARCHITECT [address] [facility] [address] [place] [address] 09/13/2024 3:15 PM CDT Office Visit [facility] - ENT [address] [place] [phone] Flex Turcios MD [address] [place] [address] 09/28/2024 3:30 PM CDT Office Visit [facility] - Pulmonology [address] [place] [phone] Andrea Maciel MD [address] [place] [address] 09/29/2024 4:00 PM CDT Office Visit [facility] - Neurology [address] [place] [phone] Marylu Forbes PA-C [address] [place] [address] documented as of this encounter Visit Diagnoses Not on filedocumented in this encounter Additional Health Concerns Infection Onset Date Last Indicated Resolved Time CDIFF Under Investigation 09/30/2023 09/30/2023 4:33 AM CDT documented as of this encounter Care Teams Director Of Marketing Operations Relationship Specialty Start Date End Date Zoey Membreno MD [address] [place] [address] [place] [address] PCP - General 08/20/17 08/19/24 Liana Bonilla APNP-[address] [address] PCP - General Family Medicine 08/20/24 documented as of this encounter
--- OUTSIDE RECORDS SUMMARY | 2024-09-02 17:59 | XMS_ITS | Encounter Summary ---
Author Organization [facility] Address [facility] [place] [address] Care Team Providers Care Gang Investigator Name Role Phone Zoey Membreno MD Primary Care Provider [phone] Encounter Details Date Type Department Care Team (Late st Contact Info) Description 04/02/2018 Advance Care Planning Encounter [facility] [place] [address] Scanned, Documents Social History Tobacco Use Types Packs/Day Years [...] Rule Out 03/21/2020 03/21/2020 03/23/2020 10:06 AM ORDNANCE ENGINEER COVID-19 Rule Out 08/08/2020 08/08/2020 08/09/2020 8:41 AM CDT documented as of this encounter Care Teams Gang Investigator Relationship Specialty Start Date End Date Zoey Membreno MD [address] [place] [address] [place] [address] PCP - General 09/16/16 documented as of this encounter
--- OUTSIDE RECORDS SUMMARY | 2024-09-02 17:59 | XMS_ITS | Encounter Summary ---
Author Organization [facility] Address [address] [facility] [place] [address] Care Team Providers Care Computer Builder Name Role Phone Zoey Membreno MD Primary Care Provider [phone] Liana Bonilla Primary Care Provider [phone] Reason for Visit * Reason Onset Date Comments Record Request 06/14/2020 Encounter Details Date Type Department Care Team (Late st Contact Info) Description 06/14/2020 Telephone [facility] [address] [place], [place] [phone] Clara Zambrano MD [address] [facility] [address] [place], [place] [phone] Record Request Social History Tobacco Use Types Packs/Day Years Used Date Smoking Tobacco: Every Day Cigarettes 0.5 41.7 Started: 12/28/1982 Smokeless Tobacco: Never Alcohol Use Standard Drinks/Week Comments No 0 (1 standard drink = 0.6 oz pur e alcohol) Comments No Sex and Gender Information Value Date Recorded Sex Assigned at Female 08/28/2021 5:51 PM CDT Legal Sex Female 5:33 AM DYNAMITE SHOOTER Gender Identity Female 08/28/2021 5:51 PM CDT [...] Telephone Encounter - Kali Perez RN - 06/20/2020 5:[address] Zambrano- Dr. Beck is a good Urologist. Please refer for kidney stones. Naa just finished macrobid yesterday morning. Still has issues urinating. She isn't able to void on her own except for the morning void. If she gets her dtr to catheterize her afterward, she gets a fair amount PVR. PLAN: start bladder diary w/ morning void and PVR. Will go to [facility] in 2 days ( 72hrs after last dose of macrobid) for JAMAL culture. Will see her next week and discuss results. MITE SHOOTER * Telephone Encounter - Kali Perez RN - 06/15/2020 4:50 PM CST Naa had an appt with Dr Betancur's DIRECT SERVICE PROVIDER , Yeimi Casas, yesterday. Naa states her appt was cancelled r/t she didn't have any images. No images available. Will discuss with Dr Zambrano and see if we can offer a different provider. MITE SHOOTER * Telephone Encounter - Paige Chappell - 06/14/2020 12:16 PM CST Pt called in stating that her kidney specialist needed her documentation from Dr Zambrano regarding kidney stones to keep her appt. Pt can be reached at . MITE SHOOTER documented in this encounter Plan of Treatment Upcoming Encounters Date Type Department Care Team (Late st Contact Info) Description 09/06/2024 9:15 AM CDT Office Visit [facility] - Orthopedics [address] [place] [address], [place] [address] Will Aragon, TOMB MAKER HELPER-DOZER OPERATOR [address] [address] 09/13/2024 3:15 PM CDT Office Visit [facility] - ENT [address] [place] [address], [place] [phone] Flex Turcios MD [address] [place] [address] 09/28/2024 3:30 PM CDT Office Visit [facility] - Pulmonology [address] [place] [phone] Andrea Maciel MD [facility] [place] [address] 09/29/2024 4:00 PM CDT Office Visit [facility] - Neurology [address] [place] [address] [place] [address] Marylu Forbes PA-C [address] [place] [address] documented as of this encounter Goals Goal Patient Goal Type Associated Problems Recent Progress Patient-Stated? Author Medication Management General On track( 024 10:04 AM CDT) Dottie Molina RN Note: Expected end date: ongoing Interventions: Take all medications as prescribed Let your doctor know right away about any changes in your medications Make sure to request a refill of your medication at least one week prior to your last dose documented as of this encounter Procedures Procedure Name Priority Date/Time Associated Diagnosis Comments CULTURE URINE Routine 06/23/2020 9:54 AM DYNAMITE SHOOTER Recurrent UTI Chronic interstitial cystitis Chronic pelvic pain in female documented in this encounter Results * CULTURE URINE (06/23/2020 9:54 AM DYNAMITE SHOOTER) Culture [facility] Comment: CULTURE, URINE, ROUTINE Micro Number: [id number] Test Status: Final Specimen Source: URINE, CATHETER Specimen Quality: Adequate Result: No Growth Test Performed at: [email or web address] [address] PALMA YATES MD Urine URINE SPECIMEN OBTAINED BY CLEAN CATCH PROCEDURE / Unknown 06/23/2020 9:54 AM DYNAMITE SHOOTER 06/23/2020 9:55 AM DYNAMITE SHOOTER Clara Zambrano MD LAB - MICROBIOLOGY ORDERABLES Final Result [address] [address] documented in this encounter Visit Diagnoses Diagnosis Recurrent UTI- Primary Urinary tract infection, site not specified Chronic interstitial cystitis Chronic pelvic pain in female Unspecified symptom associated with female genital organs documented in this encounter Additional Health Concerns Infection Onset Date Last Indicated Resolved Time CDIFF Under Investigation 09/30/2023 09/30/2023 4:33 AM CDT documented as of this encounter Care Teams Computer Builder Relationship Specialty Start Date End Date Zoey Membreno MD [address] [facility] [place] [address] PCP - General 08/20/17 08/19/24 Liana Bonilla APNP-DOZER OPERATOR [address] [place] [address] PCP - General Family Medicine 08/20/24 documented as of this encounter
--- OUTSIDE RECORDS SUMMARY | 2024-09-02 17:59 | XMS_ITS | CONTINUITY OF CARE DOCUMENT ---
Author Name kat stephens Address Unknown Organization [facility] Address [address] [facility] [address] [place] [address] Phone [phone] Care Team Providers Care Ruling Machine Set Up Operator Name Role Phone Casper Godoy MD Unavailable [phone] Casper Godoy MD Unavailable [phone] INSURANCE PROVIDERS Payer name Policy type / Coverage type Keyshawn red democrat [place] (2) Medicaid [id number] [place] Medicare [id number]
--- OUTSIDE RECORDS SUMMARY | 2024-09-02 17:59 | XMS_ITS | Encounter Summary ---
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 NEXT AVAILABLE APPOINTMENT IS 05/13 Patient Call Back number: [phone] documented in this encounter Plan of Treatment Upcoming Encounters Date Type Department Care Team (Late st Contact Info) Description 09/06/2024 9:15 AM CDT Office Visit [facility] - Orthopedics [address] [place] [phone] Will Aragon, AUTOMOTIVE DRIVABILITY TECHNICIAN-OVERLOCK COLLAR SETTER [address] [address] 09/13/2024 3:15 PM CDT Office Visit [facility] - ENT [address] [place] [phone] Flex Turcios MD [address] [place] [address] [address] [place] [address] 09/28/2024 3:30 PM CDT Office Visit [facility] - Pulmonology [address] [place] [phone] Andrea Maciel MD [address] [place] [address] 09/29/2024 4:00 PM CDT Office Visit [facility] - Neurology [address] [place] [phone] Marylu Forbes PA-C [address] [place] [address] documented as of this encounter Goals Goal [...] documented as of this encounter Care Teams Sheet Heater Helper Relationship Specialty Start Date End Date Zoey Membreno MD 101 [place] [phone] PCP - General 08/20/17 08/19/24 Liana Bonilla APNP-[facility] [address] [place] [address] PCP - General Family Medicine 08/20/24 documented as of this encounter
--- OUTSIDE RECORDS SUMMARY | 2024-09-02 18:00 | XMS_ITS | Encounter Summary ---
Author Organization [facility] Address [address] [facility] [place] [address] Care Team Providers Care Design Engineering Intern Name Role Phone Zoey Membreno MD Primary Care Provider [phone] Liana Bonilla-DRUM SANDER OFFBEARER Primary Care Provider [phone] Reason for Visit * Reason Onset Date Comments Appointment 05/11/2024 Encounter Details Date Type Department Care Team (Late st Contact Info) Description 05/11/2024 Telephone [facility] Pulmonology [address] [place] [phone] Andrea Maciel MD [address] [place] [address] Appointment Social History Tobacco Use Types Packs/Day Years Used Date Smoking Tobacco: Every Day Cigarettes 0.5 42.5 Started: 12/28/1982 Smokeless Tobacco: Never Comments:07/23/22 Lung Cancer Screening Counseling Shared Decision Making Visit Documentation Alcohol Use Standard Drinks/Week Comments No 0 (1 standard drink = 0.6 oz pur e alcohol) AUDIT-C Answer Date Recorded Q1: How often do you have a drink containing alcohol? Never 08/18/2023 Q2: How many drinks containi ng alcohol do you have on a typical day when you are drinking? Patient does not drink Q3: How often do you have si x or more drinks on one occasion? Never 08/18/2023 Overall Financial Resource Strain (CARDIA) Answe r Date Recorded How hard is it for you to pa y for the very basics like food, housing, medical care, and heating? Somewhat hard 08/18/2023 PHQ-2 Answer Date Recorded Patient Health Questionnaire-2 Score 3 05/12/2023 [facility] Occupat ional [facility] - Occupational Stress Questionnaire Answer Date Recorded Do you feel stress - tense, restless, nervous, or anxious, or unable to sleep at night because your mind is troubled all the time - these days? To some extent 08/18/2023 Hunger Vital Sign Answer Date Recorded Within the past 12 months, y ou worried that your food would run out before you got the money to buy more. Never true 08/18/19 24 Within the past 12 months, t he food you bought just didn't last and you didn't have money to get more. Never true 08/18/2023 PRAPARE - Transportation Answer Date Re corded In the past 12 months, has l ack of transportation kept you from medical appointments or from getting medications? No 08/03 In the past 12 months, has l ack of transportation kept you from meetings, work, or from getting things needed for daily living? No 08/18/2023 Housing Stability Vital Sign Answer Dago e Recorded In the last 12 months, was t here a time when you were not able to pay the mortgage or rent on time? No 08/18/2023 In the last 12 months, how many places have you lived? 1 08/18/2023 In the last 12 months, was t here a time when you did not have a steady place to sleep or slept in a fdc (including now)? 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 Answer Date of Assessment Author No 09/11/2023 9:23 AM CDT Chino Jaffe RN * Is person blind or have serious difficulty seeing? Answer Date of Assessment Author No 09/11/2023 9:23 AM CDT Chino Jaffe RN * Does person have serious difficulty walking/climbing stairs? Answer Date of Assessment Author No 09/11/2023 9:23 AM CDT Chino Jaffe RN * Does person have difficulty dressing/bathing? Answer Date of Assessment Author No 09/11/2023 9:23 AM CDT Chino Jaffe RN * Does person have difficulty doing errands alone? Answer Date of Assessment Author No 09/11/2023 9:23 AM CARMENT Chino Jaffe RN documented as of this encounter Mental Status * Does person have difficulty concentrating/remembering/making decisions? Answer Entry Date Author No 09/11/2023 9:23 AM CDT Chino Jaffe RN documented in this encounter Miscellaneous Notes * Telephone Encounter - Boni Askew MA - 05/11/2024 11:01 AM FRONT TENDER Called patient this morning and left vm T TENDER documented in this encounter Plan of Treatment Upcoming Encounters Date Type Department Care Team (Late st Contact Info) Description 09/06/2024 9:15 AM CDT Office Visit [facility] - Orthopedics [address] [place] [phone] Will Aragon, ARCHIVAL RECORDS CLERK-DRUM SANDER OFFBEARER [address] [address] 09/13/2024 3:15 PM CDT Office Visit [facility] - ENT [address] [place] [phone] Flex Turcios MD [address] [place], [place] [address] [place] [address] [place] [address] 09/28/2024 3:30 PM CDT Office Visit [facility] - Pulmonology [address] [place] [address], [place] [phone] Andrea Maciel MD [address] [place] [address] 09/29/2024 4:00 PM CDT Office Visit [facility] - Neurology [address] [place] [address], [place] [phone] Marylu Forbes PA-C [address] [place] [address] documented as of this encounter Goals Goal [...] Diagnoses Not on filedocumented in this encounter Care Teams Design Engineering Intern Relationship Specialty Start Date End Date Zoey Membreno MD [address] [facility] [place] [phone] PCP - General 08/20/17 08/19/24 Liana Bonilla APNP-DRUM SANDER OFFBEARER 101 [place] [address] PCP - General Family Medicine 08/20/24 documented as of this encounter
--- OUTSIDE RECORDS SUMMARY | 2024-09-02 18:00 | XMS_ITS | Encounter Summary ---
Author Organization [facility] Address [address] [facility] [place] [address] Care Team Providers Care Freelance Web Designer Name Role Phone Zoey Membreno MD Primary Care Provider [phone] Liana Bonilla Primary Care Provider [phone] Reason for Visit * Reason Onset Date Comments MEDICATION REFILL 05/12/2024 Encounter Details Date Type Department Care Team (Late st Contact Info) Description 05/12/2024 Refill [facility] [address] [place] [address] Eileen Crook [address] [place] [address] MEDICATION REFILL Social History Tobacco Use Types Packs/Day Years [...] Recorded Patient Health Questionnaire-2 Score 3 05/12/2023 [facility] - Occupational Stress [...] place to sleep or slept in a jail (including now)? 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 Sex Female 5:33 AM SHEET METAL SHOP HELPER Gender Identity Female 08/28/2021 5:51 PM CDT [...] Chino Jaffe RN documented in this encounter Plan of Treatment Upcoming Encounters Date Type Department Care Team (Late st Contact Info) Description 09/06/2024 9:15 AM CDT Office Visit [facility] - Orthopedics [address] [place] [phone] Will Aragon, INSURANCE CLERK-COMMERCIAL PILOT [address] [address] 09/13/2024 3:15 PM CDT Office Visit [facility] - ENT [address] [place] [address], [place] [phone] Flex Turcios MD [address] [place] [address] 09/28/2024 3:30 PM CDT Office Visit [facility] - Pulmonology [address] [place] [phone] Andrea Maciel MD [address] [place] [address] 09/29/2024 4:00 PM CDT Office Visit [facility] - Neurology [address] [facility] [place] [address] Marylu Forbes PA-C [address] [place] [address] documented as of this encounter Goals Goal [...] as of this encounter Visit Diagnoses Diagnosis Seizures (HCC) Other convulsions Anxiety Anxiety state, unspecified documented in this encounter Care Teams Freelance Web Designer Relationship Specialty Start Date End Date Zoey Membreno MD [address] [place] [phone] PCP - General 08/20/17 08/19/24 Liana Bonilla APNP-COMMERCIAL PILOT [address] [place] [address] PCP - General Family Medicine 08/20/24 documented as of this encounter
--- OUTSIDE RECORDS SUMMARY | 2024-09-02 18:00 | XMS_ITS | Referral Summary ---
Author Organization [facility] Address [address] [place] [address] Care Team Providers Care Monogram Technician Name Role Phone Zoey Membreno MD Primary Care Provider + Encounters Date Type Department Care Team Description 08/26/2024 10:23 PM CDT - 08/27/2024 12:43 AM CDT Emergency [facility] Emergency Department [address] [place] [address] [id number] Jairo Rojas DO COPD exacerbation (HCC) (Primary Dx); Leukocytosis, unspecified type Discharge Disposition: Discharge to home or self care from Last 3 Months Allergies Active Allergy Reactions Criticality Noted Date Comments Cephalexin Anaphylaxis High Metronidazole Rash Medium 02/20/2023 Levetiracetam Agitation Low 08/23/2022 Gets violent Ketorolac (Pf) Nausea & Vomiting Low 06/24/2022 Penicillins Anaphylaxis High Tramadol Nausea & Vomiting Low 06/24/2022 Medications acyclovir (ZOVIRAX) 400 mg tablet Take 2 tablets (800 mg total) by mouth nightly Active aspirin 81 mg enteric coated tablet Take 1 tablet (81 mg total) by mouth every other day Active busPIRone (BUSPAR) 10 mg tabletIndication s:Generalized Anxiety Disorder Take 1 tablet (10 mg total) by mouth 3 (three) times a day Active clonazePAM (KlonoPIN) 1 mg tablet Take 1 tablet (1 mg total) by mouth 3 (three) times a day Active albuterol HFA (PROVENTIL HFA,VENTOLIN HFA,PROAIR HFA) 90 mcg/actuation inhaler Inhale 2 puffs every 4 (four) hours as needed for wheezing 1 each 06/24/19 23 Active cyclobenzaprine (FLEXERIL) 10 mg tablet Take 1 tablet (10 mg total) by mouth 2 (two) times a day as needed for muscle spasms 20 tablet 06/24/19 23 Active ascorbic acid (VITAMIN C) 1,000 mg tablet Take 1 tablet (1,000 mg total) by mouth daily Active magnesium oxide (MAG-OX) 250 mg (150.8 mg elemental) tablet Take 2 tablets (500 mg total) by mouth daily Active albuterol 2.5 mg /3 mL (0.083 %) nebulizer solution Take 3 mL by nebulization 3 (three) times a day as needed 08/03/19 23 Active azelastine (ASTELIN) 137 mcg (0.1 %) nasal spray Administer 1 spray into each nostril 2 (two) times a day 08/16/19 23 Active cetirizine (ZyrTEC) 10 mg tablet Take 1 tablet (10 mg total) by mouth daily 07/24/19 23 Active cyanocobalamin 2,000 mcg tablet Take 1 tablet (2,000 mcg total) by mouth daily Active ergocalciferol (VITAMIN D) 50,000 unit capsule Take 1 capsule (50,000 Units total) by mouth once a week Take 1 capsule weekly on Friday08/22/19 18 Active omeprazole (PriLOSEC) 40 mg capsule Take 1 capsule (40 mg total) by mouth 2 (two) times a day with meals 08/14/19 23 Active thiamine (VITAMIN B1) 100 mg tablet Take 1 tablet (100 mg total) by mouth daily 01/21/20 18 Active omega-3 fatty acids-fish oil 300-1,000 mg capsule Take 1 capsule (1 g total) by mouth daily Active multivitamin tabletIndication s:Vitamin Deficiency Prevention Take 1 tablet by mouth daily after breakfast Active fluticasone propionate (FLONASE) 50 mcg/actuation nasal spray Administer 1 spray into affected nostril(s) daily as needed for allergies 11/17/19 19 Active Aimovig Autoinjector 70 mg/mL auto-injector subcutaneous injection ADMINISTER 1 ML UNDER THE SKIN EVERY 30 DAYS 01/11/20 Active Breztri Aerosphere 160-9-4.8 mcg/actuation HFA aerosol inhaler Inhale 2 puffs 2 (two) times a day 01/29/20 Active dicyclomine (BENTYL) 20 mg tablet Take 1 tablet (20 mg total) by mouth every 6 (six) hours as needed 01/31/20 Active linaCLOtide (LINZESS) 145 mcg capsule Take 1 capsule (145 mcg total) by mouth nightly Active acetaminophen (TYLENOL) 325 mg tabletIndication s:Fever,Pain Take 2 tablets (650 mg total) by mouth every 4 (four) hours as needed for pain, headaches or fever 30 tablet 02/23/20 23 Active metFORMIN XR (GLUCOPHAGE XR) 500 mg 24 hr tablet Take 1 tablet (500 mg total) by mouth daily with breakfast 30 tablet 02/23/20 23 Active Briviact 50 mg tablet Take 1 tablet (50 mg total) by mouth 2 (two) times a day 07/29/19 24 Active traZODone (DESYREL) 100 mg tablet Take 1 tablet (100 mg total) by mouth nightly 06/24/19 24 Active venlafaxine (EFFEXOR) 37.5 mg tablet Take 1 tablet (37.5 mg total) by mouth daily 08/26/19 24 Active predniSONE (DELTASONE) 20 mg tablet Take 2 tablets (40 mg) by mouth daily for 4 days 8 tablet 08/28/19 25 025 Active Problems Problem Noted Date Diagnosed Date Moderate malnutrition 02/21/2023 Positive blood culture 02/20/2023 Chronic respiratory failure with hypoxia 023 Chronic obstructive pulmonar y disease with acute exacerbation 02/20/2023 Bacterial vaginosis 02/20/2023 Seizure 02/03/2023 Sepsis 02/03/2023 Pneumonia due to infectious organism 02/03/2023 Hyperkalemia 02/03/2023 Acute on chronic hypoxic respiratory failure 06/2022 Shortness of breath 02/02/2023 Hypoxia 06/24/2021 Dependence on nicotine from cigarettes History of psychogenic nonepileptic seizure 06/06 Obesity, Class I, BMI 30-34.9 06/24/2021 Resolved Problems Problem Noted Date Diagnosed Date Resolved Date Pneumonia due to COVID-19 virus 06/24/2021 02/03/2023 Lethargy 06/24/2021 02/03/2023 Sepsis due to COVID-19 06/24/202102/03 Social History Tobacco Use Types Packs/Day Years Used Date Smoking Tobacco: Every Day Cigarettes 0.5 35 Started: 02/02/1988; Last attempted to quit: 02/01/2023 Smokeless Tobacco: Never Tobacco Cessation:Ready to Q uit: Not Asked; Counseling Given: Not Answered Alcohol Use Standard Drinks/Week Comments Yes 0 (1 standard drink = 0.6 oz pur e alcohol) [facility] Utilities Answer Date Recorded In the past 12 months has e electric, gas, oil, or water company threatened to shut off services in your home? No 02/21/2023 Social Connection and Isolat ion Panel [NHANES] Answer Date Recorded In a typical week, how many times do you talk on the phone with family, friends, or neighbors? More than three times a week 02/21/2023 How often do you get togethe r with friends or relatives? Once a week 02/21/2023 How often do you attend chur ch or jewish services? 1 to 4 times per year 02/21/2023 Do you belong to any clubs o r organizations such as yarsanism groups, unions, fraternal or athletic groups, or school groups? No 02/21/2023 How often do you attend meet ings of the clubs or organizations you belong to? Never 02/21/2023 Are you , , di vorced, , never , or living with a partner? 02/21/2023 AUDIT-C Answer Date Recorded Q1: How often do you have a drink containing alcohol? Never 02/20/2023 Q2: How many drinks containi ng alcohol do you have on a typical day when you are drinking? Patient does not drink Q3: How often do you have si x or more drinks on one occasion? Never 02/20/2023 Overall Financial Resource Strain (CARDIA) Answe r Date Recorded How hard is it for you to pa y for the very basics like food, housing, medical care, and heating? Not hard at all 02/21/2023 Hunger Vital Sign Answer Date Recorded Within the past 12 months, y ou worried that your food would run out before you got the money to buy more. Never true 02/22/20 23 Within the past 12 months, t he food you bought just didn't last and you didn't have money to get more. Never true 02/21/2023 PRAPARE - Transportation Answer Date Re corded In the past 12 months, has l ack of transportation kept you from medical appointments or from getting medications? No 02/03 In the past 12 months, has l ack of transportation kept you from meetings, work, or from getting things needed for daily living? No 02/21/2023 Housing Stability Vital Sign Answer Dago e Recorded In the last 12 months, was t here a time when you were not able to pay the mortgage or rent on time? No 02/21/2023 In the last 12 months, how many places have you lived? 1 02/21/2023 In the last 12 months, was t here a time when you did not have a steady place to sleep or slept in a snf (including now)? No 02/21/2023 Personal Safety Answer Date Recorded Have you ever been in or are you currently in a harmful physical or emotional relationship or is someone making you feel afraid or unsafe? Denies 08/26/2024 Comments No Sex and Gender Information Value Date Recorded Sex Assigned at Not on file Legal Sex Female 2:06 AM SAL[employer] Gender Identity Not on file Sexual Orientation Not on file Last Filed Vital Signs Vital Sign Reading Time Taken Comments Blood Pressure 114/86 08/27/2024 12:30 AM CDT Pulse 77 08/27/2024 12:30 AM CDT Temperature 36.2 C (97.1 F) 08/26/2024 9:42 PM CDT Respiratory Rate 19 08/27/2024 12:30 AM CDT Oxygen Saturation 92% 08/27/2024 12:30 AM CDT Inhaled Oxygen Concentration - - Weight 62.6 kg (138 lb) 08/26/2024 9:42 PM CDT Height 152.4 cm (5') 09/30/2023 4:38 PM CDT Body Mass Index 26.95 09/30/2023 4:38 PM CDT Plan of Treatment Not on file Procedures Procedure Name Priority Date/Time Associated Diagnosis Comments CT CHEST PE W CONTRAST ED 11:53 PM CDT XR CHEST 1 VIEW ED 08/26/2024 10:08 PM CDT PRO B-TYPE NATRIURETIC PEPTIDE STAT 08/26/2024 9:53 PM CDT EGFR STAT 08/26/2024 9:53 PM CDT MANUAL DIFFERENTIAL STAT 08/26/2024 9 :53 PM CDT SEPSIS LACTATE WITH REFLEX STAT 08/26/2024 9:53 PM CDT COMPREHENSIVE METABOLIC PANEL STAT 08/26/2024 9:53 PM CDT CBC WITH AUTO DIFFERENTIAL STAT 08/26/2024 9:53 PM CDT ECG 12-LEAD STAT 08/26/2024 9:50 PM CDT DIAGNOSTIC MAMMOGRAM BILATERAL W DARRION Routine 02/13/2016 2:37 PM CDT from Last 3 Months or Most Recently Relevant to Health Maintenance Results * CT Chest PE (CTA) W Contrast (08/26/2024 11:53 PM CDT) Anatomical Region Laterality Modality Body N/A Computed Tomogra phy 08/27/2024 12:0 1 AM CDT Narrative 08/27/2024 12:04 AM CDT EXAM DESCRIPTION: CT CHEST PE (CTA) W CONTRAST REASON FOR STUDY: Pulmonary embolism (PE) suspected, high prob, SOB, hypoxia, had recenent carpel tunnel surgery, O2 sat in 70s Patient with sudden onset of SOB x3 hours ago. Surgery to left arm last Friday. States she used to be on oxygen at home but it was discontinued 8 months ago. Patient had cancer on her esophagus for seven years TECHNIQUE: CT angiogram of the chest performed with intravenous contrast using helical scanning technique with dynamic intravenous contrast injection. Reconstructed coronal and sagittal MPR images reviewed. All images stored on PACS. 3D MIP images rendered on scanning unit and reviewed at time of interpretation. Automated exposure control was used as a dose optimization technique for this examination. CONTRAST TYPE/DOSE: 80mL of IOVERSOL 350 MG IODINE/ML INTRAVENOUS SYRINGE injected via intravenous COMPARISON: 03/08/2023 FINDINGS: VASCULATURE: Bolus timing is adequate and no filling defect is seen in the pulmonary arterial tree. Systemic arterial structures are partially opacified and reveal no acute abnormality. MEDIASTINUM/MELINA: Heart size normal. No coronary artery calcification. No enlarged lymph node. Thoracic inlet unremarkable. LUNGS: Advanced emphysema. No acute process is seen. Trachea and major airways patent. UPPER ABDOMEN: Unremarkable. MUSCULOSKELETAL: Treated mild midthoracic compression deformities. No acute injury is seen. CHEST WALL: Unremarkable. IMPRESSION: No PE or other acute abnormality identified. THIS IS AN ELECTRONICALLY VERIFIED FINAL REPORT 08/27/2024 12:04 AM - Electronically signed by Rj Mancini M.D. AR: IRENE Report ID: [id number] Reading Location: [id number] Procedure Note Rj Mancini MD - 08/27/2024 EXAM DESCRIPTION: CT CHEST PE (CTA) W CONTRAST REASON FOR STUDY: Pulmonary embolism (PE) suspected, high prob, SOB, hypoxia, had recenent carpel tunnel surgery, O2 sat in 70s Patient with sudden onset of SOB x3 hours ago. Surgery to left arm last Friday. States she used to be on oxygen at home but it was discontinued 8 months ago. Patient had cancer on her esophagus for seven years TECHNIQUE: CT angiogram of the chest performed with intravenous contrastusing helical scanning technique with dynamic intravenous contrast injection. Reconstructed coronal and sagittal MPR images reviewed. All images storedon PACS. 3D MIP images rendered on scanning unit and reviewed at time of interpretation. Automated exposure control was used as a doseoptimization technique for this examination. CONTRAST TYPE/DOSE: 80mL of IOVERSOL 350 MG IODINE/ML INTRAVENOUSSYRINGE injected via intravenous COMPARISON: 03/08/2023 FINDINGS: VASCULATURE: Bolus timing is adequate and no filling defect is seen inthe pulmonary arterial tree. Systemic arterial structures are partially opacified and reveal no acute abnormality. MEDIASTINUM/MELINA: Heart size normal. No coronary artery calcification.No enlarged lymph node. Thoracic inlet unremarkable. LUNGS: Advanced emphysema. No acute process is seen. Trachea and major airways patent. UPPER ABDOMEN: Unremarkable. MUSCULOSKELETAL: Treated mild midthoracic compression deformities. Noacute injury is seen. CHEST WALL: Unremarkable. IMPRESSION: No PE or other acute abnormality identified. THIS IS AN ELECTRONICALLY VERIFIED FINAL REPORT 08/27/2024 12:04 AM - Electronically signed by Rj Mancini M.D. AR: IRENE Report ID: [id number] Reading Location: [id number] Jairo Bob DO IMG CT PROCEDURES Final Result * XR Chest 1 Vw Portable (if patient condition/safety warrant portable) (08/26/2024 10:08 PM CDT) Anatomical Region Laterality Modality Body, Chest N/A Computed Radiogr aphy 08/26/2024 10:1 4 PM CDT Narrative 08/26/2024 10:15 PM CDT EXAM DESCRIPTION: XR CHEST 1 VIEW REASON FOR STUDY: Shortness of Breath Patient with sudden onset of SOB x3 hours ago. Surgery to left arm last Friday. TECHNIQUE: Single radiographic view(s) of the chest. COMPARISON: 09/30/2023 FINDINGS: LUNGS: Minor chronic lung changes are noted. No consolidation, effusion or other acute process is seen. HEART/MEDIASTINUM: Cardiac silhouette normal in size. Mediastinal and hilar contours appear normal. LINES/TUBES: None. BONES: No acute osseous abnormality. IMPRESSION: No acute cardiopulmonary abnormality. THIS IS AN ELECTRONICALLY VERIFIED FINAL REPORT 08/26/2024 10:15 PM - Electronically signed by Will Otto M.D. KH: RAY Report ID: [id number] Reading Location: [id number] Procedure Note Will Otto MD - 08/26/2024 EXAM DESCRIPTION: XR CHEST 1 VIEW REASON FOR STUDY: Shortness of Breath Patient with sudden onset of SOB x3 hours ago. Surgery to left arm last Friday. TECHNIQUE: Single radiographic view(s) of the chest. COMPARISON: 09/30/2023 FINDINGS: LUNGS: Minor chronic lung changes are noted. No consolidation, effusion or other acute process is seen. HEART/MEDIASTINUM: Cardiac silhouette normal in size. Mediastinal andhilar contours appear normal. LINES/TUBES: None. BONES: No acute osseous abnormality. IMPRESSION: No acute cardiopulmonary abnormality. THIS IS AN ELECTRONICALLY VERIFIED FINAL REPORT 08/26/2024 10:15 PM - Electronically signed by Will Otto M.D. KH: RAY Report ID: [id number] Reading Location: [place] [id number] Jairo Rojas DO IMG XR PROCEDURES Final Result * Sepsis Lactate w/ Reflex (08/26/2024 9:53 PM CDT) Pathologist [facility] Sepsis Lactate 1.1 0.7 - 2.0 mmol/L Comment:Testing performed by : [facility], [address] [place] [address]., [id number] Blood 08/26/2024 9:53 PM CDT 08/26/2024 10:54 PM CDT Jairo Rojas DO LAB BLOOD ORDERABLES Final Res ult ALICJA [address] [facility] Department [place] [address] * eGFR (08/26/2024 9:53 PM CDT) Pathologist [facility] eGFR 72 >=60 mL/min/1. 73 m2 Comment: Interpretive Data Reference Interval Normal >/= 90 mL/min/1.73m2 Mildly decreased* 60 - 89 mL/min/1.73m2 Mildly to moderately decreased 45 - 59 mL/min/1.73m2 Moderately to severely decreased 30 - 44 mL/min/1.73m2 Severely decreased 15 - 29 mL/min/1.73m2 Kidney Failure < 15 mL/min/1.73m2 *Relative to young adult level Estimated glomerular filtration rate is determined by the 2020 CKD-EPI equation recommended by the National Kidney Foundation (A Unifying Approach to GFR Estimation: Recommendations of the NKF-ASK Task Force on Reassessing the Inclusion of Race in Diagnosing Kidney Disease, JASN 2020). The CKD-EPI equation should not be used for patients with unstable renal function and has not been validated in children and those over 70. Current interpretive data was last reviewed 2021. Testing performed by: [facility], [address] [place] [address], [place]., [address] Blood 08/26/2024 9:53 PM CDT 08/26/2024 10:06 PM CDT us Jairo Rojas DO LAB BLOOD ORDERABLES Final Res ult ALICJA [address] [facility] Department [place] [address] * Pro B-type natriuretic peptide (08/26/2024 9:53 PM CDT) NT-proBNP 53 <=300 pg/mL Comment: Interpretive Comments: A. Dyspnea in Acute Care Setting All Ages: < 300 pg/ml, acute heart failure unlikely. < 50 yrs: 300 - 450 pg/ml, further investigation warranted. > 450 pg/ml, acute heart failure likely. 50 - 74 yrs: 300 - 900 pg/ml, further investigation warranted. > 900 pg/ml, acute heart failure likely . > or = 75 yrs: 450 - 1800 pg/ml, further investigation warranted. > 1800 pg/ml, acute heart failure likely. B. Non-acute Setting < 75 yrs < 125 pg/ml, rules out heart failure. > or = 125 pg/ml, further investigation warranted. > or = 75 yrs < 450 pg/ml, rules out heart failure. > or = 450 pg/ml, further investigation warranted. - Knowledge of each individual patient's NT-proBNP range may be more useful than using similar cut-points for every patient. Please note that marked elevations in NT-proBNP levels may be observed in state other than Left Ventricular Congestive Failure, including: acute coronary syndromes, right heart strain/failure (including pulmonary embolism and cor pulmonale), critical illness, renal failure, as well as advanced age. - References: 1. Hair GONZALEZ et.al. Eur Heart J. 2006:27:330-337. 2. George RW, Monster AM. J. AM Adrian Cardiol: Cardiovasc Imag. 2009;2: 216- 225. Interpretive Data Last Revised Date: 2017. Testing performed by: [address] [address] Blood 08/26/2024 9:53 PM CDT 08/26/2024 10:06 PM CDT us Jairo Rojas DO LAB BLOOD ORDERABLES Final Res ult ALICJA [address] [facility] Department of Laboratories [place], [place] [id number] * (ABNORMAL) CBC with auto differential (08/26/2024 9:53 PM CDT) WBC 19.69(H) 3.80 - 9.90 K/cumm Comment:Testing performed by : [address] [address] Hgb 14.1 11.9 - 15.5 g/dL ALICJA SCHNEIDER Comment:Testing performed by : [address] [address] Hct 42.8 35.6 - 45.5 % ALICJA SCHNEIDER Comment:Testing performed by : [address] [address] Plt 401(H) 150 - 400 K/cumm ALICJA SCHNEIDER Comment:Testing performed by : [address] [address] MPV 8.9(L) 9.1 - 12.3 fL ALICJA SCHNEIDER Comment:Testing performed by : [address] [address] RBC 4.45 3.90 - 5.20 M/cumm ALICJA SCHNEIDER Comment:Testing performed by : [facility], [address] [place] [address]., [address] MCV 96.2 81.3 - 96.4 fL ALICJA SCHNEIDER Comment:Testing performed by : [address] [address] MCH 31.7 27.1 - 33.3 pg ALICJA SCHNEIDER Comment:Testing performed by : [address] [address] MCHC 32.9 32.3 - 35.7 g/dL ALICJA SCHNEIDER Comment:Testing performed by : [address] [address] RDW CV 14.9 11.1 - 14.9 % ALICJA Comment:Testing performed by : [address] [address] RDW SD 51.9(H) 35.7 - 48.1 fL ALICJA Comment:Testing performed by : [address] [address] NRBC abs 0.00 0.00 - 0.01 K/cumm ALICJA Comment:Testing performed by : [address] [address] Blood 08/26/2024 9:53 PM CDT 08/26/2024 10:06 PM CDT us Jairo Rojas DO LAB BLOOD ORDERABLES Final Res ult ALICJA [address] [facility] Department of Laboratories [place], [place] [id number] * (ABNORMAL) Manual Differential (08/26/2024 9:53 PM CDT) Differential Manual Comment:Testing performed by : [address] [address] Cells Counted 100 ALICJA Comment:Testing performed by : [address] [address] Neutrophil abs 10.44(H) 1.50 - 6.50 K/cumm ALICJA Comment:Testing performed by : [address], [place]., [address] Lymphocyte abs 6.69(H) 0.80 - 3.30 K/cumm ALICJA Comment:Testing performed by : [address], [place]., [address] Monocyte abs 2.17(H) 0.20 - 0.80 K/cumm ALICJA Comment:Testing performed by : [address], [place]., [address] Eosinophil abs 0.20 0.00 - 0.50 K/cumm ALICJA Comment:Testing performed by : [address], [place]., [address] Basophil abs 0.20(H) 0.00 - 0.10 K/cumm ALICJA Comment:Testing performed by : [address] [address] Neutrophil pct 53.0 % ALICJA Comment: Interpretive Data Percent cell count reference ranges are not reported, since discordance with absolute values may lead to misinterpretation of CBC data. Current Interpretive Data was last revised on 2017. Testing performed by: [address] [address] Lymphocyte pct 34.0 % ALICJA Comment: Interpretive Data Percent cell count reference ranges are not reported, since discordance with absolute values may lead to misinterpretation of CBC data. Current Interpretive Data was last revised on 2017. Testing performed by: [address] [address] Monocyte pct 11.0 % ALICJA Comment: Interpretive Data Percent cell count reference ranges are not reported, since discordance with absolute values may lead to misinterpretation of CBC data. Current Interpretive Data was last revised on 2017. Testing performed by: [address] [address] Eosinophil pct 1.0 % ALICJA Comment: Interpretive Data Percent cell count reference ranges are not reported, since discordance with absolute values may lead to misinterpretation of CBC data. Current Interpretive Data was last revised on 2017. Testing performed by: [address] [address] Basophil pct 1.0 % ALICJA Comment: Interpretive Data Percent cell count reference ranges are not reported, since discordance with absolute values may lead to misinterpretation of CBC data. Current Interpretive Data was last revised on 2017. Testing performed by: [address], [place]., [address] RBC morphology Present(A) ALICJA Comment:Testing performed by : [address] [address] Macrocytes 3-7/HPF(A) ALICJA Comment:Testing performed by : [address], [place]., [address] Platelet estimate Increased( A) ALICJA Comment:Testing performed by : [address], [place]., [address] Blood 08/26/2024 9:53 PM CDT 08/26/2024 10:06 PM CDT Jairo Rojas DO LAB BLOOD ORDERABLES Final Res ult ALICJA [facility] [facility] Department of Laboratories [place], [place] [id number] * Comprehensive metabolic panel (08/26/2024 9:53 PM CDT) Sodium 137 135 - 145 mmol/L Comment:Testing performed by : [address] [address] Potassium, pl 4.4 3.3 - 4.9 mmol/L ALICJA Comment: Hemolyzed; Potassium value may be falsely elevated by as much as 1.0 mmol/L. Suggest redraw and reanalysis. Testing performed by: [address] [address] Chloride 97 97 - 110 mmol/L ALICJA Comment:Testing performed by : [address] [address] CO2 30 22 - 32 mmol/L ALICJA Comment:Testing performed by : [address] [address] Anion gap 10 2 - 15 mmol/L ALICJA Comment:Testing performed by : [address] [address] BUN 16 6 - 25 mg/dL ALICJA Comment:Testing performed by : [address] [address] Creatinine 0.95 0.60 - 1.10 mg/dL ALICJA Comment:Testing performed by : [address] [address] Glucose 130 70 - 199 mg/dL [facility] Comment: Interpretive Data Fasting glucose >/= 126 mg/dl is diagnostic for diabetes. Fasting is defined as no caloric intake for at least 8 hours. Fasting glucose between 100 mg/dl to 125 mg/dl is diagnostic of prediabetes. In a patient with classic symptoms of hyperglycemia or hyperglycemic crisis, a random glucose >/= 200 mg/dl is diagnostic for diabetes. In the absence of unequivocal hyperglycemia, results should be confirmed by repeat testing. The classification and Diagnosis of Diabetes Diabetes Care 202; 46: S19-S40. Current interpretive data was last revised 2022. Testing performed by: [address] [address] Calcium 9.1 8.5 - 10.3 mg/dL ALICJA Comment:Testing performed by : [address] [address] Bilirubin, total <0.2 0.1 - 1.2 mg/dL ALICJA Comment:Testing performed by : [address] [address] Protein, pl 7.1 6.5 - 8.5 g/dL ALICJA Comment:Testing performed by : [address] [address] Albumin 4.1 3.5 - 5.0 g/dL ALICJA Comment:Testing performed by : [address] [address] Alk phos 65 40 - 130 Units/L ALICJA Comment:Testing performed by : [address] [address] ALT 15 7 - 45 Units/L ALICJA Comment:Testing performed by : [facility], [address] [place] [address]., [id number] AST 25 10 - 45 Units/L ALICJA Comment: Hemolyzed; result may be falsely elevated Testing performed by: [address] [address] Blood 08/26/2024 9:53 PM CDT 08/26/2024 10:06 PM CDT Jairo Rojas DO LAB BLOOD ORDERABLES Final Res ult ALICJA [address] [facility] Department [place] [address] * ECG 12 lead (08/26/2024 9:50 PM CDT) Ventricular Rate EKG/Min 93 BPM [facility] Atrial Rate 93 BPM [facility] NE-Interval (MSEC) 168 ms [facility] QRS-Interval (MSEC) 76 ms [facility] QT-Interval (MSEC) 364 ms [facility] QTc 452 ms [facility] P Scipio 69 degrees [facility] R Scip[place] 86 degrees [facility] T Scipio 74 degrees [facility] Diagnosis Normal sinus rhythm Normal ECG When compared with ECG of 05-AUG-2023 14:29, No significant change was found Confirmed by THEO WELDON M.D. ([id number]) on 08/27/2024 11:56:25 AM [facility] 08/26/2024 9:50 PM CDT 08/27/2024 11:56 AM CDT [employer] [facility] ECG ORDERABLES Final Result Performing Organization Address City/[facility]/ZIP Co de Phone Number [employer] [facility] * Diagnostic Mammogram Bilateral W D[place]ion (02/13/2016 2:37 PM CDT) Anatomical Region Laterality Modality Breast Bilateral Mammography 02/13/2016 2:37 PM CDT Impressions 02/13/2016 3:28 PM CDT BI-RAD 1 NEGATIVE 1. No mammographic or sonographic abnormality at the palpable sites of concern in the right breast at 11 o'clock or in the left breast at 12:30 o'clock. Any further evaluation of these palpable abnormality should be based on clinical grounds. 2. No mammographic or sonographic evidence of malignancy. A 1 year screening mammogram is recommended. I discussed the above findings and impression with the patient at the time of the examination. Saad Yang M.D. ab/:02/13/2016 15:27:39 Rn Urology: Heather Soares RT(Kofi)(Jaxon), [facility] letter sent: MG & US Done-Normal Reading location: BI-RADS: 1 Negative [EOD] Narrative 02/13/2016 3:28 PM CDT - MG BILATERAL DIGITAL DIAGNOSTIC MAMMOGRAM 3D/2D WITH CAD WITH MEDIOLATERAL OBLIQUE CRANIOCAUDAL: 02/13/2016 The study was acquired using full field digital technology and interpreted from soft copy. Current study was also evaluated with R2 CAD. 2D digital mammographic views, as well as 3D digital tomosynthesis were performed in the CC and MLO projections. CLINICAL: 45 year old female presents for evaluation of a palpable mass in the right breast for 2 years and a palpable mass in the left breast for 1 week. Baseline mammogram. COMPARISONS: No prior exams were available for comparison. BREAST TISSUE: There are scattered areas of fibroglandular density. MAMMOGRAPHIC FINDINGS: Metallic BBs are placed over the palpable sites of concern in the bilateral breasts. There is no mammographic abnormality at the palpable sites of concern. There are no suspicious masses, suspicious calcifications, or other suspicious findings in either breast. Targeted ultrasound will be performed. ULTRASOUND FINDINGS: Targeted ultrasound of the palpable site of concern in the right breast at 11 o'clock, 4 cm from the nipple demonstrates normal breast tissue. Targeted ultrasound of the palpable site of concern in the left breast at 12:30 o'clock, 4 cm from the nipple demonstrates normal breast tissue. There are no suspicious sonographic findings. Procedure Note Provider, MD Aashish - 09/19/2020 - MG BILATERAL DIGITAL DIAGNOSTIC MAMMOGRAM 3D/2D WITH CAD WITH MEDIOLATERALOBLIQUE CRANIOCAUDAL: 02/13/2016 The study was acquired using full field digital technology and interpretedfrom soft copy. Current study was also evaluated with R2 CAD. 2D digital mammographic views, as well as 3D digital tomosynthesis were performed in the CC and MLO projections. CLINICAL: 45 year old female presents for evaluation of a palpable mass inthe right breast for 2 years and a palpable mass in the left breast for 1week. Baseline mammogram. COMPARISONS: No prior exams were available for comparison. BREAST TISSUE: There are scattered areas of fibroglandular density. MAMMOGRAPHIC FINDINGS: Metallic BBs are placed over the palpable sites of concern in the bilateral breasts. There is no mammographic abnormality atthe palpable sites of concern. There are no suspicious masses, suspicious calcifications, or other suspicious findings in either breast. Targeted ultrasound will be performed. ULTRASOUND FINDINGS: Targeted ultrasound of the palpable site of concernin the right breast at 11 o'clock, 4 cm from the nipple demonstrates normalbreast tissue. Targeted ultrasound of the palpable site of concern in the left breast at12:30 o'clock, 4 cm from the nipple demonstrates normal breast tissue. There are no suspicious sonographic findings. IMPRESSION: BI-RAD 1 NEGATIVE 1. No mammographic or sonographic abnormality at the palpable sites ofconcern in the right breast at 11 o'clock or in the left breast at 12:30 o'clock.Any further evaluation of these palpable abnormality should be based onclinical grounds. 2. No mammographic or sonographic evidence of malignancy. A 1 yearscreening mammogram is recommended. I discussed the above findings and impression with the patient at the timeof the examination. Saad Yang M.D. 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 ADVANCE DIRECTIVE 02/05/2023 11:22 AM POLS T - Phys Order for PT Preferences ADVANCE DIRECTIVE 02/05/2023 11:21 AM Salas r of Story Reader-Medical ADVANCE DIRECTIVE 02/05/2023 11:20 AM Taylor ng Will * Full Code (Latest Code Status on File) Date Activated Date Inactivated Comments 02/20/2023 6:40 PM 02/22/2023 7:05 PM * Full Code Date Activated Date Inactivated Comments 02/02/2023 11:58 PM 02/04/2023 5:08 PM * Full Code Date Activated Date Inactivated Comments 06/24/2021 2:43 AM 06/24/2021 5:00 PM Care Teams Monogram Technician Relationship Specialty Start Date End Date Zoey Membreno MD PCP - General 03/20/17
--- OUTSIDE RECORDS SUMMARY | 2024-09-02 18:00 | XMS_ITS | Encounter Summary ---
Author Organization [facility] Address [address] [place] [address] Care Team Providers Care Credit Checker Name Role Phone Zoey Membreno MD Primary Care Provider [phone] Encounter Details Date Type Department Care Team (Late st Contact Info) Description 10/31/2020 SoThree Message [facility] Patient Accounts [address] [place] [address] Charlee, [facility] Provider [facility] Patient Financial Services (Demetrius Mims) Social History Tobacco Use Types Packs/Day Years Used Date Smoking Tobacco: Every Day Cigarettes 0.5 35 Started: 04/30/1983; Last attempted to quit: 04/30/2018 Smokeless Tobacco: Never Alcohol Use Standard Drinks/Week Comments No 0 (1 standard drink = 0.6 oz pur e alcohol) Comments No Sex and Gender Information Value Date Recorded Sex Assigned at Not on file Legal Sex Female 6:54 PM CDT Gender Identity Not on file Sexual Orientation Not on file COVID-19 Exposure Response Date Recorded In the last month, have you been in contact with someone who was confirmed or suspected to have Coronavirus / COVID-19? No / Unsure 10/27/2020 10:21 AM CDT documented as of this encounter Plan of Treatment Not on file documented as of this encounter Visit Diagnoses Not on filedocumented in this encounter Care Teams Credit Checker Relationship Specialty Start Date End Date Zoey Membreno MD [address] [place] [address] [place] [address] PCP - General 09/16/16 documented as of this encounter
--- OUTSIDE RECORDS SUMMARY | 2024-09-02 18:00 | XMS_ITS | Encounter Summary ---
Author Organization [facility] Address [address] [place] [address] Care Team Providers Care Centura Technical Lead Senior Developer Name Role Phone Zoey Membreno MD Primary Care Provider [phone] Liana Bonilla Primary Care Provider [phone] Reason for Visit * Reason Onset Date Comments Appointment 12/20/2020 Encounter Details Date Type Department Care Team (Late st Contact Info) Description 12/20/2020 Telephone [facility] [address] [place], [place] [phone] Clara Zambrano MD [address] [facility] [address] [place], [place] [phone] Appointment Social History Tobacco Use Types Packs/Day Years Used Date Smoking Tobacco: Every Day Cigarettes 0.5 41.7 Started: 12/28/1982 Smokeless Tobacco: Never Alcohol Use Standard Drinks/Week Comments No 0 (1 standard drink = 0.6 oz pur e alcohol) Comments No Sex and Gender Information Value Date Recorded Sex Assigned at Female 08/28/2021 5:51 PM CDT Legal Sex Female 5:33 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 [facility] cb office. * Telephone Encounter - Liana Singh - 12/20/2020 12:30 PM CDT Pt called to see if one of our other providers would be able to see her for her condition when campian leaves or if she needs to go elsewhere Callback:[phone] documented in this encounter Plan of Treatment Upcoming Encounters Date Type Department Care Team (Late st Contact Info) Description 09/06/2024 9:15 AM CDT [facility] [place] [phone] Will Aragon, COMMUNITY ARTS OFFICER-ULTRASOUND SUPERVISOR [address] [facility] [address] [place] [address] 09/13/2024 3:15 PM CDT [facility] E[facility] [address] [place] [phone] [place] [address] [place] [address] 09/28/2024 3:30 PM CDT Office Visit [facility] - Pulmonology [address] [place] [phone] Andrea Maciel MD [address] [place] [address] 09/29/2024 4:00 PM CDT Office Visit [facility] - Neurology [address] [place] [phone] Marylu Forbes PA-C [address] [place] [address] documented as of this encounter Goals Goal [...] documented as of this encounter Care Teams Centura Technical Lead Senior Developer Relationship Specialty Start Date End Date Zoey Membreno MD [address] [place] [phone] PCP - General 08/20/17 08/19/24 Liana Bonilla APNP-ULTRASOUND SUPERVISOR [address] [place], [place] [phone] PCP - General Family Medicine 08/20/24 documented as of this encounter
--- OUTSIDE RECORDS SUMMARY | 2024-09-02 18:00 | XMS_ITS | Encounter Summary ---
Author Organization [facility] Address [address] [facility] [place] [address] Care Team Providers Care Enrichment Teacher Name Role Phone Zoey Membreno MD Primary Care Provider Liana Bonilla Primary Care Provider [phone] Reason for Visit * Reason Onset Date Comments Patient Requested Call 10/30/2020 Encounter Details Date Type Department Care Team (Late Contact Info) Description 10/30/2020 Telephone [facility] [address] [place], [place] [phone] Clara Zambrano MD [address] [facility] [address] [place] [address] Patient Requested Call Social History Tobacco Use Types Packs/Day Years Used Date Smoking Tobacco: Every Day Cigarettes 0.5 41.7 Started: 12/28/1982 Smokeless Tobacco: Never Alcohol Use Standard Drinks/Week Comments No 0 (1 standard drink = 0.6 oz pur e alcohol) Comments No Sex and Gender Information Value Date Recorded Sex Assigned at Female 08/28/2021 5:51 PM CDT Legal Sex Female 5:33 AM DIRECTOR OF SPORTS PERFORMANCE Gender Identity Female 08/28/2021 5:51 PM CDT [...] Telephone Encounter - Kali Perez RN - 10/31/2020 10:07 AM CDT LM on only good phone number in her chart and personal VM re: so sorry I keep missing you. Pls cb office. * Telephone Encounter - Kali Perez RN - 10/30/2020 4:59 PM CDT Kiran on her personal VM re: Kali from Dr Zambrano's office. Please call back office. * Telephone Encounter - Liz Justin - 10/30/2020 2:05 PM CDT Patient called in requested a call back from nurse Kali [phone] documented in this encounter Plan of Treatment Upcoming Encounters Date Type Department Care Team (Late st Contact Info) Description 09/06/2024 9:15 AM CDT Office Visit [facility] - Orthopedics [address] [place] [phone] Will Aragon, REGIONAL COMMERCIAL SALES MANAGER-CREATIVE INTERN [address] [facility] [address] [place] [address] 09/13/2024 3:15 PM CDT Office Visit [facility] - ENT [address] [place] [phone] Flex Turcios MD [address] [place] [address] [address] [place] [address] 09/28/2024 3:30 PM CDT Office Visit [facility] - Pulmonology [address] [place] [phone] Andrea Maciel MD [address] [place] [address] 09/29/2024 4:00 PM CDT Office Visit [facility] - Neurology [address] [place] [phone] Marylu Forbes PA-C [address] [place] [address] documented as of this encounter Goals Goal [...] documented as of this encounter Care Teams Enrichment Teacher Relationship Specialty Start Date End Date Zoey Membreno MD [address] [facility] [place] [phone] PCP - General 08/20/17 08/19/24 Liana Bonilla APNP-CREATIVE INTERN [address] [place], [place] [phone] PCP - General Family Medicine 08/20/24 documented as of this encounter
--- OUTSIDE RECORDS SUMMARY | 2024-09-02 18:00 | XMS_ITS | Encounter Summary ---
Author Organization [facility] Address [address] [facility] [place] [address] Care Team Providers Care Typewriter Assembler Name Role Phone Zoey Membreno MD Primary Care Provider [phone] Liana Bonilla Primary Care Provider [phone] Encounter Details Date Type Department Care Team (Late st Contact Info) Description 10/09/2018 Lab Requisition [facility] Care Pathology Lab [address] [place] [address] Sandrita Syed MD [address] [place] [address] Social History Tobacco Use Types Packs/Day Years Used Date Smoking Tobacco: Every Day Cigarettes Smokeless Tobacco: Never Alcohol Use Standard Drinks/Week Comments No 0 (1 standard drink = 0.6 oz pur e alcohol) Comments No Sex and Gender Information Value Date Recorded Sex Assigned at Female 08/28/2021 5:51 PM CDT Legal Sex Female 5:33 AM 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 OPERATOR Gender Identity Female 08/28/2021 5:51 PM CDT Sexual Orientation Straight 08/28/2021 5: 51 PM CDT documented as of this encounter Plan of Treatment Upcoming Encounters Date Type Department Care Team (Late st Contact Info) Description 09/06/2024 9:15 AM CDT [facility] [address] [place] [phone] Will Aragon, PROJECT CONTROL MANAGER-FINISHED CLOTH EXAMINER [address] [facility] [address] [place] [address] 09/13/2024 3:15 PM CDT Office Visit [facility] - ENT [address] [place] [phone] Flex Turcios MD [address] [place] [address] 09/28/2024 3:30 PM CDT Office Visit [facility] - Pulmonology [address] [place] [phone] Andrea Maciel MD [address] [place] [address] 09/29/2024 4:00 PM CDT Office Visit [facility] - Neurology [address] [place] [phone] Marylu Forbes PA-C [address] [place] [address] documented as of this encounter Procedures Procedure Name Priority Date/Time Associated Diagnosis Comments FLOW CYTOMETRY BODY FLUID Routine 10/09/2018 10:36 AM CDT documented in this encounter Results * FLOW CYTOMETRY BODY FLUID (10/09/2018 10:36 AM CDT) Case Report Flow Cytometry Case: [id number] Authorizing Provider: Sandrita Syed MD Collected: 10/09/2018 10:36 AM Pathologist: Sophy Bolaños MD Received: 10/09/2018 03:13 PM Specimen: Fine Needle Aspirate, Lymph Node 4:56 PM [facility] Final Diagnosis Lymph node, cervical , flow cytometric immunophenotypic analysis ([id number]): - No evidence of non-Hodgkin lymphoma. - See interpretation. 4:56 PM [facility] Flow Cytometry Interpretation The cervical lymph node specimen has a viability of 99%. Most of the cells are within the lymphocyte gate (94%). Within this region, there is no monotypic B-cell population identified (kappa: lambda ratio = 3.2:1). There is no co-expression of CD5 or CD10 on the B-cells. There is no immunophenotypically aberrant or expanded T-cell population seen (CD4:CD8 ratio = 6:1). A cytospin prepared from the flow cytometry specimen is reviewed for chief quality officer purposes. The cervical lymph node shows no evidence of involvement by a non-Hodgkin lymphoma. Correlation with clinical findings and the concurrent cytology specimen is required. KR/NW 9 4:56 PM [facility] Flow Cytometry Results Differential Result Comment Flow Cell Count /uL 47594 Total Viability % 99 Lymphocytes % 94 Dim CD45 Region % 0 Monocytes % 1 Granulocytes % 4 9 4:56 PM [facility] Client Specimen ID # [id number] 4:56 PM [facility] Reason for test Cervical lymphadenopathy 4:56 PM [facility] Number of markers 16 were performed. A Flow CD3 A Flow CD10 A Flow CD20 A Flow CD23 A Flow CD2 A Flow CD4 A Flow CD1a A Flow CD5 A Flow CD19 A Flow CD34 A Flow CD45 A Flow CD7 A Flow CD8 A Flow CD30 A Petal+CD19+ A Lambda+CD19+ 9 4:56 PM [facility] Disclaimer Test performed at [facility], [address] [place] [address], [id number]. *The established laboratory minimum viability is 70%. Values below the minimum may result in the failure to find an abnormal population of cells. This test was developed and its performance characteristics determined by the Flow Cytometry Laboratory. It has not been cleared by the [place] Food and Drug Administration (FDA). The FDA has determined that such clearance or approval is not necessary. This test is used for clinical purposes. It should not be regarded as investigational or for research. This laboratory is regulated under the Clinical Laboratory Improvement Amendments of 1998 (CLIA) as a qualified to perform high complexity clinical testing. 9 4:56 PM CDT [facility] Embedded Images 9 4:56 PM CDT [facility] Fluid (Fine Needle Aspirate) 10/09/2018 10:36 AM CDT 10/09/2018 3:13 PM CDT Sandrita Syed MD LAB - PATHOLOGY/CYTOLOGY ORDERA BLES Final Result Performing Organization Address City/State/[facility] Co de Phone Number [facility] [address] [phone] documented in this encounter Visit Diagnoses Not on filedocumented in this encounter Additional Health Concerns Infection Onset Date Last Indicated Resolved Time CDIFF Under Investigation 09/30/2023 09/30/2023 4:33 AM CDT documented as of this encounter Care Teams Typewriter Assembler Relationship Specialty Start Date End Date Zoey Membreno MD [address] [place] [phone] PCP - General 08/20/17 08/19/24 Liana Bonilla APNP-FINISHED CLOTH EXAMINER [address] [place] [address] PCP - General Family Medicine 08/20/24 documented as of this encounter
--- OUTSIDE RECORDS SUMMARY | 2024-09-02 18:00 | XMS_ITS | Clinical Summary ---
Author Organization [facility] Office Center Address [address] [place] [phone] Care Team Providers Care Australian Rules Footballer Name Role Phone Zoey Membreno MD Primary Care Provider + Allergies Active Allergy Reactions Criticality Noted Date [...] UNDER THE SKIN EVERY 30 DAYS 01/11/20 23 Active Breztri Aerosphere 160-9-4.8 mcg/actuation HFA aerosol inhaler Inhale 2 puffs 2 (two) times a day 01/29/20 23 Active dicyclomine (BENTYL) 20 mg tablet Take [...] pain, headaches or fever 30 tablet 02/23/20 Active metFORMIN XR (GLUCOPHAGE XR) 500 mg [...] Hypoxia 06/24/2021 Dependence on nicotine from cigarettes 2 History of psychogenic nonepileptic seizure 06/06 Obesity, Class I, BMI 30-34.9 06/24/2021 Resolved Problems Problem Noted Date Diagnosed Date Resolved Date Pneumonia due to COVID-19 virus 06/24/2021 02/03/2023 Lethargy 06/24/2021 02/03/2023 Sepsis due to COVID-19 06/24/202102/03 Encounters Date Type Department Care Team Description 08/26/2024 10:23 PM CDT - 08/27/2024 12:43 AM CDT Emergency [facility] Department [address] [place] [id number] Jairo Rojas DO COPD exacerbation (HCC) (Primary Dx); Leukocytosis, unspecified type Discharge Disposition: Discharge to home or self care from Last 3 Months Surgical History Surgery Date Site/Laterality Comments OTHER SURGICAL HISTORY surgery for endometriosis HERNIA REPAIR hernia repair APPENDECTOMY Appendectomy OTHER SURGICAL HISTORY ovary ruptured repair OTHER SURGICAL HISTORY screws in ankle & leg OTHER SURGICAL HISTORY cervical & vulvar dysplasia HYSTERECTOMY URETERAL STENT PLACEMENT since removed SHOULDER SURGERY Left BLADDER SURGERY 2 surgery Medical History Medical History Date Comments Posttraumatic stress disorder Po st-traumatic stress disorder Tension headache Headache, tensi on Seizure disorder (HCC) Chronic obstructive pulmonar y disease (HCC) COPD Personal history of other sp ecified conditions History of urinary incontine nce - (Added by TW Conv) 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) - (Added by TW Conv) Other specified disorders of muscle Pelvic floor dysfunction - (Added by TW Conv) Stroke (HCC) Cancer (HCC) Asthma Arthritis Immune deficiency disorder Depression Migraines Urinary tract infection Obesity ADORE (obstructive sleep apnea) Pneumonia Kidney stone Covid-19 06/25/2021 Grimm esophagus Family History Medical History Relation Name Comments Bipolar disorder Mother Bipolar dis order; Diabetes Mother Diabetes mellit ; Heart attack Mother Hypertension Mother Hypertension; Migraines Mother Migraine; Epilepsy Other Family history of epilepsy - Relation: Grandparent (Added by TW Conv) Relation Name Status Comments Mother Other Social History Tobacco Use Types Packs/Day Years Used Date Smoking Tobacco: Every Day Cigarettes 0.5 35 Started: 02/02/1988; Last attempted to quit: 02/01/2023 Smokeless Tobacco: Never Tobacco Cessation:Ready to Q uit: Not Asked; Counseling Given: Not Answered Alcohol Use Standard Drinks/Week Comments Yes 0 (1 standard drink = 0.6 oz pur e alcohol) [facility] Utilities Answer Date Recorded In the past 12 months has [employer], gas, oil, or water [employer] threatened to shut off services in your [...] often do you attend chur ch or spiritism services? 1 to 4 times per year 02/21/2023 Do you belong to any clubs o r organizations such as islam groups, unions, fraternal or athletic groups, or [...] place to sleep or slept in a assisted (including now)? No 02/21/2023 Personal Safety Answer Date Recorded Have you ever been in or are you currently in a harmful physical or emotional relationship or is someone making you feel afraid or unsafe? Denies 08/26/2024 Comments No Sex and Gender Information Value Date Recorded Sex Assigned at Not on file Legal Sex Female 2:06 AM GREEN WARE CASTER Gender Identity Not on file Sexual Orientation Not on file Obstetrics History Last Filed Vital Signs Vital Sign Reading [...] 09/30/2023 4:38 PM CDT Plan of Treatment Health Maintenance Due Date Last Done Comments Colon Cancer Screening-Colonoscopy 1971 Depression Screening 1971 Hepatitis C Screening 1971 DTaP/Tdap/Td Vaccine (1 - Tdap) 07/24/1982 Hepatitis B Screening 07/24/1989 Regular Well Visit/Exam 18-64 07/24/1989 Zoster Vaccine (1 of 2) 07/24/2021 Covid-19 Vaccine (3 - 2023-2 5 season) 2024 02/13/2021, 01/23/2021 Breast Cancer Screening-Mammogram 05/13/2024 05/13/2023, 05/13/2023, 02/13/2016 Influenza Vaccine (Season Ended) 2025 01/01/2023, 03/19/2022, 03/02/2021, Additional history exists Pneumococcal vaccine <65 Completed 03/19/2022, 07/03 Procedures Procedure Name Priority Date/Time Associated Diagnosis Comments CT CHEST PE W CONTRAST ED 11:53 PM CDT XR CHEST 1 VIEW ED 08/26/2024 10:08 PM CDT PRO B-TYPE NATRIURETIC PEPTIDE STAT 08/26/2024 9:53 PM CDT EGFR STAT 08/26/2024 9:53 PM CDT MANUAL DIFFERENTIAL STAT 08/26/2024 9:53 PM CDT SEPSIS LACTATE WITH REFLEX STAT [...] Rj Mancini M.D. AR: IRENE Report ID: [id number] Reading Location: [id number] Procedure Note Rj Mancini MD - 08/27/2024 [...] Rj Mancini M.D. AR: IRENE Report ID: [id number] Reading Location: [id number] us Jairo Rojas DO IMG CT PROCEDURES Final Result * [...] Will Otto M.D. KH: RAY Report ID: [id number] Reading Location: [id number] Procedure Note Will Otto MD - 08/26/2024 [...] Will Otto M.D. KH: RAY Report ID: [id number] Reading Location: [id number] Thumbs Upearnest Rojas DO IMG XR PROCEDURES Final Result * Sepsis Lactate w/ Reflex (08/26/2024 9:53 PM CDT) Pathologist [facility] Sepsis Lactate 1.1 0.7 - 2.0 mmol/L Comment:Testing performed by : [facility], [address] [place] [address]., [id number] Blood 08/26/2024 9:53 PM CDT 08/26/2024 10:54 PM CDT Thumbs Upearnest Rojas DO LAB BLOOD ORDERABLES Final Res ult [facility] [address] [facility] Department [place] [address] * eGFR (08/26/2024 9:53 PM CDT) eGFR 72 >=60 mL/min/1. 73 m2 Comment: [...] was last reviewed 2021. Testing performed by: [facility], [address] [place] [address]., [address] Blood 08/26/2024 9:53 PM CDT 08/26/2024 10:06 PM CDT us Jairo Rojas DO LAB BLOOD ORDERABLES Final Res ult ALICJA [address] [facility] Department [place] [address] * Pro B-type natriuretic peptide [...] et.al. Eur Heart J. 2006:27:330-337. 2. George RAMÍREZ, Monster CAR. J. AM Adrian Cardiol: Cardiovasc Imag. 2009;2: 216- 225. Interpretive Data Last Revised Date: 2017. Testing performed by: [address] [address] Blood 08/26/2024 9:53 PM CDT 08/26/2024 10:06 PM CDT us Jairo Rojas DO LAB BLOOD ORDERABLES Final Res ult ALICJA SCHNEIDER [facility] Department [place] [address] * (ABNORMAL) CBC with auto differential (08/26/2024 9:53 PM CDT) WBC 19.69(H) 3.80 - 9.90 K/cumm Comment:Testing performed by : [address] [address] Hgb 14.1 11.9 - 15.5 g/dL ALICJA SCHNEIDER Comment:Testing performed by : [address] [address] Hct 42.8 35.6 - 45.5 % ALICJA SCHNEIDER Comment:Testing performed by : [address] [address] Plt 401(H) 150 - 400 K/cumm ALICJA SCHNEIDER Comment:Testing performed by : [address] [address] MPV 8.9(L) 9.1 - 12.3 fL ALICJA SCHNEIDER Comment:Testing performed by : [address] [address] RBC 4.45 3.90 - 5.20 M/cumm ALICJA SCHNEIDER Comment:Testing performed by : [address] [address] MCV 96.2 81.3 - 96.4 fL ALICJA SCHNEIDER Comment:Testing performed by : [address] [address] MCH 31.7 27.1 - 33.3 pg ALICJA SCHNEIDER Comment:Testing performed by : [address] [address] MCHC 32.9 32.3 - 35.7 g/dL ALICJA SCHNEIDER Comment:Testing performed by : [address] [address] RDW CV 14.9 11.1 - 14.9 % ALICJA SCHNEIDER Comment:Testing performed by : [address] [address] RDW SD 51.9(H) 35.7 - 48.1 fL ALICJA SCHNEIDER Comment:Testing performed by : [address] [address] NRBC abs 0.00 0.00 - 0.01 K/cumm ALICJA Comment:Testing performed by : [address] [address] Blood 08/26/2024 9:53 PM CDT 08/26/2024 10:06 PM CDT Jairo Rojas DO LAB BLOOD ORDERABLES Final Res ult [facility] [address] [facility] Department of Laboratories [place], [place] [id number] * (ABNORMAL) Manual Differential (08/26/2024 9:53 PM CDT) Differential Manual Comment:Testing performed by : [address] [address] Cells Counted 100 ALICJA SCHNEIDER Comment:Testing performed by : [address] [address] Neutrophil abs 10.44(H) 1.50 - 6.50 K/cumm ALICJA SCHNEIDER Comment:Testing performed by : [address] [address] Lymphocyte abs 6.69(H) 0.80 - 3.30 K/cumm ALICJA SCHNEIDER Comment:Testing performed by : [address], [place]., [address] Monocyte abs 2.17(H) 0.20 - 0.80 K/cumm ALICJA Comment:Testing performed by : [address], [place]., [address] Eosinophil abs 0.20 0.00 - 0.50 K/cumm ALICJA Comment:Testing performed by : [address], [place]., [address] Basophil abs 0.20(H) 0.00 - 0.10 K/cumm [facility] Comment:Testing performed by : [address] [address] Neutrophil pct 53.0 % CERYAKOV Comment: Interpretive Data Percent cell count reference ranges are not reported, since discordance with absolute values may lead to misinterpretation of CBC data. Current Interpretive Data was last revised on 2017. Testing performed by: [address] [address] Lymphocyte pct 34.0 % [facility] Comment: Interpretive Data Percent cell count reference ranges are not reported, since discordance with absolute values may lead to misinterpretation of CBC data. Current Interpretive Data was last revised on 2017. Testing performed by: [address] [address] Monocyte pct 11.0 % [facility] Comment: Interpretive Data Percent cell count reference ranges are not reported, since discordance with absolute values may lead to misinterpretation of CBC data. Current Interpretive Data was last revised on 2017. Testing performed by: [address] [address] Eosinophil pct 1.0 % [facility] Comment: Interpretive Data Percent cell count reference ranges are not reported, since discordance with absolute values may lead to misinterpretation of CBC data. Current Interpretive Data was last revised on 2017. Testing performed by: [address] [address] Basophil pct 1.0 % [facility] Comment: Interpretive Data Percent cell count reference ranges are not reported, since discordance with absolute values may lead to misinterpretation of CBC data. Current Interpretive Data was last revised on 2017. Testing performed by: [address] [address] RBC morphology Present(A) ALICJA Comment:Testing performed by : [address] [address] Macrocytes 3-7/HPF(A) ALICJA Comment:Testing performed by : [address] [address] Platelet estimate Increased( A) ALICJA Comment:Testing performed by : [address], [place]., [address] Blood 08/26/2024 9:53 PM CDT 08/26/2024 10:06 PM CDT us Jairo Rojas DO LAB BLOOD ORDERABLES Final Res ult ALICJA [facility] Department [place] [address] * Comprehensive metabolic panel (08/26/2024 9:53 PM CDT) Sodium 137 135 - 145 mmol/L Comment:Testing performed by : [address] [address] Potassium, pl 4.4 3.3 - 4.9 mmol/L ALICJA Comment: Hemolyzed; Potassium value may be falsely elevated by as much as 1.0 mmol/L. Suggest redraw and reanalysis. Testing performed by: [address] [address] Chloride 97 97 - 110 mmol/L ALICJA Comment:Testing performed by : [address] [address] CO2 30 22 - 32 mmol/L ALICJA Comment:Testing performed by : [address] [address] Anion gap 10 2 - 15 mmol/L ALICJA Comment:Testing performed by : [address] [address] BUN 16 6 - 25 mg/dL ALICJA Comment:Testing performed by : [address] [address] Creatinine 0.95 0.60 - 1.10 mg/dL ALICJA Comment:Testing performed by : [address] [address] Glucose 130 70 - 199 mg/dL ALICJA Comment: Interpretive Data Fasting glucose >/= 126 [...] was last revised 2022. Testing performed by: [address] [address] Calcium 9.1 8.5 - 10.3 mg/dL ALICJA Comment:Testing performed by : [address] [address] Bilirubin, total <0.2 0.1 - 1.2 mg/dL ALICJA Comment:Testing performed by : [address] [address] Protein, pl 7.1 6.5 - 8.5 g/dL ALICJA Comment:Testing performed by : [address] [address] Albumin 4.1 3.5 - 5.0 g/dL [facility] Comment:Testing performed by : [address] [address] Alk phos 65 40 - 130 Units/L ALICJA Comment:Testing performed by : [address] [address] ALT 15 7 - 45 Units/L ALICJA Comment:Testing performed by : [address] [address] AST 25 10 - 45 Units/L ALICJA Comment: Hemolyzed; result may be falsely elevated Testing performed by: [facility], [address] [place] [address], [place]., [address] Blood 08/26/2024 9:53 PM CDT 08/26/2024 10:06 PM CDT Jairo Rojas DO LAB BLOOD ORDERABLES Final Res ult Performing Organization Address City/[facility]/ZIP Co de Phone Number ALICJA [facility] Department [place] [address] * ECG 12 lead (08/26/2024 9:50 PM CDT) Pathologist [facility] Ventricular Rate EKG/Min 93 BPM [facility] Atrial Rate 93 BPM [facility] [place]-Interval (MSEC) 168 ms [facility] QRS-Interval (MSEC) 76 ms [facility] QT-Interval (MSEC) 364 ms [facility] QTc 452 ms [facility] P [place] 69 degrees [facility] R [place] 86 degrees [facility] T [place] 74 degrees [facility] Diagnosis Normal sinus rhythm Normal ECG When compared with ECG of 05-AUG-2023 14:29, No significant change was found Confirmed by THEO WELDON M.D. ([id number]) on 08/27/2024 11:56:25 AM [facility] 08/26/2024 9:50 PM CDT 08/27/2024 11:56 AM CDT Jairo Rojas DO ECG ORDERABLES Final Result Performing Organization Address [facility] Co de Phone Number [facility] * Diagnostic Mammogram Bilateral W Darrion [...] the examination. Saad Yang M.D. ab/:02/13/2016 15:27:39 Tobacco Stripper: Heather WOOD)(Jaxon), [facility] letter sent: MG & US Done-Normal Reading [...] the examination. Saad Yang M.D. ab/:02/13/2016 15:27:39 Tobacco Stripper: Heather Soares RT(R)(M), [facility] letter sent: MG & US Done-Normal Reading location: BI-RADS: 1 Negative [EOD] us Marvin Elam MD IMG MAMMO PROCEDURES Fin al Result from Last 3 Months or Most Recently Relevant to Health Maintenance Insurance MEDICARE MEDICARE IDPA [facility] IDPA Advance Directives For more information, please contact: [phone] Documents on File Type Date Recorded Patient Plumbers And Top Helpers Expl anation ADVANCE DIRECTIVE 02/05/2023 11:22 AM POLS T - Phys Order for PT Preferences ADVANCE DIRECTIVE 02/05/2023 11:21 AM Salas r of T[facility] Teacher Assistant-Medical ADVANCE DIRECTIVE 02/05/2023 11:20 AM Taylor ng Will * Full Code (Latest Code Status on File) Date Activated Date Inactivated Comments 02/20/2023 6:40 PM 02/22/2023 7:05 PM * Full Code Date Activated Date Inactivated Comments 02/02/2023 11:58 PM 02/04/2023 5:08 PM * Full Code Date Activated Date Inactivated Comments 06/24/2021 2:43 AM 06/24/2021 5:00 PM Care Teams Australian Rules Footballer Relationship Specialty Start Date End Date Zoey Membreno MD PCP - General 03/20/17
--- OUTSIDE RECORDS SUMMARY | 2024-09-02 18:00 | XMS_ITS | Encounter Summary ---
Author Organization [facility] Address [address] [place] [address] Care Team Providers Care Washing Machine Operator Name Role Phone Zoey Membreno MD Primary Care Provider [phone] Liana Bonilla Primary Care Provider [phone] Encounter Details Date Type Department Care Team (Late st Contact Info) Description 08/25/2018 Telephone [facility] [address] [place] [phone] Clara Zambrano MD [address] [address] Social History Tobacco Use Types Packs/Day Years Used Date Smoking Tobacco: Every Day Cigarettes Smokeless Tobacco: Never Alcohol Use Standard Drinks/Week Comments No 0 (1 standard drink = 0.6 oz pur e alcohol) Comments No Sex and Gender Information Value Date Recorded Sex Assigned at Female 08/28/2021 5:51 PM CDT Legal Sex Female 5:33 AM DECKHAND SHRIMP [employer]AT Gender Identity Female 08/28/2021 5:51 PM CDT Sexual Orientation Straight 08/28/2021 5: 51 PM CDT documented as of this encounter Plan of Treatment Upcoming Encounters Date Type Department Care Team (Late st Contact Info) Description 09/06/2024 9:15 AM CDT Office Visit [facility] - Orthopedics [address] [place] [phone] Will Aragon, FUR DYER-PLASTIC FINISHER [address] [facility] [address] [place] [address] 09/13/2024 3:15 PM CDT Office Visit [facility] - ENT [address] [place] [phone] Flex Turcios MD [address] [place] [address] 09/28/2024 3:30 PM CDT Office Visit [facility] - Pulmonology [address] [place] [phone] Andrea Maciel MD [address] [place] [address] 09/29/2024 4:00 PM CDT Office Visit [facility] - Neurology [address] [place] [phone] Marylu Forbes PA-C [address] [place] [address] documented as of this encounter Visit Diagnoses Not on filedocumented in this encounter Additional Health Concerns Infection Onset Date Last Indicated Resolved Time CDIFF Under Investigation 09/30/2023 09/30/2023 4:33 AM CDT documented as of this encounter Care Teams Washing Machine Operator Relationship Specialty Start Date End Date Zoey Membreno MD [address] [place] [address] [place] [phone] PCP - General 08/20/17 08/19/24 Liana Bonilla APNP-[address] [address] PCP - General Family Medicine 08/20/24 documented as of this encounter
--- OUTSIDE RECORDS SUMMARY | 2024-09-02 18:00 | XMS_ITS | Data Portability ---
Author Organization [place] 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 Plan of Treatment Reminders Order Date Submit Date Provider Last Modified By Organization Details Last Modified Time Details Appointments None recorded. Lab rapid strep group A, throat [address], [address], 5 16:35:34 rapid flu (A+B) 2024 025 [facility], [address] [place] [address], [address], 5 16:35:35 rsv (respirato ry syncytial virus), rapid, nasopharyn geal 2024 025 [facility], [address] [place] [address], [address], 5 16:53:34 urinalysis , dipstick 2024 025 [facility], [address] [place] [address], [address], 5 17:19:12 lipid panel, serum 2024 025 [facility], [address] [place], [address], 03:59:28 CBC w/ auto diff 2024 025 [facility], [address] [place], [address], 5 03:59:28 CMP, serum or plasma 2024 025 [facility], [address] [place], [address], 5 03:59:28 TSH, serum, reflex free T4 [email or web address] [facility], [address] [place], [address], 12:23:43 HbA1c (hemoglobi n A1c), blood 2024 025 [facility], [address] [place], [address], 03:59:29 Referral dermatolog ist referral - Please call patient to schedule an appointmen t. Thank you. 2024 025 [facility], [address] [facility], [place], [address], 13:30:29 counseling referral - Please call patient to schedule an appointmen t. Thank you. 2024 025 [facility], [address], [place], [address], 13:35:19 orthopedic surgeon referral - Please call patient to schedule an appointmen t. Thank you. 2024 025 [facility], [address], [place], [address], 5 16:01:04 Procedures None recorded. Surgeries None recorded. Imaging MAMMO, screening, digital, bilateral - Please call pt to schedule 2024 025 [facility] ([facility]), [address] [place], [address], 5 10:57:46 DEXA - Please call pt to schedule 2024 025 [facility] ([facility] Sched[facility]), [address] [place], [address], 5 15:44:21 Medication Orders montelukas t 10 mg tablet 2024 [facility] #37492, [address], [place], [id number], 14:59:54 albuterol sulfate HFA 90 mcg/actuat ion aerosol inhaler 2024 025 [facility] #09822, [address], [place], [id number], 5 09:04:13 Bactrim DS 800 mg-160 mg tablet 2024 025 [facility] #19822, [address], [place], [id number], 5 14:38:05 mupirocin 2 % topical ointment 2024 025 [facility] #62238, [address], [place], [id number], 5 17:48:53 cetirizine 10 mg tablet 2024 025 [facility] #67691, [address] [facility] [place], [id number], 5 17:48:54 prednisone 20 mg tablet [address] [facility]49555, [address] [facility], [place], [place], [id number], 5 13:58:07 ipratropiu m 0.5 mg-albuter ol 3 mg (2.5 mg base)/3 mL nebulizati on soln 2024 [facility] #06369, [address], [place], [id number], 5 16:38:40 trazodone 150 mg tablet 2024 [facility] #59901, [address] [place] [address], [id number], 5 15:18:09 promethazi ne-DM 6.25 mg-15 mg/5 mL oral syrup [address] [facility] #05589, [address] [facility], [place], [place], [id number], 5 13:58:12 acyclovir 400 mg tablet 2024 025 [facility] #94846, [address], [place], [id number], 5 15:18:10 clonazepam 1 mg tablet 2024 [facility] #72259, [address], [place], [id number], 5 15:18:16 Patient TargetsNo targets recorded. Patient InstructionsNo instructions recorded. Reason for Referral Orthopedic Surgeon Referral for Ulnar nerve entrapment at elbow Please call patient to schedule an appointment. Thank you. Referring Physician: Carli Reynoso [facility], Encounter Date: 06/22/2024 Counseling Referral for Depr essive disorder Please call patient to schedule an appointment. Thank you. 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 Thank you. Referring Physician: Carli Reynoso [facility], Encounter Date: 07/30/2024 Results Created Date Observation Date Name Description Value Unit Range Abnormal Flag Note LastModifiedBy Organization Detail LastModifiedTime 06/17/1906/17/2024 urina lysis , dipst ick Leukocytes (reference range: negative alma/ l) Negati ve Not Available [address], [address], 06/16/2024 17:10:49 06/17/19 25 06/17/2024 urina lysis , dipst ick Nitrite (reference rage: negative mg/dl) negati ve Not Available [address], [address], 06/16/2024 17:10:49 06/17/19 25 06/17/2024 urina lysis , dipst ick Urobilinogen (reference range: 0.2-1 mg/dl) 0.2 Not Available [address], [address], 06/16/2024 17:10:49 06/17/19 25 06/17/2024 urina lysis , dipst ick Protein (reference range: negative mg/dl) Negati ve Not Available [address], [address], 06/16/2024 17:10:49 06/17/19 25 06/17/2024 urina lysis , dipst ick pH (reference range: 5-7) 8.5 Not Available [address], [address], 06/16/2024 17:10:49 06/17/19 25 06/17/2024 urina lysis , dipst ick Blood (reference range: negative Sánchez/ l) Negati ve Not Available [address], [address], 06/16/2024 17:10:49 06/17/19 25 06/17/2024 urina lysis , dipst ick Specific [place] (reference range: 1.005-1.030) 1.015 Not Available [address], [address], 06/16/2024 17:10:49 06/17/19 25 06/17/2024 urina lysis , dipst ick Ketone (reference range: negative mg/dl) Negati ve Not Available [address], [address], 06/16/2024 17:10:49 06/17/19 25 06/17/2024 urina lysis , dipst ick Bilirubin (reference range: negative mg/dl) Negati ve Not Available [address], [address], 06/16/2024 17:10:49 06/17/19 25 06/17/2024 urina lysis , dipst ick Glucose (reference range: negative mg/dl) Negati ve Not Available [address], [address], 06/16/2024 17:10:49 06/17/19 25 06/17/2024 urina lysis , dipst ick Appearance Clear Not Available [address], [address], 06/16/2024 17:10:49 06/17/19 25 06/17/2024 urina lysis , dipst ick Color Pale Yellow Not Available [address], [address], 06/16/2024 17:10:49 06/22/19 25 06/22/2024 rsv (resp irato ry syncy tial virus ), rapid , nasop haryn geal RSV negati ve Not Available [address], [address], 06/22/2024 16:18:48 06/22/19 25 06/22/2024 rapid strep group A, throa t STREP A negati ve Not Available [address], [address], 06/22/2024 16:18:59 06/22/19 25 06/22/2024 rapid flu (A+B) Flu A negati ve Not Available [address], [address], 06/22/2024 16:18:34 06/22/19 25 06/22/2024 rapid flu (A+B) Flu B negati ve Not Available [address], [address], 06/22/2024 16:18:34 04/12/20 24 04/09/2024 XR, chest , 2 view No observ ation record ed. [email or web address] [facility] [address], [place], [address], 04/12/2024 12:40:02 04/12/20 24 04/09/2024 XR, hand, 3 or more view No observ ation record ed. [email or web address] [facility] [address], [place], [address], 04/12/2024 12:40:17 04/16/20 24 01/07/2024 US, echoc ardio gram, trans thora cic, compl ete, w/ color flow No observ ation record ed. [facility] ([facility] Call Scheduling) [address] [place], [address], 04/16/2024 13:44:54 04/16/20 24 01/19/2024 CT, chest , w/o contr ast No observ ation record ed. [facility] Not Available 2023 13:44:54 04/16/20 24 05/06/2023 CT, chest , w/o contr ast No observ ation record ed. [facility]CODE Not Available 2023 13:44:54 05/28/19 25 05/28/2024 DEXA No observ ation record ed. [address] [place], [address], 06/01/2024 09:52:40 05/28/19 25 05/28/2024 TSH, serum , refle x free T4 No observ ation record ed. [address] [place], [address], 06/23/2024 12:23:43 05/31/19 25 05/28/2024 MAMMO , scree sara, digit al, bilat eral No observ ation record ed. [address] [place], [address], 06/01/2024 09:52:41 05/31/19 25 05/28/2024 MAMMO , scree sara, digit al, bilat eral No observ ation record ed. [email or web address] [facility] [address] [facility], [place], [address], 06/14/2024 10:51:22 06/22/19 25 05/28/2024 DEXA No observ ation record ed. [email or web address] [facility] [address] [facility], [place], [address], 06/24/2024 11:19:20 07/02/19 25 07/01/2024 XR, chest , 2 view No observ ation record ed. [address], [place], [address], 07/02/2024 11:11:49 Result Notes None recorded. Problems Name Problem SNOMED Code Status Onset Date Resolution Date Notes Provider Name and Address Organization Details Recorded Time Irritable bowel syndrome 24539797 Active Not Available [facility] 3 08:45:31 Seizure disorder 804484645 Active 2017 Not Available [facility] 3 08:45:31 Mixed anxiety and depressiv e disorder 663494615 Active 2017 Not Available [facility] 3 08:45:31 Posttraum atic stress disorder 06415409 Active 2017 Not Available [facility] 3 08:45:31 Smoker 26479048 Active 2017 Not Available [facility] 3 08:45:32 Compressi on fracture of thoracic vertebra 24127803985 04 Active 2022 KENYA Carvalho [address], [address], [place], [address] , [email or web address] [facility] [employer] 3 15:40:18 Type 2 diabetes mellitus 74685528 Completed 202208/11/[address] [facility], [address], [place], [address] , [employer] 5 14:51:39 COVID-19 663927015 Active 2023 SWEETIE Page [address], [address], [place], [address] , [facility] 4 22:25:15 Atelectas is 69778171 Active 2023 Augusto Coffman MD [address], [address], [place], [address] , [facility] 4 16:07:35 Gastroeso phageal reflux disease 821407815 Active 2023 SWEETIE Keller [address], [address], [place], [address] , [facility] 4 16:56:07 Iron deficienc y anemia 81846713 Active 2023 SWEETIE Keller [address], [address], [place], [address] , [facility] 4 11:59:04 Recurrent herpes simplex 24787351 Active [address], [address], [place], [address] , [facility] 5 14:55:50 Insomnia 581931677 Active [address], [address], [place], [address] , [facility] 5 14:56:15 Cough 46999935 Active [address], [address], [place], [address] , [facility] 5 15:11:08 Dysuria 23453906 Active 2024 John Hodgson MD [address], [address], [place], [address] , [facility] 5 17:10:47 Sore throat 651819051 Active [address], [address], [place], [address] , [facility] 5 16:18:55 Depressiv e disorder 97778076 Active [address], [address], [place], [address] , [facility] 5 16:31:25 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 5 13:46:31 Celluliti s of right upper limb 49378044264 147329 Active [address], [address], [place], [address] , [facility] 5 17:46:55 Seasonal allergic rhinitis 477025498 Active [address], [address], [place], [address] , [facility] 5 17:47:16 Asthma 003659355 Active [address], [place], [address] , [facility] 5 17:47:27 Tear of skin 391432528 Active [address], [address], [place], [address] , [employer] 17:51:23 Thin skin 848439804 Active [address], [address], [place], [address] , [employer] [facility] [employer] 5 17:51:30 Heartburn 94579448 Active 2024 ODELL PageC [address], [address], [place], [address] , [employer] 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 12/25/23 low IgG2, high IgE Medical History: Marijuana use Epilepsy Anxiety/Depression/PTSD Bilateral tinnitus COVID infection 06/2021 on O2 c/o [employer] Rhinitis with postnasal drip IgE 2094 IU/mL Eosinophils 20/uL Hypogammaglobulinemia (IgG2) AAT PiMM 190mg% Nicotine use Bibasilar atelectasis RVSP 40 mmHg EF 51% T2DM JEAN with Rapp's esophagus IBS Vit D deficiency Osteopenia T7-T9 compression fractures T7-T9 disc bulging Thoracic DDD Procedure History: Appendectomy 1984 RSO 1990 BALDOMERO-LSO 2007 Right ankle screw replacement 2006 EGD 2021, 2023 Colonoscopy with tubular adenoma excision 2023 T8 kyphoplasty 2023 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 Procedures Surgical History Date Name Laterality Status Provider Name and Address Organization Details Recorded Time 09/11/19 Date of Last Colonoscopy completed Hannah Urbina RN [place] [employer] 05/11/2024 14:27:24 02/28/20 23 Transitional_Ca re_Management completed SWEETIE Keller [address], [address], [place], [address], [facility] [employer] [facility] [address] [employer] 02/27/2023 14:36:12 11/08/19 23 Ortho - Cortisone Injection completed Omer Ivan MD [address], [address], [place], [address], [facility] [employer] [facility] 11/07/2022 14:00:43 08/09/19 23 Ortho - Cortisone Injection completed Omer Ivan MD [address], [address], [place], [address], [facility] [employer] [facility] 08/08/2022 14:20:13 05/19/19 23 Most Recent [facility] [employer] [facility] 01/01/2023 10:43:09 12/02/19 22 Most Recent Mammogram [facility] [employer] [facility] 01/01/2023 10:42:43 EGD completed Not Available [facility] 05/2022 08:42:56 Imaging Results Imaging Date Name Status LastModified by Organiz ation Details LastModified Time 04/09/2024 XR, chest, 2 view completed [address], [place], [address], 04/12/2024 12:40:02 04/09/2024 XR, hand, 3 or more view completed [address] [facility] [address] [place] [address] [address], [place], [address], 04/12/2024 12:40:17 01/07/2024 US, echocardiogram , transthoracic, complete, w/ color flow completed [facility] ([facility]) [address] [place], [address], 04/16/2024 13:44:54 01/19/2024 CT, chest, w/o contrast completed [facility] Information not available 04/16/2024 13:44:54 05/06/2023 CT, chest, w/o contrast completed [facility] Information not available 04/16/2024 13:44:54 05/28/2024 DEXA completed [address] [place], [address], 06/01/2024 09:52:40 05/28/2024 TSH, serum, reflex free T4 completed [address] [place], [address], 06/23/2024 12:23:43 05/28/2024 MAMMO, screening, digital, bilateral completed [address] [place], [address], 06/01/2024 09:52:41 05/28/2024 MAMMO, screening, digital, bilateral completed [email or web address] [facility] [address] [place], [address], 06/14/2024 10:51:22 05/28/2024 DEXA completed [facility] [address] [place], [address], 06/24/2024 11:19:20 07/01/2024 XR, chest, 2 view completed [address], [address], 07/02/2024 11:11:49 Procedure Notes None recorded. Medical Equipment None Reported. Allergies Allergen ID Allergen Name Allergen Category Reaction Reaction Severity Criticality Documentation Date Start Date Code Code System Note Provider Name and Address Organization Details Recorded Time Wellbutri n medicatio n hallucina tions seizure severe severe Not available 07/03/2022 64696 RxNorm Not Available [facility] 3 08:48:18 51602 tramadol medicatio n vomiting severe Not available 07/03/2022 38495 RxNorm Not Available [facility] 3 08:48:18 sertralin e medicatio n Not available Not available Not available 07/03/2022 57837 RxNorm Other react ions and sever ities : 'Adve rse react ion to subst ance - Sever e'. Carli Reynoso, [place] [address] [facility], [address], [place], [address] , [facility] [employer] [facility] 5 15:15:49 03472 Product containin g penicilli n (product) medicatio n rash mild Not available 07/03/2022 08242 8001 SNOMED Not Available [facility] 3 08:48:18 75532 Keppra medicatio n other Not available Not available 07/03/2022 19922 7 RxNorm anger , comba tive Not Available [facility] 3 08:48:18 96791 Keflex medicatio n anaphylax is Not available Not available 07/03/2022 89920 7 RxNorm Not Available [facility] 3 08:48:18 07021 Flagyl medicatio n hives Not available [facility] 02/27/202388479 6 RxNorm blist souleymane, lew Andres MA [facility], [place] [employer] 3 12:25:17 46808 cephalexi n medicatio n Not available Not available Not available 05/11/2024 2231 RxNorm Other react ions and sever ities : 'Anap hylax is due to subst ance - Sever e'. MT [address], [address] [facility], [place], [address], [employer] 5 15:15:49 95144 bupropion Not available Not available Not available Not available 05/11/2024 60790 RxNorm Other react ions and sever ities : 'Adve rse react ion to subst ance - Sever e'. MT [address], [address], [place], [address], [employer] 5 15:15:49 53604 levetirac etam medicatio n Not available Not available Not available 05/11/2024 30916 7 RxNorm Other react ions and sever ities : 'Adve rse react ion to subst ance - Sever e'. [address], [address], [place], [address], [employer] 5 15:15:49 Medications Name Sig Start Date Stop Date Status Note LastModified by Organization Details LastModified Time fluoxetin e 40 mg capsule 07/10 completed Not Available Not Available Not Available cyclobenz aprine 10 mg tablet TAKE 1 TABLET BY MOUTH TWICE DAILY NEEDED active Not Available Not Available No t Available bupropion HCl SR 150 mg tablet,12 hr sustained -release TK 1 T PO BID 06/25 completed suicidal ideation and paranoia Not Available Not Available Not Available promethaz ine-DM 6.25 mg-15 mg/5 mL oral syrup TAKE 5 ML BY MOUTH EVERY 6 TO 8 HOURS NEEDED active Not Available Not Available No t Available nystatin 100,000 unit/mL oral suspensio n SHAKE LIQUID AND TAKE 5 ML BY MOUTH FOUR TIMES DAILY FOR 7 DAYS 10/20 completed Not Available Not Available Not Available prednison e 10 mg tablet TAKE 1 TABLET BY MOUTH DAILY FOR 3 DAYS. 10/20 completed Not Available Not Available Not Available doxycycli ne hyclate 100 mg capsule TAKE 1 CAPSULE BY MOUTH TWICE DAILY FOR 7 DAYS 10/20 completed Not Available Not Available Not Available nicotine 14 mg/24 hr daily transderm al patch APPLY 1 PATCH TO SKIN ONCE DAILY 05/13 completed Not Available Not Available Not Available ipratropi um 0.5 mg-albute rol 3 mg (2.5 mg base)/3 mL nebulizat ion soln Inhale by nebuliza tion route for 15 days. active Not Available Not Available No t Available clindamyc in HCl 300 mg capsule TAKE 1 CAPSULE BY MOUTH EVERY 6 HOURS UNTIL GONE 12/21 completed Not Available Not Available Not Available albuterol sulfate 2.5 mg/3 mL (0.083 %) solution for nebulizat ion INHALE THE CONTENTS OF 1 VIAL VIA NEBULIZE R EVERY 4 HOURS NEEDED FOR SHORTNES S OF BREATH. active Not Available Not Available No t Available trazodone 50 mg tablet TAKE 1 TABLET BY MOUTH EVERY DAY 10/20 completed Not Available Not Available Not Available cetirizin e 10 mg tablet TAKE 1 TABLET BY MOUTH EVERY DAY active Not Available Not Available No t Available azithromy molly 250 mg tablet FOLLOW PACKAGE DIRECTIO NS 08/11 completed Not Available Not Available Not Available ibuprofen 800 mg tablet TAKE 1 TABLET BY MOUTH THREE TIMES DAILY NEEDED 12/21 completed Not Available Not Available Not Available benzonata te 200 mg capsule Take 1 capsule 3 times a day by oral route as needed for 10 days. 04/16 completed Not Available Not Available Not Available hydrocodo ne 5 mg-acetam inophen 325 mg tablet TAKE 1 TABLET BY MOUTH EVERY 6 HOURS NEEDED FOR SEVERE PAIN active Not Available Not Available No t Available prazosin 1 mg capsule TK 1 C PO HS 05/18 completed Not Available Not Available Not Available phenazopy ridine 200 mg tablet TK 1 T PO TID PRN P 05/18 completed Not Available Not Available Not Available famotidin e 40 mg tablet Take 1 tablet every day by oral route as needed for 30 days. 05/11 completed Not Available Not Available Not Available prednison e 20 mg tablet Take 3 tabs once daily on days 1 and 2, 2 tabs per day on days 3 and 4, and 1 tab per days 5 and 6 active Not Available Not Available No t Available alendrona te 70 mg tablet TAKE 1 TABLET BY MOUTH ONCE EVERY WEEK active Not Available Not Available No t Available clonazepa m 0.5 mg tablet TK 1 T PO TID 05/18 completed Not Available Not Available Not Available dexametha sone 6 mg tablet 05/23 completed Not Available Not Available Not Available sertralin e 100 mg tablet TK 1 T PO D 05/18 completed Not Available Not Available Not Available clonazepa m 1 mg tablet TAKE 1 TABLET BY MOUTH THREE TIMES DAILY active Not Available Not Available No t Available clindamyc in HCl 150 mg capsule TAKE 3 CAPSULES BY MOUTH THREE TIMES DAILY UNTIL ALL TAKEN 05/23 completed Not Available Not Available Not Available thiamine HCl (vitamin B1) 100 mg tablet Take by oral route. active Not Available Not Available No t Available metronida zole 500 mg tablet TK 1 T PO BID TAT 10/20 completed Not Available Not Available Not Available acetamino phen 300 mg-codein e 30 mg tablet TAKE 1 TABLET BY MOUTH EVERY 6 HOURS NEEDED FOR PAIN 06/22 completed Not Available Not Available Not Available Aspir-Low 81 mg tablet,de layed release Take 1 tablet every day by oral route. 12/21 completed Not Available Not Available Not Available acyclovir 400 mg tablet TAKE 1 TABLET BY MOUTH TWICE DAILY active Not Available Not Available No t Available estradiol 0.05 mg/24 hr semiweekl y transderm al patch APPLY 1 PATCH TOPICALL Y TO THE SKIN 2 TIMES A WEEK DIRECTED 12/24 completed Not Available Not Available Not Available valacyclo vir 500 mg tablet TAKE 1 TABLET BY MOUTH TWICE DAILY 05/18 completed Not Available Not Available Not Available ciproflox acin 500 mg tablet TK 1 T PO Q 12 H 04/16 completed Not Available Not Available Not Available sulfameth oxazole 800 mg-trimet hoprim 160 mg tablet TAKE 1 TABLET BY MOUTH EVERY 12 HOURS FOR 5 DAYS DIRECTED 08/11 completed Not Available Not Available Not Available omeprazol e 40 mg capsule,d elayed release TAKE 1 CAPSULE BY MOUTH 2 TIMES A DAY (BEFORE BREAKFAS T AND SUPPER) 02/17 completed Not Available Not Available Not Available tramadol 50 mg tablet TK 1 T PO Q 6 H PRN P 09/02 completed Not Available Not Available Not Available amitripty line 50 mg tablet Take 1 tablet every day by oral route. active Not Available Not Available No t Available acetamino phen 500 mg tablet TAKE 2 TABLETS BY MOUTH THREE TIMES DAILY NEEDED FOR PAIN 10/20 completed Not Available Not Available Not Available ketorolac 10 mg tablet 05/18 completed Not Available Not Available Not Available prednison e 10 mg tablets in a dose pack Take 1 tab by mouth, 3 times a day for 3 daysTake 1 tab by mouth 2 times a day for 2 daysTake 1 tab by mouth once a day for 1 day 10/20 completed Not Available Not Available Not Available oxycodone -acetamin ophen 5 mg-325 mg tablet TAKE 1 TABLET BY MOUTH EVERY 6 HOURS NEEDED FOR PAIN active Not Available Not Available No t Available Deep Sea Nasal 0.65 % spray aerosol SPRAY ONCE INTO EACH NOSTRIL NEEDED FOR DRY NOSE 10/20 completed Not Available Not Available Not Available famotidin e 20 mg tablet TAKE 1 TABLET BY MOUTH EVERY DAY NEEDED active Not Available Not Available No t Available amitripty line 25 mg tablet Take 1 tablet every day by oral route at bedtime. active Not Available Not Available No t Available tamsulosi n 0.4 mg capsule 02/08 completed Not Available Not Available Not Available trazodone 100 mg tablet TAKE 1 TABLET BY MOUTH EVERY DAY AT BEDTIME 05/11 completed Not Available Not Available Not Available nicotine (polacril ex) 4 mg gum 10/20 completed Not Available Not Available Not Available dicyclomi ne 20 mg tablet TK 1 T PO Q 6 H PRF ABDOMINA L PAIN active Not Available Not Available No t Available [employer] Ultra Test strips use strip daily and as needed to check blood sugar 12/21 completed Not Available Not Available Not Available Kenalog 10 mg/mL suspensio n for injection Take 40 mg by injectio n route. 10/20 completed [facility]: [phone] 08-22 Not Available Not Available Not Available benzonata te 100 mg capsule 04/09 completed Not Available Not Available Not Available doxycycli ne monohydra te 100 mg capsule TAKE 1 CAPSULE BY MOUTH TWICE DAILY 10/23 completed Not Available Not Available Not Available bisacodyl 10 mg rectal supposito ry Insert 1 supposit ory every day by rectal route as needed. active Not Available Not Available No t Available venlafaxi ne 37.5 mg tablet TAKE 1 TABLET BY MOUTH DAILY 06/22 completed Not Available Not Available Not Available nortripty line 10 mg capsule TAKE 1 CAPSULE BY MOUTH AT BEDTIME active Not Available Not Available No t Available trazodone 150 mg tablet TAKE 1 TABLET BY MOUTH EVERY DAY NEEDED active Not Available Not Available No t Available oseltamiv ir 75 mg capsule TAKE 1 CAPSULE BY MOUTH EVERY 12 HOURS FOR 5 DAYS 10/20 completed Not Available Not Available Not Available ferrous sulfate 325 mg (65 mg iron) tablet Take 1 tablet every day by oral route for 90 days. 05/11 completed Not Available Not Available Not Available metformin 1,000 mg tablet TAKE 1 TABLET BY MOUTH TWICE DAILY 05/11 completed Not Available Not Available Not Available nitrofura ntoin macrocrys brandan 100 mg capsule Take 1 capsule twice a day by oral route for 7 days. active Not Available Not Available No t Available buspirone 10 mg tablet TAKE 1 TABLET BY MOUTH 3 TIMES A DAY NEEDED active Not Available Not Available No t Available prednison e 50 mg tablet TAKE 1 TABLET BY MOUTH DAILY FOR 5 DAYS 05/23 completed Not Available Not Available Not Available lidocaine 5 % topical patch Apply by topical route for 30 days. 12/21 completed Not Available Not Available Not Available promethaz ine 25 mg tablet 04/16 completed Not Available Not Available Not Available indometha molly 50 mg capsule 08/19 completed Not Available Not Available Not Available nicotine 21 mg/24 hr daily transderm al patch APPLY 1 PATCH TOPICALL Y TO THE SKIN EVERY DAY 05/11 completed Not Available Not Available Not Available hydrocodo ne-homatr opine 5 mg-1.5 mg/5 mL oral solution TAKE 5 ML BY MOUTH FOUR TIMES DAILY NEEDED FOR COUGH FOR UP TO MAX OF 3 DAYS IN A ROW. 10/20 completed Not Available Not Available Not Available docusate sodium 100 mg capsule TAKE 1 CAPSULE BY MOUTH ONCE DAILY NEEDED FOR CONSTIPA TION. active Not Available Not Available No t Available omeprazol e 20 mg capsule,d elayed release 1 po qday 01/23 completed Not Available Not Available Not Available diclofena c sodium 75 mg tablet,de layed release Take 1 tablet twice a day by oral route as needed. 10/20 completed Not Available Not Available Not Available monteluka st 10 mg tablet TAKE 1 TABLET BY MOUTH EVERY NIGHT AT BEDTIME active Not Available Not Available No t Available acyclovir 200 mg capsule Take 2 capsules every day by oral route at bedtime. 12/24 completed Not Available Not Available Not Available mupirocin 2 % topical ointment APPLY SMALL AMOUNT TOPICALL Y TO THE AFFECTED AREA THREE TIMES DAILY active Not Available Not Available No t Available ergocalci ferol (vitamin D2) 1,250 mcg (50,000 unit) capsule TAKE 1 CAPSULE BY MOUTH 1 TIME A WEEK active Not Available Not Available No t Available lorazepam 1 mg tablet 1 po x 1 thirty minutes prior to flying active Not Available Not Available No t Available azelastin e 137 mcg (0.1 %) nasal spray active Not Available Not Available Not Available ibuprofen 600 mg tablet TAKE 1 TABLET BY MOUTH EVERY 6 HOURS NEEDED FOR PAIN 04/09 completed Not Available Not Available Not Available polyethyl eli glycol 3350 17 gram/dose oral powder 02/08 completed Not Available Not Available Not Available levofloxa molly 500 mg tablet Take 1 tablet every 24 hours by oral route for 7 days. active Not Available Not Available No t Available levofloxa molly 750 mg tablet TAKE 1 TABLET BY MOUTH DAILY 12/21 completed Not Available Not Available Not Available methylpre dnisolone 4 mg tablets in a dose pack FOLLOW PACKAGE DIRECTIO NS 12/21 completed Not Available Not Available Not Available albuterol sulfate HFA 90 mcg/actua tion aerosol inhaler INHALE 2 PUFFS BY MOUTH EVERY 3-4 HOURS NEEDED FOR WHEEZING . active Not Available Not Available No t Available heparin (porcine) 10,000 unit/mL injection solution INJECT 1 ML VIA CATHETER 2 TIMES A WEEK NEEDED FOR PAIN 02/08 completed Not Available Not Available Not Available hydrocort isone 2.5 % topical ointment 05/18 completed Not Available Not Available Not Available oxybutyni n chloride 5 mg tablet TK 1 T PO TID PRF SPASMING 05/18 completed Not Available Not Available Not Available ondansetr on 4 mg disintegr ating tablet DISSOLVE ONE TABLET ON THE TONGUE EVERY 6 HOURS NEEDED FOR NAUSEA OR VOMITING active Not Available Not Available No t Available topiramat e 100 mg tablet TK 1 T PO BID 05/18 completed Not Available Not Available Not Available fluoxetin e 20 mg capsule TK 1 C PO QD 04/16 completed Not Available Not Available Not Available fluticaso ne propionat e 50 mcg/actua tion nasal spray,salvador penamitaon SHAKE LQ AND U 1 SPR IEN D 02/08 completed Not Available Not Available Not Available metformin ER 500 mg tablet,ex tended release 24 hr TAKE 1 TABLET BY MOUTH DAILY 10/20 completed Not Available Not Available Not Available sertralin e 50 mg tablet TK 1 T PO QAM FOR 30 DAYS 05/18 completed Not Available Not Available Not Available doxycycli ne hyclate 100 mg tablet TAKE 1 TABLET BY MOUTH TWICE DAILY FOR 7 DAYS 05/22 completed Not Available Not Available Not Available metronida zole 375 mg capsule TAKE 1 CAPSULE BY MOUTH THREE TIMES DAILY 05/23 completed Not Available Not Available Not Available prazosin 2 mg capsule TK 1 C PO HS 05/18 completed Not Available Not Available Not Available BD Luer-Jian Syringe 3 mL 21 gauge x 1 USE TWO TIMES A WEEK TO PULL UP HEPARIN 10/20 completed Not Available Not Available Not Available metoclopr amide 10 mg tablet TK 1 T PO AT 6AM AND AT NOON DAY OF EXAM 04/16 completed Not Available Not Available Not Available nicotine 7 mg/24 hr daily transderm al patch Apply 1 patch every day by transder mal route for 30 days. active Not Available Not Available No t Available oxycodone 5 mg tablet TAKE 1 TABLET BY MOUTH EVERY 6 HOURS NEEDED FOR PAIN active Not Available Not Available No t Available bupivacai ne (PF) 0.5 % (5 mg/mL) injection solution 02/08 completed Not Available Not Available Not Available ciproflox acin 0.3 %-dexamet hasone 0.1 % ear drops,salvador pension SHAKE LIQUID AND INSTILL 4 DROPS TO AFFECTED EAR TWICE DAILY FOR 7 DAYS 04/16 completed Not Available Not Available Not Available cholestyr amine (with sugar) 4 gram oral powder 04/16 completed Not Available Not Available Not Available bupropion HCl XL 150 mg 24 hr tablet, extended release Take 1 tablet every day by oral route. 05/07 completed Not Available Not Available Not Available topiramat e 50 mg tablet 07/09 completed Not Available Not Available Not Available metformin ER 1,000 mg tablet,ex tended release 24hr (osmotic) Take 1 tablet every day by oral route for 90 days. 04/10 completed Not Available Not Available Not Available nitrofura ntoin monohydra te/macroc rystals 100 mg capsule TAKE 1 CAPSULE BY MOUTH EVERY 12 HOURS FOR 7 DAYS 10/20 completed Not Available Not Available Not Available duloxetin e 30 mg capsule,d elayed release TAKE 1 CAPSULE BY MOUTH EVERY DAY 05/23 completed Not Available Not Available Not Available Atrovent HFA 17 mcg/actua tion aerosol inhaler 02/08 completed Not Available Not Available Not Available pregabali n 50 mg capsule TAKE 1 CAPSULE BY MOUTH TWICE DAILY 02/08 completed Not Available Not Available Not Available pregabali n 150 mg capsule TAKE 1 CAPSULE BY MOUTH TWICE DAILY 10/20 completed Not Available Not Available Not Available magnesium 250mg daily 12/21 completed Not Available Not Available Not Available Vitamin C 12/21 completed Not Available Not Available Not Available flunisoli de 02/08 completed Not Available Not Available Not Available magnesium oxide 250 mg 04/16 completed Not Available Not Available Not Available lidocaine 5% patch 04/16 completed Not Available Not Available Not Available Vitamin B12 2000 mcg 04/16 completed Not Available Not Available Not Available ibuprofen (bulk) 600mg 04/16 completed Not Available Not Available Not Available Symbicort 160 mcg-4.5 mcg/actua tion HFA aerosol inhaler INHALE 2 PUFFS BY MOUTH TWICE DAILY 10/03 completed Not Available Not Available Not Available omeprazol e 20 mg tablet,de layed release TK 1 T PO BID 05/18 completed Not Available Not Available Not Available metformin ER 1,000 mg 24 hr tablet,ex tended release (gastric reten.) TAKE 1 TABLET BY MOUTH EVERY DAY 10/20 completed Not Available Not Available Not Available Gavilyte- C 240 gram-22.7 2 gram-6.72 gram-5.84 gram oral solution MIX AND DRINK HALF AT 5PM EVENING PRIOR TO PROCEDUR E THEN DRINK OTHER HALF AT 4AM THE MORNING OF PROCEDUR E. 10/20 completed Not Available Not Available Not Available ropivacai ne (PF) 5 mg/mL (0.5 %) injection solution Take 40 mg by injectio n route. 10/20 completed [facility] [id number] 08-03 Not Available Not Available Not Available polyethyl eli glycol (bulk) 04/16 completed Not Available Not Available Not Available Linzess 145 mcg capsule Take 1 capsule every day by oral route. active Not Available Not Available No t Available Multi Vitamin 04/16 completed Not Available Not Available Not Available Aerospan 80 mcg/actua tion HFA aerosol inhaler INL 2 PFS PO BID 05/18 completed Not Available Not Available Not Available Virtussin AC 10 mg-100 mg/5 mL oral liquid TK 10 ML PO Q 4 H PRN 02/08 completed Not Available Not Available Not Available guaifenes in ER 600 mg tablet, extended release 12 hr TAKE 1 TABLET BY MOUTH EVERY 12 HOURS 10/20 completed Not Available Not Available Not Available Spiriva Respimat 2.5 mcg/actua tion solution for inhalatio n 2 puffs daily 05/18 completed Not Available Not Available Not Available Incruse Ellipta 62.5 mcg/actua tion powder for inhalatio n INHALE 1 PUFF INTO THE LUNGS DAILY 10/03 completed Not Available Not Available Not Available Vitamin B12 2000 mcg 12/21 completed Not Available Not Available Not Available Briviact 10 mg tablet Take 1 tablet twice a day by oral route. 04/16 completed Not Available Not Available Not Available Briviact 75 mg tablet TAKE 1 TABLET BY MOUTH TWICE DAILY active Not Available Not Available No t Available Briviact 50 mg tablet TAKE 1 TABLET BY MOUTH TWICE DAILY 06/22 completed Not Available Not Available Not Available Fish Oil 1,000 mg (120 mg-180 mg) capsule Take by oral route. 04/16 completed Not Available Not Available Not Available fluticaso ne 232 mcg-salme terol 14 mcg/actua tion breath activated powdr INHALE 1 PUFF INTO THE LUNGS TWICE DAILY 02/08 completed Not Available Not Available Not Available Trelegy Ellipta 100 mcg-62.5 mcg-25 mcg powder for inhalatio n INHALE 1 PUFF BY MOUTH EVERY DAY 10/20 completed Not Available Not Available Not Available Aimovig Autoinjec tor 70 mg/mL subcutane ous auto-inje ctor ADMINIST ER 1 ML UNDER THE SKIN EVERY 30 DAYS 05/11 completed Not Available Not Available Not Available Breztri Aerospher e 160 mcg-9mcg- 4.8mcg/ac tuation HFA aerosol inhaler INHALE 2 PUFFS BY MOUTH TWICE DAILY active Not Available Not Available No t Available Trelegy Ellipta 200 mcg-62.5 mcg-25 mcg powder for inhalatio n INHALE 1 PUFF BY MOUTH EVERY DAY 10/20 completed Not Available Not Available Not Available BinaxNOW COVID-19 Ag Self Test kit TEST DIRECTED TODAY 06/22 completed Not Available Not Available Not Available Wegovy 0.5 mg/0.5 mL subcutane ous pen injector Inject 0.5 mg every week by subcutan eous route. 10/20 completed Not Available Not Available Not Available Paxlovid 300 mg (150 mg x 2)-100 mg tablets in a dose pack TK 2 NIRMATRE LVIR TS AND 1 RITONAVI R T TOGETHER PO TWICE DAILY FOR 5 DAYS. 12/21 completed Not Available Not Available Not Available Vitals Date Recorded Body height Body mass index (BMI) Body weight Body temperature Heart rate Respiratory rate Oxygen saturation Oxygen saturation in Arterial blood by Pulse oximetry Pain severity - 0-10 verbal numeric rating [Score] - Reported Systolic blood pressure Diastolic blood pressure Provider Name and Address Organization Details Last Updated DateTime 5 152.4 cm 23.9 kg/m2 12565.7 2 g 97.2 [degF] 77 /min 20 /min 94 % 94 % 4 126 mm[Hg] 82 mm[Hg] Hannah Urbina RN [facility] [employer] [facility] 5 14:24:11 Date Recorded Body height Body mass index (BMI) Body weight Body temperature Heart rate Respiratory rate Oxygen saturation Oxygen saturation in Arterial blood by Pulse oximetry Pain severity - 0-10 verbal numeric rating [Score] - Reported Systolic blood pressure Diastolic blood pressure Provider Name and Address Organization Details Last Updated DateTime 5 152.4 cm 24.9 kg/m2 99327.3 3 g 97.3 [degF] 77 /min 20 /min 95 % 95 % 4 140 mm[Hg] 90 mm[Hg] Hannah Urbina RN [facility] [employer] [facility] 5 16:09:58 Date Recorded Body height Body mass index (BMI) Body weight Provider Name and Address Organization Details Last Updated DateTime 07/22/2024 152.4 cm 23.4 kg/m2 53148.08 g Tianna Laura [employer] 07/22/2024 13:57:26 Date Recorded Body height Body mass index (BMI) Body weight Body temperature Heart rate Respiratory rate Oxygen saturation Oxygen saturation in Arterial blood by Pulse oximetry Pain severity - 0-10 verbal numeric rating [Score] - Reported Systolic blood pressure Diastolic blood pressure Provider Name and Address Organization Details Last Updated DateTime 5 152.4 cm 25.8 kg/m2 55265.8 9 g 98 [degF] 98 /min 20 /min 94 % 94 % 6 104 mm[Hg] 60 mm[Hg] Hannah Urbina RN [facility] [employer] [facility] 5 17:20:04 Date Recorded Body height Body mass index (BMI) Body weight Body temperature Heart rate Oxygen saturation Oxygen saturation in Arterial blood by Pulse oximetry Respiratory rate Heart rate Pain severity - 0-10 verbal numeric rating [Score] - Reported Systolic blood pressure Diastolic blood pressure Provider Name and Address Organization Details Last Updated DateTime 5 152.4 cm 27 kg/m2 62641.4 5 g 97.6 [degF] 84 /min 95 % 95 % 24 /min 85 /min 0 128 mm[Hg] 70 mm[Hg] Hannah Urbina RN [facility] [employer] [facility] 5 14:41:35 Social History Question Answer Notes LastModified by Organization Details LastModified Time Tobacco Smoking Status Former Smoker quit smoking beginning of October Hannah Urbina RN [facility], [facility] [address] [employer] 10/21/2023 10:18:30 Do You Have An Advance Directive? No [id number] Information not available 07/03/2022 What Is Your Level Of Alcohol Consumption? None [id number] Information not available 07/03/2022 Is Blood Transfusion Acceptable In An Emergency? Yes Information not available 05/11/2024 What Is Your Level Of Caffeine Consumption? Moderate [id number] Information not available 07/03/2022 What Is Your Code Status? Full Code Information not available 05/11/2024 In The 14 Days Before Symptom Onset, Have You Had Close Contact With A Laboratory-conf irmed COVID-19 While That Case Was Ill? No [id number] Information not available 07/03/2022 In The 14 Days Before Symptom Onset, Have You Had Close Contact With A Person Who Is Under Investigation For COVID-19 While That Person Was Ill? No [id number] Information not available 07/03/2022 Are You Currently Employed? No Disabled Information not available 05/11/2024 What Type Of Diet Are You Following? REGULAR [id number] Information not available 07/03/2022 Do You Have An Electrostatic Air Filter? Yes Information not available 12/25/2023 Have There Been Any Changes To Your Family Or Social Situation? No [id number] Information not available 07/03/2022 Are There Any Guns Present In Your Home? No [id number] Information not available 07/03/2022 Do You Have A Humidifier? Yes Information not available 12/25/2023 Where Do You Live? SingleLevelHouse Information not available 10/21/2023 Do You Have A Medical Power Of Nitrating Acid Mixer? No [id number] Information not available 07/03/2022 Do You Have Moisture Problems In Your Home? No Information not available 12/25/2023 What Was The Date Of Your Most Recent Tobacco Screening? 12/25/2023 Information not available 12/25/2023 How Many Children Do You Have? 4 Information not available 05/11/2024 Do You Have Any Pets? Yes Information not available 12/25/2023 What Is Your Relationship Status? Single [id number] Information not available 07/03/2022 Do You Use Your Seat Belt Or Car Seat Routinely? Yes [id number] Information not available 07/03/2022 Do You Have Smoke And Carbon Monoxide Detectors In Your Home? Yes [id number] [id number] Information not available 07/03/2022 At What Age Did You Start Smoking Tobacco? 11 [email or web address] Information not available 01/01/2023 Are You Passively Exposed To Smoke? Yes [id number] Information not available 07/03/2022 How Much Tobacco Do You Smoke? 0.5 PPD [id number] [id number] Information not available 07/03/2022 Do You Participate In Social Media? Yes Information not available 05/11/2024 Do You Feel Stressed (tense, Restless, Nervous, Or Anxious, Or Unable To Sleep At Night)? [id number] Information not available 07/03/2022 Do You Use Any Illicit Or Recreational Drugs? Yes Marijuana Information not available 05/11/2024 Do You Use Sunscreen Routinely? Yes [id number] Information not available 07/03/2022 How Many Years Have You Smoked Tobacco? 35 [id number] [id number] Information not available 07/03/2022 Have You Recently Traveled Abroad? No MIGRATION.[id number] Information not available 07/03/2022 Have You Used IV Drugs? No MIGRATION.[id number] Information not available 07/03/2022 Do You Have Any Dietary Restrictions? No MIGRATION.[id number] [id number] Information not available 07/03/2022 Do You Or Have You Ever Used Any Other Forms Of Tobacco Or Nicotine? No MIGRATION.[id number] [id number] Information not available 07/03/2022 Sex: Unknown Functional Status Question Answer Note LastModified by Organizat ion Details LastModified Time What is your exercise level? None [id number] Information not available 07/03/2022 Mental Status None recorded. Family History Relationship Description Onset Age of this Age Resolved Age Notes LastModified by Organization Details LastModified Time Mother Diabetes mellitus [id number] Not available 07/03/2022 08:42:57 Maternal Grandmother Malignant tumor of cervix [email or web address] Not available 2023 16:20:46 Maternal Grandfather Epilepsy [email or web address] Not available 12/24 16:20:55 Mother Coronary artery bypass graft [email or web address] Not available 16:21:33 Mother Bipolar disorder [email or web address] Not available 2023 16:21:40 Mother Congestive heart failure [email or web address] Not available 2023 16:21:58 Mother Chronic kidney disease [email or web address] Not available 2023 16:22:09 Mother Dementia [email or web address] Not available 0 12/25/2023 16:22:16 Sister Polycystic ovary syndrome [email or web address] Not available 2023 16:22:49 Daughter Eosinophilic esophagitis [email or web address] Not available 12/04 16:24:08 Medical History Condition Response ARTHRITIS Y ADDICTION CONCERNS Y USE OF BLOOD THINNERS Y SKIN PROBLEMS Y DIABETES, TYPE Y BACK INJECTIONS Y ALLERGIES/HAYFEVER Y GASTROINTESTINAL DISORDER Y LUNG DISEASE/DISORDER Y HEARTBURN / REFLUX Y INSOMNIA Y COPD Y HIGH CHOLESTEROL / HYPERLIPIDEMIA Y ASTHMA Y Abdominal Pain Y DEPRESSION (INCLUDING POST ) Y FEMALE PROBLEMS / INFECTIONS Y HAVE YOU BEEN HOSPITALIZED OR SEEN IN [facility] ER IN THE PAST YEAR ? Y PAIN Y STROKE/TIA Y ULCERS Y SEIZURES/EPILEPSY Y MENTAL DISORDER/ILLNESS Y HYPERTENSION Y CANCER: SPECIFY Y ANXIETY DISORDER Y OSTEOPOROSIS Y URINARY/BLADDER/KIDNEY PROBLEMS Y Gynecological History Statement/Question Response Abnormal Pap N Date of Last Colonoscopy 09/11/2023 Most Recent Bone Density 05/19/2022 Dislike of Light during Menstrual Headac he N Menses Monthly N Date of Last Pap Smear Current Control Method Hysterectom y Most Recent Mammogram 12/01/2021 Breast Problems yes Discharge no Obstetrics History GPAL:G 4 P 4 0 0 0 Type Value Full Term 4 Total 4 Immunizations Vaccine Type Date Status Note Provider Nam e and Address Organization Details Recorded Time Influenza, split virus, quadrivalent, PF 3 completed SWEETIE Keller [address] [facility] [address], [place], [address], [employer] 01/01/2023 12:26:15 COVID-19, mRNA, LNP-S, PF, 30 mcg/0.3 mL dose 1 completed Yessenia [place] [employer], [employer] [address] [employer] 01/01/2023 10:39:43 COVID-19, mRNA, LNP-S, PF, 30 mcg/0.3 mL dose 1 completed Yessenia [place] [employer], [employer] [address] [employer] 01/01/2023 10:39:44 pneumococcal polysaccharide PPV23 4 completed Yessenia [place] [employer] [facility] [employer] [facility] 01/01/2023 10:39:44 Influenza, split virus, quadrivalent, PF 8 completed Yessenia [place] [employer], [employer] [facility] [address] [employer] 01/01/2023 10:39:44 Influenza, split virus, quadrivalent, PF 1 completed Not Available [facility] [facility] 07/03/2022 08:48:07 Past Encounters Encounter ID Performer Location Encounter Start Date Encounter Closed Date Diagnosis/Indication Diagnosis SNOMED-CT Code Diagnosis ICD10 Code Diagnosis Note [id number] KENYA Carvalho [facility] Primary Care [address] [place] [address] 04/30/2021 00:00:00 04/30/2021 11:00:21 [id number] KENYA Carvalho [facility] [place] [address] [facility] [address] [place] [address] 07/03/2021 00:00:00 07/03/2021 15:15:11 [id number] KENYA Carvalho [facility] [place] [address] [facility] [address] [place] [address] 08/22/2021 00:00:00 08/22/2021 08:48:10 [id number] KENYA Carvalho [facility] Primary [facility] [place] [address] [facility] [address] [place] [address] 10/03/2021 00:00:00 10/03/2021 18:33:20 [id number] KENYA Carvalho [facility] Primary Care [place] [address] [place] [address] [address] [place] [address] 11/14/2021 00:00:00 11/14/2021 12:38:25 [id number] _ATHN_MIGR ATION_1 _ATHENA_M IGRATION_ DEFAULT_1 _1 , 01/02/2022 00:00:00 01/02/2022 16:30:07 [id number] KENYA Carvalho [facility] Primary Care [place]acobse [address] [facility] [address] [place] [address] 03/06/2022 00:00:00 03/06/2022 16:46:44 [id number] _ATHN_MIGR ATION_1 _ATHENA_M IGRATION_ DEFAULT_1 _1 , 03/20/2022 00:00:00 03/20/2022 16:45:25 [id number] KENYA Carvalho [facility] Primary Care [place] jacobse [address] [facility] [address] [place] [address] 04/23/2022 00:00:00 04/23/2022 17:55:36 [id number] Omer Ivan MD [facility] [place] [address] [facility] [address] [place] [address] 05/23/2022 00:00:00 05/23/2022 14:28:27 [id number] Omer Ivan MD [facility] [place] [address] [place] [address] 08/08/2022 13:47:26 08/08/2022 14:13:15 Pain of bilateral knee joints 4396338962 16759 M25.561 M25.562 Chondromal acia of left patella 8966137965 03624 M22.42 Chondromal acia of right patella 2095316315 8534460 M22.[id number] [facility] Primary Care [place] [address] [facility] [facility] [address] [place] [address] 09/04/2022 15:05:17 09/04/2022 15:54:19 Seizure disorder 502173829 G40.909 Chronic. Has f/u with neurology 10/22/22 (Dr. Coleman). Constipation 19565307 K5 9.00 Started on linzess at [facility], states it has significan tly improved symptoms. Chronic ob structive pulmonary disease 76736173 J44.9 Stable. Continue to monitor O2.Continu e f/u with pulmonolog y (Dr. Boyce); has PFT/LDCT scheduled on 09/11/22. Compressio n fracture of thoracic vertebra 8009341823 104 M48.54XA Has f/u scheduled with neurosurge on 09/13/22.Fi ndings stable on recent imaging. Tachycardia 5927593 R00. 0 She has noticed increase in tachycardi a. GI has also recommende d she see cardiology .Will put in new referral today. [id number] Omer Ivan MD [facility] [address] [place] [address] 09/05/2022 14:06:08 09/05/2022 14:25:42 Pain of bilateral knee joints 6476061411 10996 M25.561 M25.562 Chondromal acia of left patella 7688823518 08539 M22.42 Chondromal acia of right patella 1559221570 4635256 M22.41 Thoracic back pain 84130 8004 M54.6 Compressio n fracture of thoracic vertebra 7337740534 104 M48.54XS The fractures are 2-year-old . [id number] Zoey Membreno MD [facility] Primary Care [address] [place] [address] 10/23/2022 15:57:54 10/23/2022 17:03:10 Chronic obstructive pulmonary disease 60492665 J44.9 States pulmonolog ist states her LDCT and PFT completed last month were good, no major changes.F/ u scheduled next month.She is still having episodes of dyspnea on and off.Contin ue to monitor O2.Continu e f/u with pulmonolog y. Compressio n fracture of thoracic vertebra 9316978199 104 M48.54XA Has f/u scheduled with neuro next month who has been following it.Will continue temporary pain medication . Seizure disorder 8497200 02 G40.909 Chronic. Continue f/u with neurology. Muscle pain 89090905 M79 .10 Needs refill cyclobenza vianey. 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 She would like to get into counseling . Will put in referral today. [id number] Zoey Membreno MD [facility] Primary Care [address] [place] [address] 11/01/2022 15:33:27 11/01/2022 16:33:04 [id number] Omer Ivan MD [facility] Orth[facility] [place] [address] [place] [address] 11/07/2022 13:40:02 11/07/2022 14:43:37 Chondromalacia of left patella 1747850236 52718 M22.42 Thoracic back pain 67157 8004 M54.6 Pain of bi lateral knee joints 1481856007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
--- OUTSIDE RECORDS SUMMARY | 2024-09-02 18:00 | XMS_ITS | Clinical Summary ---
Author Organization [facility] Address [address] [place] [address] Care Team Providers Care Circular Saw Filer Name Role Phone Liana Bonilla-INSURANCE OPERATIONS REP Primary Care Provider [phone] Source Comments [facility],non-owned Affiliates and Associated Physician Practices is amultiple site organization consisting of ambulatory clinics and hospital sitesin [place], [place], [place] and [place]. This disclosure is being madepursuant to the Care Everywhere program and may not contain all information available regarding this patient. Last updated 18.[facility] Allergies Active Allergy Reactions Criticality Noted Date Comments Bupropion Other High 08/22/2017 Exacerbated seizures, and induced paranoia Cephalexin Anaphylaxis High 05/21/2017 Ciprofloxacin Anaphylaxis High 07/02/2016 Dog Epithelium Unknown 02/11/2023 Metronidazole Urticaria,Rash Medium 05/06/2023 Fd&C Blue #2 Aluminum Kurtz-Levetiracetam Other 04/20/2018 Mood swings, causes anger Lac Bovis Unknown 02/11/2023 Latex 08/20/2024 Added based on information entered during log entry, please review and add reactions, type, and severity as needed Levetiracetam Seizures High 06/19/2018 seizures Molds & Smuts Unknown 02/11/2023 Penicillins Anaphylaxis,Urticari a High 12/02/2011 Ketorolac Nausea and/or Vomiting 12/29/2019 Tramadol Vomiting 11/10/2017 Bupropion Other High 08/22/2017 Exacerbated seizures, and induced paranoia Sertraline Seizures High 01/20/2018 Medications * This document contains information received from the source organization and may not represent a complete record from that organization. * Be aware that medications may not be up to date on this document. Alwaysverify current medications with the patient. Ascorbic Acid (VITAMIN C PO) Take 1 tablet by mouth once daily Active busPIRone (BUSPAR) 10 MG tablet Take 1 (one) tablet by mouth 2 times daily 0 06/25/19 18 Active Cyanocobalamin (VITAMIN B-12) 2000 MCG Take 2,000 mcg by mouth once daily Active vitamin D, ergocalciferol, (DRISDOL) 25102 UNITS capsule Take 1 (one) capsule by mouth every 7 days (once a week) 08/22/19 18 Active Thiamine HCl 100 MG Take 1 tablet by mouth once daily 30 tablet 5 01/21/20 18 Active aspirin (ASPIRIN) 81 MG tablet Take 1 (one) tablet by mouth every 2 days Active Elastic Bandages & Supports (WRIST SPLINT) MISCIndications :Carpal tunnel syndrome of right wrist Use 1 Each once daily Use wrist splint on left wrist for carpal tunnel syndrome 1 Each 11/12/19 20 Active multivitamin daily tablet Take 1 (one) tablet by mouth once daily 07/01/19 22 Active sodium chloride ([place]; Baby [place]) 0.65 % nasal sprayIndication s:Nasal dryness Pocola 1 (one) spray into each nostril as needed for Dry Nose 88 mL 11 06/10/19 23 Active cetirizine (ZyrTEC) 10 MG tabletIndicatio ns:Seasonal allergies Take 1 (one) tablet by mouth once daily 30 tablet 5 07/24/19 23 Active acyclovir (Zovirax) 400 MG tablet Take 1 (one) tablet by mouth at bedtime 06/20/19 23 Active magnesium 250 MG tablet Take 1 (one) tablet by mouth once daily Active azelastine (Astelin) 0.1 % nasal spray Pocola 1 (one) spray into each nostril 2 times daily 90 mL 4 08/16/19 23 Active Magnesium Oxide 250 MG Take 250 mg by mouth once daily Active fish oil/omega-3 fatty acids (Promega;Cardi- [place] 3) 1000 MG capsule Take 1 (one) capsule by mouth once daily Active linaCLOtide (Linzess) 145 MCG capsuleIndicati ons:Constipatio n associated with Irritable Bowel Syndrome Take 1 (one) capsule by mouth at bedtime Take on an empty stomach at least 30 minutes prior to first meal of the day. Reasons: Constipation caused by Irritable Bowel Syndrome Active cyclobenzaprine (Flexeril) 10 MG tablet TAKE 1 TABLET BY MOUTH TWICE DAILY NEEDED 60 tablet 4 05/02/20 23 Active traZODone (Desyrel) 100 MG tablet Take 1 (one) tablet by mouth at bedtime 06/24/19 24 Active omeprazole (PriLOSEC) 40 MG capsuleIndicati ons:Gastroesoph ageal reflux disease without esophagitis Take 1 (one) capsule by mouth 2 times daily, before breakfast and supper 180 capsule 3 07/02/19 24 Active guaiFENesin ER 12hr (Mucinex) 600 MG tablet Take 1 (one) tablet by mouth every 12 hours 30 tablet 08/07/19 24 Active budeson-glycopy rrol-formoterol (Breztri Aerosphere) 160-9-4.8 MCG/ACT inhalerIndicati ons:Chronic obstructive pulmonary disease, unspecified COPD type (HCC) Inhale 2 (two) puffs by mouth 2 times daily 10.7 g 5 08/07/19 24 Active albuterol (Proventil;Vent jennifer) (2.5 MG/3ML) 0.083% nebulizer solution Inhale 2.5 (two and one-half) mg by mouth every 4 hours as needed for Shortness of Breath 75 mL 4 08/07/19 24 Active polyethylene glycol (Gavilyte-C) 240 g solution Drink half the prep at 5 pm the evening prior to the procedure. Finish the remaining prep at 4 am the morning of the procedure. 4000 mL 09/03/19 24 Active Aimovig 70 MG/ML auto injector penIndications: Migraine with aura and without status migrainosus, not intractable,Chr onic daily headache ADMINISTER 1 ML UNDER THE SKIN EVERY 30 DAYS 1 mL 5 09/18/19 24 Active venlafaxine (Effexor) 37.5 MG tablet TAKE 1 TABLET BY MOUTH DAILY 30 tablet 10/06/19 24 Active dicyclomine (Bentyl) 20 MG tablet 09/16/19 24 Active alendronate (Fosamax) 70 MG tablet Take 1 (one) tablet by mouth every 7 days (once a week) before meal 12/11/19 24 Active famotidine (Pepcid) 20 MG tablet Take 1 (one) tablet by mouth once daily as needed 02/03/20 24 Active clonazePAM (KlonoPIN) 1 MG tabletIndicatio ns:Seizures (HCC),Anxiety Take 1 (one) tablet by mouth 3 times daily 90 tablet 5 05/27/19 25 Active brivaracetam (Briviact) 75 MG tablet Take 1 (one) tablet by mouth 2 times daily 60 tablet 05/27/19 25 Active albuterol HFA (Proventil; Ventolin; Proair) 108 (90 Base) MCG/ACT inhalerIndicati ons:Chronic obstructive pulmonary disease, unspecified COPD type ([facility]) Inhale 2 (two) puffs by mouth every 6 hours as needed 8.5 g 5 07/08/19 25 Active nortriptyline (Pamelor) 10 MG capsuleIndicati ons:Small fiber neuropathy TAKE 1 CAPSULE BY MOUTH AT BEDTIME 30 capsule 08/04/19 25 Active acetaminophen (Tylenol) 500 MG tablet Take 1 (one) tablet by mouth 3 times daily Maximum allowable Acetaminophen amount = 4 Grams (4000 mg) / 24 hours. 08/21/19 25 Active HYDROcodone-ej taminophen ([place]) 5-325 MG tabletIndicatio ns:Status post surgery Take 1 (one) tablet by mouth every 6 hours as needed for Pain (Severe pain) 28 tablet 08/21/19 25 Active docusate sodium (Colace) 100 MG capsule Take 1 (one) capsule by mouth once daily as needed for Constipation 21 capsule 08/21/19 25 Active ondansetron, disintegrating, (Zofran ODT) 4 MG tablet Take 1 (one) tablet by mouth every 6 hours as needed for Nausea/Vomiting Allow tablet to dissolve on the tongue 10 tablet 1 08/24/19 25 Active oxyCODONE, immediate release, (Roxicodone) 5 MG tabletIndicatio ns:Follow-up examination after orthopedic surgery Take 1 (one) tablet by mouth every 6 hours as needed for Pain 10 tablet 08/26/19 25 Active ibuprofen (Motrin) 600 MG tablet Take 1 (one) tablet by mouth every 6 hours as needed pain 11/09/19 23 025 Discontin ued(List Clean-Up) metFORMIN (Glucophage) 1000 MG tablet Take 1 (one) tablet by mouth 2 times daily with morning and evening meal 025 Discontin ued(List Clean-Up) estradiol (Vivelle-Dot) 0.05 MG/24HR patch APPLY 1 PATCH TOPICALLY TO THE SKIN 2 TIMES A WEEK DIRECTED 09/09/19 24 025 Discontin ued(List Clean-Up) Active Problems Problem Noted Date Diagnosed Date Chronic GERD 10/20/2023 Moderate malnutrition 02/21/2023 07/29/2023 Bacterial vaginosis 02/20/2023 07/29/2023 Positive blood culture 02/20/2023 Hyperkalemia 02/03/2023 02/11/2023 Pneumonia due to infectious organism 02/03/2023 02/11/2023 Sepsis 02/03/2023 02/11/2023 Sinus tachycardia 12/19/2022 Assessment & Plan (06/03/2023 9:32 PM UNIT AID): I suspect her sinus tachycardia is more likely due to respiratory distress. Of note, she has had multiple objective evidence of normal heart rate during clinic visit and during TTE study. She has no palpitations. With the idea that tachycardia is secondary to respiratory distress, it does not make sense to suppress this. Further, beta-los might worsen her respiratory status. Normal echo without structural abnormality is reassuring. I provided reassurance. Assessment & Plan (12/19/2022 4:33 PM CDT): Principal issue for the discussion today. I suspect her sinus tachycardia is secondary. Primary reasons can be respiratory distress, physical deconditioning, anxiety. I doubt there is a primary cardiac reason for this. I would like to obtain a cardiac echo to make sure there is no structural abnormalities. I would like to get an Holter monitor to assess symptomatic burden. I proposed therapeutic trial of beta-los but given her COPD that may have untoward effects. Especially, she is not particular symptomatic. We will check basic labs just to make sure no metabolic derangements. -Blood work including TSH, BNP, electrolytes -Repeat echo -Holter monitor Palpitations 12/19/2022 Assessment & Plan (12/19/2022 4:34 PM CDT): Occurs in setting of emotional distress. As mentioned, suspect this is secondary to anxiety and may be physical deconditioning. Work-up delineated in the sinus tachycardia problem. Post-acute sequelae of COVID-19 (PASC) Chronic obstructive pulmonary disease 07/22/2021 Moderate persistent asthma without complication 07/22/2021 Class 1 obesity with body ma ss index (BMI) of 30.0 to 30.9 in adult 07/22/2021 Chronic respiratory failure with hypoxia 022 Auditory hallucination 06/26/2021 Electrolyte and fluid disorder 06/26/2021 Leukocytosis 06/26/2021 Acute encephalopathy 06/26/2021 Shortness of breath 06/25/2021 Hypoxia 06/25/2021 COVID-19 06/25/2021 Paranoia 06/25/2021 Dyspnea and respiratory abnormalities 06/25/2021 Dependence on nicotine from cigarettes 2 02/11/2023 History of psychogenic nonepileptic seizure 06/0602/11/2023 Pulmonary nodules/lesions, multiple 12/08/2020 Bilateral leg edema 10/27/2020 Assessment & Plan (12/19/2022 4:34 PM CDT): Exam to me does not appear to be edematous. Check BNP. Dysphonia 05/19/2020 Smoking 05/19/2020 Overview (08/04/2024): IMO 08/04/2024 Stress incontinence 06/03/2018 02/11/2023 Overview (02/11/2023): Stress incontinence (female) (male); Progress: Stable Added By: Tracy Wagoner Add to Current Problems: NO ProblemStatus: Resolve Small fiber neuropathy 05/21/2018 Seizures 10/11/2017 Depression 10/11/2017 Anxiety 10/11/2017 Prolapse of urethra 05/21/2017 02/11/2023 Overview (02/11/2023): Urethrocele; Progress: Stable Added By: Ermias Dash Add to Current Problems: NO ProblemStatus: Resolve Urethrocele; Location: None Progress: Stable Added By: Ermias Dash Add to Current Problems: YES ProblemStatus: Current 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 02/11/2023 Overview (02/11/2023): Other dystrophy of vulva; Progress: Stable Added By: Marvin Elam Add to Current Problems: NO ProblemStatus: Resolve History of malignant neoplasm of cervix 08/31/19 17 02/11/2023 Overview (02/11/2023): History of cervical cancer; Progress: Stable Added By: Mi Bustillos Add to Current Problems: NO ProblemStatus: Resolve Personal history of malignant neoplasm of cervix uteri; Progress: Stable Added By: Mi Bustillos Add to Current Problems: NO ProblemStatus: Resolve History of cervical cancer; Location: None Progress: Stable Added By: Mi Bustillos Add to Current Problems: NO ProblemStatus: Current Atrophic vaginitis 05/23/2016 02/11/2023 Overview (02/11/2023): Atrophic vaginitis, postmenopausal; Location: None Progress: Stable Added By: Ermias Dash Add to Current Problems: YES ProblemStatus: Current Atrophic vaginitis, postmenopausal; Progress: Stable Added By: Ermias Dash Add to Current Problems: NO ProblemStatus: Resolve Dyspareunia 04/04/2016 02/11/2023 Overview (02/11/2023): Dyspareunia; Progress: Stable Added By: Mi Bustillos Add to Current Problems: NO ProblemStatus: Resolve Dyspareunia; Location: None Progress: Stable Added By: Marvin Elam Add to Current Problems: YES ProblemStatus: Resolve Dyspareunia; Location: None Progress: Stable Added By: Mi Bustillos Add to Current Problems: YES ProblemStatus: Current Breast lump 02/06/2016 02/11/2023 Overview (02/11/2023): Breast mass; Progress: Stable Added By: Kallie New Add to Current Problems: NO ProblemStatus: Resolve Unspecified lump in breast; Progress: Stable Added By: Kallie New Add to Current Problems: NO ProblemStatus: Resolve Breast mass; Location: None Progress: Stable Added By: Kallie New Add to Current Problems: YES ProblemStatus: Current Sensory loss Carpal tunnel syndrome of right wrist Resolved Problems Problem Noted Date Diagnosed Date Resolved Date Cough 06/25/2021 07/23/2021 Hemiplegic migraine without status migrainosus, not intractable 10/11/2017 01/10/2023 Encounters Date Type Department Care Team Description 08/25/2024 Orders Only [facility] - Orthopedic Surgery [address] [phone] Mery Musa MD Follow-up examination after orthopedic surgery 08/23/2024 1:15 PM CDT Office Visit [facility] - Orthopedics [address] [facility], [facility] [place] [phone] Will Aragon, OPTICAL ENGINEER-INSURANCE OPERATIONS REP Follow-up examination after orthopedic surgery (Primary Dx); Carpal tunnel syndrome, left; Median nerve compression at elbow, left; Cubital tunnel syndrome, left; Left hand pain 08/23/2024 Travel 08/20/2024 11:45 AM CDT - 08/20/2024 12:35 PM CDT Surgery [facility] [address] [place] [address] Jaime Morel MD ENDOSCOPIC CARPAL TUNNEL RELEASE, CUBITAL TUNNEL RELEASE, LACERTUS RELEASE 08/20/2024 11:25 AM CDT Anesthesia Event [facility] [address] [place] [address] Jeronimo Godinez MD Mohrmann, Mackenzie, APRN-CORA 08/20/2024 10:15 AM CDT - 08/20/2024 2:16 PM CDT Hospital Encounter [facility] [address] [place] [address] Jaime Morel MD Surgery General Discharge Disposition: Home or Self Care 08/20/2024 Travel 08/19/2024 Orders Only [facility] - Orthopedics [address] [place] [phone] Jaime Morel MD Carpal tunnel syndrome, left ; Cubital tunnel syndrome, left 08/19/2024 Travel 08/16/2024 4:00 PM CDT - 08/16/2024 11:59 PM CDT Hospital Encounter [facility] [address] [place] [phone] Jaime Morel MD Discharge Disposition: Home or Self Care 08/16/2024 Travel 08/06/2024 Orders Only [facility] - Pulmonology [address] [place] [phone] Andrea Maciel MD 08/03/2024 3:30 PM CDT - 08/03/2024 11:59 PM CDT Hospital Encounter [facility] [address] [place] [phone] Mu Mendoza MD Herman, Laura, PT Discharge Disposition: Home or Self Care 08/02/2024 Refill [facility] - Neurology [address] [place] [phone] Stewart Coleman MD Refill Request 07/29/2024 2:00 PM CDT Office Visit [facility] - Orthopedics [address] [place] [phone] Jaime Morel MD Carpal tunnel syndrome, left (Primary Dx); Cubital tunnel syndrome, left; Compression of left median nerve at elbow 07/29/2024 Travel 07/08/2024 4:00 PM UNIT AID - 07/08/2024 11:59 PM UNIT AID Hospital Encounter [facility] [address] [place] [phone] Mu Mendoza MD Herman, Laura, PT Discharge Disposition: Home or Self Care 07/08/2024 Travel 07/07/2024 Refill [facility] - Pulmonology [address] [place] [phone] Christie Duran I., DO MEDICATION REFILL 07/04/2024 Refill [facility] - Neurology [address] [place] [phone] Stewart Coleman MD Refill Request 06/18/2024 1:30 PM UNIT AID Office Visit [facility] - Orthopedics [address] [place] [phone] Yasmin Torres MD Carpal tunnel syndrome, left (Primary Dx); Cubital tunnel syndrome, left; Median nerve compression at elbow, left 06/18/2024 Telephone [facility] - Orthopedics [address] [place] [phone] Yasmin Torres MD Surgery Scheduling 06/18/2024 Travel 06/15/2024 2:00 PM UNIT AID - 06/15/2024 11:59 PM UNIT AID Hospital Encounter [facility] [address] [place] [address] Mu Mendoza MD Herman, Laura, PT Discharge Disposition: Home or Self Care from Last 3 Months Immunizations Immunization Administration Dates Next Due Shoutitout primary monoval ent 12+ yr 0.3mL Purple cap 02/13/2021,01/23/2021 INFLUENZA VACCINE, QUADR. (F LUZONE; FLULAVAL; FLUARIX; AFLURIA QUADRIVALENT; 6MO+), 0.5 ML (IIV4) 01/01/2023,03/02/2021 PNEUMOCOCCAL PCV20 CONJ VAC IM 03/19/2022 PNEUMOCOCCAL PPV VACCINE 07/14/2013 iNFLUENZA VACCINE, RECOM-MEAD, QUADR. (FLUBLOCK QUADRIVALENT; 18Y+) (RIV4) 03/19/2022 Family History Medical History Relation Name Comments Cancer - Ovarian Maternal Grandmother Seizures Maternal Grandmother CAD (Coronary Artery Disease) Mother Depression Neg Hx Relation Name Status Comments Maternal Grandmother Mother Social History Tobacco Use Types Packs/Day Years Used Date Smoking Tobacco: Every Day Cigarettes 0.5 42.5 Started: 12/28/1982 Smokeless Tobacco: Never Tobacco Cessation:Ready to Q uit: No; Counseling Given: Yes Comments:07/23/22 Lung Cancer Screening Counseling Shared Decision [...] Recorded Patient Health Questionnaire-2 Score 3 05/12/2023 [facility] of Occupat ional Health - Occupational Stress [...] slept in a assisted (including now)? 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 Sex Female 5:33 AM UNIT AID Gender Identity Female 08/28/2021 5:51 PM CDT Sexual Orientation Straight 08/28/2021 5: 51 PM CDT Last Filed Vital Signs Vital Sign Reading Time Taken Comments Blood Pressure 111/76 08/20/2024 1:30 PM CDT Pulse 62 08/20/2024 1:30 PM CDT Temperature 36.3 C (97.4 F) 08/20/2024 1:02 PM CDT Respiratory Rate 18 08/20/2024 1:30 PM CDT Oxygen Saturation 94% 08/20/2024 1:30 PM CDT Inhaled Oxygen Concentration - - Weight 58.1 kg (128 lb 1.4 oz) 08/03/2024 3:00 P M CDT Height 152.4 cm (5') 08/13/2024 1:03 PM CDT Body Mass Index 25.02 08/03/2024 3:00 PM CDT Plan of Treatment Upcoming Encounters Date Type Department Care Team (Late st Contact Info) Description 09/06/2024 9:15 AM CDT Office Visit [facility] - Orthopedics [address] [place] [address], [place] [phone] Will Aragon, OPTICAL ENGINEER-INSURANCE OPERATIONS REP [address] [address] 09/13/2024 3:15 PM CDT Office Visit [facility] - ENT [address] [facility], [place] [phone] Flex Turcios MD [address] [facility] [address] [place] [address] 09/28/2024 3:30 PM CDT Office Visit [facility] - Pulmonology [address] [place] [address], [place] [phone] Andrea Maciel MD [address] [place] [address] 09/29/2024 4:00 PM CDT Office Visit [facility] - Neurology [address] [place] [address], [place] [phone] Marylu Forbes PA-C [address] [place] [address] Health Maintenance Due Date Last Done Comments COLOGUARD (AGES 45-75) - COLON CA SCREENING 1971 CT COLONOGRAPHY - COLON CA SCREENING 1971 FIT - COLON CA SCREENING 1971 FLEX SIG - COLON CA SCREENING 1971 MEDICARE AWV 12 MONTHS 1971 PAP SMEAR 1971 HIV SCREENING 07/24/1986 HEPATITIS C SCREENING 07/20/1989 DTAP/TDAP/TD VACCINES (1 - Tdap) 07/24/1990 HEPATITIS B VACCINE (1 of 3 - 19+ 3-dose series) 07/24/1990 ZOSTER VACCINE (1 of 2) 07/24/2021 LUNG CANCER SCREENING 09/12/2023 09/11/2022 COVID-19 VACCINE ( season) 2024 02/13/2021, 01/23/2021 DEPRESSION SCREENING 05/05/2024 06/03/2023, 03/19/2022, 10/10/2021, Additional history exists INFLUENZA VACCINE (Season Ended) 2025 01/01/2023, 03/19/2022, 03/02/2021 MAMMOGRAM 05/13/2025 05/13/2023, 01/2024, 02/13/2016, Additional history exists SCREENING FOR DIABETES 08/17/2027 , 01/29/2024, 09/11/2023, Additional history exists LIPID TESTING 02/12/2028 02/11/2023, 06/06, 04/08/2018 COLON MONITORING 09/10/2033 09/11/2023, 09/11/2023 COLONOSCOPY - COLON CA SCREENING 09/10/2033 09/11/2023, 09/11/2023 Colorectal Cancer Screening 09/10/2033 PNEUMOCOCCAL VACCINE 50+ Completed 03/19/2022, 07/03 HIB VACCINE Aged Out No longer eligi ble based on patient's age to complete this topic HPV VACCINE Aged Out No longer eligi ble based on patient's age to complete this topic MENINGOCOCCAL (Group B) VACCINE SHARED DECISION-MAKING Aged Out No longer eligible based on patient's age to complete this topic MENINGOCOCCAL GROUPS A/C/Y/W VACCINE Aged Out No longer eligible based on patient's age to complete this topic Goals Goal Patient Goal Type Associated Problems Recent Progress Patient-Stated? Author Medication Management General On track( 024 10:04 AM CDT) No Dottie Larson, RN Note: Expected end date: ongoing Interventions: Take all medications as prescribed Let your doctor know right away about any changes in your medications Make sure to request a refill of your medication at least one week prior to your last dose Procedures Procedure Name Priority Date/Time Associated Diagnosis Comments CARDIAC RHYTHM STRIP ORDER 08/24/2024 8:34 PM CDT LARYNGEAL MASK AIRWAY Routine 08/20/2024 11:39 AM CDT [place] WRIST ARTHROSCOP,RELEASE XVERS LIG 08/20/2024 10:55 AM CDT Diagnosis unknown Special Needs ## LATEX ALLERGY ## / NEEDS ARTHREX--REP. ([place] Mendoza # [phone]) NOTIFIED PER OFFICE (QUEDITH)--08/03 KW COMPREHENSIVE METABOLIC PANEL Routine 08/16/2024 4:25 PM CDT Carpal tunnel syndrome, left Cubital tunnel syndrome, left Compression of left median nerve at elbow CBC W AUTO DIFFERENTIAL Routine 08/16/2024 4:25 PM CDT Carpal tunnel syndrome, left Cubital tunnel syndrome, left Compression of left median nerve at elbow ENDOSCOPY, COLON, SCREENING Routine 09/11/2023 8:21 AM CDT MAMMO BILAT DIAGNOSTIC W CURTIS Routine 05/13/2023 9:48 AM UNIT AID Breast pain LIPID PROFILE Routine 02/11/2023 4:[address] LUNG SCREEN LOW DOSE Routine 09/11/2022 3:43 PM CDT Tobacco use disorder Nicotine dependence, cigarettes, uncomplicated from Last 3 Months or Most Recently Relevant to Health Maintenance Results * CARDIAC RHYTHM STRIP ORDER (08/24/2024 8:34 PM CDT) Narrative 08/24/2024 8:34 PM CDT Ordered by an unspecified provider. us Scanned Document CARDIAC SERVICES ORDERABLES Fin al Result * LARYNGEAL MASK AIRWAY (08/20/2024 11:39 AM CDT) Narrative Ynes Wild APRN-CRNA - 08/20/2024 11:39 AM CDT Ynes Wild APRN-CRNA 08/20/2024 11:39 AM LMA Placement Procedure/LDA Note: Patient Location: OR. LMA Insertion Date/Time: 08/20/2024 11:32 AM Procedure: LMA Pretreatment: 100% O2 Induction: standard IV Patient position: sniffing. Mask Ventilation: not attempted Type: LMA Size: 4 Number of Attempts: 1. Placement verified by: CO2 monitor, chest auscultation and bilateral breath sounds Dentition unchanged? Yes Procedure Start Time: 08/20/2024 11:32 AM. Staff Section Anesthesia Provider: Ynes Wild APRN-CRNA, Performed the procedure us Jeronimo Godinez MD GENERAL ANESTHESIA ORDERABL ES Final Result * (ABNORMAL) CBC W/ DIFFERENTIAL (08/16/2024 4:25 PM T) [facility] WBC 7.8 4.0 - 10.7 x10E9/L 08/16/2024 4:[address] [facility] RBC Count 4.64 3.90 - 5.20 x10E12/L 08/16/2024 4:[address] [facility] Hemoglobin 14.5 11.9 - 15.8 g/dL 08/16/2024 4:[address] [facility] Hematocrit 43.2 34.8 - 46.1 % 08/16/2024 4:[address] [facility] MCV 93.1 80.0 - 98.0 fL 08/16/2024 4:[address] [facility] MCH 31.3 26.7 - 33.6 pg 08/16/2024 4:[address] [facility] MCHC 33.6 31.7 - 36.3 g/dL 08/16/2024 4:[address] [facility] RDW-CV 14.2 11.3 - 14.8 % 08/16/2024 4:[address] [facility] Platelet Count 280 150 - 420 x10E9/L 08/16/2024 4:[address] [facility] MPV 9.1 7.8 - 11.4 fL 08/16/2024 4:[address] [facility] Neutrophil % 31.6(L) 41.0 - 74.0 % 08/16/2024 4:[address] [facility] Lymphocyte % 51.5(H) 17.0 - 47.0 % 08/16/2024 4:[address] [facility] Monocyte % 15.2(H) 3.0 - 11.0 % 08/16/2024 4:[address] [facility] Eosinophil % 0.8 0.0 - 7.0 % 08/16/2024 4:[address] [facility] Basophil % 0.6 0.0 - 1.6 % 08/16/2024 4:[address] [facility] Immature Granulocytes % 0.3 0.0 - 1.0 % 08/16/2024 4:59 PM T [facility] Neutrophil Absolute 2.46 1.60 - 7.50 x10E9/L 08/16/2024 4:[address] [facility] Lymphocyte Absolute 4.00 1.00 - 4.40 x10E9/L 08/16/2024 4:[address] [facility] Monocyte Absolute 1.18(H) 0.15 - 1.00 x10E9/L 08/16/2024 4:[address] [facility] Eosinophil Absolute 0.06 0.00 - 0.60 x10E9/L 08/16/2024 4:[address] [facility] Basophil Absolute 0.05 0.00 - 0.13 x10E9/L 08/16/2024 4:[address] [facility] Blood BLOOD SPECIMEN / Unknown Lab Venipuncture / Unknown 08/16/2024 4:25 PM CDT 08/16/2024 4:52 PM CDT us Jaime Morel MD LAB - HEMATOLOGY ORDERABLES Aurora l Result [facility] [address] [place] [id number], [facility] [phone] * (ABNORMAL) COMPREHENSIVE METABOLIC PANEL (08/16/2024 4:25 PM CDT) BUN 15 7 - 26 mg/dL 08/16/2024 5:[address] [facility] Creatinine 0.96 0.56 - 0.96 mg/dL 08/16/2024 5:[address] [facility] Sodium 139 136 - 145 mmol/L 08/16/2024 5:[address] [facility] Potassium 4.1 3.5 - 4.5 mmol/L 08/16/2024 5:[address] [facility] Chloride 102 98 - 107 mmol/L 08/16/2024 5:[address] [facility] CO2 27 22 - 29 mmol/L 08/16/2024 5:[address] [facility] Glucose 86 70 - 99 mg/dL 08/16/2024 5:[address] [facility] Calcium 8.9 8.4 - 10.2 mg/dL 08/16/2024 5:[address] [facility] Protein Total 7.1 6.0 - 8.3 g/dL 08/16/2024 5:[address] [facility] Albumin 3.8 3.4 - 5.0 g/dL 08/16/2024 5:[address] [facility] Bilirubin Total 0.2 0.2 - 1.2 mg/dL 08/16/2024 5:[address] [facility] Alkaline Phosphatase 66 40 - 150 U/L 08/16/2024 5:[address] [facility] ALT 19 5 - 55 U/L 08/16/2024 5:[address] [facility] AST 18 5 - 34 U/L 08/16/2024 5:[address] [facility] Anion Gap 10 6 - 16 08/16/2024 5:[address] [facility] BUN/Creatinine Ratio 16 7 - 23 08/16/2024 5:[address] [facility] Osmolality Calculated 288 275 - 295 mOsm/kg 08/16/2024 5:[address] [facility] Albumin/Globulin Ratio 1.2 1.1 - 2.3 08/16/2024 5:[address] [facility] eGFR by CKD-EPI 71(L) >=90 mL/min/1.7 3 m2 08/16/2024 5:[address] [facility] Blood BLOOD SPECIMEN / Unknown Lab Venipuncture / Unknown 08/16/2024 4:25 PM CDT 08/16/2024 4:52 PM CDT us Jaime Morel MD LAB - CHEMISTRY ORDERABLES Final Result [facility] [address] [place] [id number], [facility] [phone] * ENDOSCOPY, COLON, SCREENING (09/11/2023 8:21 AM CDT) Report Endoscopy POC Endoscopy Department Report _ Patient Name: Naa Mims Procedure Date: 09/11/2023 8:21 AM Date of : 1970 Classification: Outpatient Gender: Female Ethnicity: Not or Race: White _ Providers: Annabelle Martinez MD Referring MD: Zoey Membreno MD (Referring MD) Procedure: Colonoscopy Indications: Screening for colorectal malignant neoplasm Medications: Propofol per Anesthesia Description of Procedure: Pre-Anesthesia Assessment: - Prior to the procedure, a History and Physical was performed, and patient medications and allergies were reviewed. The patient's tolerance of previous anesthesia was also reviewed. The risks and benefits of the procedure and the sedation options and risks were discussed with the patient. All questions were answered, and informed consent was obtained. Prior Anticoagulants: The patient has taken no anticoagulant or antiplatelet agents except for aspirin. ASA Grade Assessment: II - A patient with mild systemic disease. After reviewing the risks and benefits, the patient was deemed in satisfactory condition to undergo the procedure. After I obtained informed consent, the scope was passed under direct vision. Throughout the procedure, the patient's blood pressure, pulse, and oxygen saturations were monitored continuously. The Colonoscope was introduced through the anus and advanced to the cecum, identified by appendiceal orifice and ileocecal valve. The colonoscopy was performed with difficulty due to tight turn at sigmoid which required position change and changing to pediatric colonoscope. The patient tolerated the procedure well. The quality of the bowel preparation was fair. The ileocecal valve, appendiceal orifice, and rectum were photographed. Findings: The perianal and digital rectal examinations were normal. Four sessile polyps were found in the sigmoid colon (2-cold snare ), transverse colon (1 cold snare) and ascending colon (biopsied as may be a fold). The polyps were 2 to 6 mm in size. These polyps were removed with a cold snare and cold biopsies. Resection and retrieval were complete. Non-bleeding external and internal hemorrhoids were found during retroflexion. The hemorrhoids were mild. The exam was otherwise without abnormality on direct and retroflexion views. Estimated Blood Loss: Estimated blood loss: none. Complications: No immediate complications. Impression: - Preparation of the colon was fair. - Four 2 to 6 mm polyps in the sigmoid colon, in the transverse colon and in the ascending colon, removed with a cold snare. Resected and retrieved. - Non-bleeding external and internal hemorrhoids. - The examination was otherwise normal on direct and retroflexion views. - Tight sigmoid angulation-> required position change and pediatric colonoscope. Recommendation: - Patient has a contact number available for emergencies. The signs and symptoms of potential delayed complications were discussed with the patient. Return to normal activities tomorrow. Written discharge instructions were provided to the patient. - High fiber diet for the rest of the patient's life. - Continue present medications. - Await pathology results. - Repeat colonoscopy date to be determined after pending pathology results are reviewed for surveillance based on pathology results. - Return to GI clinic as previously scheduled. Attending Participation: I personally performed the entire procedure. Procedure Code(s): --- Professional --- 42202, Colonoscopy, flexible; with removal of tumor(s), polyp(s), or other lesion(s) by snare technique Diagnosis Code(s): --- Professional --- Z12.11, Encounter for screening for malignant neoplasm of colon K64.8, Other hemorrhoids D12.5, Benign neoplasm of sigmoid colon D12.3, Benign neoplasm of transverse colon (hepatic flexure or splenic flexure) D12.2, Benign neoplasm of ascending colon CPT copyright 2021 [employer]. All rights reserved. The codes documented in this report are preliminary and upon brush operator review may be revised to meet current compliance requirements. Annabelle Martinez MD 09/11/2023 9:05:13 AM Note Initiated On: 09/11/2023 8:21 AM Number of Addenda: 0 [facility] [address] [place] [address] [facility] 09/11/2023 8:21 AM CDT Annabelle Martinez MD GI PROCEDURE ORDERABLES Ed ited Result - Final [facility] * MAMMO BILAT DIAGNOSTIC W CURTIS (05/13/2023 9:48 AM [facility]) Anatomical Region Laterality Modality Breast Bilateral Mammography 05/13/2023 9:43 AM [facility] Impressions 05/13/2023 10:39 AM [facility] : 1.No mammographic evidence of malignancy in either breast. 2. 3.Right 11:00, 7 cm from the nipple, and island of normal fibroglandular breast tissue correlates to the patient's palpable abnormality and is benign. RECOMMENDATION: Screening mammography recommended in one year, pending no interval breast concerns. Dr. Edwards discussed the examination findings and recommendations with the patient at the time of the examination. OVERALL ASSESSMENT: BI-RADS CATEGORY 1: NEGATIVE. > Dictated by Faviola Pierre M.D. (vice president of advertising). Dr. Enrike Spangler (vice president of advertising) assisted in the evaluation and interpretation of the study. I, Giovanna Edwards DO have personally reviewed and interpreted this examination/study. > Interpreting Provider: Giovanna Edwards DO on 05/13/2023 10:39 AM Narrative 05/13/2023 10:39 AM [facility] EXAMINATIONS: 1. BILATERAL DIGITAL DIAGNOSTIC MAMMOGRAM AND TOMOSYNTHESIS WITH CAD AND 2. LIMITED RIGHT BREAST ULTRASOUND (COMBINED REPORT) LOCATION: [facility] EXAM DATE: 05/13/2023 HISTORY: 52-year-old female presenting with a right breast lump that has been felt for one year with associated pain. Past medical history includes cervical cancer at the age of 21 and uterine cancer at age 31, status post bilateral oophorectomies. RISK ASSESSMENT CALCULATION: Patient completed a breast cancer risk assessment during her appointment 05/13/2023. Based upon the information she provided and her mammographic breast density, her lifetime risk of developing breast cancer is 11% (Average Risk <15%; Intermediate / Moderate Risk 15-19%; High Risk > 20%). COMPARISON: Prior mammogram dated 05/08/2021. MAMMOGRAM: TECHNIQUE: Diagnostic bilateral mammography was performed.Tomosynthesis (3D) and reconstructed synthetic 2-D images acquired. Bilateral craniocaudal, bilateral mediolateral oblique, right true lateral, right craniocaudal spot compression, and right MLO spot compression projections obtained. A total of 7 images were obtained. Triangular-shaped marker placed on a palpable abnormality in the right breast. Computer-aided detection (CAD) was utilized. BREAST COMPOSITION: Category A: The breasts are almost entirely fatty. FINDINGS: There are no suspicious findings or mammographic evidence of malignancy. There is a radiopaque triangle marker on the skin of the upper outer right breast, indicating the site of patient's palpable abnormality. Subadjacent to the radiopaque marker, there is a dense island of fibroglandular breast tissue. This correlates to the area of palpable concern. There is no significant change from the prior study. LIMITED RIGHT BREAST ULTRASOUND: Scanning performed from the 10 to the 11 o'clock areas. FINDINGS: There is no discrete mass, architectural distortion or suspicious calcifications. No mammographic evidence of malignancy is noted in the right breast. At right 11:00, the nipple, correlating to the patient's palpable area of concern, there is a dense island of normal fibroglandular breast tissue. This correlates to the mammographic area of interest and to the patient's palpable abnormality. us Provider Unknown MAMMO ORDERABLES Final Result * (ABNORMAL) LIPID PROFILE (02/11/2023 4:47 PM CDT) Cholesterol Total 251(H) <200 mg/dL 02/11/2023 5:47 PM [facility] HDL 92 >40 mg/dL 02/11/2023 5:[address] [facility] Comment: ATP III Classification of HDL Cholesterol: <40 mg/dL: Considered a major risk factor. >60 mg/dL: Considered a negative risk factor. LDL Calculated 140(H) <100 mg/dL 02/11/2023 5:47 PM T [facility] Comment: ATP III Classification of LDL Cholesterol: <100 mg/dL: Optimal 100 - 129 mg/dL: Near Optimal/Above Optimal 130 - 159 mg/dL: Borderline High 160 - 189 mg/dL: High >190 mg/dL: Very High Triglycerides 93 <150 mg/dL 02/11/2023 5:47 PM CDT [facility] Comment: ATP III Classification of Triglycerides: <150 mg/dL: Normal 150 - 199 mg/dL: Borderline High 200 - 400 mg/dL: High >500 mg/dL: Very High Blood BLOOD SPECIMEN / Unknown Lab Venipuncture / Unknown 02/11/2023 4:47 PM CDT 02/11/2023 5:15 PM CDT us Nikki Peace MD LAB - CHEMISTRY ORDERABLES Fin al Result [facility] [address] [place] [id number], [facility] [phone] * CT LUNG SCREEN LOW DOSE (09/11/2022 3:43 PM CDT) Anatomical Region Laterality Modality Chest Computed Tomogra phy 09/11/2022 3:50 PM CDT Impressions 09/11/2022 4:05 PM CDT Impression: 1.No suspicious pulmonary nodule identified. Lung RADS 1: Follow-up in 12 months is recommended. 2.New mild compression deformity of T7. ACR Lung-RADS Category/Recommendations: 0: Need prior comparisons or additional images 1: Negative: 12 month follow up LDCT (Low Dose CT) 2: Benign Appearin month follow up LDCT 3: Probably Benign: 6 month follow up LDCT 4A: Suspicious: 3 month follow up LDCT (or immediate PET if >7mm solid component) 4B: Suspicious: Immediate Chest CT or PET if >7mm solid component 4X: Cat 3 or 4A nodules with additional suspicious findings Modifier- S : Significant NON-lung cancer findings For details of the ACR Lung-RADS program, categories and recommendations: 1) https://www.acr.org/Quality-Safety/Resources/LungRADS 2) Internet search: Lung-RADS Lung Cancer Screening 3) Contact [facility] thoracic nurse coordinator ([phone]) > Dictated by Robbi Castro MD, PhD (vice president of advertising). I, Elian Espinoza MD have personally reviewed and interpreted this examination/study. > Interpreting Provider: Elian Espinoza MD on 09/11/2022 4:05 PM Narrative 09/11/2022 4:05 PM CDT PROCEDURE: CT LUNG SCREEN LOW DOSE, DATE/TIME OF EXAM: 09/11/2022 3:43 PM, LOCATION [facility] INDICATION: F17.200: Tobacco use disorder F17.210: Nicotine dependence, cigarettes, uncomplicated COMPARISON: CT chest with contrast from 09/20/2021. TECHNIQUE: CT of the chest was performed without contrast according to a low dose protocol. Findings: Evaluation of visceral and vascular structures is degraded due to lack of intravenous contrast administration. Lower Neck and Axillae: The thyroid gland is normal. There is no lymphadenopathy visualized. Lungs: Redemonstrated mild centrilobular emphysematous changes. No pleural fluid or pneumothorax is present. No suspicious pulmonary nodules are identified. Heart and Pericardium: The cardiac chambers are normal in size. No pericardial fluid or thickening is present. Mediastinum and Ramona: No enlarged lymph nodes are present. Redemonstrated partially calcified left perihilar lymph node. Thoracic Vasculature: No vascular abnormality is present. Bones: No acute fracture or suspicious lesions. Mild anterior compression wedge deformity of new T7 and existing T9 vertebral bodies; both with 50% height loss. Soft Tissues: Normal. Upper Abdomen: The visible portions of the upper abdominal organs are normal. Procedure Note Elian Espinoza MD - 09/11/2022 PROCEDURE: CT LUNG SCREEN LOW DOSE, DATE/TIME OF EXAM: 09/11/2022 3:43PM, LOCATION [facility] INDICATION: F17.200: Tobacco use disorder F17.210: Nicotine dependence, cigarettes, uncomplicated COMPARISON: CT chest with contrast from 09/20/2021. TECHNIQUE: CT of the chest was performed without contrast according to a low dose protocol. Findings: Evaluation of visceral and vascular structures is degraded due to lackof intravenous contrast administration. Lower Neck and Axillae: The thyroid gland is normal. There is no lymphadenopathy visualized. Lungs: Redemonstrated mild centrilobular emphysematous changes. No pleuralfluid or pneumothorax is present. No suspicious pulmonary nodules areidentified. Heart and Pericardium: The cardiac chambers are normal in size. No pericardial fluid orthickening is present. Mediastinum and Ramona: No enlarged lymph nodes are present. Redemonstrated partially calcified left perihilar lymph node. Thoracic Vasculature: No vascular abnormality is present. Bones: No acute fracture or suspicious lesions. Mild anterior compression wedge deformity of new T7 and existing T9 vertebral bodies; both with 50%height loss. Soft Tissues: Normal. Upper Abdomen: The visible portions of the upper abdominal organs are normal. Impression: 1.No suspicious pulmonary nodule identified. Lung RADS 1: Follow-up in12 months is recommended. 2.New mild compression deformity of T7. ACR Lung-RADS Category/Recommendations: 0: Need prior comparisons or additional images 1: Negative: 12 month follow up LDCT (Low Dose CT) 2: Benign Appearin month follow up LDCT 3: Probably Benign: 6 month follow up LDCT 4A: Suspicious: 3 month follow up LDCT (or immediate PET if >7mm solid component) 4B: Suspicious: Immediate Chest CT or PET if >7mm solid component 4X: Cat 3 or 4A nodules with additional suspicious findings Modifier- S : Significant NON-lung cancer findings For details of the ACR Lung-RADS program, categories andrecommendations: 1) https://www.acr.org/Quality-Safety/Resources/LungRADS 2) Internet search: Lung-RADS Lung Cancer Screening 3) Contact [facility] thoracic nurse coordinator ([phone]) > Dictated by Robbi Castro MD, PhD (vice president of advertising). I, Elian Espinoza MD have personally reviewed and interpreted this examination/study. > Interpreting Provider: Elian Espinoza MD on 09/11/2022 4:05 PM Mu Mendoza MD CT ORDERABLES Final Result from Last 3 Months or Most Recently Relevant to Health Maintenance Insurance MEDICARE [facility] MEDICARE Advance Directives * Full Code (Latest Code Status on File) Date Activated Date Inactivated Comments 08/18/2023 12:15 PM 08/22/2023 1:23 PM * Full Code Date Activated Date Inactivated Comments 06/25/2021 4:26 PM 06/30/2021 3:09 PM * Full Code Date Activated Date Inactivated Comments 06/25/2021 4:47 AM 06/25/2021 7:12 AM * Full Code Date Activated Date Inactivated Comments 10/12/2018 10:49 AM 10/14/2018 4:30 PM Care Teams Circular Saw Filer Relationship Specialty Start Date End Date Liana Bonilla APNP-[address] [address] PCP - General Family Medicine 08/20/24
--- OUTSIDE RECORDS SUMMARY | 2024-09-02 18:00 | XMS_ITS | Clinical Summary ---
Author Organization [facility] Address [address] [place] [address] Care Team Providers Care Office Administrative Assistant Name Role Phone Zoey Membreno MD Primary Care Provider [phone] Allergies Active Allergy Reactions Criticality Noted Date Comments Bupropion Shakiness,Other (see comment),Hallucinatio ns High 08/22/2017 Exacerbated seizures, and induced paranoia Exacerbated seizures, and induced paranoia Exacerbated seizures, and induced paranoia seizures Cephalexin Anaphylaxis,Unknown High 05/21/2017 Ciprofloxacin Anaphylaxis High 07/02/2016 Levetiracetam Other (see comment) High 06/19/2018 seizures Penicillins Hives,Anaphylaxis High 12/02/2011 Sertraline Seizure,Hallucinatio n s High 01/20/2018 Seizures Ketorolac Tromethamine Vomiting 01/19/2020 Tramadol Vomiting 11/10/2017 Medications albuterol sulfate HFA (PROAIR HFA) 108 (90 BASE) MCG/ACT inhaler Inhale 2 puffs into the lungs every 6 (six) hours as needed for Wheezing. Active vitamin D2, ergocalciferol, 68749 UNITS capsule Take 50,000 Units by mouth every 7 days. GIVE ON FRIDAY Active dicyclomine 20 MG tablet Take 20 mg by mouth every 6 (six) hours as needed (ABDOMINAL PAIN). Active omeprazole 20 MG capsule Take 20 mg by mouth 2 (two) times a day. Active busPIRone 10 MG tablet Take 10 mg by mouth 3 (three) times daily. Active aspirin 81 MG chewable tablet Chew 81 mg by mouth daily. Active Cyanocobalamin (VITAMIN B-12) 2000 MCG Tab CR Take 1 tablet by mouth daily. Active acyclovir 400 MG tablet Take 400 mg by mouth 2 (two) times daily. 08/19/19 18 Active clonazePAM 1 MG tablet Take 1 mg by mouth every morning. Active cyclobenzaprine 10 MG tablet Take 10 mg by mouth 3 (three) times daily as needed for Muscle Spasms. Active thiamine 100 MG Tab Take 100 mg by mouth daily. Active vitamin C 500 MG tablet Take 500 mg by mouth daily. Active sodium chloride 0.9 % SOLN 100 mL with ascorbic acid 500 MG/ML SOLN 1.5 g Active CHOLECALCIFEROL OR A ctive phenytoin ER 100 MG capsule 3 PO Qday 06/07/19 14 Active prazosin 2 MG capsule TK 1 C PO HS 1 02/11/20 18 Active Umeclidinium [place] (INCRUSE ELLIPTA) 62.5 MCG/INH AEROSOL POWDER, BREATH ACTIVATED Inhale into the lungs daily. 10/14/19 18 Active valACYclovir 1 g tablet Take 1,000 mg by mouth. Active guaifenesin 12 hr (MUCINEX) 600 MG 12 hr tablet Take 2 tablets (1,200 mg total) by mouth 2 (two) times daily. 28 tablet 06/15/19 19 Active cetirizine 10 MG tablet cetirizine 10 mg tablet Active Glutamine 500 MG Cap Take 2,100 mg by mouth. Active ondansetron 4 MG disintegrating tablet ondansetron 4 mg disintegrating tablet Active fluticasone propionate (FLONASE) 50 MCG/ACT nasal sprayIndications:E nvironmental and seasonal allergies 1 spray by Nasal route daily. 16 g 6 11/17/19 19 Active FLUTICASONE-SALMET WOLF 232-14 MCG/ACT AEROSOL POWDER, BREATH ACTIVATEDIndicatio ns:Chronic obstructive pulmonary disease, unspecified COPD type ([facility]) INHALE 1 PUFF INTO THE LUNGS TWICE DAILY 1 each 5 11/15/19 20 Active montelukast 10 MG tabletIndications: Environmental and seasonal allergies Take 1 tablet (10 mg total) by mouth nightly at bedtime. at bedtime 30 tablet 03/27/20 Active Aspirin Buf,CaCarb-MgCarb- MgO, 81 MG Tab Take 81 mg by mouth daily. Active BUpivacaine 0.5 % 0.5 % injection 06/26/19 Active Catheter Syringes (BD CATHETER TIP SYRINGE) 60 ML Misc 1 Units by Intravesical route. 07/15/19 Active Catheters (BARD RUBBER UTILTY CATHETER) Misc 1 Units by Intravesical route. 06/26/19 Active DOK 100 MG capsule Take 100 mg by mouth 2 (two) times daily. 05/01/20 Active Heparin Sodium, Porcine, (HEPARIN, PORCINE,) 82524 UNIT/ML injection 10,000 Units by Intravesical route. 05/29/19 Active SYRINGE-NEEDLE, DISP, 3 ML (B-D 3CC LUER-DAYNE SYR 21GX1 ) 21G X 1 3 ML Misc USE DIRECTED 2 TIMES A WEEK WITH HEPARIN 05/04/20 Active tamsulosin 0.4 MG Cap TAKE 1 CAPSULE BY MOUTH EVERY DAY (AT THE SAME TIME EVERY DAY AFTER A MEAL) 09/01/19 Active pregabalin 150 MG capsule Take 150 mg by mouth 2 (two) times daily. 05/19/19 Active furosemide Tab 10 mg (20 mg split tab)Indications:Bi lateral leg edema Take 2 split tab (20 mg total) by mouth daily. 5 tablet 10/28/19 Active omeprazole 40 MG capsule 12/07/19 Active nicotine 14 MG/24HRIndications :Cigarette nicotine dependence with nicotine-induced disorder Place 1 patch (14 mg total) onto the skin daily. 14 patch 1 12/09/19 Active Active Problems Patient Care Coordination No te Formatting of this note migh t be different from the original. PT precautions: Seizure precautions - sublingual medication for seizures is carried in patient's purse. 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 Hx stroke Fall Risk. Hx of cancer in [id number] with surgical removal no chemo or radiation. Current esophageal cancer currently taking preventive medication, Hardware in R ankle. 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 Present on admission. Right sided 4mm stone stuck at the uterovesicular junction. Also right sided pyelonephritis. -Urology consult -follow up blood cultures and urine cultures -toradol 15 mg q6 hr scheduled for pain control -LR at 150 cc/hr -levaquin 500 mg daily due to allergies to cephalosporins and penicillins -holding home acyclovir as these can precipitate stones COPD (chronic obstructive pu lmonary disease) ([facility]) 10/26/2017 Assessment & Plan (10/26/2017 4:36 AM CDT): Chronic. Controlled. -Continue home inhalers -counseled on smoking cessation Seizure ([facility]) 10/26/2017 Assessment & Plan (03/31/2018 8:08 PM [employer]HROOM [employer]PAWN [employer]): Assessment & Plan (10/26/2017 4:36 AM CDT): Chronic. Controlled -continue home topiramate Depression 10/11/2017 Hemiplegic migraine without status migrainosus, not intractable 10/11/2017 Anxiety 07/14/2017 Chronic obstructive asthma ([facility]) 04/2018 ADORE (obstructive sleep apnea) 07/14/2017 Personal history of solitary pulmonary nodule Resolved Problems Problem Noted Date Diagnosed Date Resolved Date Encounter for preventive health examination 07/03/2017 01/14/2020 Immunizations Immunization Administration Dates Next Due Fluarix (IIV4) 04/01/2018 Family History Medical History Relation Comments Depression Mother Diabetes Mother Heart Disease Mother Hypertension Mother Kidney Disease Mother Mental Health Mother Relation Status Comments Mother Alive Social History Tobacco Use Types Packs/Day Years Used Date Smoking Tobacco: Every Day Cigarettes 0.5 35 Started: 04/30/1983; Last attempted to quit: 04/30/2018 Smokeless Tobacco: Never Tobacco Cessation:Ready to Q uit: Yes; Counseling Given: Yes Alcohol Use Standard Drinks/Week Comments No 0 (1 standard drink = 0.6 oz pur e alcohol) Comments No Sex and Gender Information Value Date Recorded Sex Assigned at Not on file Legal Sex Female 6:54 PM CDT Gender Identity Not on file Sexual Orientation Not on file Last Filed Vital Signs Vital Sign Reading Time Taken Comments Blood Pressure 129/89 12/08/2020 9:47 AM CDT Pulse 88 12/08/2020 9:47 AM CDT Temperature 36.7 C (98.1 F) 12/08/2020 9:47 AM CDT Respiratory Rate 18 12/08/2020 9:47 AM CDT Oxygen Saturation 95% 12/08/2020 9:47 AM CDT ra Inhaled Oxygen Concentration - - Weight 71.2 kg (157 lb) 12/08/2020 9:47 AM CDT Height 152.4 cm (5') 03/20/2020 9:47 PM [employer] Body Mass Index 30.66 03/20/2020 9:47 PM [employer] Plan of Treatment Health Maintenance Due Date Last Done Comments ASCVD Statin 1971 Colorectal Cancer Screening Colonoscopy (10 Years) 1971 EGD-Grimm's Surveillance 1971 Annual Physical 07/24/1974 Hepatitis C 07/24/1989 DTaP, Tdap and Td Vaccines ( 1 - Tdap) 07/24/1990 Hepatitis B Vaccines (1 of 3 - 19+ 3-dose series) 07/24/1990 Pneumococcal Vaccine: 50+ Ye ars (1 of 2 - PCV) 07/24/1990 Mammogram Screening 2011 ASCVD LDL 04/08/2019 04/08/2018 Zoster Vaccines (1 of 2) 07/24/2021 COVID-19 Vaccine (2023-2 5 season) 2024 Meningococcal B Vaccine Aged Out No l onger eligible based on patient's age to complete this topic Meningococcal Vaccine Aged Out No cecil cathleen eligible based on patient's age to complete this topic RSV Immunizations Under 20 Months Aged Out No longer eligible based on patient's age to complete this topic Medical Devices Implanted Type Area Dorr Operator Device Identifier Shelf Expiration Date Model / Serial / Lot Stent Implanted:Qty: 1 on 10/26/2017 by Axel Whitfield MD at [facility] Right: Ureter 03/14/2022 [id number] / / [id number] Explanted Type Area Dorr Operator Device Identifier Shelf Expiration Date Model / Serial / Lot Stent Implanted:Qty: 1 Explanted:Qty: 1 on 10/26/2017 by Axel Whitfield MD at [facility] Right: Ureter 02/21/2022 [id number] / / [id number] Procedures Procedure Name Priority Date/Time Associated Diagnosis Comments LIPID PANEL Routine 04/08/2018 1:30 PM [employer] Encounter for screening for lipoid disorders COLONOSCOPY Routine [employer] from Last 3 Months or Most Recently Relevant to Health Maintenance Results * (ABNORMAL) LIPID PANEL (04/08/2018 1:30 PM [employer]) CHOLESTEROL 170 <200 MG/DL 04/08/2018 7:27 PM [employer] [facility] TRIGLYCERIDES 41 <150 MG/DL 04/08/2018 7:27 PM [employer] [facility] HDL 59 >40.0 MG/DL 04/08/2018 7:27 PM [facility] LDL (CALCULATED) 103(H) <100 MG/DL 04/08/2018 7:27 PM [facility] NON HDL CHOLESTEROL 111 <130 MG/DL 04/08/2018 7:27 PM [facility] CHOL/HDL RATIO 2.9 0.0 - 4.5 04/08/2018 7:27 PM [employer] [facility] VLDL CALCULATION 8 5 - 55 MG/DL 04/08/2018 7:27 PM [facility] LIPID INTERPRETATION 04/08/2018 7:27 PM [facility] Comment: [facility] CONCENSUS REPORT RECOMMENDATIONS: ADULT CHILD LOW RISK: CHOLESTEROL <200 <170 TRIGLYCERIDE <150 --- HDL >=60 --- LDL <100 <110 BORDERLINE: CHOLESTEROL 200-239 170-199 TRIGLYCERIDE 150-199 --- HDL 40-59 --- LDL 100-159 110-129 HIGH RISK: CHOLESTEROL >=240 >=200 TRIGLYCERIDE >=200 --- HDL <40 --- LDL >=160 >=130 04/08/2018 1:30 PM [employer]HR[employer] Tex Barboza [facility] Final Result [facility] [address] [place] [address], * Colonoscopy ( [employer]) Narrative [facility] TO EPIC CONVERSION - [employer] Documented hx of procedure Procedure Note Bladimir Byrne MD - 03/08/2018 Documented hx of procedure us Generic Conversion Md BYRNE GI PROCEDURE ORDERABLES Final Result [facility] TO EPIC CONVERSION from Last 3 Months or Most Recently Relevant to Health Maintenance Insurance MEDICAID Advance Directives * Full Code (Latest Code Status on File) Date Activated Date Inactivated Comments 03/31/2018 7:55 PM 04/01/2018 8:28 PM * Full Code Date Activated Date Inactivated Comments 10/26/2017 5:14 AM 10/26/2017 8:16 PM Care Teams Office Administrative Assistant Relationship Specialty Start Date End Date Zoey Membreno MD [address] [place] [address] PCP - General 09/16/16
--- OUTSIDE RECORDS SUMMARY | 2024-09-02 18:01 | XMS_ITS | Data Portability ---
Author Organization MD [employer] , [facility] Address [address] [place] [address] Care Team Providers Care Services Program Manager Name Role Phone [facility] Customer Success Specialist Assessment No assessment recorded. Plan of Treatment Reminders Order Date Submit Date Provider Last Modified By Organization Details Last Modified Time Details Appointments None recorded. Lab culture, urine 2023 024 [employer] [facility], [address] [place], [address], 4 16:46:36 unlisted lab - basic metabolic panel 2023 024 [facility], [address] [place], [address], 4 10:59:49 estradiol, serum 2023 024 [employer] [facility], [address] [place], [address], 4 16:46:35 testostero ne, free + total, serum 2023 024 [employer] [facility], [address] [place], [address], 4 16:46:36 HPV E6+E7 mRNA, qualitativ e PCR, cervix 2022 023 [facility], [address] [place], [address], 3 16:01:37 pap, LB 2022 023 [facility], [address] [facility], [place], [address], 3 18:37:19 Referral None recorded. Procedures None recorded. Surgeries None recorded. Imaging MAMMO, screening, digital, bilateral 2023 024 [facility], [address] [place] [address], [address], 4 17:55:18 MAMMO, diagnostic , digital, bilateral [email or web address] Central Count Includes [facility], [address] [place] [address], [address], 3 15:43:45 Medication Orders Macrobid 100 mg capsule 2023 024 [id number], [address] [place], [place], [id number], 4 13:23:50 Vivelle-Do t 0.05 mg/24 hr transderma l patch 2023 024 [facility]64490, [address] [facility], [place], [place], [id number], 4 13:28:55 Estrace 0.01% (0.1 mg/gram) vaginal cream 2023 024 [id number], [address], [place], [id number], 4 13:30:57 Patient TargetsNo targets recorded. Patient Instructions Encounter Date Encounter Id Patient Instructions Last Modified By Organization Details Last Modified Time 09/09/2023 [id number] Urinary Tract Infection (UTI) in Women: Care Instructions Not available 09/09/2023 13:23:43 body mass index: care instructions Not available 09/09/2023 13:22:14 mammogram: about this test Not available 09/09/2023 13:22:15 Reason for Referral None Reported. Results Created Date Observation Date Name Description Value Unit Range Abnormal Flag Note LastModifiedBy Organization Detail LastModifiedTime 01/23/2001/22/2023 HPV HIGH RISK HPV high risk Negati ve negati ve normal The HPV High Risk assay is inten ded for use as co-te sting with cytol ogy and not as a subst itute for regul ar cervi umberto cytol ogy scree sara. This assay is not inten ded for use as a scree sara devic e for women under age 30 with jovany l cervi umberto cytol ogy. Not Available [address], [address], 01/22/2023 16:01:37 01/22/20 23 01/24/2023 THINP REP TIS PAP clinical information: normal None given Not Available [facility] [address] [place], [address], 01/24/2023 18:37:19 01/22/20 23 01/24/2023 THINP REP TIS PAP LMP: normal None given Not Available [facility] [employer] [address] [place], [address], 01/24/2023 18:37:19 01/22/20 23 01/24/2023 THINP REP TIS PAP prev. Pap: normal None given Not Available [facility] [address] [address] [place], [address], 01/24/2023 18:37:19 01/22/20 23 01/24/2023 THINP REP TIS PAP prev. BX: normal None given Not Available [facility] [address] [place], [address], 01/24/2023 18:37:19 01/22/20 23 01/24/2023 THINP REP TIS PAP source: normal Vagin a Not Available [address] [address] [place], [address], 01/24/2023 18:37:19 01/22/2001/24/2023 THINP REP TIS PAP statement of adequacy: normal SATIS FACTO RY FOR EVALU ATION Not Available [address] [address] [place], [address], 01/24/2023 18:37:19 01/22/20 23 01/24/2023 THINP REP TIS PAP interpretati on/result: normal Cytol ogy Resul ts: Negat tatiana for intra epith elial lesio n or malig tevin . Not Available [address] [address] [place], [address], 01/24/2023 18:37:19 01/22/20 23 01/24/2023 THINP REP TIS PAP comment: normal This Pap test has been evalu ated with compu ter alicia lemus techn ology . Not Available [address] [address] [place], [address], 01/24/2023 18:37:19 01/22/2001/24/2023 THINP REP TIS PAP cytotechnolo gist: normal TMK, CT( CP) CT scree sara locat ion: [place] [address] [address] [place] [address] Not Available [address] [address] [place], [address], 01/24/2023 18:37:19 01/22/20 23 01/24/2023 THINP REP TIS PAP comment EXPLA NATOR Y NOTE: The Pap is a scree sara test for cervi umberto cance r. It is not a diagn ostic test and is subje ct to false negat tatiana and false posit tatiana resul ts. It is most relia ble when a satis facto ry sampl e, regul tana obtai santo, is submi tted with relev ant clini umberto findi ngs and histo ry, and when the Pap resul t is evalu ated along with histo john and curre nt clini umberto infor matainsley n. Not Available [facility] [address] [address], [place], [address], 01/24/2023 18:37:19 09/09/19 24 09/10/2023 BASIC METAB OLIC PANEL sodium 142 mmol/ L 136 - 145 normal Not Available [address], [address], 09/10/2023 10:59:49 09/09/19 24 09/10/2023 BASIC METAB OLIC PANEL potassium 3.8 mmol/ L 3.5 - 5.1 normal Not Available [address], [address], 09/10/2023 10:59:49 09/09/19 24 09/10/2023 BASIC METAB OLIC PANEL chloride 98 mmol/ L 98 - 107 low Not Available [address], [address], 09/10/2023 10:59:49 09/09/19 24 09/10/2023 BASIC METAB OLIC PANEL glucose 110 mg/dL 74 - 106 high Not Available [address], [address], 09/10/2023 10:59:49 09/09/19 24 09/10/2023 BASIC METAB OLIC PANEL carbon dioxide 35 mmol/ L 20 - 32 high Not Available [address], [address], 09/10/2023 10:59:49 09/09/19 24 09/10/2023 BASIC METAB OLIC PANEL calcium 9.5 mg/dL 8.5 - 10.1 normal Not Available [address], [address], 09/10/2023 10:59:49 09/09/19 24 09/10/2023 BASIC METAB OLIC PANEL creatinine 0.94 mg/dL 0.60 - 1.00 normal Not Available [address] [address] [place], [address], 09/10/2023 10:59:49 09/09/19 24 09/10/2023 BASIC METAB OLIC PANEL eGFR 73 mL/mi n/1.7 3m2 >60 normal The eGFR is based on the CKD-E PI 2020 equat ion. To calcu late the new eGFR from a previ ous Creat inine or Cysta tin C resul t, go to https :[email or web address] [email or web address] rg/pr ofess ional s/kdo qi/gf r_cal culat or Not Available [address], [address], 09/10/2023 10:59:49 09/09/19 24 09/10/2023 BASIC METAB OLIC PANEL urea nitrogen (BUN) 15 mg/dL 6 - 31 normal Not Available [facility] [address] [place] [address], [address], 09/10/2023 10:59:49 09/09/19 24 09/13/2023 ESTRA DIOL estradiol <15 pg/mL normal Refer ence Range Folli cular Phase : 19-14 4 Mid-C ycle: 64-35 7 Lutea l Phase : 56-21 4 Postm enopa usal: < or = 31 Refer ence range estab lishe d on post- puber brandan patie nt popul ation . No pre-p ubert al refer ence range estab lishe d using this assay . For any patie nts for whom low Estra diol level s are antic ipate d (e.g. males , pre-p ubert al child arnoldo and hypog onada l/pos t-men opaus al femal es), the [facility] Estra diol, Ultra sensi tive, LCMSM S assay is recom damien d (orde r code 67933 ). Pleas e note: patie nts being treat ed with the drug fulve stran t (Fasl odex( R)) have demon strat ed signi fican t inter feren ce in immun oassa y metho ds for estra diol measu remen t. The cross react ivity could lead to false ly eleva allan estra diol test resul ts leadi ng to an inapp ropri ate clini umberto asses sment of estro gen statu s. [facility] order code [id number] -Estr adiol , Ultra sensi tive LC/MS /MS demon strat es negli gible cross react ivity with fulve stran t. Not Available [facility] [address] [place], [address], 09/13/2023 16:46:35 09/09/19 24 09/13/2023 TESTO STERO NE, FREE (DIAL YSIS) AND TOTAL ,MS testosterone , total, MS 1 NG/dL 2-45 low For addit ional infor arturo moses refer to https ://ed ati on.qu Infogram. com/f aq/FA Q165 (This link is being provi ded for infor matainsley nal/e ducat ional purpo ses only. ) (Note ) This test was devel oped and its dayana tical perfo rmanc e abiodun cteri stics have been deter mined by [employer]. It has not been clear ed or appro dann by the FDA. This assay has been valid ated pursu ant to the CLIA regul ation s and is used for clini umberto purpo ses. Not Available [facility] [employer] [facility] [address] [address], [place], [address], 09/13/2023 16:46:36 09/09/19 24 09/13/2023 TESTO STERO NE, FREE (DIAL YSIS) AND TOTAL ,MS testosterone , free 0.1 pg/mL 0.1-6. 4 (Note ) This test was devel oped and its dayana tical perfo rmanc e abiodun cteri stics have been deter mined by [employer]. It has not been clear ed or appro dann by the FDA. This assay has been valid ated pursu ant to the CLIA regul ation s and is used for clini umberto purpo ses. [facility] fusainsley mata [address] [facility] [address] [place] [address] [phone] Ithyessenia burns Alex Johnston MD, PhD Not Available [facility] [address] [address], [place], [address], 09/13/2023 16:46:36 09/09/19 24 09/13/2023 CULTU RE, URINE , ROUTI NE culture, urine, routine SEE NOTE abnormal CULTU RE, URINE , ROUTI NE Micro Numbe r: [id number] Test Statu s: Final Speci men Sourc e: Urine Speci men Quali ty: Adequ ate Resul t: 10,00 0-49, 000 CFU/m L of Group B Strep tococ cus isola allan Beta- hemol ytic strep tococ ci are predi ctabl y susce ptibl e to Penic illin and other beta- lacta ms. Susce ptibi lity testi ng not routi dai perfo rmed. Pleas e conta ct the labor atory withi n 3 days if susce ptibi lity testi ng is paulino ed. Comme nt: Eryth romyc in and clind amyci n are not recom damien d for treat ment of urina ry tract infec tions , but clind amyci n may be usefu l for treat ment of recto vagin al colon izati on or infec tion. Any amoun t of group B Strep tococ cus in urine speci mens obtai santo from pregn ant femal es is a marke r of genit al tract colon izati on. If this patie nt is pregn ant, pleas e refer to ACOG guide lines for appro priat e scree sara and manag ement of pregn ant women . Not Available [facility] [address] [place], [address], 09/13/2023 16:46:36 Result Notes None recorded. Problems Name Problem SNOMED Code Status Onset Date Resolution Date Notes Provider Name and Address Organization Details Recorded Time Leukopla marlin of vulva 511492128 Completed 201602/12/2021 Leukopla marlin of vulva; Progress : Stable Added By: Marvin Elam Add to Current Problems : NO ProblemS tatus: Resolve Other dystroph y of vulva; Location : None Progress : Stable Added By: Marvin Elam Add to Current Problems : YES ProblemS tatus: Current Not Available [facility] 2 21:46:54 Prolapse of urethra [id number] Completed 201702/12/2021 Urethroc stef; Progress : Stable Added By: Ermias Dash Add to Current Problems : NO ProblemS tatus: Resolve Urethroc stef; Location : None Progress : Stable Added By: Ermias Dash Add to Current Problems : YES ProblemS tatus: Current Not Available [facility] 2 21:46:54 Genuine stress incontin ence 00393584 Completed 201802/12/2021 Stress incontin ence (female) (male); Progress : Stable Added By: Tracy Wagoner Add to Current Problems : NO ProblemS tatus: Resolve Not Available [facility] 2 21:46:54 Dyspareu massimo 83757885 Completed 201502/12/2021 Dyspareu massimo; Progress : Stable Added By: Mi Bustillos Add to Current Problems : NO ProblemS tatus: Resolve Dyspareu massimo; Location : None Progress : Stable Added By: Marvin Elam Add to Current Problems : YES ProblemS tatus: Resolve Dyspareu massimo; Location : None Progress : Stable Added By: Mi Bustillos Add to Current Problems : YES ProblemS tatus: Current Not Available [facility] 2 21:46:54 Disorder s of urogenit al prosthes es or implants Completed 201702/12/2021 Exposure of implante d vaginal mesh and other prosthet ic material s into vagina; Progress : Stable Added By: Ermias Dash Add to Current Problems : NO ProblemS tatus: Resolve Exposure of implante d vaginal mesh into vagina, initial encounte r; Progress : Stable Added By: Ermias Dash Add to Current Problems : NO ProblemS tatus: Resolve Exposure of implante d vaginal mesh and other prosthet ic material s into vagina; Location : None Progress : Stable Added By: Ermias Dash Add to Current Problems : YES ProblemS tatus: Current Not Available [facility] 2 16:34:51 Breast neoplasm screenin g status [id number] Completed 201703/28/2018 Encounte r for other screenin g for malignan t neoplasm of breast; Progress : Stable Added By: Lu Bravo Add to Current Problems : NO ProblemS tatus: Resolve Not Available [facility] 2 16:34:50 History of malignan t neoplasm of cervix 998494984 Completed 201602/12/2021 History of cervical cancer; Progress : Stable Added By: Mi Bustillos Add to Current Problems : NO ProblemS tatus: Resolve Personal history of malignan t neoplasm of cervix uteri; Progress : Stable Added By: Mi Bustillos Add to Current Problems : NO ProblemS tatus: Resolve History of cervical cancer; Location : None Progress : Stable Added By: Mi Bustillos Add to Current Problems : NO ProblemS tatus: Current Not Available [facility] 2 21:46:54 Atrophic vaginiti s 08633091 Completed 201602/12/2021 Atrophic vaginiti s, postmeno pausal; Location : None Progress : Stable Added By: Ermias Dash Add to Current Problems : YES ProblemS tatus: Current Atrophic vaginiti s, postmeno pausal; Progress : Stable Added By: Ermias Dash Add to Current Problems : NO ProblemS tatus: Resolve Not Available [facility] 2 21:46:53 Breast neoplasm screenin g NOS Completed 201703/28/2018 Screenin g for breast cancer, unspecif ied; Location : None Severity : Moderate Progress : Stable Added By: Lu Bravo Add to Current Problems : YES ProblemS tatus: Resolve Not Available [facility] 1 16:16:21 Breast lump 85868689 Completed 201502/12/2021 Breast mass; Progress : Stable Added By: Kallie New Add to Current Problems : NO ProblemS tatus: Resolve Unspecif ied lump in breast; Progress : Stable Added By: Kallie New Add to Current Problems : NO ProblemS tatus: Resolve Breast mass; Location : None Progress : Stable Added By: Kallie New Add to Current Problems : YES ProblemS tatus: Current Not Available [facility] 21:46:53 Dystroph y of vulva 91130561 Completed 201602/12/2021 Other dystroph y of vulva; Progress : Stable Added By: Marvin Elam Add to Current Problems : NO ProblemS tatus: Resolve Not Available [facility] 21:46:54 Problem Notes None recorded. Procedures Surgical History Date Name Laterality Status Provider Name and Address Organization Details Recorded Time 01/22/20 23 Date of Last Pap Smear completed PONCHO FOSS DO [address] [place] [address], [phone], [facility] [employer] [facility] 02/04/2023 18:16:17 04/18/20 22 Most Recent Bone Density completed [facility] 01/21/2023 16:06:42 04/04/20 22 Most Recent Mammogram completed Cindy [facility] 01/21/2023 16:06:42 11/03/19 18 operation on urinary bladder completed Kari Danielle [facility] IV 10/02/2022 19:38:16 09/05/19 16 laparoscopic-ass isted vaginal hysterectomy completed Marvin Elam MD [address] [place] [address], [phone], [facility] IV 09/09/2023 13:09:53 09/05/19 04 Vulvectomy simple partial completed Marvin Elam MD [address] [place] [address], [phone], [facility] IV 09/09/2023 13:10:48 Appendectomy completed Cindy [facility] 01/21/2023 16:07:00 Endometrial Ablation completed [facility] 01/21/2023 16:07:00 Removal of Ovaries completed Marvin Elam MD [address] [place] [address], [phone], [facility] [email or web address] [facility] IV 09/09/2023 13:09:14 Imaging Results None recorded. Procedure Notes None recorded. Medical Equipment None Reported. Allergies Allergen ID Allergen Name Allergen Category Reaction Reaction Severity Criticality Documentation Date Start Date Code Code System Note Provider Name and Address Organization Details Recorded Time 107801 Product containin g penicilli n (product) medicatio n Not available Not available Not available 02/23/20212015 31047 8001 SNOMED Sever ity: Moder ate; Not Available [facility] 1 01:12:47 083296 Keflex medicatio n Not available Not available Not available 02/23/2021201516 7 RxNorm Sever ity: Moder ate; Not Available [facility] 1 01:12:47 515759 amoxicill in medicatio n Not available Not available Not available 02/23/20212015 723 RxNorm Sever ity: Moder ate; Not Available [facility] 1 01:12:47 266239 tramadol Not available Not available Not available Not available 02/23/20212019 63509 RxNorm Sever ity: Moder ate; Not Available [facility] 1 01:12:47 322684 Toradol medicatio n Not available Not available Not available 02/23/20212019 60792 RxNorm Sever ity: Moder ate; Not Available [facility] 1 01:12:47 909450 house dust allergeni c extract environme nt,medica tion Not available Not available Not available 01/21/2023 32899 9 RxNorm Cindy Atkins null, [facility] IV 3 16:06:27 182740 latex environme nt,medica tion Not available Not available Not available 01/21/2023 59680 91 RxNorm Cindy Atkins null, [place] [facility] 3 16:06:27 383582 cow milk allergeni c extract food,medi cation Not available Not available Not available 01/21/2023 58501 5 RxNorm Cindy Atkins null, [place] [facility] 3 16:06:27 589049 cat dander environme nt Not available Not available Not available 01/21/2023 53724 UNK [facility] 3 16:06:27 956678 Canis lupus familiari s extract environme nt Not available Not available Not available 01/21/2023 75977 4 RxNorm [facility] 3 16:06:27 091674 mold extract environme nt Not available Not available Not available 01/21/2023 89769 8 RxNorm Cindy [facility] 3 16:06:27 Medications Name Sig Start Date Stop Date Status Note LastModified by Organization Details LastModified Time cyclobenz aprine 10 mg tablet TAKE 1 TABLET BY MOUTH TWICE DAILY NEEDED active Not Available Not Available No t Available promethaz ine-DM 6.25 mg-15 mg/5 mL oral syrup TAKE 5 ML BY MOUTH EVERY 6 HOURS NEEDED FOR COUGH active Not Available Not Available No t Available nystatin 100,000 unit/mL oral suspensio n SHAKE LIQUID AND TAKE 4 ML BY MOUTH FOUR TIMES DAILY FOR 10 DAYS active Not Available Not Available No t Available prednison e 10 mg tablet TAKE 1 TABLET BY MOUTH DAILY FOR 3 DAYS. 09/08 completed Not Available Not Available Not Available doxycycli ne hyclate 100 mg capsule TAKE 1 CAPSULE BY MOUTH TWICE DAILY FOR 7 DAYS active Not Available Not Available No t Available nicotine 14 mg/24 hr daily transderm al patch APPLY 1 PATCH TO SKIN ONCE DAILY 09/08 completed Not Available Not Available Not Available heparin (porcine) 1,000 unit/mL injection solution infuse 1,000 unit/zach r by continuo us infusion route 09/19 completed heparin (porcine ) 1,000 unit/mL injectio n Solution RxNorm: [id number] Allow Substitu tion: False Refill Denied: No Refill DateOccu rred: 03/13/20 Edited by: Deon Monet ) on 03/13/20 Stopped by: Deon Monet ) on Not Available Not Available Not Available clindamyc in HCl 300 mg capsule TAKE 1 CAPSULE BY MOUTH EVERY 6 HOURS FOR 5 DAYS 01/21 completed Not Available Not Available Not Available albuterol sulfate 2.5 mg/3 mL (0.083 %) solution for nebulizat ion INHALE THE CONTENTS OF 1 VIAL VIA NEBULIZE R EVERY 4 HOURS NEEDED FOR SHORTNES S OF BREATH. active Not Available Not Available No t Available trazodone 50 mg tablet TAKE 1 TABLET BY MOUTH EVERY DAY 09/08 completed Not Available Not Available Not Available polyethyl eli glycol 3350 17 gram oral powder packet take 1 packet (17 gram) mixed with 8 oz. water, juice, soda, coffee or tea by oral route once daily 02/15 completed polyethy annie glycoL 3350 17 gram oral Powder in Packet RxNorm: [id number] Allow Substitu tion: False Refill Denied: No Refill DateOccu rred: 03/13/20 Edited by: raymond Bui onHasmukhKallie ) on 02/16/20 Stopped by: raymond mata(Riaznt on, Kallie ) on 02/16/20 Not Available Not Available Not Available cetirizin e 10 mg tablet TAKE 1 TABLET BY MOUTH DAILY active Not Available Not Available No t Available azithromy molly 250 mg tablet TAKE 2 TABLETS BY MOUTH FOR 1 DAY THEN TAKE 1 TABLET BY MOUTH DAILY UNTIL ALL TAKEN active Not Available Not Available No t Available ibuprofen 800 mg tablet TAKE 1 TABLET BY MOUTH THREE TIMES DAILY NEEDED active Not Available Not Available No t Available benzonata te 200 mg capsule TAKE 1 CAPSULE BY MOUTH THREE TIMES DAILY FOR 10 DAYS NEEDED 09/08 completed Not Available Not Available Not Available hydrocodo ne 5 mg-acetam inophen 325 mg tablet TAKE 1 TABLET BY MOUTH EVERY 8 HOURS FOR 7 DAYS NEEDED 09/08 completed Not Available Not Available Not Available bupivacai ne HCl 0.5 % (5 mg/mL) injection solution active bupivaca ine 0.5 % (5 mg/mL) injectio n Solution RxNorm: [id number] Allow Substitu tion: False Refill Denied: No Refill DateOccu rred: 03/13/20 Edited by: Deon Monet ) on 03/13/20 Stopped by: Deon Monet ) on Not Available Not Available Not Available prednison e 20 mg tablet TAKE 2 TABLETS BY MOUTH DAILY FOR 5 DAYS 09/08 completed Not Available Not Available Not Available clonazepa m 1 mg tablet TAKE 1 TABLET BY MOUTH THREE TIMES DAILY active Not Available Not Available No t Available metronida zole 500 mg tablet Take 1 tablet(s ) by mouth bid for 7 days active Not Available Not Available No t Available acetamino phen 300 mg-codein e 30 mg tablet TAKE 1 TABLET BY MOUTH EVERY 6 HOURS NEEDED FOR PAIN 01/21 completed Not Available Not Available Not Available acyclovir 400 mg tablet 1 PO BID active Not Available Not Available Not Available estradiol 0.05 mg/24 hr semiweekl y transderm al patch APPLY 1 PATCH TOPICALL Y TO THE SKIN 2 TIMES A WEEK DIRECTED active Not Available Not Available No t Available omeprazol e 40 mg capsule,d elayed release TAKE 1 CAPSULE BY MOUTH TWICE DAILY BEFORE BREAKFAS T AND SUPPER active Not Available Not Available No t Available acetamino phen 500 mg tablet TAKE 2 TABLETS BY MOUTH THREE TIMES DAILY NEEDED FOR PAIN 01/21 completed Not Available Not Available Not Available Deep Sea Nasal 0.65 % spray aerosol SPRAY ONCE INTO EACH NOSTRIL NEEDED FOR DRY NOSE active Not Available Not Available No t Available trazodone 100 mg tablet TAKE 1 TABLET BY MOUTH EVERY DAY AT BEDTIME active Not Available Not Available No t Available dicyclomi ne 20 mg tablet take 1 tablet (20 mg) by oral route 3 times per day active Not Available Not Available No t Available benzonata te 100 mg capsule 09/08 completed Not Available Not Available Not Available bisacodyl 10 mg rectal supposito ry INSERT 1 SUPPOSIT ORY EVERY DAY BY RECTAL ROUTE NEEDED active Not Available Not Available No t Available venlafaxi ne 37.5 mg tablet TAKE 1 TABLET BY MOUTH DAILY active Not Available Not Available No t Available oseltamiv ir 75 mg capsule TAKE 1 CAPSULE BY MOUTH EVERY 12 HOURS FOR 5 DAYS 01/21 completed Not Available Not Available Not Available metformin 1,000 mg tablet TAKE 1 TABLET BY MOUTH TWICE DAILY active Not Available Not Available No t Available Cipro 500 mg tablet Take 1 tablet(s ) by mouth q12h 06/04 completed Cipro 500mg Tablet RxNorm: 026337 Allow Substitu tion: True Refill Denied: No Not Available Not Available Not Available buspirone 10 mg tablet take 1 tablet (10 mg) by oral route 2 times per day active Not Available Not Available No t Available Aldara 5 % topical cream packet Use as directed 09/05 completed Aldara 5% Cream RxNorm: 478291 Allow Substitu tion: True Refill Denied: No Not Available Not Available Not Available prednison e 50 mg tablet TAKE 1 TABLET BY MOUTH DAILY FOR 5 DAYS 01/21 completed Not Available Not Available Not Available lidocaine 5 % topical patch APPLY 1 PATCH TOPICALL Y TO THE SKIN EVERY DAY FOR 15 DAYS NEEDED active Not Available Not Available No t Available nicotine 21 mg/24 hr daily transderm al patch APPLY 1 PATCH TOPICALL Y TO THE SKIN EVERY DAY 09/08 completed Not Available Not Available Not Available hydrocodo ne-homatr opine 5 mg-1.5 mg/5 mL oral solution TAKE 5 ML BY MOUTH FOUR TIMES DAILY NEEDED FOR COUGH FOR UP TO MAX OF 3 DAYS IN A ROW. 09/08 completed Not Available Not Available Not Available docusate sodium 100 mg capsule take 1 capsule (100 mg) by oral route 2 times per day 09/19 completed docusate sodium 100 mg oral capsule RxNorm: 3600699 Allow Substitu tion: False Refill Denied: No Refill DateOccu rred: 03/13/20 Edited by: Deon Monet ) on 03/13/20 20 Stopped by: Deon Monet ) on Not Available Not Available Not Available omeprazol e 20 mg capsule,d elayed release 09/19 completed Omeprazo le 20 mg oral capsule, delayed release (enteric coated) RxNorm: 163867 Allow Substitu tion: True Refill Denied: No Refill DateOccu rred: 02/06/20 16 Edited by: Deon Monet ) on 03/13/20 20 Stopped by: Deon Monet ) on Not Available Not Available Not Available aspirin 81 mg chewable tablet chew 1 tablet (81 mg) by oral route once daily active aspirin 81 mg oral tablet,alanis crowley RxNorm: 784697 Allow Substitu tion: False Refill Denied: No Refill DateOccu rred: 03/13/20 Edited by: florida dietrich(Carolynl es, Taryne ) on 03/13/20 20 Stopped by: florida Middleton es, Taryne ) on Not Available Not Available Not Available diclofena c sodium 75 mg tablet,de layed release TAKE 1 TABLET BY MOUTH TWICE DAILY NEEDED active Not Available Not Available No t Available mont[address] 10 mg tablet take 1 tablet (10 mg) by oral route once daily in the evening 09/19 completed monteluk ast 10 mg oral tablet RxNorm: 232777 Allow Substitu tion: False Refill Denied: No Refill DateOccu rred: 03/13/20 Edited by: florida dietrich(Carolynl es, Taryne ) on 03/13/20 Stopped by: florida Middleton es, Tarkaiser ) on Not Available Not Available Not Available azelastin e 137 mcg (0.1 %) nasal spray ADMINIST ER 1 SPRAY INTO EACH NOSTRIL TWICE DAILY. active Not Available Not Available No t Available ibuprofen 600 mg tablet TAKE 1 TABLET BY MOUTH EVERY 6 HOURS NEEDED FOR PAIN 01/21 completed Not Available Not Available Not Available levofloxa molly 750 mg tablet TAKE 1 TABLET BY MOUTH DAILY. NEXT DOSE 05/04/22 IN THE MORNING active Not Available Not Available No t Available methylpre dnisolone 4 mg tablets in a dose pack FOLLOW PACKAGE DIRECTIO NS active Not Available Not Available No t Available albuterol sulfate HFA 90 mcg/actua tion aerosol inhaler INHALE 2 PUFFS BY MOUTH EVERY 6 HOURS NEEDED active Not Available Not Available No t Available hydrocort isone 2.5 % topical ointment Apply thin film to affected area bid 03/13 completed Hydrocor tisone 2.5 % Topical Ointment RxNorm: 277524 Allow Substitu tion: True Refill Denied: No Refill DateOccu rred: 09/06/19 17 Edited by: florida dietrich(Carolynl es, Taryne ) on 03/13/20 20 Stopped by: florida dietrich(Deon Glass ) on 11/09/20 20 Not Available Not Available Not Available ondansetr on 4 mg disintegr ating tablet place 1 tablet (4 mg) and place on top of the tongue where it will dissolve , then swallow by translin gual route 4 times per day 09/19 completed ondanset liliya 4 mg oral Tablet,d isintegr ating RxNorm: 712431 Allow Substitu tion: False Refill Denied: No Refill DateOccu rred: 03/13/20 Edited by: florida dietrich(Magdy es, Deon ) on 03/13/20 20 Stopped by: florida dietrich(Deon Glass ) on Not Available Not Available Not Available metformin ER 500 mg tablet,ex tended release 24 hr TAKE 1 TABLET BY MOUTH DAILY 09/08 completed Not Available Not Available Not Available doxycycli ne hyclate 100 mg tablet TAKE 1 TABLET BY MOUTH TWICE DAILY FOR 7 DAYS 01/21 completed Not Available Not Available Not Available Topamax 100 mg tablet 02/15 completed Topamax 100 mg oral tablet RxNorm: 506267 Allow Substitu tion: True Refill Denied: No Refill DateOccu rred: 02/06/20 16 Edited by: raymond Rodrigueznt onKallie ) on 02/16/20 Stopped by: raymond mata(Riaznt onKallie ) on 02/16/20 Not Available Not Available Not Available Estrace 0.01% (0.1 mg/gram) vaginal cream 1g every week vaginall y 2023 active Not Available Not Available Not Avai lable cetirizin e 10 mg chewable tablet chew 1 tablet (10 mg) by oral route once daily active cetirizi ne 10 mg oral tablet,c hewable RxNorm: 0574767 Allow Substitu tion: False Refill Denied: No Refill DateOccu rred: 03/13/20 Edited by: florida dietrich(Carolynl es, Taryne ) on 03/13/20 20 Stopped by: florida dietrich(Magdy es Tarkaiser ) on Not Available Not Available Not Available nitrofura ntoin monohydra te/macroc rystals 100 mg capsule TAKE 1 CAPSULE BY MOUTH EVERY 12 HOURS FOR 7 DAYS active Not Available Not Available No t Available pregabali n 50 mg capsule take 1 capsule (50 mg) by oral route 3 times per day 09/19 completed pregabal in 50 mg oral capsule RxNorm: 091878 Allow Substitu tion: False Refill Denied: No Refill DateOccu rred: 03/13/20 Edited by: florida dietrich(Knuckl es, Taryne ) on 03/13/20 20 Stopped by: florida dietrich(Olvinuckl es, Taryne ) on Not Available Not Available Not Available pregabali n 150 mg capsule TAKE 1 CAPSULE BY MOUTH TWICE DAILY active Not Available Not Available No t Available Vitamin B-12 09/19 completed Vitamin B-12 Refill Denied: No Refill DateOccu rred: 03/13/20 Edited by: florida dietrich(Knuckl es, Taryne ) on 03/13/20 20 Stopped by: florida dietrich(Olvinuckl es, Taryne ) on Not Available Not Available Not Available albuterol 2015 active Albutero l Allow Substitu tion: True Refill Denied: No Refill DateOccu rred: 02/06/20 Edited by: florida dietrich(Knuckl es, Taryne ) on 03/13/20 Stopped by: florida dietrich(Olvinuckl es, Taryne ) on Not Available Not Available Not Available flunisoli de active flunisol karine RxNorm: 1495767 Allow Substitu tion: False Refill Denied: No Refill DateOccu rred: 03/13/20 Edited by: florida dietrich(Olvinuckl es, Taryne ) on 03/13/20 Stopped by: florida dietrich(Olvinuckl es, Taryne ) on Not Available Not Available Not Available Estrace Place fingerti p amount around urethra twice weekly for one month. 10/20 completed Estrace 0.1mg/1g m Vaginal Cream RxNorm: 292467 Allow Substitu tion: True Refill Denied: No Not Available Not Available Not Available clonazepa m 05/22 completed Clonazep am 1mg Tablet RxNorm: 135623 Allow Substitu tion: True Refill Denied: No Refill DateOccu rred: 02/06/20 16 Not Available Not Available Not Available thiamine HCl (bulk) 09/19 completed thiamine HCl (bulk) RxNorm: 60511 Allow Substitu tion: False Refill Denied: No Refill DateOccu rred: 03/13/20 Edited by: florida dietrich(Knuckl es, Taryne ) on 03/13/20 Stopped by: florida dietrich(Olvinuckl es, Taryne ) on Not Available Not Available Not Available Symbicort 03/13 completed Symbicor t RxNorm: 518592 Allow Substitu tion: True Refill Denied: No Refill DateOccu rred: 02/06/20 Edited by: florida dietrich(Knuckl es, Taryne ) on 03/13/20 Stopped by: florida dietrich(Carolynl es, Taryne ) on 03/13/20 Not Available Not Available Not Available Gavilyte- C 240 gram-22.7 2 gram-6.72 gram-5.84 gram oral solution active Not Available Not Available Not Available Myrbetriq 50 mg tablet,ex tended release Take 1 tablet(s ) by mouth daily 05/22 completed Myrbetri q 50mg Tablets, Extended Release RxNorm: 7705715 Allow Substitu tion: True Refill Denied: No Not Available Not Available Not Available Linzess 145 mcg capsule TAKE 1 CAPSULE BY MOUTH DAILY 30 MINUTES BEFORE BREAKFAS T ON AN EMPTY STOMACH active Not Available Not Available No t Available Aerospan 80 mcg/actua tion HFA aerosol inhaler 03/13 completed Aerospan HFA Inhalati on Aerosol 80mcg/1a ctuation Oral Inhaler RxNorm: 8525893 Allow Substitu tion: True Refill Denied: No Refill DateOccu rred: 05/22/19 18 Edited by: florida dietrich(Knuckl es, Taryne ) on 03/13/20 20 Stopped by: florida dietrich(Olvinuckl es, Taryne ) on 03/13/20 Not Available Not Available Not Available guaifenes in ER 600 mg tablet, extended release 12 hr TAKE 1 TABLET BY MOUTH EVERY 12 HOURS active Not Available Not Available No t Available Briviact 50 mg tablet TAKE 1 TABLET BY MOUTH TWICE DAILY active Not Available Not Available No t Available fluticaso ne 232 mcg-salme terol 14 mcg/actua tion breath activated powdr inhale 1 puff by inhalati on route 2 times per day approxim ately 12 hours apart at the same times each day 09/19 completed fluticas one propion- salmeter oL 232-14 mcg/actu ation Inhalati on Aerosol Powder, Breath Activate d RxNorm: 6301709 Allow Substitu tion: False Refill Denied: No Refill DateOccu rred: 03/13/20 Edited by: Deon Monet ) on 03/13/20 Stopped by: Deon Monet ) on Not Available Not Available Not Available Trelegy Ellipta 100 mcg-62.5 mcg-25 mcg powder for inhalatio n INHALE 1 PUFF BY MOUTH EVERY DAY 09/08 completed Not Available Not Available Not Available Aimovig Autoinjec tor 70 mg/mL subcutane ous auto-inje ctor ADMINIST ER 1 ML UNDER THE SKIN EVERY 30 DAYS active Not Available Not Available No t Available Breztri Aerospher e 160 mcg-9mcg- 4.8mcg/ac tuation HFA aerosol inhaler INHALE 2 PUFFS BY MOUTH TWICE DAILY active Not Available Not Available No t Available Trelegy Ellipta 200 mcg-62.5 mcg-25 mcg powder for inhalatio n INHALE 1 PUFF BY MOUTH EVERY DAY 09/08 completed Not Available Not Available Not Available Vitals Date Recorded Body weight Body mass index (BMI) Body height Body temperature Provider Name and Address Organization Details Last Updated DateTime 01/21/2023 35097.79 g 34 kg/m2 152.4 cm 97.8 [degF] Cindy Camacho [facility] [employer] 01/21/2023 16:10:23 Date Recorded Body height Body mass index (BMI) Body weight Body temperature Systolic blood pressure Diastolic blood pressure Provider Name and Address Organization Details Last Updated DateTime 152.4 cm 27.5 kg/m2 44994.5 2 g 97.6 [degF] 128 mm[Hg] 62 mm[Hg] Ann Krueger [facility] 12:22:33 Social History Question Answer Notes LastModified by Organizat ion Details LastModified Time Tobacco Smoking Status Current Some Day Smoker Cindy Camacho null, [facility] 01/21/2023 16:06:54 What Is Your Level Of Alcohol Consumption? None [email or web address] Information not available 01/21/2023 Are You Blind Or Do You Have Difficulty Seeing? No [email or web address] Information not available 10/10/2022 Are You Currently Employed? No [email or web address] Information not available 09/09/2023 Are You Deaf Or Do You Have Serious Difficulty Hearing? No [email or web address] Information not available 10/10/2022 What Type Of Diet Are You Following? REGULAR Information not available 01/21/2023 Which Illicit Or Recreational Drugs Have You Used? Marijuana [email or web address] Information not available 01/21/2023 Do You Or Have You Ever Used E-cigarettes Or Vape? Never Used Electronic Cigarettes [email or web address] Information not available 01/21/2023 What Is Your Relationship Status? [email or web address] Information not available 01/21/2023 Are You Sexually Active? No Information not available 10/02/2022 At What Age Did You Start Smoking Tobacco? 11 [email or web address] Information not available 01/21/2023 How Much Tobacco Do You Smoke? 1 PPD [email or web address] Information not available 01/21/2023 Do You Use Any Illicit Or Recreational Drugs? No [email or web address] Information not available 10/10/2022 How Many Years Have You Smoked Tobacco? 40 [email or web address] Information not available 01/21/2023 Do You Or Have You Ever Used Any Other Forms Of Tobacco Or Nicotine? No Information not available 10/10/2022 Sex: Female Functional Status Question Answer Note LastModified by Organizat ion Details LastModified Time What is your exercise level? Occasional [email or web address] Information not available 01/21/2023 Mental Status None recorded. Family History Relationship Description Onset Age of this Age Resolved Age Notes LastModified by Organization Details LastModified Time Mother Hypertensive disorder [email or web address] Not available 2022 19:28:20 Mother Type 2 diabetes mellitus [email or web address] Not available 09/08 12:07:30 Mother Hyperthyroid ism [email or web address] Not available 2022 19:31:04 Maternal Grandmother Malignant tumor of cervix she has had it hersel f Not available 10/02/2022 19:28:57 Maternal Grandmother Malignant neoplasm of ovary [email or web address] Not available 2022 19:30:06 Unspecified Relation Malignant tumor of colon [email or web address] Not available 2022 19:29:43 Medical History Condition Response Other Cancer N High Blood Pressure N Colon Cancer N Cytomegalovirus N Hyperthyroidism N MRSA N Blood Transfusion N Herpes (HSV) N Breast Cancer N Lung Cancer N Depression Y Hypothyroidism N Incontinence Y Panic Attacks Y Neurological Disorder N Deep Vein Thrombosis N Anxiety Disorder Y Autoimmune disease N Arthritis N Shingles Y Tuberculosis/Positive PPD N Polycystic Ovarian Syndrome Y Cervical Cancer Y Chlamydia N Hematuria N Stroke Y Varicosities N Seasonal allergies N Crohn's Disease N Alzheimer's/Dementia N COPD/Emphysema Y Endometriosis N HPV/Genital Warts N IBS (Irritable Bowel Syndrome) Y History of Abnormal Pap N High Cholesterol N Liver Disease N Kidney Infection N Fibromyalgia N Ulcer Y Kidney Disease N HIV N Gallbladder disease N Von Willebrand disease N Sickle Cell Disease/Trait N ADD/ADHD N Eating Disorder N Diabetes Mellitus (non-insulin dependent ) N Anemia N Ovarian Problems N Multiple Sclerosis N Gonorrhea N Frequent Urinary Tract infections Y Osteopenia N Headaches/migraines Y GERD (reflux) Y Ovarian Cancer Y Diabetes (insulin dependent) N Seizures/Epilepsy Y Fibroids N Asthma Y Heart Attack N Endometrial Cancer Y Lupus N Rubella N Blood Clotting Disorder N Bipolar Disorder N Diabetes Mellitus (during ) N Ulcerative Colitis N Hepatitis N Heart Disease N Pulmonary Embolism N RPR N Chicken Pox Y Osteoporosis Y Gynecological History Statement/Question Response Date of Last Colonoscopy Flow Heavy Date of last HPV 01/21/2023 Frequency of Cycle (Q days) random Most Recent Bone Density 04/18/2022 Date of Last Pap Smear 01/21/2023 Duration of Flow (days) Random Most Recent Mammogram 04/04/2022 Current Control Method Hysterectom y Age at Menarche 11 Obstetrics History GPAL:G 5 P 4 0 0 4 Type Value Full Term 4 Living 4 Total 5 Past Encounters Encounter ID Performer Location Encounter Start Date Encounter Closed Date Diagnosis/Indication Diagnosis SNOMED-CT Code Diagnosis ICD10 Code Diagnosis Note [id number] PONCHO FOSS, [facility] [address] [place] [address] 01/21/2023 15:08:09 01/22/2023 09:45:13 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 here for annual exam. - Pap up to date from , discussed natural course of HPV infection, no new exposures. Plan to repeat cotesting in years. - Routine labs done with PCP - Mammo last year WNL, discussed different guideline recommendalma young, pt without family hx, would like to proceed with q2yr screening, repeat next year // rx provided - Colonoscop y done, can continue q10 years screens - DEXA at age 65 or after 50 if you have risk factors for osteoporos is - Depression screen NEG - BMI counseling , diet and exercise reviewed - RTO for annual or PRN Screening for malignant neoplasm of cervix 157939638 Z12.4 Screening for malignant neoplasm of breast 368254571 Z12.31 Depression screening 171 658061 Z13.31 refer to intake screening History of malignant neoplasm of vulva 079098684 Z85.44 Additional diagnosis detail: Hx of malignant neoplasm of vulva Menopausal symptom 93055 002 N95.1 Atrophic vaginal epithelium and will have her do stretches secondary to significan t pelvic floor tightness as well as transderma l estrogen and vaginal estrogen we will see back in 2 months Acute urin roxanna tract infection 687133393 N39.0 Additional diagnosis detail: Acute UTI Urinary tr act infectious disease 44347347 N39.0 Health Concerns Section Related Observation LastModified by Organization Detai ls LastModified Time None Recorded Concern Status LastModified by Organization Details LastModified Time None Recorded Advance Directives Directive None Recorded Payers Encounter Date Sequence Insurance Name Policy Number Policy Hurley Covered Member ID Hurley Member ID Guarantor Name 01/21/2023 1 [place] Naa Mims [id number] Naa Mims 01/21/2023 2 [place] Naa Mims [id number] Naa Mims 09/09/2023 1 [place] N[place] Mims [id number] Naa Mims 09/09/2023 2 [place] [facility] [facility] [place] Naa Mims [id number] Naa Mims Notes Date Note Type Note Provider Name and Address Organization Details Recorded Time 01/21/2023 text/html Pt is here today for breast pain in both breast. Pt stated the right breast is more swollen and hurts a little more than the left. Pt stated she has had this pain for about 8 months. Pt stated she's had cancer a few years ago and she recently found some bumps and is concerned. PONCHO FOSS DO [facility] [place], [address], [facility] [employer] 01/21/2023 16:34:10 09/09/2023 text/html Annual GYNReport ed bypatient.History: no gynecologic complaints Menstrual cycle:Normal menses Urinary symptoms:No hematuria; No incontinence Vulva:No genital lesion Vagina:Normal vaginal discharge Breast:No breast pain; No breast lump; No nipple discharge Sexual complaints:No sexual complaints; No pain during intercourse; Normal libido Menopausal Symptoms:No menopausal symptoms; Normal vaginal lubrication Psychological symptoms:No depression; No anxiety; No PMDD Preventive measures:Encourage self breast examination; Encourage regular exercise; Encourage regular mammograms starting age 40 Omar is a 53 year old woman. Omar is here for her Well Woman Exam.LMP: 2006No additional concerns. Marvin Elam MD [facility] [place], [address], [facility] [employer] IV 09/09/2023 13:34:14 OBGyn Episode No OBEpisode recorded.
== END 2024-09-02 17:56 | disposition home or self-care (01) ==
DX: M25.522 Pain in left elbow (principal); R56.9 Unspecified convulsions
CPT/HCPCS: 73080

== ENCOUNTER 2025-01-11 16:27 | Outpatient (CLI) | payer MEDICARE, MEDICAID, SELFPAY ==
--- NOTE | ~2025-01-11 | XR_ITS ---
EXAMINATION: XR chest 2V, 01/11/2025 16:40 CDT HISTORY: shortness of breath COMPARISON: No comparisons available. Technique: 2 views obtained. Findings: The lungs are clear, no effusion. No pneumothorax. Heart is normal size. Mediastinal and hilar contours are within normal limits. Bony thorax no acute abnormality. Impression: No acute cardiopulmonary abnormality. Reviewed, dictated and finalized at location A. Impression: No acute cardiopulmonary abnormality.
--- OUTSIDE RECORDS SUMMARY | 2025-01-11 17:19 | XMS_ITS | Encounter Summary ---
Author Organization [facility] Address [address] [place] [address] Care Team Providers Care Personnel Assistant Name Role Phone Zoey Membreno MD Primary Care Provider [phone] Liana Bonilla Primary Care Provider [phone] Encounter Details Date Type Department Care Team (Late st Contact Info) Description 02/27/2023 Telephone [facility] - Centralized Scheduling [address] [place] [address] Nikki Peace MD [id number] [place] [address] Social History Tobacco Use Types Packs/Day Years Used Date Smoking Tobacco: Every Day Cigarettes 0.5 42 Started: 12/28/1982 Smokeless Tobacco: Never Comments:07/23/22 Lung [...] PM CDT Legal Sex Female 5:33 AM UTILIZATION REVIEW COORDINATOR Gender Identity Female 08/28/2021 5:51 PM CDT [...] APPOINTMENT IS 05/13 Patient Call Back number: [id number] documented in this encounter Plan of Treatment Upcoming Encounters Date Type Department Care Team (Late st Contact Info) Description 01/21/2025 2:30 PM CDT Appointment [facility] PFT [address] [place] [address] Mu Mendoza MD [address] [place] [address] [address] DIV OF PULMONARY/[place] [address] 01/27/2025 4:00 PM CDT Office Visit [facility] - Pulmonology [address] [place] [phone] Elsa Pascal MD [address] [place] [address] [address] DIV [place] [address] 02/02/2025 10:45 AM CDT Office Visit [facility] - Orthopedics [address] [place] [phone] Rashel Carnes MD [address] [place] [address] 02/24/2025 2:00 PM CDT Appointment [facility] ECHO [address] [place] [address] Elsa Pascal MD [address] [place] [address] [address] DIV [place] [address] 03/09/2025 9:00 AM UTILIZATION REVIEW COORDINATOR Office Visit [facility] - Urology [address] [place] [phone] Rosio Mejía DO [address] [place] [address] [address] [place] [address] 03/14/2025 1:30 PM UTILIZATION REVIEW COORDINATOR Office Visit [facility] - ENT [address] [facility], [place] [address] Flex Turcios MD [address] [facility] [address] [place] [address] 03/23/2025 2:30 PM UTILIZATION REVIEW COORDINATOR Office Visit [facility] - Neurology [address] [facility], [place] [phone] Marylu Forbes PA-C [address] [place] [address] documented as of this encounter Goals Goal [...] documented as of this encounter Care Teams Personnel Assistant Relationship Specialty Start Date End Date Zoey Membreno MD [address] [place] [phone] PCP - General 08/20/17 08/19/24 Liana Bonilla APNP-CREW FOREMAN [address] [facility] [place] [address] PCP - General Family Medicine 08/20/24 documented as of this encounter
--- OUTSIDE RECORDS SUMMARY | 2025-01-11 17:19 | XMS_ITS | Encounter Summary ---
Author Organization [facility] Address [facility] [place] [address] Care Team Providers Care Sheet Mill Supervisor Name Role Phone Zoey Membreno MD Primary Care Provider [phone] Encounter Details Date Type Department Care Team (Late st Contact Info) Description 04/02/2018 Advance Care Planning Encounter [facility] [place] [address] Scanned, Documents Social History Tobacco Use Types [...] Rule Out 03/21/2020 03/21/2020 03/23/2020 10:06 AM CASER UP COVID-19 Rule Out 08/08/2020 08/08/2020 08/09/2020 8:41 AM CDT documented as of this encounter Care Teams Sheet Mill Supervisor Relationship Specialty Start Date End Date Zoey Membreno MD [address] [place] [address] [place] [address] PCP - General 09/16/16 documented as of this encounter
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
--- OUTSIDE RECORDS SUMMARY | 2025-01-11 17:19 | XMS_ITS | Encounter Summary ---
Author Organization [facility] Address [address] [place] [address] Care Team Providers Care Pipe And Tank Fabricator Name Role Phone Zoey Membreno MD Primary Care Provider [phone] Liana Bonilla Primary Care Provider [phone] Reason for Visit * Reason Onset Date Comments Bladder Problem 02/08/2020 Encounter Details Date Type Department Care Team (Late st Contact Info) Description 02/08/2020 Telephone [facility] [address] [facility] [facility] [address] [place] [address] Clara Zambrano MD [address] [facility] [address] [place], [place] [id number] Bladder Problem Social History Tobacco Use Types Packs/Day Years Used Date Smoking Tobacco: Every Day Cigarettes 0.5 42 Started: 12/28/1982 Smokeless Tobacco: Never Alcohol Use Standard Drinks/Week Comments No 0 (1 standard drink = 0.6 oz pur e alcohol) Comments No Sex and Gender Information Value Date Recorded Sex Assigned at Female 08/28/2021 5:51 PM CDT Legal Sex Female 5:33 AM ACCOUNT ADJUSTER Gender Identity Female 08/28/2021 5:51 PM CDT [...] better since surg in May to fix it. Saw Blood in urine last week, but none for about 5-7 days now. NOTE : scheduled for throat surgery tomorrow so can't go to [facility] clinic PLAN - Gave appt on [...] Info) Description 01/21/2025 2:30 PM CDT Appointment [facility] [address] [place] [address] Mu Mendoza MD [address] [place] [address] 2L DIV OF PULMONARY/[place] [address] 01/27/2025 4:00 PM CDT Office Visit [facility] - Pulmonology [address] [place] [address], [place] [address] Elsa Pascal MD [address] [place] [address] 2L DIV OF GEN [place] [address] 02/02/2025 10:45 AM CDT Office Visit [facility] - Orthopedics [address] [place] [address], [place] [address] Rashel Carnes MD [address] [place] [address] 02/24/2025 2:00 PM CDT Appointment [facility] [address] [place] [address] Elsa Pascal MD [address] [place] [address] 2L DIV OF GEN [place] [address] 03/09/2025 9:00 AM ACCOUNT ADJUSTER Office Visit [facility] - Urology [address] [facility], [place] [address] Rosio Mejía DO [address] [facility] 2L DIV OF [place]OLOGIC [place] [address] 03/14/2025 1:30 PM ACCOUNT ADJUSTER Office Visit [facility] - ENT [address] [facility], [place] [address] [place] [address] [place] [address] [address] [place] [address] 03/23/2025 2:30 PM ACCOUNT ADJUSTER Office Visit [facility] - Neurology [address] [place] [address], [place] [phone] Marylu Forbes PA-C [address] [place] [address] documented as of this encounter Goals Goal [...] documented as of this encounter Care Teams Pipe And Tank Fabricator Relationship Specialty Start Date End Date Zoey Membreno MD [address] [place] [address] PCP - General 08/20/17 08/19/24 Liana Bonilla APNP-AUTH SPECIALIST [address] [place] [address] PCP - General Family Medicine 08/20/24 documented as of this encounter
--- OUTSIDE RECORDS SUMMARY | 2025-01-11 17:19 | XMS_ITS | Encounter Summary ---
Author Organization [facility] Address [address] [place] [address] Care Team Providers Care Armoring Machine Operator Name Role Phone Zoey Membreno MD Primary Care Provider [phone] Liana Bonilla Primary Care Provider [phone] Encounter Details Date Type Department Care Team (Late st Contact Info) Description 08/25/2018 Telephone [facility] [address] [place] [address] Clara Zambrano MD [address] [address] Social History Tobacco Use Types Packs/Day Years Used Date Smoking Tobacco: Every Day Cigarettes Smokeless Tobacco: Never Alcohol Use Standard Drinks/Week Comments No 0 (1 standard drink = 0.6 oz pur e alcohol) Comments No Sex and Gender Information Value Date Recorded Sex Assigned at Female 08/28/2021 5:51 PM CDT Legal Sex Female 5:33 AM UI ENGINEER Gender Identity Female 08/28/2021 5:51 PM CDT Sexual Orientation Straight 08/28/2021 5: 51 PM CDT documented as of this encounter Plan of Treatment Upcoming Encounters Date Type Department Care Team (Late st Contact Info) Description 01/21/2025 2:30 PM CDT Appointment [facility] [address] [place] [address] Mu Mendoza MD [address] [place] [address] 2L DIV OF PULMONARY/[place] [address] 01/27/2025 4:00 PM CDT Office Visit [facility] - Pulmonology [address] [place] [phone] Elsa Pascal MD [address] [place] [address] 2L DIV OF GEN [place] [address] 02/02/2025 10:45 AM CDT Office Visit [facility] - Orthopedics [address] [place] [phone] Rashel Carnes MD [facility] [place] [address] 02/24/2025 2:00 PM CDT Appointment [facility] [address] [place] [address] Elsa Pascal MD [address] [place] [address] 2L DIV OF GEN [place] [address] 03/09/2025 9:00 AM UI ENGINEER Office Visit [facility] - Urology [address] [place] [phone] Rosio Mejía DO [address] [place] [address] 2L DIV OF [place]OLOGIC [place] [address] 03/14/2025 1:30 PM UI ENGINEER Office Visit [facility] - ENT [address] [facility], [place] [address] Flex Turcios MD [address] [facility] [address] [place] [address] 03/23/2025 2:30 PM UI ENGINEER Office Visit [facility] - Neurology [address] [facility] [place] [phone] Marylu Forbes PA-C [address] [place] [address] documented as of this encounter Visit Diagnoses Not on filedocumented in this encounter Additional Health Concerns Infection Onset Date Last Indicated Resolved Time CDIFF Under Investigation 09/30/2023 09/30/2023 4:33 AM CDT documented as of this encounter Care Teams Armoring Machine Operator Relationship Specialty Start Date End Date Zoey Membreno MD [address] [facility] [place] [address] PCP - General 08/20/17 08/19/24 Liana Bonilla APNP-AMUSEMENT OR RECREATION CARD CHECKER [address] [place] [address] PCP - General Family Medicine 08/20/24 documented as of this encounter
--- OUTSIDE RECORDS SUMMARY | 2025-01-11 17:19 | XMS_ITS | Encounter Summary ---
Author Organization [facility] Health Address [address] [facility] [place] [address] Care Team Providers Care Numerical Analysis Group Manager Name Role Phone Zoey Membreno MD Primary Care Provider [phone] Liana Bonilla-CAPITAL EQUIPMENT SPECIALIST Primary Care Provider [phone] Encounter Details Date Type Department Care Team (Late st Contact Info) Description 03/24/2023 Telephone [facility] - Centralized Scheduling [address] [place] [address] Andrea Maciel MD [address] [place] [address] Social History Tobacco Use Types Packs/Day Years [...] PM CDT Legal Sex Female 5:33 AM BRUSH AND BROOM CLIPPER Gender Identity Female 08/28/2021 5:51 PM CDT [...] encounter Miscellaneous Notes * Telephone Encounter - Violeta Galarza - 03/24/2023 3:15 PM CST Current Provider name:ULICES Reason for call: Pt was recently d/c from the hospital for reocurring pneumonia. She states that she is in a lot of pain and believes she has a lump on the side of her chest. She would like to speak with someone as soon as possible. Patient Call Back number: [phone] H AND BROOM CLIPPER documented in this encounter Plan of Treatment Upcoming Encounters Date Type Department Care Team (Late st Contact Info) Description 01/21/2025 2:30 PM CDT Appointment [facility] PFT [address] [place] [address] Mu Mendoza MD [address] [place] [address] 2L DIV OF PULMONARY/[place] [address] 01/27/2025 4:00 PM CDT Office Visit [facility] - Pulmonology [address] [place] [address] Elsa Pascal MD [address] [place] [address] 2L DIV OF GEN [place] [address] 02/02/2025 10:45 AM CDT Office Visit [facility] - Orthopedics [address] [place] [phone] Rashel Carnes MD [address] [place] [address] 02/24/2025 2:00 PM CDT Appointment [facility] ECHO [address] [place] [address] Elsa Pascal MD [address] [place] [address] 2L DIV OF [facility] [place] [address] 03/09/2025 9:00 AM BRUSH AND BROOM CLIPPER Office Visit [facility] - Urology [address] [place] [phone] Rosio Mejía DO [address] [place] [address] 2L DIV [place] [address] 03/14/2025 1:30 PM BRUSH AND BROOM CLIPPER Office Visit [facility] - ENT [address] [facility], [place] [address] Flex Turcios MD [address] [facility] [address] [place] [address] 03/23/2025 2:30 PM BRUSH AND BROOM CLIPPER [facility] [address] [facility], [place] [phone] Marylu Forbes PA-C [address] [place] [address] documented as of this encounter Goals Goal [...] documented as of this encounter Care Teams Numerical Analysis Group Manager Relationship Specialty Start Date End Date Zoey Membreno MD [address] [place] [address] PCP - General 08/20/17 08/19/24 Liana Bonilla APNP-CAPITAL EQUIPMENT SPECIALIST [address] [place] [address] PCP - General Family Medicine 08/20/24 documented as of this encounter
--- OUTSIDE RECORDS SUMMARY | 2025-01-11 17:19 | XMS_ITS | Encounter Summary ---
Author Organization [facility] Address [address] [facility] [place] [address] Care Team Providers Care Cost Specialist Name Role Phone Zoey Membreno MD Primary Care Provider [phone] Liana Bonilla Primary Care Provider [phone] Reason for Visit * Reason Onset Date Comments Record Request 06/14/2020 Encounter Details Date Type Department Care Team (Late st Contact Info) Description 06/14/2020 Telephone [facility] [address] [place], [place] [phone] Clara Zambrano MD [address] [place] [address] [place] [address] Record Request Social History Tobacco Use Types Packs/Day Years Used Date Smoking Tobacco: Every Day Cigarettes 0.5 42 Started: 12/28/1982 Smokeless Tobacco: Never Alcohol Use Standard Drinks/Week Comments No 0 (1 standard drink = 0.6 oz pur e alcohol) Comments No Sex and Gender Information Value Date Recorded Sex Assigned at Female 08/28/2021 5:51 PM CDT Legal Sex Female 5:33 AM ACTIVE DIRECTORY SPECIALIST Gender Identity Female 08/28/2021 5:51 PM CDT [...] dtr to catheterize her afterward, she gets afair amount PVR. PLAN: start bladder diary w/ morning void and PVR. Will go to [facility] in 2 days ( 72hrs after last dose of macrobid) for JAMAL culture. Will see her next week and discuss results. VE DIRECTORY SPECIALIST * Telephone Encounter - Kali Perez RN - 06/15/2020 4:50 PM CST Naa had an appt with Dr Betancur's DIEING OUT MACHINE OPERATOR , Yeimi Casas, yesterday. Naa states her appt was cancelled r/t she didn't have any images. No images available. Will discuss with Dr Zambrano and see if we can offer a different provider. VE DIRECTORY SPECIALIST * Telephone Encounter - Paige Chappell - 06/14/2020 12:16 PM CST Pt called in stating that her kidney specialist needed her documentation from Dr Zambrano regarding kidney stones to keep her appt. Pt can be reached at . VE DIRECTORY SPECIALIST documented in this encounter Plan of Treatment Upcoming Encounters Date Type Department Care Team (Late st Contact Info) Description 01/21/2025 2:30 PM CDT Appointment [facility] PFT [address] [place] [phone] Mu Mendoza MD [address] [place] [address] 2L DIV OF PULMONARY/[place] [phone] 01/27/2025 4:00 PM CDT Office Visit [facility] - Pulmonology [address] [place] [address], [place] [address] Elsa Pascal MD [address] [place] [address] 2L DIV OF [place] [address] 02/02/2025 10:45 AM CDT Office Visit [facility] - Orthopedics [address] [place] [address], [place] [phone] Rashel Carnes MD [address] [place] [address] 02/24/2025 2:00 PM CDT Appointment [facility] ECHO [address] [place] [address] [place] [address] Elsa Pascal MD [address] [place] [address] 2L DIV OF [place] [address] 03/09/2025 9:00 AM ACTIVE DIRECTORY SPECIALIST Office Visit [facility] - Urology [address] [place] [address], [place] [address] Rosio Mejía DO [address] [place] [address] 2L DIV [place] [address] 03/14/2025 1:30 PM ACTIVE DIRECTORY SPECIALIST Office Visit [facility] - ENT [address] [place] [address], [place] [address] Flex Turcios MD [address] [place] [address] [address] [place] [address] 03/23/2025 2:30 PM ACTIVE DIRECTORY SPECIALIST Office Visit [facility] - Neurology [address] [place] [phone] Marylu Forbes PA-C [address] [place] [address] documented as of this encounter Goals Goal [...] Comments CULTURE URINE Routine 06/23/2020 9:54 AM ACTIVE DIRECTORY SPECIALIST Recurrent UTI Chronic interstitial cystitis Chronic pelvic pain in female documented in this encounter Results * CULTURE URINE (06/23/2020 9:54 AM ACTIVE DIRECTORY SPECIALIST) [facility] Comment: CULTURE, URINE, ROUTINE Micro Number: [id number] Test Status: Final Specimen Source: URINE, CATHETER Specimen Quality: Adequate Result: No Growth Test Performed at: [facility] [id number] PALMA YATES MD Urine URINE SPECIMEN OBTAINED BY CLEAN CATCH PROCEDURE / Unknown 06/23/2020 9:54 AM ACTIVE DIRECTORY SPECIALIST 06/23/2020 9:55 AM ACTIVE DIRECTORY SPECIALIST Clara Zambrano MD LAB - MICROBIOLOGY ORDERABLES Final Result [address] [address] documented in this encounter Visit Diagnoses Diagnosis Recurrent UTI- Primary Urinary tract infection, site not specified Chronic interstitial cystitis Chronic pelvic pain in female Unspecified symptom associated with female genital organs documented in this encounter Additional Health Concerns Infection Onset Date Last Indicated Resolved Time CDIFF Under Investigation 09/30/2023 09/30/2023 4:33 AM CDT documented as of this encounter Care Teams Cost Specialist Relationship Specialty Start Date End Date Zoey Membreno MD [address] [place], [place] [address] [phone] PCP - General 08/20/17 08/19/24 Liana Bonilal APNP-CIVIL RIGHTS ATTORNEY [address] [place] [address] PCP - General Family Medicine 08/20/24 documented as of this encounter
--- OUTSIDE RECORDS SUMMARY | 2025-01-11 17:19 | XMS_ITS | Encounter Summary ---
Author Organization [facility] Address [address] [facility] [place] [address] Care Team Providers Care Mechanical Maintenance Name Role Phone Zoey Membreno MD Primary Care Provider [phone] Liana Bonilla Primary Care Provider [phone] Reason for Visit * Reason Onset Date Comments Appointment 12/20/2020 Encounter Details Date Type Department Care Team (Late st Contact Info) Description 12/20/2020 Telephone [facility] [address] [place], [place] [phone] Clara Zambrano MD [address] [facility] [address] [place], [place] [phone] Appointment Social History Tobacco Use Types Packs/Day Years Used Date Smoking Tobacco: Every Day Cigarettes 0.5 42 Started: 12/28/1982 Smokeless Tobacco: Never Alcohol Use Standard Drinks/Week Comments No 0 (1 standard drink = 0.6 oz pur e alcohol) Comments No Sex and Gender Information Value Date Recorded Sex Assigned at Female 08/28/2021 5:51 PM CDT Legal Sex Female 5:33 AM SKILLS TRAINER Gender Identity Female 08/28/2021 5:51 PM CDT [...] a re: returning call for Naa Mims. [facility] office. * Telephone Encounter - Liana Singh - 12/20/2020 12:30 PM CDT Pt called to see if one of our other providers would be able to see her for her condition when campian leaves or if she needs to go elsewhere Callback:[phone] documented in this encounter Plan of Treatment Upcoming Encounters Date Type Department Care Team (Late st Contact Info) Description 01/21/2025 2:30 PM CDT Appointment [facility] PFT [address] [place] [address] Mu Mendoza MD [address] [place] [address] 2L DIV OF PULMONARY/[place] [address] 01/27/2025 4:00 PM CDT Office Visit [facility] - Pulmonology [address] [place] [address], [place] [address] Elsa Pascal MD [address] [place] [address] 2L DIV [place] [address] 02/02/2025 10:45 AM CDT Office Visit [facility] - Orthopedics [address] [place] [address], [place] [address] Rashel Carnes MD [address] [place] [address] 02/24/2025 2:00 PM CDT Appointment [facility] ECHO [address] [place] [address] Elsa Pascal MD [address] [place] [address] 2L DIV [place] [address] 03/09/2025 9:00 AM SKILLS TRAINER Office Visit [facility] - Urology [address] [place] [phone] Rosio Mejía DO [address] [place] [address] 2L [place] [address] 03/14/2025 1:30 PM SKILLS TRAINER Office Visit [facility] - ENT [address] [place] [address], [place] [address] Flex Turcios MD [address] [place] [address] [address] [place] [address] 03/23/2025 2:30 PM SKILLS TRAINER Office Visit [facility] - Neurology [address] [facility], [place] [address] Marylu Forbes PA-C [address] [place] [address] documented as of this encounter Goals Goal [...] documented as of this encounter Care Teams Mechanical Maintenance Relationship Specialty Start Date End Date Zoey Membreno MD [address] [facility] [place] [phone] PCP - General 08/20/17 08/19/24 Liana Bonilla APNP-CREDIT COLLECTIONS REP [address] [place] [address] PCP - General Family Medicine 08/20/24 documented as of this encounter
--- OUTSIDE RECORDS SUMMARY | 2025-01-11 17:19 | XMS_ITS | Encounter Summary ---
Author Organization [facility] Address [address] [facility] [place] [address] Care Team Providers Care Corner Block Cutter Name Role Phone Zoey Membreno MD Primary Care Provider [phone] Liana Bonilla Primary Care Provider [phone] Encounter Details Date Type Department Care Team (Late st Contact Info) Description 01/17/2023 Telephone [facility] - Centralized Scheduling [address] [place] [address] Nikki Peace MD [address] [address] [place] [address] Social History Tobacco Use Types [...] PM CDT Legal Sex Female 5:33 AM SERVICE DESK DIRECTOR Gender Identity Female 08/28/2021 5:51 PM [...] Info) Description 01/21/2025 2:30 PM CDT [facility] [address] [place] [address] Mu Mendoza MD [address] [place] [address] 2L DIV OF PULMONARY/[place] [address] 01/27/2025 4:00 PM CDT Office Visit [facility] - Pulmonology [address] [place] [address] Elsa Pascal MD [address] [place] [address] 2L DIV OF [place] [address] 02/02/2025 10:45 AM CDT Office Visit [facility] - Orthopedics [address] [place] [address] Rashel Carnes MD [address] [place] [address] 02/24/2025 2:00 PM CDT Appointment [facility] ECHO [address] [place] [address] Elsa Pascal MD [address] [place] [address] 2L DIV OF [place] [address] 03/09/2025 9:00 AM SERVICE DESK DIRECTOR Office Visit [facility] - Urology [address] [place] [phone] [place]ía [place] [address] [place] [address] 2L DIV [place] [address] 03/14/2025 1:30 PM SERVICE DESK DIRECTOR Office Visit [facility] - ENT [address] [place] [address], [place] [address] Flex Turcios MD [address] [place] [address] [address] [place] [address] 03/23/2025 2:30 PM SERVICE DESK DIRECTOR Office Visit [facility] - Neurology [address] [facility], [place] [phone] Marylu Forbes PA-C [address] [place] [address] documented as of this encounter Goals Goal [...] documented as of this encounter Care Teams Corner Block Cutter Relationship Specialty Start Date End Date Zoey Membreno MD [address] [place] [address] PCP - General 08/20/17 08/19/24 Liana Bonilla APNP-INSOLE DOUBLER [address] [place] [address] PCP - General Family Medicine 08/20/24 documented as of this encounter
--- OUTSIDE RECORDS SUMMARY | 2025-01-11 17:19 | XMS_ITS | Clinical Summary ---
Author Organization [facility] Address [address] [place] [address] Care Team Providers Care Real Estate Rep Name Role Phone Zoey Membreno MD Primary Care Provider [phone] Allergies Active Allergy Reactions Criticality Noted Date [...] needed for Wheezing. Active vitamin D2, ergocalciferol, 12932 UNITS capsule Take 50,000 Units by mouth [...] PO HS 1 02/11/20 18 Active Umeclidinium [place] (INCRUSE ELLIPTA) 62.5 MCG/INH AEROSOL POWDER, BREATH [...] ns:Chronic obstructive pulmonary disease, unspecified COPD type ([facility]) INHALE 1 PUFF INTO THE LUNGS TWICE [...] 05/01/20 Active Heparin Sodium, Porcine, (HEPARIN, PORCINE,) 90437 UNIT/ML injection 10,000 Units by Intravesical route. 05/29/19 Active SYRINGE-NEEDLE, DISP, 3 ML (B-D 3CC LUER-DAYNE SYR 21GX1) 21G X 1 3 ML Misc USE [...] stroke Fall Risk. Hx of cancer in 6085-7555 with surgical removal no chemo or radiation. [...] stones COPD (chronic obstructive pu lmonary disease) ([facility]) 10/26/2017 Assessment & Plan (10/26/2017 4:36 AM CDT): Chronic. Controlled. -Continue home inhalers -counseled on smoking cessation Seizure ([facility]) 10/26/2017 Assessment & Plan (03/31/2018 8:08 PM SUPERVISOR BEAM DEPARTMENT): Assessment & Plan (10/26/2017 4:36 AM CDT): Chronic. Controlled -continue home topiramate Depression 10/11/2017 Hemiplegic migraine without status migrainosus, not intractable 10/11/2017 Anxiety 07/14/2017 Chronic obstructive asthma ([facility]) 04/2018 ADORE (obstructive sleep apnea) 07/14/2017 Personal [...] Height 152.4 cm (5') 03/20/2020 9:47 PM SUPERVISOR BEAM DEPARTMENT Body Mass Index 30.66 03/20/2020 9:47 PM SUPERVISOR BEAM DEPARTMENT Plan of Treatment Health Maintenance Due Date [...] 2) 07/24/2021 COVID-19 Vaccine (2023-2 5 season) 2025 Meningococcal B Vaccine Aged Out No l onger eligible based on patient's age to complete this topic Meningococcal Vaccine Aged Out No cecil cathleen eligible based on patient's age to complete this topic RSV Immunizations Under 20 Months Aged Out No longer eligible based on patient's age to complete this topic Medical Devices Implanted Type Area Computer Drafter Device Identifier Shelf Expiration Date Model / Serial / Lot Stent Implanted:Qty: 1 on 10/26/2017 by Axel Whitfield MD at [facility] Right: Ureter 03/14/2022 [id number] / / [id number] Explanted Type Area Computer Drafter Device Identifier Shelf Expiration Date Model / Serial / Lot Stent Implanted:Qty: 1 Explanted:Qty: 1 on 10/26/2017 by Axel Whitfield MD at [facility] Right: Ureter 02/21/2022 [id number] / / [id number] Procedures Procedure Name Priority Date/Time Associated Diagnosis Comments LIPID PANEL Routine 04/08/2018 1:30 PM SUPERVISOR BEAM DEPARTMENT Encounter for screening for lipoid disorders COLONOSCOPY Routine SUPERVISOR BEAM DEPARTMENT from Last 3 Months or Most Recently Relevant to Health Maintenance Results * (ABNORMAL) LIPID PANEL (04/08/2018 1:30 PM SUPERVISOR BEAM DEPARTMENT) CHOLESTEROL 170 <200 MG/DL 04/08/2018 7:27 PM SUPERVISOR BEAM DEPARTMENT [facility] TRIGLYCERIDES 41 <150 MG/DL 04/08/2018 7:27 PM SUPERVISOR BEAM DEPARTMENT [facility] HDL 59 >40.0 MG/DL 04/08/2018 7:27 PM [facility] LDL (CALCULATED) 103(H) <100 MG/DL 04/08/2018 7:27 PM [facility] NON HDL CHOLESTEROL 111 <130 MG/DL 04/08/2018 7:27 PM [facility] CHOL/HDL RATIO 2.9 0.0 - 4.5 04/08/2018 7:27 PM SUPERVISOR BEAM DEPARTMENT [facility] VLDL CALCULATION 8 5 - 55 MG/DL 04/08/2018 7:27 PM [facility] LIPID INTERPRETATION 04/08/2018 7:27 PM [facility] Comment: [facility] REPORT RECOMMENDATIONS: ADULT CHILD LOW RISK: CHOLESTEROL <200 <170 TRIGLYCERIDE <150 --- HDL >=60 --- LDL <100 <110 BORDERLINE: CHOLESTEROL 200-239 170-199 TRIGLYCERIDE 150-199 --- HDL 40-59 --- LDL 100-159 110-129 HIGH RISK: CHOLESTEROL >=240 >=200 TRIGLYCERIDE >=200 --- HDL <40 --- LDL >=160 >=130 04/08/2018 1:30 PM SUPERVISOR BEAM DEPARTMENT Tex Barboza [facility] Final Result [facility] [address] [place] [address], * Colonoscopy ( SUPERVISOR BEAM DEPARTMENT) Narrative [facility] TO EPIC CONVERSION - SUPERVISOR BEAM DEPARTMENT Documented hx of procedure Procedure Note Bladimir [...] 5:14 AM 10/26/2017 8:16 PM Care Teams Real Estate Rep Relationship Specialty Start Date End Date Zoey Membreno MD [address] [place] [address] PCP - General 09/16/16
--- OUTSIDE RECORDS SUMMARY | 2025-01-11 17:19 | XMS_ITS | Encounter Summary ---
Author Organization [facility] Address [address] [facility] [place] [address] Care Team Providers Care Legal Archivist Name Role Phone Zeoy Membreno MD Primary Care Provider [phone] Liana Bonilla Primary Care Provider [phone] Encounter Details Date Type Department Care Team (Late st Contact Info) Description 10/09/2018 Lab Requisition [facility] Care Pathology Lab [address] [place] [address] Sandrita Syed MD [address] [place] [address] Social History Tobacco Use Types Packs/Day Years Used Date Smoking Tobacco: Every Day Cigarettes Smokeless Tobacco: Never Alcohol Use Standard Drinks/Week Comments No 0 (1 standard drink = 0.6 oz pur e alcohol) Comments No Sex and Gender Information Value Date Recorded Sex Assigned at Female 08/28/2021 5:51 PM CDT Legal Sex Female 5:33 AM SOAP TENDER Gender Identity Female 08/28/2021 5:51 PM CDT Sexual Orientation Straight 08/28/2021 5: 51 PM CDT documented as of this encounter Plan of Treatment Upcoming Encounters Date Type Department Care Team (Late st Contact Info) Description 01/21/2025 2:30 PM CDT Appointment [facility] PFT [address] [place] [address] Mu Mendoza MD [address] [place] [address] 2L DIV OF PULMONARY/[place] [address] 01/27/2025 4:00 PM CDT Office Visit [facility] - Pulmonology [address] [place] [address] Elsa Pascal MD [address] [place] [address] 2L DIV OF GEN [place] [address] 02/02/2025 10:45 AM CDT Office Visit [facility] - Orthopedics [address] [place] [address], [place] [address] Rashel Carnes MD [address] [place] [address] 02/24/2025 2:00 PM CDT Appointment [facility] ECHO [address] [place] [address] Elsa Pascal MD [address] [place] [address] 2L DIV OF GEN [place] [address] 03/09/2025 9:00 AM SOAP TENDER Office Visit [facility] - Urology [address] [place] [address] Rosio Mejía DO [address] [place] [address] 2L DIV [place] [address] 03/14/2025 1:30 PM SOAP TENDER Office Visit [facility] - ENT [address] [place], [place] [address], [place] [address] Flex Turcios MD [address] [facility] DOOR 3 [place] [address] 03/23/2025 2:30 PM SOAP TENDER Office Visit [facility] - Neurology 12[address] [facility] [place] [address] Marylu Forbes PA-C [address] [place] [address] documented as of this encounter Procedures Procedure Name Priority Date/Time Associated Diagnosis Comments FLOW CYTOMETRY BODY FLUID Routine 10/09/2018 10:36 AM CDT documented in this encounter Results * FLOW CYTOMETRY BODY FLUID (10/09/2018 10:36 AM CDT) Case Report Flow Cytometry Case: [id number] Authorizing Provider: Sandrita Syed MD Collected: 10/09/2018 10:36 AM Pathologist: Sophy Bolaños MD Received: 10/09/2018 03:13 PM Specimen: Fine Needle Aspirate, Lymph Node 9 4:56 PM CDT [facility] PATHOLOGY LAB Final Diagnosis Lymph node, cervical , flow cytometric immunophenotypic analysis ([id number]): - No evidence of non-Hodgkin lymphoma. - See interpretation. 9 4:56 PM CDT [facility] PATHOLOGY LAB at 3208 CDT Flow Cytometry Interpretation The cervical lymph node [...] the flow cytometry specimen is reviewed for quality assurance qa lab analyst purposes. The cervical lymph node shows no evidence of involvement by a non-Hodgkin lymphoma. Correlation with clinical findings and the concurrent cytology specimen is required. KR/NW 9 4:56 PM [facility] PATHOLOGY LAB Flow Cytometry Results Differential Result Comment Flow Cell Count /uL 42588 Total Viability % 99 Lymphocytes % 94 Dim CD45 Region % 0 Monocytes % 1 Granulocytes % 4 9 4:56 PM [facility] PATHOLOGY LAB Client Specimen ID # [id number] 4:56 PM T [facility] PATHOLOGY LAB Reason for test Cervical lymphadenopathy 4:56 PM [facility] PATH[facility] Number of markers 16 were performed. A Flow CD3 A Flow CD10 A Flow CD20 A Flow CD23 A Flow CD2 A Flow CD4 A Flow CD1a A Flow CD5 A Flow CD19 A Flow CD34 A Flow CD45 A Flow CD7 A Flow CD8 A Flow CD30 A [place]+CD19+ A Lambda+CD19+ 4:56 PM [facility] PATHOLOGY LAB Disclaimer Test performed at [facility], [address] [place] [address], [id number]. *The established laboratory minimum viability is 70%. [...] qualified to perform high complexity clinical testing. 4:56 PM [facility] PATHOLOGY LAB Embedded Images 4:56 PM T [facility] PATHOLOGY LAB Fluid (Fine Needle Aspirate) 10/09/2018 10:36 AM CDT 10/09/2018 3:13 PM CDT us Sandrita Syed MD LAB - PATHOLOGY/CYTOLOGY ORDERA BLES Final Result [facility] PATHOLOGY LAB [address] [place], [place] [address] [phone] documented in this encounter Visit Diagnoses Not on filedocumented in this encounter Additional Health Concerns Infection Onset Date Last Indicated Resolved Time CDIFF Under Investigation 09/30/2023 09/30/2023 4:33 AM CDT documented as of this encounter Care Teams Legal Archivist Relationship Specialty Start Date End Date Zoey Memrbeno MD [address] [place] [address] PCP - General 08/20/17 08/19/24 Liana Bonilla APNP-FISHING LURE ASSEMBLER [address] [place], [place] [phone] PCP - General Family Medicine 08/20/24 documented as of this encounter
--- OUTSIDE RECORDS SUMMARY | 2025-01-11 17:19 | XMS_ITS | Encounter Summary ---
Author Organization [facility] Address [address] [facility] [place] [address] Care Team Providers Care Communications Officer Name Role Phone ChadLiana BART-YARD JOCKEY Primary Care Provider [phone] Encounter Details Date Type Department Care Team (Late Contact Info) Description 11/26/2024 Results Follow-Up [facility] - Pulmonology [address] [place] [address], [place] [address] Elsa Pascal MD [address] [place] [address] OF [facility] [place] [address] Social History Tobacco Use Types Packs/Day Years Used Date Smoking Tobacco: Every Day Cigarettes 0.5 42.8 Started: 12/28/1982 Smokeless Tobacco: Never Comments:07/23/22 Lung [...] Recorded Patient Health Questionnaire-2 Score 3 05/12/2023 [facility] of Occupat ional Health - Occupational [...] place to sleep or slept in a longterm (including now)? 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 Sex Female 5:33 AM LINING LAYER Gender Identity Female 08/28/2021 5:51 PM CDT [...] Chino Jaffe RN documented in this encounter Progress Notes * Elsa Pascal MD - 11/26/2024 4:33 PM CDT Called patient to relay test results * Elsa Pascal MD - 11/26/2024 4:32 PM CDT Called patient to relay test results. documented in this encounter Plan of Treatment Upcoming Encounters Date Type Department Care Team (Late st Contact Info) Description 01/21/2025 2:30 PM CDT Appointment [facility] PFT [address] [place] [phone] Mu Mendoza MD 1225 [facility] 2L DIV OF PULMONARY/[place] [address] 01/27/2025 4:00 PM CDT Office Visit [facility] - Pulmonology [address] [facility], [place] [address] Elsa Pascal MD [address] [place] [address] 2L DIV [place] [address] 02/02/2025 10:45 AM CDT Office Visit [facility] - Orthopedics [address] [facility], [place] [address] Rashel Carnes MD [address] [place] [address] 02/24/2025 2:00 PM CDT Appointment [facility] ECHO [address] [place] [address] Elsa Pascal MD [address] [place] [address] 2L DIV [place] [address] 03/09/2025 9:00 AM LINING LAYER Office Visit [facility] - Urology [address] [place] [phone] Rosio Mejía DO [address] [place] [address] 2L [place] [address] 03/14/2025 1:30 PM LINING LAYER Office Visit [facility] - ENT [address] [place] [address], [place] [address] Flex Turcios MD [address] [place] [address] [address] 3 [place] [address] 03/23/2025 2:30 PM LINING LAYER Office Visit [facility] - Neurology [address] [place] [address], [place] [address] Marylu Forbes PA-C [address] [place] [address] documented as of this encounter Goals Goal [...] on filedocumented in this encounter Care Teams Communications Officer Relationship Specialty Start Date End Date Liana Bonilla APNP-[address] [address] PCP - General Family Medicine 08/20/24 documented as of this encounter
--- OUTSIDE RECORDS SUMMARY | 2025-01-11 17:19 | XMS_ITS | Encounter Summary ---
Author Organization [facility] Address [address] [place] [address] Care Team Providers Care Systems Manager Name Role Phone Liana Bonilla BART-COLLAR FUSER Primary Care Provider [phone] Encounter Details Date Type Department Care Team (Late Contact Info) Description 09/30/2024 Telephone [facility] - Pulmonology [address] [place] [phone] Andrea Maciel MD [address] [place] [address] Social History Tobacco Use Types Packs/Day Years [...] Recorded Patient Health Questionnaire-2 Score 3 05/12/2023 [facility] of Occupat ional Health - Occupational Stress [...] place to sleep or slept in a half-way (including now)? 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 Sex Female 5:33 AM TUTORING CLINICIAN Gender Identity Female 08/28/2021 5:51 PM CDT [...] 9:23 AM CDT Chino Jaffe RN documented as of this encounter Mental Status * Does person have difficulty concentrating/remembering/making decisions? Answer Entry Date Author No 09/11/2023 9:23 AM CARMENT Chino Jaffe RN documented in this encounter Miscellaneous Notes * Telephone Encounter - Babita Thomas RN - 09/30/2024 1:57 PM CDT Ana Hernandezlithoniakarlo Fannie, telephoned today inquiring patient's pulmonary medications. Requiring reconciliation. Patient has both Airsupra and Breyna prescribed by PCP. Please call [phone]. Thank you. documented in this encounter Plan of Treatment Upcoming Encounters Date Type Department Care Team (Late st Contact Info) Description 01/21/2025 2:30 PM CDT Appointment [facility] PFT [address] [place] [address] [place] [address] [place] [address] 2L DIV OF PULMONARY/[place] [address] 01/27/2025 4:00 PM CDT Office Visit [facility] - Pulmonology 1225 [facility], [place] [address] Elsa Pascal MD [address] [place] [address] 2L [place] [address] 02/02/2025 10:45 AM CDT [facility] [address] [place] [address], [place] [address] Rashel Carnes MD [address] [place] [address] 02/24/2025 2:00 PM CDT Appointment [facility] ECHO [address] [place] [phone] Elsa Pascal MD [address] [place] [address] 2L DIV [place] [address] 03/09/2025 9:00 AM TUTORING CLINICIAN Office Visit [facility] - Urology [address] [place] [phone] Rosio Mejía DO [address] [place] [address] 2L [place] [address] 03/14/2025 1:30 PM TUTORING CLINICIAN [facility] [address] [place] [address], [place] [address] Flex Turcios MD [address] [place] [address] [address] [place] [address] 03/23/2025 2:30 PM TUTORING CLINICIAN Office Visit [facility] - Neurology [address] [place] [phone] Marylu Forbes PA-C [address] [place] [address] documented as of this encounter Goals Goal [...] on filedocumented in this encounter Care Teams Systems Manager Relationship Specialty Start Date End Date Liana Bonilla APNP-[address] [address] PCP - General Family Medicine 08/20/24 documented as of this encounter
--- OUTSIDE RECORDS SUMMARY | 2025-01-11 17:19 | XMS_ITS | Clinical Summary ---
Author Organization [facility] Address [address] [facility] [address] [place] [address] Phone Care Team Providers Care Claim Administrator Name Role Phone Zoey Membreno MD Primary Care Provider + Tex Barboza APRN, PLANT ANATOMY TEACHER Unavailable Allergies Active Allergy Reactions Criticality Noted [...] by mouth 2 times daily. Active Umeclidinium [place] (INCRUSE ELLIPTA IN) take 1 Puff by [...] on file Legal Sex Female 9:11 AM VISUAL DESIGN LEAD Gender Identity Not on file Sexual Orientation [...] of 3 - 19+ 3-dose series) 07/24/1990 Cologuard 07/24/2016 Colonoscopy 07/24/2016 Colorectal Cancer Screening 07/24/2016 Immunochemical Fecal Occult Blood 07/24/2016 Pneumococcal Immunization (5 0+ years) (2 of 2 - PCV) 07/24/2021 07/14/2013 Zoster Immunization (1 of 2) 07/24/2021 Influenza Immunization (#1) 2025 SARS-COV-2 Immunization (3 - season) 2025 02/13/2021, 01/23/2021 Respiratory Syncytial Virus (RSV) Immunization (Adult) (1 - 1-dose 75+ series) 07/24/2046 Pneumococcal Immunization Combined Discontinued 07/14/2013 Human Papillomavirus (HPV) Immunization Aged Out No longer eligible based on patient's age to complete this topic Meningococcal Immunization (ACWY) Aged Out No longer eligible based on patient's age to complete this topic Rotavirus Immunization Aged Out No lo nger eligible based on patient's age to complete this topic Insurance MEDICAID [employer] Care Teams Claim Administrator Relationship Specialty Start Date End Date Zoey Membreno MD [address] [place], [place] [phone] PCP - General Family Medicine 04/22/16 Tex Barboza, HELICOPTER PILOT, PLANT ANATOMY TEACHER [address] [place] [address] Certified Nurse Practitioner 07/07/17
--- OUTSIDE RECORDS SUMMARY | 2025-01-11 17:19 | XMS_ITS | Encounter Summary ---
Author Organization [facility] Address [address] [place] [address] Care Team Providers Care Hose Tubing Backer Name Role Phone Zoey Membreno MD Primary Care Provider [phone] Liana Bonilla Primary Care Provider [phone] Reason for Visit * Reason Onset Date Comments Patient Requested Call 10/30/2020 Encounter Details Date Type Department Care Team (Late Contact Info) Description 10/30/2020 Telephone [facility] [address] [place], [place] [phone] Clara Zambrano MD 1031 [facility] 400 [place] [address] Patient Requested Call Social History [...] PM CDT Legal Sex Female 5:33 AM PHARMACEUTICAL SALES REPRESENTATIVE Gender Identity Female 08/28/2021 5:51 PM CDT [...] encounter Miscellaneous Notes * Telephone Encounter - Klai Perez RN - 10/31/2020 10:07 AM CDT [...] requested a call back from nurse Kali [phone] documented in this encounter Plan of Treatment Upcoming Encounters Date Type Department Care Team (Late st Contact Info) Description 01/21/2025 2:30 PM CDT Appointment [facility] PFT [address] [place] [phone] Mu Mendoza MD [address] [place] [address] 2L DIV OF PULMONARY/[place] [phone] 01/27/2025 4:00 PM CDT Office Visit [facility] - Pulmonology [address] [place] [phone] Elsa Pascal MD [address] [place] [address] 2L DIV [place] [address] 02/02/2025 10:45 AM CDT Office Visit [facility] - Orthopedics [address] [place] [phone] Rashel Carnes MD 12[address] [place] [address] 02/24/2025 2:00 PM CDT Appointment [facility] ECHO [address] [place] [address] Elsa Pascal MD [address] [place] [address] 2L DIV [place] [address] 03/09/2025 9:00 AM PHARMACEUTICAL SALES REPRESENTATIVE Office Visit [facility] - Urology [address] [place] [phone] Rosio Mejía DO [address] [place] [address] 2L [place] [address] 03/14/2025 1:30 PM PHARMACEUTICAL SALES REPRESENTATIVE Office Visit [facility] - ENT 1225 [facility], [place] [address] Flex Turcios MD 1225 [facility] [address]OR 3 [place] [address] 03/23/2025 2:30 PM PHARMACEUTICAL SALES REPRESENTATIVE Office Visit [facility] - Neurology 1225 [facility], [place] [phone] Marylu Forbes PA-C [address] [place] [address] documented as of this encounter Goals Goal [...] documented as of this encounter Care Teams Hose Tubing Backer Relationship Specialty Start Date End Date Zoey Membreno MD [address] [facility] [place] [address] PCP - General 08/20/17 08/19/24 Liana Bonilla APNP-RIG BUILDER [address] [place] [address] PCP - General Family Medicine 08/20/24 documented as of this encounter
--- OUTSIDE RECORDS SUMMARY | 2025-01-11 17:19 | XMS_ITS | Encounter Summary ---
Author Organization [facility] Address [address] [facility] [place] [address] Care Team Providers Care Slagger Name Role Phone Zoey Membreno MD Primary Care Provider [phone] Liana Bonilla Primary Care Provider [phone] Encounter Details Date Type Department Care Team (Late st Contact Info) Description 06/18/2018 Telephone [facility] General Internal Medicine [address] [address] Stewart Coleman MD [facility] [place] [address] Social History Tobacco Use Types Packs/Day Years Used Date Smoking Tobacco: Every Day Cigarettes Smokeless Tobacco: Never Alcohol Use Standard Drinks/Week Comments No 0 (1 standard drink = 0.6 oz pur e alcohol) Comments No Sex and Gender Information Value Date Recorded Sex Assigned at Female 08/28/2021 5:51 PM CDT Legal Sex Female 5:33 AM TRUST OFFICER Gender Identity Female 08/28/2021 5:51 PM CDT Sexual Orientation Straight 08/28/2021 5: 51 PM CDT documented as of this encounter Plan of Treatment Upcoming Encounters Date Type Department Care Team (Late st Contact Info) Description 01/21/2025 2:30 PM CDT Appointment [facility] PFT [address] [place] [address] Mu Mendoza MD [address] [place] [address] 2L DIV OF PULMONARY/[place] [address] 01/27/2025 4:00 PM CDT Office Visit [facility] - Pulmonology [address] [place] [phone] Elsa Pascal MD [address] [place] [address] 2L [place] [address] 02/02/2025 10:45 AM CDT Office Visit [facility] - Orthopedics [address] [place] [phone] Rashel Carnes MD [facility] [place] [address] 02/24/2025 2:00 PM CDT Appointment [facility] ECHO [address] [place] [address] Elsa Pascal MD [address] [place] [address] 2L DIV [place] [address] 03/09/2025 9:00 AM TRUST OFFICER Office Visit [facility] Urology [address] [place] [phone] Rosio Mejía DO [address] [place] [address] 2L [place] [address] 03/14/2025 1:30 PM TRUST OFFICER Office Visit [facility] - ENT 1225 [facility], [place] [address] Flex Turcios MD 1225 [facility] [address]OR 3 [place] [address] 03/23/2025 2:30 PM TRUST OFFICER Office Visit [facility] - Neurology 1225 [facility], [facility] [place] [phone] Marylu Forbes PA-C [address] [place] [address] documented as of this encounter Visit Diagnoses Not on filedocumented in this encounter Additional Health Concerns Infection Onset Date Last Indicated Resolved Time CDIFF Under Investigation 09/30/2023 09/30/2023 4:33 AM CDT documented as of this encounter Care Teams Slagger Relationship Specialty Start Date End Date Zoey Membreno MD 101 [facility] [place] [address] PCP - General 08/20/17 08/19/24 Liana Bonilla APNP-FUNERAL HOME LOCATION MANAGER [address] [place] [address] PCP - General Family Medicine 08/20/24 documented as of this encounter
--- OUTSIDE RECORDS SUMMARY | 2025-01-11 17:19 | XMS_ITS | Encounter Summary ---
Author Organization [facility] Address [address] [place] [address] Care Team Providers Care Home Care Liaison Name Role Phone Zoey Membreno MD Primary Care Provider [phone] Encounter Details Date Type Department Care Team (Late st Contact Info) Description 10/31/2020 Miew Message [facility] Patient Accounts [address] [place] [address] Charlee, [facility] Provider [facility] Patient Financial Services (Demetrius Mims) Social History [...] on filedocumented in this encounter Care Teams Home Care Liaison Relationship Specialty Start Date End Date Zoey Membreno MD [address] [place] [address] [place] [address] PCP - General 09/16/16 documented as of this encounter
--- OUTSIDE RECORDS SUMMARY | 2025-01-11 17:19 | XMS_ITS | Encounter Summary ---
Author Organization [facility] Address Critical access hospital[address] [place] [address] Care Team Providers Care Concrete Boom Pump Operator Name Role Phone Zoey Membreno MD Primary Care Provider [phone] Encounter Details Date Type Department Care Team (Late st Contact Info) Description 10/10/2018 Abstract [facility] CONVERSION [address] [place] [address] , Generic MD Toni Social History Tobacco [...] Rule Out 03/21/2020 03/21/2020 03/23/2020 10:06 AM DATA SECURITY ADMINISTRATOR COVID-19 Rule Out 08/08/2020 08/08/2020 08/09/2020 8:41 AM CDT documented as of this encounter Care Teams Concrete Boom Pump Operator Relationship Specialty Start Date End Date Zoey Membreno MD [address] [place] [address] PCP - General 09/16/16 documented as of this encounter
--- OUTSIDE RECORDS SUMMARY | 2025-01-11 17:19 | XMS_ITS | Encounter Summary ---
Author Organization [facility] Address [facility] [place] [address] Care Team Providers Care Hedis Review Nurse Name Role Phone Zoey Membreno MD Primary Care Provider [phone] Encounter Details Date Type Department Care Team (Late st Contact Info) Description 01/28/2018 Hosp Visit [facility] Outpatient Therapy [place], [place] [phone] Shannan Betts, PT [place], [place] [phone] Social History Tobacco Use Types Packs/Day Years [...] Rule Out 03/21/2020 03/21/2020 03/23/2020 10:06 AM TELESALES TEAM LEADER COVID-19 Rule Out 08/08/2020 08/08/2020 08/09/2020 8:41 AM CDT documented as of this encounter Care Teams Hedis Review Nurse Relationship Specialty Start Date End Date Zoey Membreno MD [address] [place] [address] [place] [address] PCP - General 09/16/16 documented as of this encounter
--- OUTSIDE RECORDS SUMMARY | 2025-01-11 17:20 | XMS_ITS | Encounter Summary ---
Author Organization [facility] Address [address] [facility] [place] [address] Care Team Providers Care Professional Bass Fisherman Name Role Phone Zoey Membreno MD Primary Care Provider [phone] Liana Bonilla-ROCKET ENGINE COMPONENT MECHANIC Primary Care Provider [phone] Reason for Visit * Reason Onset Date Comments Appointment 05/11/2024 Encounter Details Date Type Department Care Team (Late st Contact Info) Description 05/11/2024 Telephone [facility] - Pulmonology [address] [place] [phone] Andrea Maciel MD [address] [place] [address] Appointment Social History Tobacco Use Types Packs/Day [...] Recorded Patient Health Questionnaire-2 Score 3 05/12/2023 [facility] [place] of Occupat ional Health - Occupational Stress [...] place to sleep or slept in a mcc (including now)? 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 Sex Female 5:33 AM ASSISTANT WOMEN'S BASKETBALL COACH Gender Identity Female 08/28/2021 5:51 PM CDT [...] Boni Askew MA - 05/11/2024 11:01 AM ASSISTANT WOMEN'S BASKETBALL COACH Called patient this morning and left vm STANT WOMEN'S BASKETBALL COACH documented in this encounter Plan of Treatment Upcoming Encounters Date Type Department Care Team (Late st Contact Info) Description 01/21/2025 2:30 PM CDT Appointment [facility] PFT [address] [place] [phone] Mu Mendoza MD [address] [place] [address] 2L DIV OF PULMONARY/[place] [phone] 01/27/2025 4:00 PM CDT Office Visit [facility] - Pulmonology [address] [facility] ([place], [place] [place] [phone] Elsa Pascal MD [address] [place] [address] 2L DIV OF [place] [address] 02/02/2025 10:45 AM CDT Office Visit [facility] - Orthopedics [address] [place] [address], [place] [phone] Rashel Carnes MD [address] [place] [address] 02/24/2025 2:00 PM CDT Appointment [facility] [address] [place] [phone] Elsa Pascal MD [address] [place] [address] 2L DIV OF [facility] [place] [address] 03/09/2025 9:00 AM ASSISTANT WOMEN'S BASKETBALL COACH Office [facility] - Urology [address] [place] [phone] Rosio Mejía DO [address] [place] [address] 2L DIV [place] [phone] 03/14/2025 1:30 PM ASSISTANT WOMEN'S BASKETBALL COACH Office Visit [facility] - ENT [address] [place] [address], [place] [phone] Flex Turcios MD [address] [place] [address] [address] [place] [address] 03/23/2025 2:30 PM ASSISTANT WOMEN'S BASKETBALL COACH Office Visit [facility] - Neurology [address] [place] [phone] Marylu Forbes PA-C [address] [place] [address] documented as of this encounter Goals Goal [...] on filedocumented in this encounter Care Teams Professional Bass Fisherman Relationship Specialty Start Date End Date Zoey Membreno MD [address] [place] [phone] PCP - General 08/20/17 08/19/24 Liana Bonilla APNP-[facility] [address] [place] [address] PCP - General Family Medicine 08/20/24 documented as of this encounter
--- OUTSIDE RECORDS SUMMARY | 2025-01-11 17:20 | XMS_ITS | Encounter Summary ---
Author Organization [facility] Address [address] [facility] [place] [address] Care Team Providers Care Hazmat Truck Driver Name Role Phone Zoey Membreno MD Primary Care Provider [phone] Liana Bonilla Primary Care Provider [phone] Reason for Visit * Reason Onset Date Comments MEDICATION REFILL 05/12/2024 Encounter Details Date Type Department Care Team (Late st Contact Info) Description 05/12/2024 Refill [facility]YS NEURO&PSYCH [address] [place] [address] Eileen Crook [address] [place] [address] MEDICATION REFILL Social History Tobacco Use Types [...] Recorded Patient Health Questionnaire-2 Score 3 05/12/2023 [facility] of Occupat ional Health - Occupational Stress [...] place to sleep or slept in a long term (including now)? 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 Sex Female 5:33 AM ACCESS COORDINATOR Gender Identity Female 08/28/2021 5:51 PM [...] Info) Description 01/21/2025 2:30 PM CDT Appointment [facility] PFT [address] [place] [address] Mu Mendoza MD [address] [place] [address] 2L DIV OF PULMONARY/[place] [address] 01/27/2025 4:00 PM CDT Office Visit [facility] - Pulmonology [address] [place] [address], [place] [address] Elsa Pascal MD [address] [place] [address] 2L [place] [address] 02/02/2025 10:45 AM CDT Office Visit [facility] - Orthopedics [address] [place] [phone] Rashel Carnes MD [address] [place] [address] 02/24/2025 2:00 PM CDT Appointment [facility] ECHO [address] [place] [address] [place] [address] [place] [address] 2L [place] [address] 03/09/2025 9:00 AM ACCESS COORDINATOR Office Visit [facility] - Urology [address] [place] [address], [place] [address] Rosio [place]ía [place] [address] [place] [address] 2L [place] [address] 03/14/2025 1:30 PM ACCESS COORDINATOR Office Visit [facility] - ENT [address] [place] [address], [place] [address] Flex Turcios MD [address] [place] [address] [address] [place] [address] 03/23/2025 2:30 PM ACCESS COORDINATOR Office Visit [facility] - Neurology [address] [place] [phone] Marylu Forbes PA-C [address] [place] [address] documented as of this encounter Goals Goal [...] unspecified documented in this encounter Care Teams Hazmat Truck Driver Relationship Specialty Start Date End Date Zoey Membreno MD [address] [place] [phone] PCP - General 08/20/17 08/19/24 Liana Bonilla APNP-[facility] [address] [place], [place] [phone] PCP - General Family Medicine 08/20/24 documented as of this encounter
--- OUTSIDE RECORDS SUMMARY | 2025-01-11 17:20 | XMS_ITS | Encounter Summary ---
Author Organization [facility] Address [address] [facility] [place] [address] Care Team Providers Care Medical File Clerk Name Role Phone Liana Bonilla BART-SHUTTLER CAR Primary Care Provider [phone] Encounter Details Date Type Department Care Team (Late Contact Info) Description 09/21/2024 Telephone [facility] - Pulmonology [address] [place] [phone] Andrea Maciel MD [address] [place] [address] Social History Tobacco Use Types Packs/Day Years [...] Recorded Patient Health Questionnaire-2 Score 3 05/12/2023 [facility] of Occupat ional Health - Occupational Stress [...] place to sleep or slept in a senior living (including now)? 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 Sex Female 5:33 AM PLATE PUT IN WORKER Gender Identity Female 08/28/2021 5:51 PM CDT [...] encounter Miscellaneous Notes * Telephone Encounter - Allison Riggs - 09/21/2024 12:49 PM CDT Current Provider: Dr. Andrea Maciel Reason for Call: Ms. Naa Mims has her last appt w/ Dr. Maciel 09/28/24, she can come earlier on that day 9AM -11AM or any other day w Dr. Maciel. This would have been her last appt she would like to get in, she has a schedule conflict. If not, she would like to schedule w one of the other FELLOWS. Please call se to reschedule. Thanks. . Patient Call Back Number: [phone] documented in this encounter Plan of Treatment Upcoming Encounters Date Type Department Care Team (Late st Contact Info) Description 01/21/2025 2:30 PM CDT Appointment [facility] PFT [address] [place] [address] Mu Mendoza MD [address] [facility] 2L DIV OF PULMONARY/[place] [address] 01/27/2025 4:00 PM CDT Office Visit [facility] - Pulmonology [address] [place] [phone] Elsa Pascal MD [address] [place] [address] 2L [place] [address] 02/02/2025 10:45 AM CDT Office Visit [facility] - Orthopedics [address] [place] [phone] Rashel Carnes MD [address] [place] [address] 02/24/2025 2:00 PM CDT Appointment [facility] [address] [place] [phone] Elsa Pascal MD [address] [place] [address] 2L DIV [place] [address] 03/09/2025 9:00 AM PLATE PUT IN WORKER Office Visit [facility] - Urology [address] [place] [phone] Rosio Mejía DO [address] [place] [address] 2L [place] [address] 03/14/2025 1:30 PM PLATE PUT IN WORKER Office Visit [facility] - ENT [address] [place] [address], [place] [phone] Flex Turcios MD [address] [place] [address] 03/23/2025 2:30 PM PLATE PUT IN WORKER Office Visit [facility] - Neurology [address] [place] [phone] Marylu Forbes PA-C [address] [place] [address] documented as of this encounter Goals Goal [...] on filedocumented in this encounter Care Teams Medical File Clerk Relationship Specialty Start Date End Date Liana Bonilla APNP-[address] [address] PCP - General Family Medicine 08/20/24 documented as of this encounter
--- OUTSIDE RECORDS SUMMARY | 2025-01-11 17:20 | XMS_ITS | Clinical Summary ---
Author Organization [facility] Address [address] [place] [address] Care Team Providers Care Women'S Garment Fitter Name Role Phone Liana Bonilla-HIGHWAY PAINTER Primary Care Provider [phone] Source Comments [facility],non-owned Affiliates and Associated Physician Practices is amultiple site organization consisting of ambulatory clinics and hospital sitesin [place], [place], [place] and [place]. This disclosure is being madepursuant to the Care Everywhere program and may not contain all information available regarding this patient. Last updated 18.[facility] Allergies Active Allergy Reactions Criticality Noted Date [...] by mouth once daily Active vitamin D, ergocalciferol , (DRISDOL) 90368 UNITS capsule Take 1 (one) capsule by mouth every 7 days (once a week) 08/22/19 18 Active Thiamine HCl 100 MG Take 1 tablet by mouth once daily 30 tablet 5 01/21/20 18 Active aspirin (ASPIRIN) 81 MG tablet Take 1 (one) tablet by mouth every 2 days Active Elastic Bandages & Supports (WRIST SPLINT) MISCIndication s:Carpal tunnel syndrome of right wrist Use 1 Each once daily Use wrist splint on left wrist for carpal tunnel syndrome 1 Each 11/12/19 20 Active multivitamin daily tablet Take 1 (one) tablet by mouth once daily 07/01/19 22 Active sodium chloride (Red Level; Baby Max) 0.65 % nasal sprayIndicatio ns:Nasal dryness [place] 1 (one) spray into each nostril as needed for Dry Nose 88 mL 11 06/10/19 23 Active acyclovir (Zovirax) 400 MG tablet Take 1 (one) tablet by mouth at bedtime 06/20/19 23 Active magnesium 250 MG tablet Take 1 (one) tablet by mouth once daily Active azelastine (Astelin) 0.1 % nasal spray [place] 1 (one) spray into each nostril 2 times daily 90 mL 4 08/16/19 23 Active Magnesium Oxide 250 MG Take 250 mg by mouth once daily Active fish oil/omega-3 fatty acids (Promega;Cardi -[place]ham 3) 1000 MG capsule Take 1 (one) capsule by mouth once daily Active linaCLOtide (Linzess) 145 MCG capsuleIndicat ions:Constipat ion associated with Irritable Bowel Syndrome Take 1 (one) capsule by mouth at bedtime Take on an empty stomach at least 30 minutes prior to first meal of the day. Reasons: Constipation caused by Irritable Bowel Syndrome Active cyclobenzaprin e (Flexeril) 10 MG tablet TAKE 1 TABLET BY MOUTH TWICE DAILY NEEDED 60 tablet 4 05/02/20 23 Active traZODone (Desyrel) 100 MG tablet Take 1 (one) tablet by mouth at bedtime 06/24/19 24 Active omeprazole (PriLOSEC) 40 MG capsuleIndicat ions:Gastroeso phageal reflux disease without esophagitis Take 1 (one) capsule by mouth 2 times daily, before breakfast and supper 180 capsule 3 07/02/19 24 Active guaiFENesin ER 12hr (Mucinex) 600 MG tablet Take 1 (one) tablet by mouth every 12 hours 30 tablet 08/07/19 24 Active polyethylene glycol (Gavilyte-C) 240 g solution Drink half the prep at 5 pm the evening prior to the procedure. Finish the remaining prep at 4 am the morning of the procedure. 4000 mL 09/03/19 24 Active Aimovig 70 MG/ML auto injector penIndications :Migraine with aura and without status migrainosus, not intractable,Ch ronic daily headache ADMINISTER 1 ML UNDER THE [...] once daily as needed 02/03/20 24 Active acetaminophen (Tylenol) 500 MG tablet Take 1 (one) tablet by mouth 3 times daily Maximum allowable Acetaminophen amount = 4 Grams (4000 mg) / 24 hours. 08/21/19 25 Active HYDROcodone-ac etaminophen (Wheelwright) 5-325 MG tabletIndicati ons:Status post surgery Take 1 (one) tablet by mouth every 6 hours as needed for Pain (Severe pain) 28 tablet 08/21/19 25 Active docusate sodium (Colace) 100 MG capsule Take 1 (one) capsule by mouth once daily as needed for Constipation 21 capsule 08/21/19 25 Active ondansetron, disintegrating , (Zofran ODT) 4 MG tablet Take 1 (one) tablet by mouth every 6 hours as needed for Nausea/Vomiting Allow tablet to dissolve on the tongue 10 tablet 1 08/24/19 25 Active oxyCODONE, immediate release, (Roxicodone) 5 MG tabletIndicati ons:Follow-up examination after orthopedic surgery Take 1 (one) tablet by mouth every 6 hours as needed for Pain 10 tablet 08/26/19 25 Active hydrocortisone (Hytone) 2.5 % cream Apply to affected area 4 times daily as needed 09/08/19 25 Active albuterol (Proventil;Darryn tolin) (2.5 MG/3ML) 0.083% nebulizer solutionIndica tions:Chronic obstructive pulmonary disease, unspecified COPD type (HCC) Inhale 2.5 (two and one-half) mg by mouth every 4 hours as needed for Shortness of Breath 75 mL 4 09/24/19 25 Active albuterol HFA (Proventil; Ventolin; Proair) 108 (90 Base) MCG/ACT inhalerIndicat ions:Chronic obstructive pulmonary disease, unspecified COPD type (HCC) Inhale 2 (two) puffs by mouth every 6 hours as needed 8.5 g 5 09/24/19 25 Active budeson-glycop yrrol-formoter ol (Breztri Aerosphere) 160-9-4.8 MCG/ACT inhalerIndicat ions:Chronic obstructive pulmonary disease, unspecified COPD type (HCC) Inhale 2 (two) puffs by mouth 2 times daily 10.7 g 5 09/24/19 25 Active fexofenadine (Tiffany) 180 MG tablet Take 1 (one) tablet by mouth once daily 90 tablet 11/05/19 25 Active ketorolac (Toradol) 10 MG tablet Take 1 (one) tablet by mouth every 6 hours as needed pain Active predniSONE (Deltasone) 10 MG tablet TAKE 1 TABLET BY MOUTH TWICE DAILY FOR 5 DAYS DIRECTED Active brivaracetam (Briviact) 100 MG tabletIndicati ons:Seizures (HCC) Take 1 (one) tablet by mouth 2 times daily 60 tablet 12/08/19 25 Active clonazePAM (KlonoPIN) 1 MG tabletIndicati ons:Seizures (HCC),Anxiety Take 1 (one) tablet by mouth 3 times daily 90 tablet 5 12/08/19 25 Active nortriptyline (Pamelor) 10 MG capsuleIndicat ions:Small fiber neuropathy TAKE 1 CAPSULE BY MOUTH AT BEDTIME 30 capsule 01/01/20 25 Active nortriptyline (Pamelor) 10 MG capsuleIndicat ions:Small fiber neuropathy TAKE 1 CAPSULE BY MOUTH AT BEDTIME 30 capsule 11/19/19 25 2024 Discontinued Hospital, Clinic, or Other Facility Administered Medication Ordered Dose Route Frequency Start Date End Date Status triamcinolone acetonide (Kenalog-40) injection 20 mgIndications:Trigge r thumb of left hand 20 mg IX ONCE 12/20/2024 12/20/2024 Ende d lidocaine PF (Xylocaine MPF) 1 % injectionIndications :Trigger thumb of left hand INFILTRATION ONCE 12/20/2024 12/20/2024 Ended Active Problems Problem Noted Date Diagnosed Date Chronic GERD 10/20/2023 Moderate malnutrition 02/21/2023 07/29/2023 Bacterial vaginosis 02/20/2023 07/29/2023 Positive blood culture 02/20/2023 Hyperkalemia 02/03/2023 02/11/2023 Pneumonia due to infectious organism 02/03/2023 02/11/2023 Sepsis 02/03/2023 02/11/2023 Sinus tachycardia 12/19/2022 Assessment & Plan (06/03/2023 9:32 PM INTERNATIONAL REPRESENTATIVE): I suspect her sinus tachycardia is more [...] Encounters Date Type Department Care Team Description 01/05/2025 Travel 12/29/2024 Refill [facility] - Neurology [address] [place] [phone] Stewart Coleman MD Refill Request 12/22/2024 Telephone [facility] - Pulmonology [address] [place] [phone] Elsa Pascal MD Medication Prior Auth Request 12/21/2024 Orders Only [facility] - Pulmonology [address] [place] [phone] Lori Stewart RN 12/20/2024 1:45 PM CDT Office Visit [facility] - Orthopedics [address] [place] [phone] Will Aragon SIDEHAND-HIGHWAY PAINTER Trigger thumb of left hand (Primary Dx); Stenosing tenosynovitis; Carpal tunnel syndrome, left; Cubital tunnel syndrome, left; Arthritis of carpometacarpal (CMC) joint of right thumb; Compression of left median nerve at elbow; Median nerve compression at elbow, left 12/07/2024 10:30 AM CDT Office Visit [facility] - Neurology [address] [place] [phone] Marylu Forbes PA-C Seizures (HCC) (Primary Dx); PTSD (post-traumatic stress disorder); Severe episode of recurrent major depressive disorder, with psychotic features ([facility]); Anxiety 12/07/2024 Travel 12/03/2024 Refill [facility] - Neurology [address] [place] [phone] Zainab Byrd APRN-HIGHWAY PAINTER Refill Request 11/26/2024 Results Follow-Up [facility] - Pulmonology [address] [place] [phone] Elsa Pascal MD 11/26/2024 Orders Only [facility] - Pulmonology [address] [place] [phone] Elsa Pascal MD 11/17/[address] [facility] [address] [place] [phone] Stewart Coleman MD Refill Request 11/12/2024 11:35 AM CDT - 11/12/2024 11:59 PM CDT Hospital Encounter [facility] DIAGNOSTIC RAD OP [address] [place] [phone] Elsa Pascal MD Discharge Disposition: Home or Self Care 11/12/2024 11:35 AM CDT Hospital Encounter [facility] LAB OP DRAW STATION [address] [place] [phone] Elsa Pascal MD Discharge Disposition: Home or Self Care 11/12/2024 Travel 11/11/2024 1:00 PM CDT Office Visit [facility] - Pulmonology [address] [place] [phone] Elsa Pascal MD AYALA (dyspnea on exertion) (Primary Dx); Centrilobular emphysema (HCC); COPD, group E, by GOLD 2022 classification (HCC); Marijuana abuse; Seasonal allergies 11/11/2024 Travel 11/10/2024 11:00 AM CDT - 11/10/2024 11:59 PM CDT Hospital Encounter [facility] OT [address] [place] [phone] Jaime Morel MD Reale, Jennifer, OTR/L Discharge Disposition: Home or Self Care 11/10/2024 Orders Only [facility] - Pulmonology [address] [place] [phone] Lori Stewart RN 11/08/2024 1:30 PM CDT - 11/08/2024 11:59 PM CDT Hospital Encounter [facility] OT [facility] [place] [phone] Jaime Morel MD Reale, Jennifer, OTR/L Discharge Disposition: Home or Self Care 11/04/2024 Refill [facility] - Pulmonology [address] [place] [phone] Andrea Maciel MD MEDICATION REFILL 11/01/2024 1:00 PM CDT - 11/01/2024 11:59 PM CDT Hospital Encounter [facility] OT [address] [place] [phone] Jaime Morel MD Reale, Jennifer, OTR/L Discharge Disposition: Home or Self Care 10/14/2024 Refill [facility] - Neurology [address] [facility] [place] [phone] Stewart Coleman MD Refill Request from Last 3 Months Immunizations Immunization Administration Dates Next Due Covid Pfizer primary monoval ent 12+ yr 0.3mL Purple [...] 0.5 42.8 Started: 12/28/1982 Smokeless Tobacco: Never Tobacco Cessation:Ready to Q uit: Not Asked; Counseling Given: Not Answered Comments:07/23/22 Lung Cancer Screening Counseling Shared Decision [...] Recorded Patient Health Questionnaire-2 Score 3 05/12/2023 [facility] - Occupational Stress [...] place to sleep or slept in a skilled nursing (including now)? 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 Sex Female 5:33 AM INTERNATIONAL REPRESENTATIVE Gender Identity Female 08/28/2021 5:51 PM CDT Sexual Orientation Straight 08/28/2021 5 :51 PM CDT Last Filed Vital Signs Vital Sign Reading Time Taken Comments Blood Pressure 131/88 12/07/2024 10:38 AM CDT Pulse 94 12/07/2024 10:38 AM CDT Temperature 37.3 C (99.1 F) 11/11/2024 1:11 PM CDT Respiratory Rate 17 11/11/2024 1:11 PM CDT Oxygen Saturation 97% 12/07/2024 10:38 AM CDT Inhaled Oxygen Concentration - - Weight 67.1 kg (148 lb) 12/07/2024 10:38 AM CDT Height 152.4 cm (5') 12/07/2024 10:38 AM CDT Body Mass Index 28.9 12/07/2024 10:38 AM CDT Plan of Treatment Upcoming Encounters Date Type Department Care Team (Late st Contact Info) Description 01/21/2025 2:30 PM CDT Appointment [facility] PFT [address] [place] [phone] Mu Mendoza MD [address] [place] [address] 2L DIV OF PULMONARY/[place] [address] 01/27/2025 4:00 PM CDT Office Visit [facility] - Pulmonology [address] [place] [phone] Elsa Pascal MD [address] [place] [address] 2L DIV OF GEN INTERNAL [place] [address] 02/02/2025 10:45 AM CDT Office Visit [facility] - Orthopedics [address] [place] [phone] Rashel Carnes MD [facility] [place] [address] 02/24/2025 2:00 PM CDT Appointment [facility] ECHO [facility] [place] [phone] Elsa Pascal MD [address] [place] [address] 2L DIV OF GEN INTERNAL [place] [address] 03/09/2025 9:00 AM INTERNATIONAL REPRESENTATIVE Office Visit [facility] - Urology [address] [place] [phone] Rosio Mejía DO [address] [place] [address] 2[address] DIV OF UROLOGIC [place] [address] 03/14/2025 1:30 PM INTERNATIONAL REPRESENTATIVE Office Visit [facility] - ENT [address] [place] [phone] Flex Turcios MD [address] [facility] [address] [place] [address] 03/23/2025 2:30 PM INTERNATIONAL REPRESENTATIVE Office Visit [facility] - Neurology [address] [facility] [place] [phone] Marylu Forbes PA-C [address] [place] [address] Health Maintenance Due Date Last Done Comments COLOGUARD (AGES 45-75) - COLON CA SCREENING 1971 CT COLONOGRAPHY - COLON CA SCREENING 1971 FIT - COLON CA SCREENING 1971 FLEX SIG - COLON CA SCREENING 1971 MEDICARE AWV 12 MONTHS 1971 HIV SCREENING 07/24/1986 HEPATITIS C SCREENING 07/20/1989 DTAP/TDAP/TD VACCINES (1 - Tdap) 07/24/1990 HEPATITIS B VACCINE (1 of 3 - 19+ 3-dose series) 07/24/1990 ZOSTER VACCINE (1 of 2) 07/24/2021 LUNG CANCER SCREENING 09/12/2023 09/11/2022 DEPRESSION SCREENING 05/05/2024 06/03/2023, 03/19/2022, 10/10/2021, Additional history exists COVID-19 VACCINE ( season) 2025 02/13/2021, 01/23/2021 INFLUENZA VACCINE (#1) 2025 3, 03/19/2022, 03/02/2021 MAMMOGRAM 05/13/2025 05/13/2023, 02/13/2016 SCREENING FOR DIABETES 08/17/2027 5, 01/29/2024, 09/11/2023, Additional history exists LIPID TESTING 02/12/2028 02/11/2023, 02/2 , 04/08/2018 COLON MONITORING 09/10/2033 09/11/2023, 09/11/2023 COLONOSCOPY [...] Procedure Name Priority Date/Time Associated Diagnosis Comments GLOMERULAR BASE MEMBRANE ANTIBODY IGG Routine 11/12/2024 11:55 AM CDT AYALA (dyspnea on exertion) [id number] BLOOD Routine 11/12/2024 11:55 AM CDT Centrilobular emphysema (HCC) XR CHEST 2VW Routine 11/12/2024 11:42 AM CDT AYALA (dyspnea on exertion) COMPREHENSIVE METABOLIC PANEL Routine 08/16/2024 4:25 PM CDT Carpal tunnel syndrome, left Cubital tunnel syndrome, left Compression of left median nerve at elbow ENDOSCOPY, COLON, SCREENING Routine 09/11/2023 8:21 AM CDT MAMMO BILAT DIAGNOSTIC W CURTIS Routine 05/13/2023 9:48 AM INTERNATIONAL REPRESENTATIVE Breast pain LIPID PROFILE Routine 02/11/2023 4:[address] LUNG SCREEN LOW DOSE Routine 09/11/2022 3:43 PM CDT Tobacco use disorder Nicotine dependence, cigarettes, uncomplicated from Last 3 Months or Most Recently Relevant to Health Maintenance Results * GLOMERULAR BASE MEMBRANE ANTIBODY IGG (11/12/2024 11:55 AM CDT) GBM Antibody IgG (EU) 0 0 - 19 AU/mL 11/15/2024 7:36 PM CDT [facility] ([facility]) Comment: INTERPRETIVE INFORMATION: GBM Ab, IgG by Multiplex Bead Assay 19 AU/mL or Less ......... Negative 20-25 AU/mL .............. Equivocal 26 AU/mL or Greater ...... Positive The presence of anti-glomerular basement membrane (GBM) antibodies by Multiplex Bead Assay may aid in the diagnosis of Goodpasture syndrome. False positive results may occur due to reactivity against other chains of type IV collagen. If Multiplex Bead Assay is negative but there is a strong suspicion for disease, renal biopsy may be indicated. A renal biopsy may also be essential in suspected Goodpasture disease with renal involvement, allowing diagnostic confirmation and assessment of renal prognosis. Performed By: [facility] [address] [place] [address] Operations Support Manager: Tong Castelan MD, PhD CLIA Number: [id number] Blood BLOOD SPECIMEN / Unknown Lab Venipuncture / Unknown 11/12/2024 11:55 AM CDT 11/12/2024 12:17 PM CDT us Elsa Pascal MD LAB - CHEMISTRY ORDERABLES Final Result [facility]) [address] [place] [address] * [id number] BLOOD (11/12/2024 11:55 AM CDT) Iyijh-0-Xudwsi ypsin 130 90 - 200 mg/dL 11/12/2024 12:46 PM CDT [facility] Blood BLOOD SPECIMEN / Unknown Lab Venipuncture / Unknown 11/12/2024 11:55 AM CDT 11/12/2024 12:17 PM CDT Elsa Pascal MD LAB - CHEMISTRY ORDERABLES Final Result [facility] [address] [place] [address], [facility] [phone] * XR Chest 2Vw (11/12/2024 11:42 AM CDT) Anatomical Region Laterality Modality Chest Digital Radiogra phy 11/12/2024 3:29 PM CDT Narrative 11/12/2024 5:19 PM CDT PROCEDURE: XR CHEST 2VW, DATE/TIME OF EXAM: 11/12/2024 11:43 AM, LOCATION [facility] INDICATION: R06.09: AYALA (dyspnea on exertion) ADDITIONAL CLINICAL INFORMATION: Ordering Provider Reason For Exam: Dyspnea on exertion Technologist Note: Additional: COMPARISON: 01/29/2024. FINDINGS/IMPRESSION: There is no focal consolidation, pleural effusion, or pneumothorax. The heart size and mediastinal contours are normal. Midthoracic vertebral compression deformities are again seen. There is new cement in a midthoracic vertebral body. Report dictated by Kim Alicea MD (residential coordinator). Fanny Sheets MD have personally reviewed and interpreted this examination/study. > Interpreting Provider: Fanny Black MD on 11/12/2024 5:19 PM Procedure Note Fanny Black MD - 11/12/2024 PROCEDURE: XR CHEST 2VW, DATE/TIME OF EXAM: 11/12/2024 11:43 AM, LOCATION [facility] INDICATION: R06.09: AYALA (dyspnea on exertion) ADDITIONAL CLINICAL INFORMATION: Ordering Provider Reason For Exam: Dyspnea on exertion Technologist Note: Additional: COMPARISON: 01/29/2024. FINDINGS/IMPRESSION: There is no focal consolidation, pleural effusion, or pneumothorax. The heart size and mediastinal contours are normal. Midthoracic vertebral compression deformities are again seen. There isnew cement in a midthoracic vertebral body. Report dictated by Kim Alicea MD (residential coordinator). I, Fanny Black MD have personally reviewed and interpreted this examination/study. > Interpreting Provider: Fanny Black MD on 11/12/2024 5:19 PM Elsa Pascal MD DIAGNOSTIC IMAGING ORDERABL ES Final Result * (ABNORMAL) COMPREHENSIVE METABOLIC PANEL (08/16/2024 4:25 PM T) BUN 15 7 - 26 mg/dL 08/16/2024 5:17 PM [facility] Creatinine 0.96 0.56 - 0.96 mg/dL 08/16/2024 5:17 PM [facility] Sodium 139 136 - 145 mmol/L 08/16/2024 5:17 PM [facility] Potassium 4.1 3.5 - 4.5 mmol/L 08/16/2024 5:17 PM [facility] Chloride 102 98 - 107 mmol/L 08/16/2024 5:17 PM [facility] CO2 27 22 - 29 mmol/L 08/16/2024 5:17 PM [facility] Glucose 86 70 - 99 mg/dL 08/16/2024 5:17 PM [facility] Calcium 8.9 8.4 - 10.2 mg/dL 08/16/2024 5:17 PM [facility] Protein Total 7.1 6.0 - 8.3 g/dL 08/16/2024 5:17 PM [facility] Albumin 3.8 3.4 - 5.0 g/dL 08/16/2024 5:17 PM [facility] Bilirubin Total 0.2 0.2 - 1.2 mg/dL 08/16/2024 5:17 PM [facility] Alkaline Phosphatase 66 40 - 150 U/L 08/16/2024 5:17 PM [facility] ALT 19 5 - 55 U/L 08/16/2024 5:17 PM [facility] AST 18 5 - 34 U/L 08/16/2024 5:17 PM [facility] Anion Gap 10 6 - 16 08/16/2024 5:17 PM [facility] BUN/Creatinine Ratio 16 7 - 23 08/16/2024 5:17 PM CDT [facility] Osmolality Calculated 288 275 - 295 mOsm/kg 08/16/2024 5:17 PM CDT [facility] Albumin/Globulin Ratio 1.2 1.1 - 2.3 08/16/2024 5:17 PM CDT [facility] eGFR by CKD-EPI 71(L) >=90 mL/min/1.7 3 m2 08/16/2024 5:17 PM CDT [facility] Blood BLOOD SPECIMEN / Unknown Lab Venipuncture / Unknown 08/16/2024 4:25 PM CDT 08/16/2024 4:52 PM CDT Jaime Morel MD LAB - CHEMISTRY ORDERABLES Final Result [facility] [address] [place] [address], [facility] [phone] * ENDOSCOPY, COLON, SCREENING (09/11/2023 8:21 AM CDT) Report Endoscopy POC Endoscopy Department Report _ Patient Name: aNa Mims Procedure Date: 09/11/2023 8:21 AM Date [...] entire procedure. Procedure Code(s): --- Professional --- 98638, Colonoscopy, flexible; with removal of tumor(s), polyp(s), or other lesion(s) by snare technique Diagnosis Code(s): --- Professional --- Z12.11, Encounter for screening for malignant neoplasm of colon K64.8, Other hemorrhoids D12.5, Benign neoplasm of sigmoid colon D12.3, Benign neoplasm of transverse colon (hepatic flexure or splenic flexure) D12.2, Benign neoplasm of ascending colon CPT copyright 2021 [employer] [place] [employer]. All rights reserved. The codes documented in this report are preliminary and upon affiliate marketing specialist review may be revised to meet current compliance requirements. Annabelle Martinez MD 09/11/2023 9:05:13 AM Note Initiated On: 09/11/2023 8:21 AM Number of Addenda: [id number] [place] [address] PROVATION 09/11/2023 8:21 AM CDT Annabelle Martinez MD GI PROCEDURE ORDERABLES Ed ited Result - Final [facility] PROVATION * MAMMO BILAT DIAGNOSTIC W CURTIS (05/13/2023 9:48 AM INTERNATIONAL REPRESENTATIVE) Anatomical Region Laterality Modality Breast Bilateral Mammography 05/13/2023 9:43 AM INTERNATIONAL REPRESENTATIVE Impressions 05/13/2023 10:39 AM INTERNATIONAL REPRESENTATIVE : 1.No mammographic evidence of malignancy in [...] NEGATIVE. > Dictated by Faviola Pierre M.D. (residential coordinator). Dr. Enrike Spangler (residential coordinator) assisted in the evaluation and interpretation of the study. I, Giovanna Edwards DO have personally reviewed and interpreted this examination/study. > Interpreting Provider: Giovanna Edwards DO on 05/13/2023 10:39 AM Narrative 05/13/2023 10:39 AM INTERNATIONAL REPRESENTATIVE EXAMINATIONS: 1. BILATERAL DIGITAL DIAGNOSTIC MAMMOGRAM AND TOMOSYNTHESIS WITH CAD AND 2. LIMITED RIGHT BREAST ULTRASOUND (COMBINED REPORT) LOCATION: [facility] EXAM DATE: 05/13/2023 HISTORY: 52-year-old female presenting [...] Total 251(H) <200 mg/dL 02/11/2023 5:47 PM CDT [facility] HDL 92 >40 mg/dL 02/11/2023 5:47 PM CDT [facility] Comment: ATP III Classification of HDL Cholesterol: <40 mg/dL: Considered a major risk factor. >60 mg/dL: Considered a negative risk factor. LDL Calculated 140(H) <100 mg/dL 02/11/2023 5:47 PM CDT [facility] Comment: ATP III Classification of LDL Cholesterol: <100 mg/dL: Optimal 100 - 129 mg/dL: Near Optimal/Above Optimal 130 - 159 mg/dL: Borderline High 160 - 189 mg/dL: High >190 mg/dL: Very High Triglycerides 93 <150 mg/dL 02/11/2023 5:47 PM CDT [facility] Comment: ATP III Classification of Triglycerides: <150 mg/dL: Normal 150 - 199 mg/dL: Borderline High 200 - 400 mg/dL: High >500 mg/dL: Very High Blood BLOOD SPECIMEN / Unknown Lab Venipuncture / Unknown 02/11/2023 4:47 PM CDT 02/11/2023 5:15 PM CDT Nikki Peace MD LAB - CHEMISTRY ORDERABLES Fin al Result [facility] [address] [place] [phone], [place] [facility] [phone] * CT LUNG SCREEN LOW DOSE (09/11/2022 [...] or 4A nodules with additional suspicious findings Modifier-S: Significant NON-lung cancer findings For details of the ACR Lung-RADS program, categories and recommendations: 1) https://www.acr.org/Quality-Safety/Resources/LungRADS 2) Internet search: Lung-RADS Lung Cancer Screening 3) Contact [facility] thoracic nurse coordinator ([phone]) > Dictated by Robbi Castro MD, PhD (residential coordinator). I, Elian Espinoza MD have personally reviewed and interpreted this examination/study. > Interpreting Provider: Elian Espinoza MD on 09/11/2022 4:05 PM Narrative 09/11/2022 4:05 PM CDT PROCEDURE: CT LUNG SCREEN LOW DOSE, DATE/TIME OF EXAM: 09/11/2022 3:43 PM, LOCATION [facility] INDICATION: F17.200: Tobacco use disorder F17.210: Nicotine [...] DOSE, DATE/TIME OF EXAM: 09/11/2022 3:43PM, LOCATION [facility] INDICATION: F17.200: Tobacco use disorder F17.210: Nicotine [...] or 4A nodules with additional suspicious findings Modifier-S: Significant NON-lung cancer findings For details of the ACR Lung-RADS program, categories andrecommendations: 1) https://www.acr.org/Quality-Safety/Resources/LungRADS 2) Internet search: Lung-RADS Lung Cancer Screening 3) Contact [facility] thoracic nurse coordinator ([phone]) > Dictated by Robbi Castro MD, PhD (residential coordinator). I, Elian Espinoza MD have personally reviewed and interpreted this examination/study. > Interpreting Provider: Elian Espinoza MD on 09/11/2022 4:05 PM Mu Mendoza MD CT ORDERABLES Final Result from Last 3 Months or Most Recently Relevant to Health Maintenance Insurance MEDICARE [facility] MEDICARE Advance Directives * Full Code (Latest [...] 10:49 AM 10/14/2018 4:30 PM Care Teams [employer]S Garment [employer] Relationship Specialty Start Date End Date Liana Bonilla APNP-HIGHWAY PAINTER [address] [place] [id number] PCP - General Family Medicine 08/20/24
== END 2025-01-11 16:28 | disposition home or self-care (01) ==
DX: R06.02 Shortness of breath (principal)
CPT/HCPCS: 71046

== ENCOUNTER 2025-03-23 17:23 | Outpatient (CLI) | payer MEDICARE, MEDICAID, SELFPAY ==
--- NOTE | ~2025-03-23 | XR_ITS ---
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 Technique: 2 views obtained. Findings: The lungs are clear, no effusion. No pneumothorax. Heart is normal size. Mediastinal and hilar contours are within normal limits. Bony thorax no acute abnormality. Impression: No acute cardiopulmonary abnormality. Reviewed, dictated and finalized at location P. ING HOME DIRECTOR Impression: No acute cardiopulmonary abnormality.
== END 2025-03-23 17:24 | disposition home or self-care (01) ==
DX: R05.1 Acute cough (principal)
CPT/HCPCS: 71046